=== PATIENT | male | born 1930 | race Caucasian/White ===

== ENCOUNTER 2017-12-20 19:53 | Inpatient (IN) | payer OTHER ==
--- NOTE | 2017-12-20 21:19 | PDOC ---
History of Present Illness <Srinivas Gupta - Last Filed: 12/21/17 00:19> - History of Present Illness Initial Comments: 12/20/17 22:32 "Patient is an 87 year old male with a significant past medical history of HTN, CKD, Anemia, who presents to the ED with complaints of weakness and SOB. As per patient's son, patient began to experience chest pain with associated symptoms of nausea that began x3 days that he reports has since subsided. However, pt has had persistent SOB. Patient's daughter reports patient began to experience general weakness as well as, prompting her to call EMS. As per patient's , patient began to experience symptoms of decreased appetite and decreased urinary output. Pt was recently admitted to [facility] on October 14 for similar symptoms. At that time, pt was found to be in renal failure and started on HD via trialysis catheter. However, upon discharge, pt refused HD, citing his age and desire to be comfortable and not be burdened with HD. Allergies: Social history: Former smoker. Surgical history: Gastrectomy s/p bleeding ulcer, PMD: Dr. Alexys Hay " <Geoffrey Young - Last Filed: 12/21/17 06:22> - General Chief Complaint: Lethargy Stated Complaint: Weakness Time Seen by Provider: 12/20/17 20:02 Past History <Srinivas Gupta - Last Filed: 12/21/17 00:19> - Past Medical History Anemia: Yes Cancer: Yes (h/o prostate) GI Disorders: Yes (h/o bleeding ulcers) HTN: Yes - Surgical History Abdominal Surgery: Yes (80% stomach removed) - Suicide/Smoking/Psychosocial Hx Smoking Status: Yes Smoking History: Former smoker Have you smoked in the past 12 months: No Number of Cigarettes Smoked Daily: 0 If you are a former smoker, when did you quit?: 1991 Hx Alcohol Use: No Drug/Substance Use Hx: No Substance Use Type: None <Geoffrey Young - Last Filed: 12/21/17 06:22> - Past Medical History Allergies/Adverse Reactions: Allergies Allergy/AdvReac Type Severity Reaction Status Date / Time Penicillins Allergy Mild Rash Verified 12/20/17 20:51 Home Medications: Ambulatory Orders Acetaminophen [Tylenol .Regular Strength -] 650 mg PO Q4H PRN #0 tablet Amlodipine Besylate [Norvasc -] 10 mg PO DAILY #30 tablet 03/27/16 Pantoprazole Sodium [Protonix -] 40 mg PO DAILY 12/20/17 Sevelamer HCl [Renagel] 800 mg PO TIDCM 12/20/17 Review of Systems - Review of Systems Comments:: 12/20/17 21:23 "GENERAL/CONSTITUTIONAL: +weakness, No fever or chills. HEAD, EYES, EARS, NOSE AND THROAT: No change in vision. No ear pain or discharge. No sore throat. CARDIOVASCULAR: + chest pain + shortness of breath. RESPIRATORY: No cough, wheezing, or hemoptysis. GASTROINTESTINAL: No nausea, vomiting, diarrhea or constipation. GENITOURINARY: No dysuria, frequency, or change in urination. MUSCULOSKELETAL: No joint or muscle swelling or pain. No neck or back pain. SKIN: No rash NEUROLOGIC: No headache, vertigo, loss of consciousness, or change in strength/ sensation. ENDOCRINE: No increased thirst. No abnormal weight change. HEMATOLOGIC/LYMPHATIC: No anemia, easy bleeding, or history of blood clots. ALLERGIC/IMMUNOLOGIC: No hives or skin allergy. <Geoffrey Young - Last Filed: 12/21/17 06:22> *Physical Exam - Vital Signs Last Vital Signs Temp Pulse Resp BP Pulse Ox 98.4 F 87 24 137/68 92 L 12/20/17 20:26 12/20/17 20:26 12/20/17 20:26 12/20/17 20:26 12/20/17 20:26 <Srinivas Gupta - Last Filed: 12/21/17 00:19> - Physical Exam Comments: 12/20/17 21:21 "GENERAL: Awake, alert, and fully oriented, in mild respiratory distress. HEAD: No signs of trauma EYES: PERRLA, EOMI, sclera anicteric, conjunctiva clear ENT: Auricles normal inspection, hearing grossly normal, nares patent, oropharynx clear without exudates. Moist mucosa NECK: Nontender, no stepoffs, Normal ROM, supple, no lymphadenopathy, JVD, or masses LUNGS: + Bilateral rales HEART: Regular rate and rhythm, normal S1 and S2, no murmurs, rubs or gallops ABDOMEN: Soft, nontender, normoactive bowel sounds. No guarding, no rebound. No masses EXTREMITIES: Normal range of motion, no edema. No clubbing or cyanosis. No cords, erythema, or tenderness NEUROLOGICAL: Cranial nerves II through XII intact. 5/5 strength and sensation in all extremities, Normal speech, normal gait, normal cerebellar function SKIN: Warm, Dry, normal turgor, no rashes or lesions noted. " <Ou,Geoffrey - Last Filed: 12/21/17 06:22> Heart Score/ECG Review - ECG Impressions Comment:: 12/20/17 21:20 NSR, no RENO/STDs, no TWIs, axis wnl, intervals wnl, T waves peaked <Ou,Geoffrey - Last Filed: 12/21/17 06:22> ED Treatment Course - LABORATORY CBC & Chemistry Diagram: 12/20/17 20:15 12/20/17 20:15 - ADDITIONAL ORDERS Additional order review: Laboratory Results 12/20/17 12/20/17 12/20/17 20:15 20:15 20:15 PT with INR INR PTT (Actin FS) VBG pH 6.93 L* POC VBG pCO2 16.9 L* POC VBG pO2 70.2 H Mixed VBG HCO3 3.4 L* Sodium Potassium Chloride Carbon Dioxide Anion Gap BUN Creatinine Creat Clearance w eGFR Random Glucose Lactic Acid 1.1 Calcium Phosphorus 12.6 H* D Magnesium Total Bilirubin AST ALT Alkaline Phosphatase Creatine Kinase Troponin I B-Natriuretic Peptide Total Protein Albumin 12/20/17 12/20/17 12/20/17 20:15 20:15 20:15 PT with INR 13.20 H INR 1.17 H PTT (Actin FS) 35.2 H VBG pH POC VBG pCO2 POC VBG pO2 Mixed VBG HCO3 Sodium 132 L Potassium 6.9 H* D Chloride 105 Carbon Dioxide 4 L D Anion Gap 23 H BUN 164 H* D Creatinine 16.6 H* D Creat Clearance w eGFR 2.77 Random Glucose 119 H Lactic Acid Calcium 6.9 L* Phosphorus Magnesium 2.3 D Total Bilirubin 0.4 D AST 18 ALT 21 D Alkaline Phosphatase 117 D Creatine Kinase 74 Troponin I < 0.02 B-Natriuretic Peptide 10680.14 H Total Protein 7.4 Albumin 3.4 12/20/17 20:15 RBC 2.74 L D MCV 96.7 H MCHC 30.3 L RDW 20.5 H MPV 8.3 Neutrophils % 91.4 H D Lymphocytes % 3.3 L D Monocytes % 4.9 Eosinophils % 0.1 D Basophils % 0.3 <Katelin Guptaew - Last Filed: 12/21/17 00:19> - LABORATORY CBC & Chemistry Diagram: 12/20/17 20:15 12/21/17 00:29 - RADIOLOGY Radiology Studies Ordered: Category Date Time Status CHEST PA & LAT [RAD] Stat Radiology 12/20/17 20:25 Ordered <Geoffrey Young - Last Filed: 12/21/17 06:22> Medical Decision Making - Medical Decision Making 12/20/17 22:08 Called Andrei Reilly @22:07pm. Awaiting Call back. Called Dr. Oneil @23:55pm. Awaiting call back. Called Dr. Oneil @00:21am. Awaiting call back. <Srinivas Gupta - Last Filed: 12/21/17 00:19> - Critical Care Time Total Critical Care Time (minutes): 120 Critical Care Statement: The care of this patient involved high complexity decision making to prevent further life threatening deterioration of the patient 's condition and/or to evaluate & treat vital organ system(s) failure or risk of failure. - Medical Decision Making 12/20/17 21:10 87 M with h/o HTN, CKD presenting with weakness and SOB. Vitals notable for hypoxia, with rales on lung exam. Concerning for volume overload likely 2/2 worsening renal failure. EKG obtained showing peaked T waves. - Labs - CXR, UA I spoke at length with family regarding pt's goals of care. While he is currently on home hospice, he is not DNR/DNI. Family states that pt was of sound mind when he refused HD at [facility]. They believe that it is consistent with his wishes not to have HD. Spoke with Dr. Osorio, who confirmed via [facility] records that pt had refused HD in the past. Pt's prognosis at this time very poor regardless of whether or not HD is initiated. Discussed with family their goals for the pt. They believe that maximizing his comfort at this time is paramount and would not like to start HD. 12/21/17 02:18 Pt admitted to hospitalist <Geoffrey Young - Last Filed: 12/21/17 06:22> *DC/Admit/Observation/Transfer <Srinivas Gupta - Last Filed: 12/21/17 00:19> - Discharge Dispostion Decision to Admit order: Yes - Attestations Physician Attestion: 12/21/17 02:18 I, Dr. Geoffrey Young MD, attest that this document has been prepared under my direction and personally reviewed by me in its entirety. I further attest, that it accurately reflects all work, treatment, procedures and medical decision -making performed by me. <Geoffrey Young - Last Filed: 12/21/17 06:22> Diagnosis at time of Disposition: Acute renal failure - Discharge Dispostion Condition at time of disposition: Critical
[2017-12-20 21:30] LABS: BASO % 0.3 % (0-2.0); EOS % 0.1 % (0-4.5); HEMATOCRIT 26.5 % (35.4-49); LYMPH % 3.3 % (8-40); MCH 29.3 pg (25.7-33.7); MCHC 30.3 g/dl (32.0-35.9); MEAN CELL VOLUME 96.7 fl (80-96); MEAN PLT VOLUME 8.3 fl (7.5-11.1); MONO % 4.9 % (3.8-10.2); NEUT % 91.4 % (42.8-82.8); PLATELET COUNT 193 K/MM3 (134-434); RBC 2.74 M/mm3 (4.00-5.60); RDW 20.5 % (11.9-15.9); VENOUS PC02 16.9 mmHg (38-52); VENOUS PH 6.93 (7.32-7.42); WHITE BLOOD COUNT 9.7 K/mm3 (4.0-10.0)
[2017-12-20 21:31] LABS: VENOUS PO2 70.2 mmHg (28-48)
[2017-12-20 21:43] LABS: INR 1.17 (0.82-1.09); PROTHROMBIN TIME (PATIENT) 13.2 SEC (9.7-13.0)
[2017-12-20 21:45] LABS: ACTIVATED PTT 35.2 SECONDS (26.9-34.4)
[2017-12-20 21:55] LABS: ALBUMIN 3.4 g/dl (3.4-5.0); CHLORIDE 105 mmol/L (98-107); GLUCOSE,RANDOM 119 mg/dL (74-106); MAGNESIUM 2.3 mg/dL (1.8-2.4); SGOT/AST 18 U/L (15-37); SGPT/ALT 21 U/L (12-78); SODIUM 132 mmol/L (136-145)
[2017-12-20 21:56] LABS: ALK PHOS 117 U/L (45-117); BILIRUBIN,TOTAL 0.4 mg/dL (0.2-1.0); TOT PROT 7.4 g/dl (6.4-8.2)
[2017-12-20 21:57] LABS: N-TERMINAL BNP 20558.14 pg/ml (5-450)
[2017-12-20 21:59] LABS: ANION GAP 23 (8-16); CO2 4 mmol/L (21-32)
[2017-12-20 22:00] LABS: BLOOD UREA NITROGEN 164 mg/dL (7-18); CREATININE 16.6 mg/dL (0.7-1.3)
[2017-12-20] MEDS ORDERED: SODIUM BICARBONATE 8.4% 50 MEQ/50 ML DISP.SYRIN IVPUSH ONE ×2 (22:00→22:03)
[2017-12-20 22:01] LABS: CALCIUM 6.9 mg/dL (8.5-10.1); POTASSIUM 6.9 mmol/L (3.5-5.1)
[2017-12-20] MEDS ORDERED: CALCIUM GLUCONATE 10% - 1,000 MG/10 ML VIAL IVPB ONE (22:01)
[2017-12-20] MEDS ORDERED: INSULIN REGULAR HUMAN 100 UNITS/ML *VIAL IVPUSH ONE (22:02)
[2017-12-20] MEDS ORDERED: DEXTROSE 50%-WATER - 25 GM/50 ML VIAL IVPUSH ONE ×2 (22:03)
[2017-12-20] MEDS ORDERED: SODIUM POLYSTYRENE SULFONATE 15 GM/60 ML BOTTLE PO ONE (22:04)
[2017-12-20] MEDS ORDERED: FUROSEMIDE 40 MG/4 ML INJECTABLE VIAL IVPUSH ONE (22:04)
[2017-12-20 22:09] LABS: ANISOCYTOSIS 1+; PLATELET ESTIMATE ADEQUATE
[2017-12-20] MEDS ORDERED: SODIUM BICARBONATE 8.4% - 100 ML ONE (22:17)
[2017-12-20] MEDS ORDERED: DEXTROSE 50%-WATER 25 GM/50 ML DISP.SYRIN ONE ×2 (22:17→22:27)
[2017-12-20] MEDS ORDERED: FUROSEMIDE 40 MG/4 ML INJECTABLE VIAL ONE (22:18)
[2017-12-20] MEDS ORDERED: INSULIN REGULAR HUMAN 100 UNITS/ML *VIAL ONE (22:18)
[2017-12-20] MEDS ORDERED: CALCIUM GLUCONATE IVPB ONE (22:30)
[2017-12-20] MEDS ORDERED: CALCIUM GLUCONATE 10% - 1,000 MG in SODIUM CHLORIDE 100 ML IVPB ONE (22:30)
[2017-12-20] MEDS ORDERED: SODIUM CHLORIDE IVPB ONE (22:30)
[2017-12-20] MEDS ORDERED: ACETAMINOPHEN INJECTION 100 ML IVPB ONE (22:46)
[2017-12-20] MEDS ORDERED: SODIUM POLYSTYRENE SULFONATE 15 GM/60 ML BOTTLE ONE (22:55)
[2017-12-21 00:34] LABS: VENOUS PO2 83.7 mmHg (28-48)
[2017-12-21 00:35] LABS: VENOUS PC02 16.5 mmHg (38-52); VENOUS PH 7.03 (7.32-7.42)
[2017-12-21 01:00] LABS: ALBUMIN 3.3 g/dl (3.4-5.0); ALK PHOS 116 U/L (45-117); BILIRUBIN,TOTAL 0.4 mg/dL (0.2-1.0); CALCIUM 7.3 mg/dL (8.5-10.1); CHLORIDE 106 mmol/L (98-107); GLUCOSE,RANDOM 146 mg/dL (74-106); POTASSIUM 5.3 mmol/L (3.5-5.1); SGOT/AST 27 U/L (15-37); SGPT/ALT 24 U/L (12-78); SODIUM 139 mmol/L (136-145); TOT PROT 7.1 g/dl (6.4-8.2)
[2017-12-21 01:04] LABS: ANION GAP 28 (8-16); CO2 5 mmol/L (21-32)
[2017-12-21 01:05] LABS: BLOOD UREA NITROGEN 154 mg/dL (7-18); CREATININE 16.2 mg/dL (0.7-1.3)
--- NOTE | 2017-12-21 04:51 | PN ---
Teaching Attending Note Name of Resident: Dayne Cr ATTENDING PHYSICIAN STATEMENT I saw and evaluated the patient. I reviewed the resident's note and discussed the case with the resident. I agree with the resident's findings and plan as documented. SUBJECTIVE: Patient is an 87 year old man with ESRD on Home Hospice care brought by the family for worsening shortness of breath. Has a significant past medical history of HTN, and Anemia and had requested for hemodialysis to be stopped before opting for Hospice. Got a dose of lasix (40 mg) and also treated for severe hyperkalemia in the ER. OBJECTIVE: Alert and in no acute distress on [place] oxygen. Vital Signs Period Temp Pulse Resp BP Sys/Gibson Pulse Ox Last 24 Hr 98.4 F 84-98 24-28 130-137/60-68 92-94 HEENT: No Jaundice, eye redness or discharge, PERRLA, EOMI. Normocephalic, atraumatic. External ears are normal and hearing is grossly intact. No nasal discharge. Neck: Supple, nontender. No palpable adenopathy or thyromegaly. No JVD Chest: Good effort. Clear to auscultation and percussion. Heart: Regular. No S3, possible rub and 3/6 systolic murmur Abdomen: Not distended, soft, nontender and no HSM. No rebound or guarding. Normoactive bowel sounds. Ext: Peripheral pulses intact. No leg edema. Skin: Warm and dry. No petechiae, rash or ecchymosis. Neuro: Alert. Oriented to person and place. CN 2-12 grossly intact. No asterixis. Sensation grossly intact in all four extremities and DTR are symmetric. Current Medications Generic Name Dose Route Start Last Admin Trade Name Freq PRN Reason Stop Dose Admin Chlorhexidine Gluconate 1 applic 12/21/17 22:00 Hibiclens For Decolonization - TP HS [facility] Heparin Sodium (Porcine) 5,000 unit 12/21/17 06:00 Heparin - SQ TID [facility] Mupirocin 1 applic 12/21/17 10:00 Bactroban Ointment (For Decolonization) - NS 12/26/17 09:59 BID [facility] Home Medications Medication Instructions Recorded Acetaminophen [Tylenol .Regular 650 mg PO Q4H PRN #0 tablet 03/27/16 Strength -] Amlodipine Besylate [Norvasc -] 10 mg PO DAILY #30 tablet 03/27/16 Pantoprazole Sodium [Protonix -] 40 mg PO DAILY 12/20/17 Sevelamer HCl [Renagel] 800 mg PO TIDCM 12/20/17 Abnormal Lab Results 12/20/17 12/20/17 12/20/17 20:15 20:15 20:15 RBC 2.74 L D Hgb 8.0 L D Hct 26.5 L D MCV 96.7 H MCHC 30.3 L RDW 20.5 H Neutrophils % 91.4 H D Neutrophils % (Manual) 90.0 H Lymphocytes % 3.3 L D Lymphocytes % (Manual) 4.0 L Nucleated RBC % 1 H PT with INR INR PTT (Actin FS) VBG pH POC VBG pCO2 POC VBG pO2 Mixed VBG HCO3 Sodium 132 L Potassium 6.9 H* D Carbon Dioxide 4 L D Anion Gap 23 H BUN 164 H* D Creatinine 16.6 H* D Random Glucose 119 H Calcium 6.9 L* Phosphorus B-Natriuretic Peptide 28058.14 H Albumin 12/20/17 12/20/17 12/20/17 20:15 20:15 20:15 RBC Hgb Hct MCV MCHC RDW Neutrophils % Neutrophils % (Manual) Lymphocytes % Lymphocytes % (Manual) Nucleated RBC % PT with INR 13.20 H INR 1.17 H PTT (Actin FS) 35.2 H VBG pH 6.93 L* POC VBG pCO2 16.9 L* POC VBG pO2 70.2 H Mixed VBG HCO3 3.4 L* Sodium Potassium Carbon Dioxide Anion Gap BUN Creatinine Random Glucose Calcium Phosphorus 12.6 H* D B-Natriuretic Peptide Albumin 12/21/17 12/21/17 00:29 00:29 RBC Hgb Hct MCV MCHC RDW Neutrophils % Neutrophils % (Manual) Lymphocytes % Lymphocytes % (Manual) Nucleated RBC % PT with INR INR PTT (Actin FS) VBG pH 7.03 L* POC VBG pCO2 16.5 L* POC VBG pO2 83.7 H Mixed VBG HCO3 4.1 L* Sodium Potassium 5.3 H D Carbon Dioxide 5 L D Anion Gap 28 H BUN 154 H* Creatinine 16.2 H* Random Glucose 146 H D Calcium 7.3 L Phosphorus B-Natriuretic Peptide Albumin 3.3 L ASSESSMENT AND PLAN: 1. ESRD - Patient on home hospice and not a candidate for dialysis. No florid evidence of fluid overload, thus pericardial effusion, metabolic acidosis and/ or PE are the other potential culprits. Will give 160 mg of lasix IV. Get Palliative care consult and then based on discussion with patient and family decide need for ECHO as well as any other investigations. Make patient comfortable, painfree and consider morphine therapy as generic therapy for respiratory discomfort for a Hospice patient. Decide need for any further blood tests after evaluation by palliative care. Got acute treatment for hyperkalemia. Consult nephrology. 2. DVT prophylaxis - Heparin 5000u sq tid 3. Advance directives - Unknow whether he signed DNR instructions. Will clarify with family. Full code until family brings paper work.
[2017-12-21] MEDS ORDERED: HEPARIN NA (PORCINE) 5,000 UNITS/ML 1ML VIAL ONE (05:35)
[2017-12-21] MEDS: HEPARIN NA (PORCINE) 5,000 UNITS/ML 1ML VIAL SQ SCH ×3 (05:43→23:00)
[2017-12-21] MEDS ORDERED: FUROSEMIDE 40 MG/4 ML INJECTABLE VIAL IVPUSH ONE (05:43)
--- NOTE | 2017-12-21 05:43 | HP ---
CHIEF COMPLAINT: SOB PCP: Dr. Hay HISTORY OF PRESENT ILLNESS: 87 yr old man with HTN, renal failure brought in by family for shortness of breath at home. Says he had been feeling short of breath all day and was brought into the day. Feels better now than when he first arrived. Pt only able to provide limited hx, chart reviewed for further information. Pt was on home hospice. family discussed with ED physician that pt had declined hemodialysis and currently pt is not DNR/DNI and family accepts medical management of current condition. ED course: mireles placed, 40mg IVpush of lasix, d50w+ca gluc+alb tx for hyperkalemia PAST MEDICAL HISTORY: HTN, renal failure prostate cancer, hx of bleeding gastric ulcers PAST SURGICAL HISTORY: 80% of stomach removed, Social History: Smoking: former Alcohol: none Drugs: none Family History:[place] Allergies Penicillins Allergy (Mild, Verified 12/20/17 20:51) Rash HOME MEDICATIONS: Home Medications Medication Instructions Recorded Acetaminophen [Tylenol .Regular 650 mg PO Q4H PRN #0 tablet 03/27/16 Strength -] Amlodipine Besylate [Norvasc -] 10 mg PO DAILY #30 tablet 03/27/16 Pantoprazole Sodium [Protonix -] 40 mg PO DAILY 12/20/17 Sevelamer HCl [Renagel] 800 mg PO TIDCM 12/20/17 REVIEW OF SYSTEMS RESPIRATORY: Present:shortness of breath, Absent: cough, dyspnea with exertion, orthopnea, wheezing GASTROINTESTINAL: Absent: abdominal pain, abdominal distension, PHYSICAL EXAMINATION Vital Signs - 24 hr 12/20/17 12/20/17 12/20/17 20:26 20:46 23:05 Temperature 98.4 F Pulse Rate 87 Pulse Rate [ 98 H Apical] Respiratory 24 28 H Rate Blood Pressure 137/68 Blood Pressure 130/67 [Right Arm] O2 Sat by Pulse 92 L 94 L 92 L Oximetry (%) 12/21/17 00:39 Temperature Pulse Rate Pulse Rate [ 84 Apical] Respiratory 28 H Rate Blood Pressure Blood Pressure 135/60 [Right Arm] O2 Sat by Pulse 93 L Oximetry (%) GENERAL: Awake, alert, and fully oriented, in no acute distress. cachectic HEAD: Normal with no signs of trauma. EYES: Pupils equal, round and reactive to light, extraocular movements intact, sclera anicteric, conjunctiva clear. No lid lag. EARS, NOSE, THROAT: oropharynx clear without exudates. Moist mucous membranes. NECK: Normal range of motion, supple without lymphadenopathy, JVD, or masses. LUNGS: Breath sounds equal, clear to auscultation bilaterally. No wheezes, and no crackles. No accessory muscle use. HEART: Regular rate and rhythm, normal S1 and S2 +systolic murmur radiating to left axilla, no rub or gallop. ABDOMEN: Soft, nontender, not distended, normoactive bowel sounds, no guarding, no rebound, no masses. MUSCULOSKELETAL: No bony deformities or tenderness. No CVA tenderness. UPPER EXTREMITIES: 2+ radial pulses, warm, well-perfused. No cyanosis. No clubbing. No peripheral edema. LOWER EXTREMITIES: 2+ dp pulses, warm, well-perfused. No calf tenderness. No peripheral edema. NEUROLOGICAL: Normal speech. facial symmetry SKIN: Warm, dry, normal turgor, no rashes or lesions noted, normal capillary refill. Laboratory Results - last 24 hr 12/20/17 12/20/17 12/20/17 20:15 20:15 20:15 WBC 9.7 D RBC 2.74 L D Hgb 8.0 L D Hct 26.5 L D MCV 96.7 H MCH 29.3 D MCHC 30.3 L RDW 20.5 H Plt Count 193 D MPV 8.3 Neutrophils % 91.4 H D Neutrophils % (Manual) 90.0 H Band Neutrophils % 2.0 Lymphocytes % 3.3 L D Lymphocytes % (Manual) 4.0 L Monocytes % 4.9 Monocytes % (Manual) 4 Eosinophils % 0.1 D Eosinophils % (Manual) 0.0 Basophils % 0.3 Basophils % (Manual) 0.0 Nucleated RBC % 1 H Hypochromia 1+ Platelet Estimate Adequate Anisocytosis 1+ PT with INR INR PTT (Actin FS) VBG pH POC VBG pCO2 POC VBG pO2 Mixed VBG HCO3 Sodium 132 L Potassium 6.9 H* D Chloride 105 Carbon Dioxide 4 L D Anion Gap 23 H BUN 164 H* D Creatinine 16.6 H* D Creat Clearance w eGFR 2.77 Random Glucose 119 H Lactic Acid Calcium 6.9 L* Phosphorus Magnesium 2.3 D Total Bilirubin 0.4 D AST 18 ALT 21 D Alkaline Phosphatase 117 D Creatine Kinase 74 Troponin I < 0.02 B-Natriuretic Peptide 12201.14 H Total Protein 7.4 Albumin 3.4 12/20/17 12/20/17 12/20/17 20:15 20:15 20:15 WBC RBC Hgb Hct MCV MCH MCHC RDW Plt Count MPV Neutrophils % Neutrophils % (Manual) Band Neutrophils % Lymphocytes % Lymphocytes % (Manual) Monocytes % Monocytes % (Manual) Eosinophils % Eosinophils % (Manual) Basophils % Basophils % (Manual) Nucleated RBC % Hypochromia Platelet Estimate Anisocytosis PT with INR 13.20 H INR 1.17 H PTT (Actin FS) 35.2 H VBG pH 6.93 L* POC VBG pCO2 16.9 L* POC VBG pO2 70.2 H Mixed VBG HCO3 3.4 L* Sodium Potassium Chloride Carbon Dioxide Anion Gap BUN Creatinine Creat Clearance w eGFR Random Glucose Lactic Acid Calcium Phosphorus 12.6 H* D Magnesium Total Bilirubin AST ALT Alkaline Phosphatase Creatine Kinase Troponin I B-Natriuretic Peptide Total Protein Albumin 12/20/17 12/21/17 12/21/17 20:15 00:29 00:29 WBC RBC Hgb Hct MCV MCH MCHC RDW Plt Count MPV Neutrophils % Neutrophils % (Manual) Band Neutrophils % Lymphocytes % Lymphocytes % (Manual) Monocytes % Monocytes % (Manual) Eosinophils % Eosinophils % (Manual) Basophils % Basophils % (Manual) Nucleated RBC % Hypochromia Platelet Estimate Anisocytosis PT with INR INR PTT (Actin FS) VBG pH 7.03 L* POC VBG pCO2 16.5 L* POC VBG pO2 83.7 H Mixed VBG HCO3 4.1 L* Sodium 139 Potassium 5.3 H D Chloride 106 Carbon Dioxide 5 L D Anion Gap 28 H BUN 154 H* Creatinine 16.2 H* Creat Clearance w eGFR 2.85 Random Glucose 146 H D Lactic Acid 1.1 Calcium 7.3 L Phosphorus Magnesium Total Bilirubin 0.4 AST 27 D ALT 24 Alkaline Phosphatase 116 Creatine Kinase Troponin I B-Natriuretic Peptide Total Protein 7.1 Albumin 3.3 L ASSESSMENT/PLAN: 87 yr old man with HTN, renal failure brought in by family due to shortness of breath. #SOB of unclear etiology, ddx includes PE, pericardial effusion, acidosis from renal failure. pt has declined HD, family agrees, medical manage renal failure with lasix - give lasix ivpush 160mg, pt given 40mg in the ED - I&O, daily weights, mireles in place - pt has been accepted for ICU admission - palliative consult placed to clarify GOC and further investigations and interventions with family, including further blood draws, medications, echo, CT as indicated in regards to pt's symptoms - continue kaylan morrison #DVT prophylaxis: hep TID #diet: regular, as tolerated Visit type - Emergency Visit Emergency Visit: Yes ED Registration Date: 12/21/17 Care time: The patient presented to the Emergency Department on the above date and was hospitalized for further evaluation of their emergent condition. - New Patient This patient is new to me today: Yes Date on this admission: 12/21/17 - Critical Care Critical Care patient: Yes Total Critical Care Time (in minutes): 37 Critical Care Statement: The care of this patient involved high complexity decision making to prevent further life threatening deterioration of the patient 's condition and/or to evaluate & treat vital organ system(s) failure or risk of failure. Hospitalist Screening - Colonoscopy Questionnaire Colonoscopy Questionnaire: Colonoscopy Questionnaire - Patient: 50 - 75 years old and never had a screening colonoscopy: Unknown History of colon or rectal polyps, or CA: Unknown History of IBD, Crohn's disease or UC: Unknown History of abdominal radiation therapy as a child: Unknown - Relative: 1 with colon or rectal CA, or polyps at age 60 or younger: Unknown Colon or rectal CA diagnosed at age 45 or younger: Unknown Multiple relatives with colon or rectal CA: Unknown - Outcome: Screening Result: Negative Screen
[2017-12-21 05:56] LABS: URINE APPEARANCE CLOUDY; URINE BILIRUBIN NEGATIVE (<2.0 mg/dL); URINE COLOR YELLOW; URINE GLUCOSE (UA) 1+ (NEGATIVE); URINE KETONE TRACE (NEGATIVE); URINE LEUK ESTERASE TRACE (NEGATIVE); URINE NITRITE NEGATIVE (NEGATIVE); URINE UROBILINOGEN NEGATIVE mg/dL (0.2-1.0)
[2017-12-21 06:00] LABS: URINE PROTEIN 3+ (NEGATIVE)
[2017-12-21] MEDS ORDERED: FUROSEMIDE 40 MG/4 ML INJECTABLE VIAL ONE (06:01)
[2017-12-21 06:04] LABS: EPI CELLS FEW /HPF (FEW); URINE BACTERIA MANY /hpf (NONE SEEN); URINE MUCUS RARE
[2017-12-21 06:18] LABS: BASO % 0.5 % (0-2.0); HEMATOCRIT 21.6 % (35.4-49); MCH 29.5 pg (25.7-33.7); MCHC 32.2 g/dl (32.0-35.9); MEAN CELL VOLUME 91.7 fl (80-96); MEAN PLT VOLUME 7.6 fl (7.5-11.1); MONO % 6.8 % (3.8-10.2); NEUT % 84.7 % (42.8-82.8); PLATELET COUNT 149 K/MM3 (134-434); RBC 2.36 M/mm3 (4.00-5.60); RDW 19.6 % (11.9-15.9); WHITE BLOOD COUNT 8.1 K/mm3 (4.0-10.0)
[2017-12-21 06:48] LABS: CALCIUM 7.1 mg/dL (8.5-10.1); CHLORIDE 107 mmol/L (98-107); POTASSIUM 5.3 mmol/L (3.5-5.1); SODIUM 138 mmol/L (136-145)
[2017-12-21 06:53] LABS: ALBUMIN 3.1 g/dl (3.4-5.0); ALK PHOS 105 U/L (45-117); BILIRUBIN,TOTAL 0.4 mg/dL (0.2-1.0); GLUCOSE,RANDOM 81 mg/dL (74-106); MAGNESIUM 2.1 mg/dL (1.8-2.4); SGOT/AST 25 U/L (15-37); SGPT/ALT 22 U/L (12-78); TOT PROT 6.5 g/dl (6.4-8.2)
[2017-12-21 07:02] LABS: ANION GAP 26 (8-16); CO2 5 mmol/L (21-32)
[2017-12-21 07:03] LABS: CREATININE 16.1 mg/dL (0.7-1.3)
[2017-12-21 09:14] LABS: BLOOD UREA NITROGEN 156 mg/dL (7-18); PHOSPHOROUS 12.2 mg/dL (2.5-4.9)
--- NOTE | 2017-12-21 10:12 | EKG ---
Test Reason : Blood Pressure : / mmHG Vent. Rate : 070 BPM Atrial Rate : 070 BPM P-R Int : 192 ms QRS Dur : 104 ms QT Int : 434 ms P-R-T Axes : 079 059 071 degrees QTc Int : 468 ms NORMAL SINUS RHYTHM SEPTAL INFARCT , AGE UNDETERMINED WHEN COMPARED WITH ECG OF 24-MAR-2016 14:28, PREMATURE VENTRICULAR COMPLEXES ARE NO LONGER PRESENT QRS DURATION HAS INCREASED Confirmed by AIDAN ALVAREZ, SHAHID ([id number]) on 12/21/2017 10:12:24 AM Referred By: Confirmed By:SHAHID BERMUDEZ MD
[2017-12-21] MEDS ORDERED: ACETAMINOPHEN 325 MG TABLET (FP) ONE (11:28)
[2017-12-21] MEDS: SEVELAMER CARBONATE 800 MG TAB (FP) PO SCH ×2 (11:29→12:21)
[2017-12-21] MEDS ORDERED: PANTOPRAZOLE 40 MG TABLET (FP) ONE (11:29)
[2017-12-21] MEDS: ACETAMINOPHEN 325 MG TABLET (FP) PO PRN (11:30)
[2017-12-21] MEDS: amLODIPine BESYLATE 10 MG TABLET (FP) PO SCH (11:30)
[2017-12-21] MEDS: PANTOPRAZOLE 40 MG TABLET (FP) PO SCH (11:30)
[2017-12-21] MEDS ORDERED: DEXTROSE 5%-WATER - 1,000 ML with SODIUM BICARBONATE 8.4% - 150 MEQ IV SCH ×3 (12:45→23:15)
[2017-12-21] MEDS ORDERED: SODIUM BICARBONATE 8.4% - 150 ML ONE (13:01)
--- NOTE | 2017-12-21 13:12 | CONSULT ---
Consult - text type - Consultation Consultation Note: Renal Consult for HESHAM on CKD This is a 87 year gentleman with PMhx of advanced CKD, Hypertension who presented with complaints of Nausea and weakness as per the family found to have BUN/Cr of 164/16 and K of 6.9. Pt was seen by our service last march and at that time made it clear that he did nto want to pursue dialysis. He was recently admitted to [facility] during which time he had acute dialysis for multple electrolyte abnormalities and at the end of the hospital stay he declined any further dialysis was was discharged to home hospice. He denies using any NSAIDs at home. Reports making urine, denies any dysuria or flank pain. He does reports having some Nausea at time and poor appetite. In the ED pt treated with IV Lasix, IV Calcium Gluconate, Kayexlate, Insulin/D50. PMhx: as above Allergies: PCN ROS: as per HPI Family Hx: NC Social Hx: No T/A/D Home Medications Medication Instructions Recorded Acetaminophen [Tylenol .Regular 650 mg PO Q4H PRN #0 tablet 03/27/16 Strength -] Amlodipine Besylate [Norvasc -] 10 mg PO DAILY #30 tablet 03/27/16 Pantoprazole Sodium [Protonix -] 40 mg PO DAILY 12/20/17 Sevelamer HCl [Renagel] 800 mg PO TIDCM 12/20/17 Vital Signs Temperature 98 F 12/21/17 09:14 Pulse Rate 75 12/21/17 11:00 Respiratory Rate 22 12/21/17 11:00 Blood Pressure 128/56 12/21/17 11:00 O2 Sat by Pulse Oximetry (%) 95 12/21/17 09:14 NAD, awake and alert Oriented x 3 No JVD, Neck supple RRR, No M/R CTA (anterior examination) soft NT/ND no bladder distension No LE edema, clubbing or cyanosis + Mild asteixis CBC, BMP 12/21/17 06:00 12/21/17 06:00 Current Medications Acetaminophen (Tylenol -) 650 mg PO Q4H PRN PRN Reason: FEVER Last Admin: 12/21/17 11:30 Dose: 650 mg Amlodipine Besylate (Norvasc -) 10 mg PO DAILY [facility] Last Admin: 12/21/17 11:30 Dose: 10 mg Calcium Acetate (Phoslo -) 1,334 mg PO TIDCM [facility] Chlorhexidine Gluconate (Hibiclens For Decolonization -) 1 applic TP HS [facility] Heparin Sodium (Porcine) (Heparin -) 5,000 unit SQ TID [facility] Last Admin: 12/21/17 05:43 Dose: 5,000 unit Sodium Bicarbonate 150 meq/ (Dextrose) 1,150 mls @ 100 mls/hr IV .Q10H [facility] Mupirocin (Bactroban Ointment (For Decolonization) -) 1 applic NS BID [facility] Stop: 12/26/17 09:59 Pantoprazole Sodium (Protonix -) 40 mg PO DAILY [facility] Last Admin: 12/21/17 11:30 Dose: 40 mg Sevelamer Carbonate (Renvela -) 800 mg PO TIDCM [facility] Last Admin: 12/21/17 12:21 Dose: Not Given 87 year gentleman with PMhx of advanced CKD, Hypertension who presented with complaints of Nausea and weakness as per the family found to have BUN/Cr of 164/ 16 and K of 6.9. #Acute on Chronic Renal Failure with Uremai #Anion gap metabolic acidosis #Hyperkalemia #Uremia #Acute on Chronic Anemia Discussed pts current state and dialysis as a option with the patient and family Pt says that he would not want to start dialysis, it was explained to him that he would likely get sicker and could pass away if he renal function does not improve. He expressed understanding. This was explained to the family as well. Will attempt to mange the HESHAM medically. Start pt on Bicarb gtt at 100cc per hour Low K diet Check US to r/o hydronephrosis (pt with one atrophic kidney so important to ensure no obstruction on contralateral side) Check iron profile, no acute indication for transfusion DNR/DNI to be discussed with the family prognosis is grave repeat BMP this evening Thank you Will follow Andrei Osorio DO
--- NOTE | 2017-12-21 13:20 | PN ---
Progress Note (short form) - Note Progress Note: patient seen and examined in the emergency room Coverage for Dr. Gamez Chart reviewed Patient awake/weak Nephrology consult noted and discussed Previous visit note also reviewed Patient refusing dialysis Currently on home hospice--- Vital Signs Temp 98 F 12/21/17 09:14 Pulse 75 12/21/17 11:00 Resp 22 12/21/17 11:00 BP 128/56 12/21/17 11:00 Pulse Ox 95 12/21/17 09:14 Intake & Output 12/20/17 12/21/17 12/21/17 23:59 11:59 23:59 Intake Total 1000 Output Total 10 Balance 990 Weight 110 lb 3.698 oz 120 lb Intake: IV 1000 1 Liter 1000 Output: Urine 10 Lynn 10 Other: Voiding Method Indwelling Catheter Bowel Movement Yes Height 5 ft 6 in 5 ft 7 in Body Mass Index (BMI) 17.8 18.8 Weight Measurement Method Stated by Patient CBC, BMP 12/21/17 06:00 12/21/17 06:00 Abnormal Lab Results 12/20/17 12/20/17 12/20/17 20:15 20:15 20:15 RBC 2.74 L D Hgb 8.0 L D Hct 26.5 L D MCV 96.7 H MCHC 30.3 L RDW 20.5 H Neutrophils % 91.4 H D Neutrophils % (Manual) 90.0 H Lymphocytes % 3.3 L D Lymphocytes % (Manual) 4.0 L Nucleated RBC % 1 H PT with INR INR PTT (Actin FS) VBG pH POC VBG pCO2 POC VBG pO2 Mixed VBG HCO3 Sodium 132 L Potassium 6.9 H* D Carbon Dioxide 4 L D Anion Gap 23 H BUN 164 H* D Creatinine 16.6 H* D Random Glucose 119 H Calcium 6.9 L* Phosphorus B-Natriuretic Peptide 30617.14 H Albumin Urine Protein Urine Glucose (UA) Urine Ketones Urine Blood 12/20/17 12/20/17 12/20/17 20:15 20:15 20:15 RBC Hgb Hct MCV MCHC RDW Neutrophils % Neutrophils % (Manual) Lymphocytes % Lymphocytes % (Manual) Nucleated RBC % PT with INR 13.20 H INR 1.17 H PTT (Actin FS) 35.2 H VBG pH 6.93 L* POC VBG pCO2 16.9 L* POC VBG pO2 70.2 H Mixed VBG HCO3 3.4 L* Sodium Potassium Carbon Dioxide Anion Gap BUN Creatinine Random Glucose Calcium Phosphorus 12.6 H* D B-Natriuretic Peptide Albumin Urine Protein Urine Glucose (UA) Urine Ketones Urine Blood 12/21/17 12/21/17 12/21/17 00:29 00:29 05:15 RBC Hgb Hct MCV MCHC RDW Neutrophils % Neutrophils % (Manual) Lymphocytes % Lymphocytes % (Manual) Nucleated RBC % PT with INR INR PTT (Actin FS) VBG pH 7.03 L* POC VBG pCO2 16.5 L* POC VBG pO2 83.7 H Mixed VBG HCO3 4.1 L* Sodium Potassium 5.3 H D Carbon Dioxide 5 L D Anion Gap 28 H BUN 154 H* Creatinine 16.2 H* Random Glucose 146 H D Calcium 7.3 L Phosphorus B-Natriuretic Peptide Albumin 3.3 L Urine Protein 3+ H Urine Glucose (UA) 1+ H Urine Ketones Trace H Urine Blood 2+ H 12/21/17 12/21/17 06:00 06:00 RBC 2.36 L Hgb 7.0 L D Hct 21.6 L D MCV MCHC RDW 19.6 H Neutrophils % 84.7 H Neutrophils % (Manual) Lymphocytes % Lymphocytes % (Manual) Nucleated RBC % 1 H PT with INR INR PTT (Actin FS) VBG pH POC VBG pCO2 POC VBG pO2 Mixed VBG HCO3 Sodium Potassium 5.3 H Carbon Dioxide 5 L Anion Gap 26 H BUN 156 H* Creatinine 16.1 H* Random Glucose Calcium 7.1 L Phosphorus 12.2 H* B-Natriuretic Peptide Albumin 3.1 L Urine Protein Urine Glucose (UA) Urine Ketones Urine Blood Physical exam Awake/week Lungs--diminished CVS--heart sounds regular Neck--supple abdomen-Soft Extremities--No edema Neuro--awake Assessment and plan patient with severe metabolic acidosis and acute on chronic renal failure Conservative treatment DNR/DNI to be addressed--Will discuss with family Discussed with patient's private PMD also Palliate team overall prognosis grave Will follow Problem List - Problems (1) Electrolyte imbalance Code(s): E87.8 - OTH DISORDERS OF ELECTROLYTE AND FLUID BALANCE, NEC (2) Metabolic acidosis Code(s): E87.2 - ACIDOSIS (3) Acute renal failure Code(s): N17.9 - ACUTE KIDNEY FAILURE, UNSPECIFIED (4) Anemia Code(s): D64.9 - ANEMIA, UNSPECIFIED
[2017-12-21 18:53] LABS: ANION GAP 23 (8-16); CHLORIDE 104 mmol/L (98-107); CO2 10 mmol/L (21-32); GLUCOSE,RANDOM 185 mg/dL (74-106); POTASSIUM 4.7 mmol/L (3.5-5.1); SODIUM 137 mmol/L (136-145)
[2017-12-21 18:54] LABS: BLOOD UREA NITROGEN 158 mg/dL (7-18)
[2017-12-21 18:55] LABS: CALCIUM 6.5 mg/dL (8.5-10.1); CREATININE 15.9 mg/dL (0.7-1.3)
--- NOTE | 2017-12-21 21:40 | HP ---
Admitting History and Physical - Primary Care Physician PCP: Dr Maricel Cazares - Admission Chief Complaint: AMS/ Nausea/weakness History of Present Illness: 87 year gentleman with PMhx of advanced CKD, Hypertension who presented with complaints of Nausea and weakness as per the family found to have BUN/Cr of 164/ 16 and K of 6.9. Pt was seen by our service last march and at that time made it clear that he did nto want to pursue dialysis. He was recently admitted to [facility] during which time he had acute dialysis for multple electrolyte abnormalities and at the end of the hospital stay he declined any further dialysis was was discharged to home hospice. He denies using any NSAIDs at home. Reports making urine, denies any dysuria or flank pain. He does reports having some Nausea at time and poor appetite. In the ED pt treated with IV Lasix , IV Calcium Gluconate, Kayexlate, Insulin/D50 History Source: Patient, Family Member Limitations to Obtaining History: Poor Historian - Past Medical History Cardiovascular: Yes: HTN Renal/: Yes: Renal Inusuff Heme/Onc: Yes: Anemia - Smoking History Smoking history: Former smoker Have you smoked in the past 12 months: No Aproximately how many cigarettes per day: 0 If you are a former smoker, when did you quit?: 1991 - Alcohol/Substance Use Hx Alcohol Use: No Home Medications - Allergies Allergies/Adverse Reactions: Allergies Allergy/AdvReac Type Severity Reaction Status Date / Time Penicillins Allergy Mild Rash Verified 12/20/17 20:51 - Home Medications Home Medications: Ambulatory Orders Acetaminophen [Tylenol .Regular Strength -] 650 mg PO Q4H PRN #0 tablet Amlodipine Besylate [Norvasc -] 10 mg PO DAILY #30 tablet 03/27/16 Pantoprazole Sodium [Protonix -] 40 mg PO DAILY 12/20/17 Sevelamer HCl [Renagel] 800 mg PO TIDCM 12/20/17 Physical Examination Vital Signs: Vital Signs Temperature 98 F 12/21/17 09:14 Pulse Rate 72 12/21/17 13:00 Respiratory Rate 18 12/21/17 13:00 Blood Pressure 115/57 12/21/17 13:00 O2 Sat by Pulse Oximetry (%) 95 12/21/17 09:14 Labs: CBC, BMP 12/21/17 06:00 12/21/17 17:40 Problem List - Problems (1) Metabolic acidosis Code(s): E87.2 - ACIDOSIS (2) Anemia Code(s): D64.9 - ANEMIA, UNSPECIFIED (3) Acute renal failure Code(s): N17.9 - ACUTE KIDNEY FAILURE, UNSPECIFIED (4) Afib Code(s): I48.91 - UNSPECIFIED ATRIAL FIBRILLATION (5) HTN (hypertension) Code(s): I10 - ESSENTIAL (PRIMARY) HYPERTENSION (6) CAD (coronary artery disease) Code(s): I25.10 - ATHSCL HEART DISEASE OF [place] CORONARY ARTERY W/O ANG PCTRS (7) Respiratory failure Code(s): J96.90 - RESPIRATORY FAILURE, UNSP, UNSP W HYPOXIA OR HYPERCAPNIA Assessment/Plan (1) Metabolic acidosis scondary to ARF/CRFF Code(s): E87.2 - ACIDOSIS (2) Anemia Code(s): D64.9 - ANEMIA, UNSPECIFIED Transfuse 2 units during HD (3) Acute renal failure Code(s): N17.9 - ACUTE KIDNEY FAILURE, UNSPECIFIED Pt is very noncomplaint with Fu and Reluctant to do any thing (4) Afib New onset Code(s): I48.91 - UNSPECIFIED ATRIAL FIBRILLATION Related to ARF/ Electrolyte Imbalence Metoprolol 12.5 PO BID Digoxin 0.25 In view of dialysis to maintain better BP we will use small doses of B blokers/ Digoxin (5) HTN (hypertension) Stable Code(s): I10 - ESSENTIAL (PRIMARY) HYPERTENSION (6) CAD (coronary artery disease) Code(s): I25.10 - ATHSCL HEART DISEASE OF [place] CORONARY ARTERY W/O ANG PCTRS (7) Respiratory failure H/O Intubation/Extubation at [facility] Code(s): J96.90 - RESPIRATORY FAILURE, UNSP, UNSP W HYPOXIA OR HYPERCAPNIA
[2017-12-21] MEDS ORDERED: SODIUM BICARBONATE 650 MG TABLET PO SCH (22:00)
--- NOTE | 2017-12-21 22:36 | PN ---
Progress Note, Physician History of Present Illness: Had a family meeting with Akos[place] Daughter angélica [phone] son Andrade [phone] Pt family and Pt wanted HD and Pt is not DNR we will Discuss with Dr Osorio Nephrology/ Left a message - Current Medication List Current Medications: Active Medications Acetaminophen (Tylenol -) 650 mg PO Q4H PRN PRN Reason: FEVER Last Admin: 12/21/17 11:30 Dose: 650 mg Amlodipine Besylate (Norvasc -) 10 mg PO DAILY [facility] Last Admin: 12/21/17 11:30 Dose: 10 mg Calcium Acetate (Phoslo -) 1,334 mg PO TIDCM [facility] Calcium Gluconate (Calcium Gluconate 10% -) 1,000 mg IVPB ONCE ONE Stop: 12/21/17 21:54 Chlorhexidine Gluconate (Hibiclens For Decolonization -) 1 applic TP HS [facility] Heparin Sodium (Porcine) (Heparin -) 5,000 unit SQ TID [facility] Last Admin: 12/21/17 13:56 Dose: 5,000 unit Sodium Bicarbonate 150 meq/ (Dextrose) 1,150 mls @ 75 mls/hr IV Q11H [facility] Mupirocin (Bactroban Ointment (For Decolonization) -) 1 applic NS BID [facility] Stop: 12/26/17 09:59 Pantoprazole Sodium (Protonix -) 40 mg PO DAILY [facility] Last Admin: 12/21/17 11:30 Dose: 40 mg Sevelamer Carbonate (Renvela -) 800 mg PO TIDCM [facility] Last Admin: 12/21/17 12:21 Dose: Not Given Sodium Bicarbonate (Sodium Bicarbonate -) 650 mg PO BID [facility] - Objective Vital Signs: Vital Signs Temperature 98 F 12/21/17 09:14 Pulse Rate 72 12/21/17 13:00 Respiratory Rate 18 12/21/17 13:00 Blood Pressure 115/57 12/21/17 13:00 O2 Sat by Pulse Oximetry (%) 95 12/21/17 09:14 Labs: CBC, BMP 12/21/17 06:00 12/21/17 17:40 INR, PTT INR 1.17 (0.82-1.09) H 12/20/17 20:15
[2017-12-21] MEDS ORDERED: CALCIUM GLUCONATE 10% - 1,000 MG/10 ML VIAL IVPB ONE (23:15)
[2017-12-22] MEDS ORDERED: DEXTROSE 5%-WATER - 1,000 ML with SODIUM BICARBONATE 8.4% - 150 MEQ IV SCH (04:11)
[2017-12-22] MEDS: HEPARIN NA (PORCINE) 5,000 UNITS/ML 1ML VIAL SQ SCH ×3 (06:13→21:46)
[2017-12-22 07:24] LABS: BASO % 0.2 % (0-2.0); EOS % 0.1 % (0-4.5); HEMATOCRIT 20.5 % (35.4-49); LYMPH % 7.5 % (8-40); MCH 29.7 pg (25.7-33.7); MCHC 33.3 g/dl (32.0-35.9); MEAN PLT VOLUME 8.1 fl (7.5-11.1); MONO % 7.6 % (3.8-10.2); NEUT % 84.6 % (42.8-82.8); PLATELET COUNT 148 K/MM3 (134-434); RBC 2.31 M/mm3 (4.00-5.60); WHITE BLOOD COUNT 5.2 K/mm3 (4.0-10.0)
[2017-12-22 07:44] LABS: HEMOGLOBIN 6.8 GM/dL (11.7-16.9)
[2017-12-22 07:54] LABS: CHLORIDE 104 mmol/L (98-107); POTASSIUM 4.2 mmol/L (3.5-5.1); SODIUM 139 mmol/L (136-145)
[2017-12-22 08:13] LABS: ALK PHOS 98 U/L (45-117); ANION GAP 24 (8-16); BILIRUBIN,TOTAL 0.4 mg/dL (0.2-1.0); CO2 11 mmol/L (21-32); GLUCOSE,RANDOM 97 mg/dL (74-106); SGOT/AST 20 U/L (15-37); SGPT/ALT 19 U/L (12-78); TOT PROT 6.1 g/dl (6.4-8.2)
[2017-12-22 09:01] LABS: CALCIUM 5.9 mg/dL (8.5-10.1); CREATININE 15.7 mg/dL (0.7-1.3)
[2017-12-22] MEDS ORDERED: CALCIUM GLUCONATE 10% - 1,000 MG/10 ML VIAL IVPB ONE (09:03)
[2017-12-22] MEDS: PANTOPRAZOLE 40 MG TABLET (FP) PO SCH ×2 (09:05→21:46)
[2017-12-22] MEDS: amLODIPine BESYLATE 10 MG TABLET (FP) PO SCH (09:05)
[2017-12-22] MEDS: CALCIUM ACETATE 667 MG CAPSULE (FP) PO SCH ×3 (09:05→17:31)
--- NOTE | 2017-12-22 09:33 | PN ---
Progress Note, Physician History of Present Illness: Had a family meeting with Akosua Daughter angélica [phone] son Andrade [phone] Pt family and Pt wanted HD and Pt is not DNR spoke with Dr Osorio Nephrology/ yesterday Today Hb/Hct is Below 7 we will transfuse 2 units - Current Medication List Current Medications: Active Medications Acetaminophen (Tylenol -) 650 mg PO Q4H PRN PRN Reason: FEVER Last Admin: 12/21/17 11:30 Dose: 650 mg Amlodipine Besylate (Norvasc -) 10 mg PO DAILY [facility] Last Admin: 12/22/17 09:05 Dose: 10 mg Calcium Acetate (Phoslo -) 1,334 mg PO TIDCM [facility] Last Admin: 12/22/17 09:05 Dose: 1,334 mg Calcium Gluconate (Calcium Gluconate 10% -) 2,000 mg IVPB ONCE ONE Stop: 12/22/17 09:04 Chlorhexidine Gluconate (Hibiclens For Decolonization -) 1 applic TP HS [facility] Heparin Sodium (Porcine) (Heparin -) 5,000 unit SQ TID [facility] Last Admin: 12/22/17 06:13 Dose: 5,000 unit Mupirocin (Bactroban Ointment (For Decolonization) -) 1 applic NS BID [facility] Stop: 12/26/17 09:59 Pantoprazole Sodium (Protonix -) 40 mg PO DAILY [facility] Last Admin: 12/22/17 09:05 Dose: 40 mg Sodium Bicarbonate (Sodium Bicarbonate -) 1,300 mg PO BID [facility] - Objective Vital Signs: Vital Signs Temperature 97.6 F 12/22/17 06:00 Pulse Rate 85 12/22/17 06:00 Respiratory Rate 20 12/22/17 06:00 Blood Pressure 145/68 12/22/17 06:00 O2 Sat by Pulse Oximetry (%) 100 12/21/17 21:00 Constitutional: Yes: Anxious Eyes: Yes: Conjunctiva Clear, EOM Intact HENT: Yes: Atraumatic, Normocephalic Neck: Yes: Supple, Trachea Midline Cardiovascular: Yes: Regular Rate and Rhythm, S1, S2 Respiratory: Yes: Regular, CTA Bilaterally Gastrointestinal: Yes: Normal Bowel Sounds, Soft ...Rectal Exam: Yes: Other (Pt refused) Musculoskeletal: Yes: Joint Stiffness Extremities: Yes: Pallor, Other Edema: No Neurological: Yes: Alert (but confused), Cran Nerves II-XII Intact Labs: CBC, BMP 12/22/17 06:30 12/22/17 06:30 INR, PTT INR 1.17 (0.82-1.09) H 12/20/17 20:15 Problem List - Problems (1) Acute renal failure Code(s): N17.9 - ACUTE KIDNEY FAILURE, UNSPECIFIED (2) Afib Code(s): I48.91 - UNSPECIFIED ATRIAL FIBRILLATION (3) Metabolic acidosis Code(s): E87.2 - ACIDOSIS (4) Anemia Code(s): D64.9 - ANEMIA, UNSPECIFIED (5) Electrolyte imbalance Code(s): E87.8 - OTH DISORDERS OF ELECTROLYTE AND FLUID BALANCE, NEC (6) CAD (coronary artery disease) Code(s): I25.10 - ATHSCL HEART DISEASE OF [place] CORONARY ARTERY W/O ANG PCTRS (7) HTN (hypertension) Code(s): I10 - ESSENTIAL (PRIMARY) HYPERTENSION (8) Respiratory failure Code(s): J96.90 - RESPIRATORY FAILURE, UNSP, UNSP W HYPOXIA OR HYPERCAPNIA (9) GI bleeding Code(s): K92.2 - GASTROINTESTINAL HEMORRHAGE, UNSPECIFIED (10) Cervical stenosis of spine Code(s): M48.02 - SPINAL STENOSIS, CERVICAL REGION (11) Cervical radiculopathy Code(s): M54.12 - RADICULOPATHY, CERVICAL REGION (12) HLD (hyperlipidemia) Code(s): E78.5 - HYPERLIPIDEMIA, UNSPECIFIED (13) Fall Code(s): W19.XXXA - UNSPECIFIED FALL, INITIAL ENCOUNTER Assessment/Plan (1) Acute renal failure Code(s): N17.9 - ACUTE KIDNEY FAILURE, UNSPECIFIED (2) Afib Code(s): I48.91 - UNSPECIFIED ATRIAL FIBRILLATION (3) Metabolic acidosis Code(s): E87.2 - ACIDOSIS (4) Anemia Code(s): D64.9 - ANEMIA, UNSPECIFIED (5) Electrolyte imbalance Code(s): E87.8 - OTH DISORDERS OF ELECTROLYTE AND FLUID BALANCE, NEC (6) CAD (coronary artery disease) Code(s): I25.10 - ATHSCL HEART DISEASE OF [place] CORONARY ARTERY W/O ANG PCTRS (7) HTN (hypertension) Code(s): I10 - ESSENTIAL (PRIMARY) HYPERTENSION (8) H/O Respiratory failure/ Intubation/ Extubation Code(s): J96.90 - RESPIRATORY FAILURE, UNSP, UNSP W HYPOXIA OR HYPERCAPNIA (9) H/O GI bleeding Code(s): K92.2 - GASTROINTESTINAL HEMORRHAGE, UNSPECIFIED (10) H/OCervical stenosis of spine Code(s): M48.02 - SPINAL STENOSIS, CERVICAL REGION (11) H/OCervical radiculopathy Code(s): M54.12 - RADICULOPATHY, CERVICAL REGION (12) HLD (hyperlipidemia) Code(s): E78.5 - HYPERLIPIDEMIA, UNSPECIFIED (13) H/O Fall Code(s): W19.XXXA - UNSPECIFIED FALL, INITIAL ENCOUNTER
--- NOTE | 2017-12-22 09:45 | PN ---
Progress Note (short form) - Note Progress Note: Renal Follow up for HESHAM/CKD Pt seen and examined at the bedside awake and alert reports not feeling well but could not be specific has mild SOB no chest pain feels weak discussed dialysis with the patient again. He states that he does not want to and would want to start dialysis. The risks and benifits were discussed with him as well as his family and they were agreeable. Akosua gave telephone consent for dialysis. Vital Signs Temperature 97.6 F 12/22/17 06:00 Pulse Rate 85 12/22/17 06:00 Respiratory Rate 20 12/22/17 06:00 Blood Pressure 145/68 12/22/17 06:00 O2 Sat by Pulse Oximetry (%) 100 12/21/17 21:00 Intake & Output 12/19/17 12/20/17 12/21/17 12/22/17 23:59 23:59 23:59 23:59 Intake Total 1590 900 Output Total 10 150 Balance 1580 750 Weight 50 kg 54.431 kg 50.621 kg NAD awake and alert No JVD Dec BS at lung bases soft NT/ND no LE edema CBC, BMP 12/22/17 06:30 12/22/17 06:30 Current Medications Acetaminophen (Tylenol -) 650 mg PO Q4H PRN PRN Reason: FEVER Last Admin: 12/21/17 11:30 Dose: 650 mg Amlodipine Besylate (Norvasc -) 10 mg PO DAILY [facility] Last Admin: 12/22/17 09:05 Dose: 10 mg Calcium Acetate (Phoslo -) 1,334 mg PO TIDCM [facility] Last Admin: 12/22/17 09:05 Dose: 1,334 mg Chlorhexidine Gluconate (Hibiclens For Decolonization -) 1 applic TP HS [facility] Epoetin Spencer (Epogen -) 20,000 unit IVPUSH ONCE ONE Stop: 12/22/17 09:36 Furosemide (Lasix Injection -) 120 mg IVPB ONCE ONE Stop: 12/22/17 09:36 Heparin Sodium (Porcine) (Heparin -) 5,000 unit SQ TID [facility] Last Admin: 12/22/17 06:13 Dose: 5,000 unit Calcium Gluconate 2,000 mg/ (Sodium Chloride) 120 mls @ 120 mls/hr IVPB ONCE ONE Stop: 12/22/17 10:59 Sodium Chloride (Normal Saline -) 250 mls @ 3,000 mls/hr IV PRN PRN PRN Reason: Hypotension during Dialysis Stop: 12/23/17 09:35 Mupirocin (Bactroban Ointment (For Decolonization) -) 1 applic NS BID [facility] Stop: 12/26/17 09:59 Pantoprazole Sodium (Protonix -) 40 mg PO DAILY [facility] Last Admin: 12/22/17 09:05 Dose: 40 mg Sodium Bicarbonate (Sodium Bicarbonate -) 1,300 mg PO BID [facility] 87 year gentleman with PMhx of advanced CKD, Hypertension who presented with complaints of Nausea and weakness as per the family found to have BUN/Cr of 164/ 16 and K of 6.9. #Acute on Chronic Renal Failure with Uremia #Anion gap metabolic acidosis #Hyperkalemia #Uremia #Acute on Chronic Anemia Pt and family wish to have dialysis now, pt is agreeable consent obtained from the and is in the chart will transfer to ICU for HD, 1st HD today, 2nd to be done tomorrow temporary HD catheter placement to be done in the ICU d/c bicarb gtt b/c of hypocalcemia give Calcium gluconate 2g IVPB Lasix 120mg IVPB to be given will transfuse 2 units PRBC with HD check stool occult blood will give GABY with HD DDAVP to be given before catheter placement Case discussed with Dr Gamez and pts family Andrei Osorio DO
[2017-12-22] MEDS ORDERED: DESMOPRESSIN ACETATE 4 MCG/ML AMP IVPB ONE (09:46)
[2017-12-22] MEDS ORDERED: SODIUM CHLORIDE IVPB ONE (10:00)
[2017-12-22] MEDS ORDERED: CALCIUM GLUCONATE IVPB ONE (10:00)
[2017-12-22 10:13] LABS: BLOOD UREA NITROGEN 156 mg/dL (7-18); PHOSPHOROUS 11.4 mg/dL (2.5-4.9)
[2017-12-22] MEDS: SODIUM BICARBONATE 650 MG TABLET PO SCH ×2 (10:18→21:46)
[2017-12-22] MEDS ORDERED: FUROSEMIDE 100 MG/10 ML INJECTABLE VIAL IVPB ONE (12:00)
[2017-12-22] MEDS ORDERED: SODIUM CHLORIDE 250 ML IV PRN ×2 (14:35→16:42)
--- NOTE | 2017-12-22 15:51 | PROC ---
Central Line Insertion Indication: Other (Hemodialysis) Risks and Benefits Explained: Yes Consent on Chart: Yes Central Line: Dialysis Cath, Dual Lumen Anesthesia: 1% Lidocaine Sterile Technique: Yes Ultrasound Guided Assistance: Yes Position: Right Internal Jugular Post Insertion: Yes: Chest X-Ray Ordered Sterile Dressing Applied: Yes
--- NOTE | 2017-12-22 15:56 | PN ---
Progress Note (short form) - Note Progress Note: RIJ HD Cath in good position, SVC/RA junction. no pneumothorax.
[2017-12-22] MEDS: METOPROLOL TARTRATE 25 MG TABLET (FP) PO SCH ×2 (16:18→21:47)
[2017-12-22] MEDS ORDERED: EPOETIN ALFA 20,000 UNIT/1 ML VIAL IVPUSH ONE (16:45)
[2017-12-22] MEDS ORDERED: DIGOXIN 0.5 MG/2 ML AMPUL IVPUSH ONE (17:00)
[2017-12-22] MEDS ORDERED: ZOLPIDEM TARTRATE 5 MG TABLET PO PRN (17:23)
[2017-12-22] MEDS: ALPRAZolam 0.25 MG TABLET PO PRN (17:41)
[2017-12-22] MEDS: ACETAMINOPHEN 325 MG TABLET (FP) PO PRN (17:46)
--- NOTE | 2017-12-22 19:40 | PN ---
Progress Note (short form) - Note Progress Note: Pulm/CCM Pt seen and examined in ICU CC; tx for HD cath placement, initiation of HD HPI: 87 y/o man with stage IV CKD, previously declined HD after urgent dialysis during hospitalization at [facility],discharged to hospice, now returns to [facility] with dyspnea 2/2 progressive renal disease and volume overload. Long discussions with pt and family ultimately reversed decision and pt asked to proceed with with renal replacement. Contacted by Nephrology team, asked to place HD cath. Pt arrived, hemodyamically stable, alert, without distress. Pt with progressive anemia, to get 2 PRBC with HD. 20cm HD cath placed in RIJ without difficulty, HD initiated Smoking History Smoking history Former smoker Aproximately how many 0 cigarettes per day If you are a former smoker, 1992 when did you quit? Alcohol/Substance Use Hx Alcohol Use No Past Medical History Cardio/Vascular HTN Renal/ Renal Inusuff Heme/Onc Anemia Home Medications Medication Instructions Recorded Acetaminophen [Tylenol .Regular 650 mg PO Q4H PRN #0 tablet 03/27/16 Strength -] Amlodipine Besylate [Norvasc -] 10 mg PO DAILY #30 tablet 03/27/16 Pantoprazole Sodium [Protonix -] 40 mg PO DAILY 12/20/17 Sevelamer HCl [Renagel] 800 mg PO TIDCM 12/20/17 Active Medications Acetaminophen (Tylenol -) 650 mg PO Q4H PRN PRN Reason: FEVER Last Admin: 12/22/17 17:46 Dose: 650 mg Alprazolam (Xanax -) 0.25 mg PO Q8H PRN PRN Reason: ANXIETY Last Admin: 12/22/17 17:41 Dose: 0.25 mg Amlodipine Besylate (Norvasc -) 10 mg PO DAILY [facility] Last Admin: 12/22/17 09:05 Dose: 10 mg Atorvastatin Calcium (Lipitor -) 20 mg PO HS [facility] Calcium Acetate (Phoslo -) 1,334 mg PO TIDCM [facility] Last Admin: 12/22/17 17:31 Dose: 1,334 mg Chlorhexidine Gluconate (Hibiclens For Decolonization -) 1 applic TP HS [facility] Desmopressin Acetate (Ddavp Injection -) 15 mcg IVPB ONCE ONE Stop: 12/22/17 09:47 Heparin Sodium (Porcine) (Heparin -) 5,000 unit SQ TID [facility] Last Admin: 12/22/17 16:17 Dose: 5,000 unit Sodium Chloride (Normal Saline -) 250 mls @ 3,000 mls/hr IV PRN PRN PRN Reason: Hypotension during Dialysis Stop: 12/23/17 16:41 Metoprolol Tartrate (Lopressor -) 12.5 mg PO BID [facility] Last Admin: 12/22/17 16:18 Dose: 12.5 mg Mupirocin (Bactroban Ointment (For Decolonization) -) 1 applic NS BID [facility] Stop: 12/27/17 21:59 Pantoprazole Sodium (Protonix -) 40 mg PO BID [facility] Sodium Bicarbonate (Sodium Bicarbonate -) 1,300 mg PO BID [facility] Last Admin: 12/22/17 10:18 Dose: 1,300 mg Zolpidem Tartrate (Ambien -) 5 mg PO HS PRN PRN Reason: INSOMNIA CBCD WBC 5.2 K/mm3 (4.0-10.0) D 12/22/17 06:30 RBC 2.31 M/mm3 (4.00-5.60) L 12/22/17 06:30 Hgb 6.8 GM/dL (11.7-16.9) L* 12/22/17 06:30 Hct 20.5 % (35.4-49) L 12/22/17 06:30 MCV 89.0 fl (80-96) 12/22/17 06:30 MCHC 33.3 g/dl (32.0-35.9) 12/22/17 06:30 RDW 20.0 % (11.9-15.9) H 12/22/17 06:30 Plt Count 148 K/MM3 (134-434) 12/22/17 06:30 MPV 8.1 fl (7.5-11.1) 12/22/17 06:30 CMP Sodium 139 mmol/L (136-145) 12/22/17 06:30 Potassium 4.2 mmol/L (3.5-5.1) 12/22/17 06:30 Chloride 104 mmol/L (98-107) 12/22/17 06:30 Carbon Dioxide 11 mmol/L (21-32) L 12/22/17 06:30 Anion Gap 24 (8-16) H 12/22/17 06:30 BUN 156 mg/dL (7-18) H* 12/22/17 06:30 Creatinine 15.7 mg/dL (0.7-1.3) H* 12/22/17 06:30 Creat Clearance w eGFR 2.95 (>60) 12/22/17 06:30 Random Glucose 97 mg/dL (74-106) D 12/22/17 06:30 Calcium 5.9 mg/dL (8.5-10.1) L* 12/22/17 06:30 Total Bilirubin 0.4 mg/dL (0.2-1.0) 12/22/17 06:30 AST 20 U/L (15-37) 12/22/17 06:30 ALT 19 U/L (12-78) 12/22/17 06:30 Alkaline Phosphatase 98 U/L (45-117) 12/22/17 06:30 Total Protein 6.1 g/dl (6.4-8.2) L 12/22/17 06:30 Albumin 3.0 g/dl (3.4-5.0) L 12/22/17 06:30 CARDIAC ENZYMES Creatine Kinase 74 IU/L (39-308) 12/20/17 20:15 Troponin I < 0.02 ng/ml (0.00-0.05) 12/20/17 20:15 CXR reviewed EKG reviewed, afib rate 90 no widened qrs, no dysrthymia. PE: Gen; frail thin eld man, INAD PULM: diffuse crackles, no distress CV: irreg ABD; soft, NT EXT: trace edema, warm well perfused Neuro: non focal , VILLALPANDO x 4 A/ CKD Metabolic acidosis ARF HTN P/ -place HD Cath -HD as per renal -if tolerate HD, ok for floor -two prbc with HD -replete electrolytes as needed -BID protonix, if crit drops again will investigate further -renal diet -scd, hold hep [facility] [id number]
[2017-12-22] MEDS: CHLORHEXIDINE GLUCONATE 4% CLEANSER FOR DECOLONIZATION TP SCH (21:46)
[2017-12-22] MEDS: ATORVASTATIN CA 20 MG TABLET (FP) PO SCH (21:46)
[2017-12-22] MEDS: MUPIROCIN 2% TOPICAL OINTMENT FOR DECOLONIZATION NS SCH (21:47)
[2017-12-22] MEDS ORDERED: METOPROLOL TARTRATE 25 MG TABLET (FP) PO SCH (22:00)
[2017-12-23] MEDS: HEPARIN NA (PORCINE) 5,000 UNITS/ML 1ML VIAL SQ SCH ×3 (05:19→21:53)
[2017-12-23 08:06] LABS: SERUM IRON SATURATION 88 % (15-55); TOTAL IRON BINDING CAPACITY 152 ug/dL (250-450); UIBC 19 ug/dL (111-343)
--- NOTE | 2017-12-23 08:58 | PN ---
Progress Note (short form) - Note Progress Note: Pulm/CCM Pt seen and examined in ICU CC; tx for HD cath placement, initiation of HD HPI: 87 y/o man with stage IV CKD, previously declined HD after urgent dialysis during hospitalization at [facility],discharged to hospice, now returns to [facility] with dyspnea 2/2 progressive renal disease and volume overload. Long discussions with pt and family ultimately reversed decision and pt asked to proceed with with renal replacement. Contacted by Nephrology team, asked to place HD cath. Pt arrived, hemodyamically stable, alert, without distress. Pt with progressive anemia, to get 2 PRBC with HD. 20cm HD cath placed in RIJ without difficulty, HD initiated 24HR Events; -cath placed -HD with 2.5 Off, 2 PRBC given -refusing labs this morning -plan for HD again today Home Medications Medication Instructions Recorded Acetaminophen [Tylenol .Regular 650 mg PO Q4H PRN #0 tablet 03/27/16 Strength -] Amlodipine Besylate [Norvasc -] 10 mg PO DAILY #30 tablet 03/27/16 Pantoprazole Sodium [Protonix -] 40 mg PO DAILY 12/20/17 Sevelamer HCl [Renagel] 800 mg PO TIDCM 12/20/17 Active Medications Acetaminophen (Tylenol -) 650 mg PO Q4H PRN PRN Reason: FEVER Last Admin: 12/22/17 17:46 Dose: 650 mg Alprazolam (Xanax -) 0.25 mg PO Q8H PRN PRN Reason: ANXIETY Last Admin: 12/22/17 17:41 Dose: 0.25 mg Amlodipine Besylate (Norvasc -) 10 mg PO DAILY [facility] Last Admin: 12/22/17 09:05 Dose: 10 mg Atorvastatin Calcium (Lipitor -) 20 mg PO HS [facility] Last Admin: 12/22/17 21:46 Dose: 20 mg Calcium Acetate (Phoslo -) 1,334 mg PO TIDCM [facility] Last Admin: 12/22/17 17:31 Dose: 1,334 mg Chlorhexidine Gluconate (Hibiclens For Decolonization -) 1 applic TP HS [facility] Last Admin: 12/22/17 21:46 Dose: 1 applic Desmopressin Acetate (Ddavp Injection -) 15 mcg IVPB ONCE ONE Stop: 12/22/17 09:47 Heparin Sodium (Porcine) (Heparin -) 5,000 unit SQ TID [facility] Last Admin: 12/23/17 05:19 Dose: Not Given Sodium Chloride (Normal Saline -) 250 mls @ 3,000 mls/hr IV PRN PRN PRN Reason: Hypotension during Dialysis Stop: 12/23/17 16:41 Metoprolol Tartrate (Lopressor -) 12.5 mg PO BID [facility] Last Admin: 12/22/17 21:47 Dose: 12.5 mg Mupirocin (Bactroban Ointment (For Decolonization) -) 1 applic NS BID [facility] Stop: 12/27/17 21:59 Last Admin: 12/22/17 21:47 Dose: 1 applic Pantoprazole Sodium (Protonix -) 40 mg PO BID [facility] Last Admin: 12/22/17 21:46 Dose: 40 mg Sodium Bicarbonate (Sodium Bicarbonate -) 1,300 mg PO BID [facility] Last Admin: 12/22/17 21:46 Dose: 1,300 mg Zolpidem Tartrate (Ambien -) 5 mg PO HS PRN PRN Reason: INSOMNIA CBC, BMP 12/22/17 06:30 12/22/17 06:30 CXR reviewed EKG reviewed, afib rate 90 no widened qrs, no dysrthymia. PE: Gen; frail thin eld man, INAD PULM: diffuse crackles, no distress CV: irreg ABD; soft, NT EXT: trace edema, warm well perfused Neuro: non focal , VILLALPANDO x 4 A/ CKD Metabolic acidosis ARF HTN P/ -HD as per renal - ok for floor -two prbc with HD, recheck crit -replete electrolytes as needed -BID protonix, if crit drops again will investigate further with GI -renal diet -scd, hold hep while bleeding DISPO; floor post HD, Afshin ACNP [id number]
[2017-12-23] MEDS ORDERED: CALCIUM GLUCONATE 10% - 1,000 MG/10 ML VIAL IVPUSH ONE (09:33)
--- NOTE | 2017-12-23 09:36 | PN ---
Progress Note (short form) - Note Progress Note: Renal Follow up for HESHAM/CKD Pt seen and examined in the ICU awake and alert vitals stable s/p 1st dialysis yesterday Vital Signs Temperature 97.6 F 12/23/17 06:00 Pulse Rate 78 12/23/17 06:00 Respiratory Rate 18 12/23/17 06:00 Blood Pressure 118/81 12/23/17 06:00 O2 Sat by Pulse Oximetry (%) 96 12/22/17 20:43 Intake & Output 12/20/17 12/21/17 12/22/17 12/23/17 23:59 23:59 23:59 23:59 Intake Total 1590 1020 120 Output Total 10 200 50 Balance 1580 820 70 Weight 50 kg 54.431 kg 51.483 kg 49.26 kg NAD awake and alert No JVD Dec BS at lung bases soft NT/ND no LE edema CBC, BMP 12/22/17 06:30 12/22/17 06:30 Current Medications Acetaminophen (Tylenol -) 650 mg PO Q4H PRN PRN Reason: FEVER Last Admin: 12/22/17 17:46 Dose: 650 mg Alprazolam (Xanax -) 0.25 mg PO Q8H PRN PRN Reason: ANXIETY Last Admin: 12/22/17 17:41 Dose: 0.25 mg Amlodipine Besylate (Norvasc -) 10 mg PO DAILY [facility] Last Admin: 12/22/17 09:05 Dose: 10 mg Atorvastatin Calcium (Lipitor -) 20 mg PO HS [facility] Last Admin: 12/22/17 21:46 Dose: 20 mg Calcium Acetate (Phoslo -) 1,334 mg PO TIDCM [facility] Last Admin: 12/22/17 17:31 Dose: 1,334 mg Chlorhexidine Gluconate (Hibiclens For Decolonization -) 1 applic TP HS [facility] Last Admin: 12/22/17 21:46 Dose: 1 applic Desmopressin Acetate (Ddavp Injection -) 15 mcg IVPB ONCE ONE Stop: 12/22/17 09:47 Heparin Sodium (Porcine) (Heparin -) 5,000 unit SQ TID [facility] Last Admin: 12/23/17 05:19 Dose: Not Given Sodium Chloride (Normal Saline -) 250 mls @ 3,000 mls/hr IV PRN PRN PRN Reason: Hypotension during Dialysis Stop: 12/23/17 16:41 Metoprolol Tartrate (Lopressor -) 12.5 mg PO BID [facility] Last Admin: 12/22/17 21:47 Dose: 12.5 mg Mupirocin (Bactroban Ointment (For Decolonization) -) 1 applic NS BID [facility] Stop: 12/27/17 21:59 Last Admin: 12/22/17 21:47 Dose: 1 applic Pantoprazole Sodium (Protonix -) 40 mg PO BID [facility] Last Admin: 12/22/17 21:46 Dose: 40 mg Sodium Bicarbonate (Sodium Bicarbonate -) 1,300 mg PO BID [facility] Last Admin: 12/22/17 21:46 Dose: 1,300 mg Zolpidem Tartrate (Ambien -) 5 mg PO HS PRN PRN Reason: INSOMNIA 87 year gentleman with PMhx of advanced CKD, Hypertension who presented with complaints of Nausea and weakness as per the family found to have BUN/Cr of 164/ 16 and K of 6.9. #Acute on Chronic Renal Failure with Uremia #Anion gap metabolic acidosis #Hyperkalemia #Uremia #Acute on Chronic Anemia #Hypocalcemia/Hyperphosphatemia to have 2nd HD today with UF as tolerated will need permcath placement and AVF creation todays labs pending, will need IV calcium if corrected Ca < 7.5 continue Phoslo with meals s/p PRBC transfusion, check H/H today Renal Diet Andrei Osorio DO
[2017-12-23 10:16] LABS: BASO % 0.3 % (0-2.0); EOS % 0.2 % (0-4.5); HEMATOCRIT 30.3 % (35.4-49); HEMOGLOBIN 10.5 GM/dL (11.7-16.9); LYMPH % 10.5 % (8-40); MCH 29.5 pg (25.7-33.7); MCHC 34.6 g/dl (32.0-35.9); MEAN CELL VOLUME 85.4 fl (80-96); MEAN PLT VOLUME 8.1 fl (7.5-11.1); MONO % 11.8 % (3.8-10.2); NEUT % 77.2 % (42.8-82.8); PLATELET COUNT 134 K/MM3 (134-434); RBC 3.55 M/mm3 (4.00-5.60); RDW 17.6 % (11.9-15.9); WHITE BLOOD COUNT 4.8 K/mm3 (4.0-10.0)
[2017-12-23 10:40] LABS: ANION GAP 16 (8-16); BLOOD UREA NITROGEN 84 mg/dL (7-18); CHLORIDE 100 mmol/L (98-107); CO2 22 mmol/L (21-32); GLUCOSE,RANDOM 83 mg/dL (74-106); MAGNESIUM 1.7 mg/dL (1.8-2.4); POTASSIUM 3.4 mmol/L (3.5-5.1); SGOT/AST 25 U/L (15-37); SODIUM 138 mmol/L (136-145)
[2017-12-23 10:42] LABS: ALK PHOS 117 U/L (45-117); BILIRUBIN,TOTAL 0.7 mg/dL (0.2-1.0); PHOSPHOROUS 6.9 mg/dL (2.5-4.9); SGPT/ALT 20 U/L (12-78); TOT PROT 6.5 g/dl (6.4-8.2)
[2017-12-23 10:52] LABS: CREATININE 9.6 mg/dL (0.7-1.3)
[2017-12-23 10:53] LABS: CALCIUM 6.2 mg/dL (8.5-10.1)
--- NOTE | 2017-12-23 11:02 | PN ---
Progress Note, Physician History of Present Illness: Pt had HD yesterday Pt tolerated well Pt had 2 units of PRBC Today 2nd day - Current Medication List Current Medications: Active Medications Acetaminophen (Tylenol -) 650 mg PO Q4H PRN PRN Reason: FEVER Last Admin: 12/22/17 17:46 Dose: 650 mg Alprazolam (Xanax -) 0.25 mg PO Q8H PRN PRN Reason: ANXIETY Last Admin: 12/22/17 17:41 Dose: 0.25 mg Amlodipine Besylate (Norvasc -) 10 mg PO DAILY [facility] Last Admin: 12/22/17 09:05 Dose: 10 mg Atorvastatin Calcium (Lipitor -) 20 mg PO HS [facility] Last Admin: 12/22/17 21:46 Dose: 20 mg Calcium Acetate (Phoslo -) 1,334 mg PO TIDCM [facility] Last Admin: 12/22/17 17:31 Dose: 1,334 mg Chlorhexidine Gluconate (Hibiclens For Decolonization -) 1 applic TP HS [facility] Last Admin: 12/22/17 21:46 Dose: 1 applic Desmopressin Acetate (Ddavp Injection -) 15 mcg IVPB ONCE ONE Stop: 12/22/17 09:47 Heparin Sodium (Porcine) (Heparin -) 5,000 unit SQ TID [facility] Last Admin: 12/23/17 05:19 Dose: Not Given Sodium Chloride (Normal Saline -) 250 mls @ 3,000 mls/hr IV PRN PRN PRN Reason: Hypotension during Dialysis Stop: 12/23/17 16:41 Metoprolol Tartrate (Lopressor -) 12.5 mg PO BID [facility] Last Admin: 12/22/17 21:47 Dose: 12.5 mg Mupirocin (Bactroban Ointment (For Decolonization) -) 1 applic NS BID [facility] Stop: 12/27/17 21:59 Last Admin: 12/22/17 21:47 Dose: 1 applic Pantoprazole Sodium (Protonix -) 40 mg PO BID [facility] Last Admin: 12/22/17 21:46 Dose: 40 mg Sodium Bicarbonate (Sodium Bicarbonate -) 1,300 mg PO BID [facility] Last Admin: 12/22/17 21:46 Dose: 1,300 mg Zolpidem Tartrate (Ambien -) 5 mg PO HS PRN PRN Reason: INSOMNIA - Objective Vital Signs: Vital Signs Temperature 97.4 F L 12/23/17 09:35 Pulse Rate 93 H 12/23/17 09:40 Respiratory Rate 22 12/23/17 09:40 Blood Pressure 137/85 12/23/17 09:40 O2 Sat by Pulse Oximetry (%) 96 12/22/17 20:43 Constitutional: Yes: Anxious Eyes: Yes: Conjunctiva Clear, EOM Intact HENT: Yes: Atraumatic, Normocephalic Neck: Yes: Supple, Trachea Midline Cardiovascular: Yes: Regular Rate and Rhythm, S1, S2 Respiratory: Yes: Regular, CTA Bilaterally Gastrointestinal: Yes: Normal Bowel Sounds, Soft Musculoskeletal: Yes: Joint Stiffness Edema: No Neurological: Yes: Alert, Cran Nerves II-XII Intact (dementia) Labs: CBC, BMP 12/23/17 09:40 12/23/17 09:40 INR, PTT INR 1.17 (0.82-1.09) H 12/20/17 20:15 Problem List - Problems (1) Acute renal failure Code(s): N17.9 - ACUTE KIDNEY FAILURE, UNSPECIFIED (2) Afib Code(s): I48.91 - UNSPECIFIED ATRIAL FIBRILLATION (3) Metabolic acidosis Code(s): E87.2 - ACIDOSIS (4) Anemia Code(s): D64.9 - ANEMIA, UNSPECIFIED (5) Electrolyte imbalance Code(s): E87.8 - OTH DISORDERS OF ELECTROLYTE AND FLUID BALANCE, NEC (6) CAD (coronary artery disease) Code(s): I25.10 - ATHSCL HEART DISEASE OF [place] CORONARY ARTERY W/O ANG PCTRS (7) HTN (hypertension) Code(s): I10 - ESSENTIAL (PRIMARY) HYPERTENSION (8) Respiratory failure Code(s): J96.90 - RESPIRATORY FAILURE, UNSP, UNSP W HYPOXIA OR HYPERCAPNIA (9) GI bleeding Code(s): K92.2 - GASTROINTESTINAL HEMORRHAGE, UNSPECIFIED (10) Cervical stenosis of spine Code(s): M48.02 - SPINAL STENOSIS, CERVICAL REGION (11) Cervical radiculopathy Code(s): M54.12 - RADICULOPATHY, CERVICAL REGION (12) HLD (hyperlipidemia) Code(s): E78.5 - HYPERLIPIDEMIA, UNSPECIFIED (13) Fall Code(s): W19.XXXA - UNSPECIFIED FALL, INITIAL ENCOUNTER Assessment/Plan (1) Acute renal failure Code(s): N17.9 - ACUTE KIDNEY FAILURE, UNSPECIFIED (2) Afib Code(s): I48.91 - UNSPECIFIED ATRIAL FIBRILLATION (3) Metabolic acidosis Code(s): E87.2 - ACIDOSIS (4) Anemia Code(s): D64.9 - ANEMIA, UNSPECIFIED (5) Electrolyte imbalance Code(s): E87.8 - OTH DISORDERS OF ELECTROLYTE AND FLUID BALANCE, NEC (6) CAD (coronary artery disease) Code(s): I25.10 - ATHSCL HEART DISEASE OF [place] CORONARY ARTERY W/O ANG PCTRS (7) HTN (hypertension) Code(s): I10 - ESSENTIAL (PRIMARY) HYPERTENSION (8) H/O Respiratory failure/ Intubation/ Extubation Code(s): J96.90 - RESPIRATORY FAILURE, UNSP, UNSP W HYPOXIA OR HYPERCAPNIA (9) H/O GI bleeding Code(s): K92.2 - GASTROINTESTINAL HEMORRHAGE, UNSPECIFIED (10) H/OCervical stenosis of spine Code(s): M48.02 - SPINAL STENOSIS, CERVICAL REGION (11) H/OCervical radiculopathy Code(s): M54.12 - RADICULOPATHY, CERVICAL REGION (12) HLD (hyperlipidemia) Code(s): E78.5 - HYPERLIPIDEMIA, UNSPECIFIED (13) H/O Fall Code(s): W19.XXXA - UNSPECIFIED FALL, INITIAL ENCOUNTER Pt is doing better Renal/ cardiology Reviwed A.fib Rate controlled we will add Dig
--- NOTE | 2017-12-23 11:53 | CONSULT ---
Consult Consult Specialty:: Cardiology Referred by:: Medicine Reason for Consultation:: Rapid, irregular HR - History of Present Illness Chief Complaint: Nausea and weakness History of Present Illness: 87 yo male Poor historian PMHx listed on prior notes included 80% stomach removal do to bleeding ulcers ( 20yrs ago). Known h/o advanced CKD that he has not been accepting of [employer] HTN Now presented with 2-3 days of nausea and weakness in the setting of severe azotemia (BUN/Cr 164/16) and, Hgb 6.8 and hyperkalemia 6.9 In ED given IV Lasix, Ca gluconate, Kayexalate, Insulin/D50 Inital ECG in the ED on 12/22/2017 at 13:22 showed Afib at 102/min. He has been admitted to the ICU and started on HD At this time he offers no CV complaints and is a poor historian to obtain his CV history. - History Source History Provided By: Patient Limitations to Obtaining History: Poor Historian - Past Medical History Cardio/Vascular: Yes: HTN Renal/: Yes: Renal Inusuff - Alcohol/Substance Use Hx Alcohol Use: No - Smoking History Smoking history: Former smoker Have you smoked in the past 12 months: No Aproximately how many cigarettes per day: 0 If you are a former smoker, when did you quit?: 1991 Home Medications - Allergies Allergies/Adverse Reactions: Allergies Allergy/AdvReac Type Severity Reaction Status Date / Time Penicillins Allergy Mild Rash Verified 12/20/17 20:51 - Home Medications Home Medications: Ambulatory Orders Acetaminophen [Tylenol .Regular Strength -] 650 mg PO Q4H PRN #0 tablet Amlodipine Besylate [Norvasc -] 10 mg PO DAILY #30 tablet 03/27/16 Pantoprazole Sodium [Protonix -] 40 mg PO DAILY 12/20/17 Sevelamer HCl [Renagel] 800 mg PO TIDCM 12/20/17 Review of Systems - Review of Systems Constitutional: reports: Lethargy, Weakness HENT: reports: No Symptoms Neck: reports: No Symptoms Cardiovascular: reports: No Symptoms Respiratory: reports: No Symptoms Gastrointestinal: reports: Nausea Genitourinary: reports: No Symptoms Physical Exam Vital Signs: Vital Signs Temperature 97.4 F L 12/23/17 09:35 Pulse Rate 93 H 12/23/17 09:40 Respiratory Rate 22 12/23/17 09:40 Blood Pressure 137/85 12/23/17 09:40 O2 Sat by Pulse Oximetry (%) 96 12/22/17 20:43 Constitutional: Yes: No Distress, Calm (Lethargic but arrousable) Eyes: Yes: WNL HENT: Yes: WNL Neck: Yes: WNL Cardiovascular: Yes: Pulse Irregular (Faint S1 and S2.) Respiratory: Yes: CTA Bilaterally Gastrointestinal: Yes: Normal Bowel Sounds Musculoskeletal: Yes: WNL Extremities: Yes: WNL Edema: No Labs: CBC, BMP 12/23/17 09:40 12/23/17 09:40 Imaging - Results X-ray: Image Reviewed (Pulmonary venous congestion. Normal cardiac size) Cat Scan: Report Reviewed (HCT 11/2014 no ICH.) EKG: Image Reviewed (Done on 12/22/2017 at 13:22 showed AF at 102/min with low voltage.) Assessment/Plan 87 yo male with advanced CKD and HTN now with 2-3 days of nausea and weakness in the setting of severe azotemia (BUN/Cr 164/16) and, Hgb 6.8 and hyperkalemia 6.9. Found also to be in AF at 100/min. 1) Afib -Reasonable rate control on low dose BB (Metoprolol 12.5mg BID). Etiology likely related to underlying HESHAM and pronounced anemia. -Has elevated [id number] = 3 (Age>75, Male and HTN) which would warrant anticoagulation. However, compliance here may be an issue in this patient not accepting of life saving therapies such as HD. In addition, there are prior note suggesting Hospice and has a significant bleeding ulcer history which was treated 20 years ago with surgery. -Need an echo to rule out pericardial effusion with such severe azotemia and low voltage on ECG prior to starting AC. -Would start asa 81mg daily and PPI (Protonix) 2) HTN -Controlled on Amlodipine 10mg and low dose metoprolol 12.5 BID -Will continue to improved with HD/volume removal 3) Anemia -As per primary team
[2017-12-23] MEDS: MUPIROCIN 2% TOPICAL OINTMENT FOR DECOLONIZATION NS SCH ×2 (12:07→21:55)
[2017-12-23] MEDS: PANTOPRAZOLE 40 MG TABLET (FP) PO SCH ×2 (12:08→21:53)
[2017-12-23] MEDS: METOPROLOL TARTRATE 25 MG TABLET (FP) PO SCH ×2 (12:08→21:53)
[2017-12-23] MEDS: amLODIPine BESYLATE 10 MG TABLET (FP) PO SCH (12:08)
[2017-12-23] MEDS: SODIUM BICARBONATE 650 MG TABLET PO SCH ×2 (12:08→21:52)
[2017-12-23] MEDS: CALCIUM ACETATE 667 MG CAPSULE (FP) PO SCH ×2 (12:11→17:47)
[2017-12-23] MEDS: ALPRAZolam 0.25 MG TABLET PO PRN (14:21)
[2017-12-23] MEDS ORDERED: CALCIUM GLUCONATE 10% - 1,000 MG/10 ML VIAL IVPB ONE (18:00)
[2017-12-23] MEDS ORDERED: LORazepam 1 MG TABLET PO ONE (18:45)
[2017-12-23] MEDS ORDERED: DIGOXIN 0.25 MG TABLET (FP) PO SCH (20:30)
[2017-12-23] MEDS: ATORVASTATIN CA 20 MG TABLET (FP) PO SCH (21:53)
[2017-12-23] MEDS: CHLORHEXIDINE GLUCONATE 4% CLEANSER FOR DECOLONIZATION TP SCH (21:57)
[2017-12-23] MEDS ORDERED: DIGOXIN 0.25 MG TABLET (FP) PO ONE (22:00)
--- NOTE | 2017-12-23 22:11 | EKG ---
Test Reason : Blood Pressure : / mmHG Vent. Rate : 102 BPM Atrial Rate : 076 BPM P-R Int : 000 ms QRS Dur : 098 ms QT Int : 332 ms P-R-T Axes : 000 058 056 degrees QTc Int : 432 ms POOR DATA QUALITY, INTERPRETATION MAY BE ADVERSELY AFFECTED ATRIAL FIBRILLATION WITH RAPID VENTRICULAR RESPONSE ABNORMAL ECG WHEN COMPARED WITH ECG OF 20-DEC-2017 21:08, ATRIAL FIBRILLATION HAS REPLACED SINUS RHYTHM NONSPECIFIC T WAVE ABNORMALITY NOW EVIDENT IN INFERIOR LEADS Confirmed by MACHO ANGULO MD ([id number]) on 12/23/2017 10:11:15 PM Referred By: Kimber LLOYD Confirmed By:MACHO ANGULO MD
[2017-12-24] MEDS: HEPARIN NA (PORCINE) 5,000 UNITS/ML 1ML VIAL SQ SCH ×3 (06:48→21:24)
[2017-12-24 07:01] LABS: ALBUMIN 2.9 g/dl (3.4-5.0); ALK PHOS 153 U/L (45-117); ANION GAP 13 (8-16); BILIRUBIN,TOTAL 0.5 mg/dL (0.2-1.0); BLOOD UREA NITROGEN 41 mg/dL (7-18); CHLORIDE 100 mmol/L (98-107); CO2 26 mmol/L (21-32); CREATININE 6.1 mg/dL (0.7-1.3); GLUCOSE,RANDOM 81 mg/dL (74-106); MAGNESIUM 1.8 mg/dL (1.8-2.4); PHOSPHOROUS 5.2 mg/dL (2.5-4.9); POTASSIUM 3.1 mmol/L (3.5-5.1); SGOT/AST 22 U/L (15-37); SGPT/ALT 21 U/L (12-78); SODIUM 139 mmol/L (136-145); TOT PROT 6.3 g/dl (6.4-8.2)
[2017-12-24 07:09] LABS: CALCIUM 6.7 mg/dL (8.5-10.1)
[2017-12-24 07:25] LABS: BASO % 0.3 % (0-2.0); EOS % 0.3 % (0-4.5); HEMATOCRIT 33.3 % (35.4-49); HEMOGLOBIN 11.5 GM/dL (11.7-16.9); MCH 29.5 pg (25.7-33.7); MCHC 34.7 g/dl (32.0-35.9); MEAN PLT VOLUME 8.1 fl (7.5-11.1); NEUT % 65.4 % (42.8-82.8); PLATELET COUNT 124 K/MM3 (134-434); RBC 3.92 M/mm3 (4.00-5.60); RDW 18.1 % (11.9-15.9); WHITE BLOOD COUNT 4.8 K/mm3 (4.0-10.0)
[2017-12-24] MEDS ORDERED: POTASSIUM CHLORIDE TABS 20 MEQ TABLET.ER (FP) PO ONE (10:00)
--- NOTE | 2017-12-24 10:32 | PN ---
Progress Note (short form) - Note Progress Note: Renal Follow up for HESHAM/CKD Pt seen and examined in the ICU awake and alert s/p dialysis yesterday reports some chest hevainess no cp, overt sob making a little urine Vital Signs Temperature 97.2 F L 12/24/17 02:00 Pulse Rate 72 12/24/17 06:00 Respiratory Rate 21 12/24/17 06:00 Blood Pressure 146/89 12/24/17 06:00 O2 Sat by Pulse Oximetry (%) 96 12/23/17 21:00 NAD awake and alert No JVD Dec BS at lung bases soft NT/ND no LE edema CBC, BMP 12/24/17 05:35 12/24/17 05:35 Current Medications Acetaminophen (Tylenol -) 650 mg PO Q4H PRN PRN Reason: FEVER Last Admin: 12/22/17 17:46 Dose: 650 mg Alprazolam (Xanax -) 0.25 mg PO Q8H PRN PRN Reason: ANXIETY Last Admin: 12/23/17 14:21 Dose: 0.25 mg Amlodipine Besylate (Norvasc -) 10 mg PO DAILY [facility] Last Admin: 12/23/17 12:08 Dose: Not Given Aspirin (Ecotrin -) 81 mg PO DAILY [facility] Atorvastatin Calcium (Lipitor -) 20 mg PO HS [facility] Last Admin: 12/23/17 21:53 Dose: 20 mg Calcium Acetate (Phoslo -) 1,334 mg PO TIDCM [facility] Last Admin: 12/23/17 17:47 Dose: Not Given Chlorhexidine Gluconate (Hibiclens For Decolonization -) 1 applic TP HS [facility] Last Admin: 12/23/17 21:57 Dose: 1 applic Desmopressin Acetate (Ddavp Injection -) 15 mcg IVPB ONCE ONE Stop: 12/22/17 09:47 Digoxin (Lanoxin -) 0.25 mg PO DAILY [facility] Heparin Sodium (Porcine) (Heparin -) 5,000 unit SQ TID [facility] Last Admin: 12/24/17 06:48 Dose: 5,000 unit Metoprolol Tartrate (Lopressor -) 12.5 mg PO BID [facility] Last Admin: 12/23/17 21:53 Dose: 12.5 mg Mupirocin (Bactroban Ointment (For Decolonization) -) 1 applic NS BID [facility] Stop: 12/27/17 21:59 Last Admin: 12/23/17 21:55 Dose: 1 applic Pantoprazole Sodium (Protonix -) 40 mg PO BID [facility] Last Admin: 12/23/17 21:53 Dose: 40 mg Sodium Bicarbonate (Sodium Bicarbonate -) 1,300 mg PO BID [facility] Last Admin: 12/23/17 21:52 Dose: 1,300 mg Zolpidem Tartrate (Ambien -) 5 mg PO HS PRN PRN Reason: INSOMNIA 87 year gentleman with PMhx of advanced CKD, Hypertension who presented with complaints of Nausea and weakness as per the family found to have BUN/Cr of 164/ 16 and K of 6.9. #Acute on Chronic Renal Failure with Uremia #Anion gap metabolic acidosis #Hyperkalemia #Uremia #Acute on Chronic Anemia #Hypocalcemia/Hyperphosphatemia no indication for HD today will start torsemide 80mg Daily KCL 40meq PO x 1 continue phoslo tid with meals next dialysis tomorrow will need outpatient HD placement vascular for permacath and AVF placement will continue GABY with HD Andrei Osorio DO
--- NOTE | 2017-12-24 10:48 | PN ---
Progress Note, Physician Chief Complaint: weakness History of Present Illness: denies cp, palpitations. mild heaviness in breathing no syncope ex cigs - Current Medication List Current Medications: Active Medications Acetaminophen (Tylenol -) 650 mg PO Q4H PRN PRN Reason: FEVER Last Admin: 12/22/17 17:46 Dose: 650 mg Alprazolam (Xanax -) 0.25 mg PO Q8H PRN PRN Reason: ANXIETY Last Admin: 12/23/17 14:21 Dose: 0.25 mg Amlodipine Besylate (Norvasc -) 10 mg PO DAILY [facility] Last Admin: 12/23/17 12:08 Dose: Not Given Aspirin (Ecotrin -) 81 mg PO DAILY [facility] Atorvastatin Calcium (Lipitor -) 20 mg PO HS [facility] Last Admin: 12/23/17 21:53 Dose: 20 mg Calcium Acetate (Phoslo -) 1,334 mg PO TIDCM [facility] Last Admin: 12/23/17 17:47 Dose: Not Given Chlorhexidine Gluconate (Hibiclens For Decolonization -) 1 applic TP HS [facility] Last Admin: 12/23/17 21:57 Dose: 1 applic Desmopressin Acetate (Ddavp Injection -) 15 mcg IVPB ONCE ONE Stop: 12/22/17 09:47 Digoxin (Lanoxin -) 0.25 mg PO DAILY [facility] Heparin Sodium (Porcine) (Heparin -) 5,000 unit SQ TID [facility] Last Admin: 12/24/17 06:48 Dose: 5,000 unit Metoprolol Tartrate (Lopressor -) 12.5 mg PO BID [facility] Last Admin: 12/23/17 21:53 Dose: 12.5 mg Mupirocin (Bactroban Ointment (For Decolonization) -) 1 applic NS BID [facility] Stop: 12/27/17 21:59 Last Admin: 12/23/17 21:55 Dose: 1 applic Pantoprazole Sodium (Protonix -) 40 mg PO BID [facility] Last Admin: 12/23/17 21:53 Dose: 40 mg Sodium Bicarbonate (Sodium Bicarbonate -) 1,300 mg PO BID [facility] Last Admin: 12/23/17 21:52 Dose: 1,300 mg Zolpidem Tartrate (Ambien -) 5 mg PO HS PRN PRN Reason: INSOMNIA - Objective Vital Signs: Vital Signs Temperature 97.2 F L 12/24/17 02:00 Pulse Rate 72 12/24/17 06:00 Respiratory Rate 21 12/24/17 06:00 Blood Pressure 146/89 12/24/17 06:00 O2 Sat by Pulse Oximetry (%) 96 12/23/17 21:00 Constitutional: Yes: No Distress, Calm Eyes: No: Sclera Icterus HENT: No: Nasal Congestion Cardiovascular: Yes: Pulse Irregular, S1, S2, Other (PMI non diplaced). No: JVD , Gallop, Murmur Respiratory: Yes: CTA Bilaterally (anteriorly (gris on)). No: Accessory Muscle Use, Rales, Wheezes Gastrointestinal: Yes: Normal Bowel Sounds, Soft. No: Tenderness Musculoskeletal: Yes: Other (No kyphosis) Extremities: No: Cold Edema: No Integumentary: No: Jaundice Neurological: Yes: Alert, Oriented (x3) Psychiatric: No: Agitated Labs: CBC, BMP 12/24/17 05:35 12/24/17 05:35 INR, PTT INR 1.17 (0.82-1.09) H 12/20/17 20:15 Assessment/Plan tele: afib to 130s 12/23 (no recordings since) currently bedside monitor shows AF with good HR control 87 yo male with advanced CKD and HTN now with 2-3 days of nausea and weakness in the setting of severe azotemia (BUN/Cr 164/16) and, Hgb 6.8 and hyperkalemia 6.9. Found also to be in AF at 100/min. Afib -Reasonable rate control on low dose BB (Metoprolol 12.5mg BID). Etiology likely related to underlying HESHAM and pronounced anemia. -Has elevated [id number] = 3 (Age>75, Male and HTN) which would warrant anticoagulation. However, deferring AC at present given suspected issues with compliance as well as pt's stated goals of care (declining life saving therapies such as HD). -In addition, there is a significant remote bleeding ulcer history with hgb 6.8 here s/p PRBCs. -continue asa 81mg daily and PPI as doing--stop aspirin if hgb drops again -reassess anti-thrombotic strategy if pt goals change -f/u echo HTN -Controlled on Amlodipine 10mg and low dose metoprolol 12.5 BID -Will continue to improved with HD/volume removal Anemia -As per primary team
[2017-12-24] MEDS: CALCIUM ACETATE 667 MG CAPSULE (FP) PO SCH ×3 (10:58→18:49)
[2017-12-24] MEDS: ASPIRIN COATED 81 MG TABLET.EC PO SCH (11:07)
[2017-12-24] MEDS: SODIUM BICARBONATE 650 MG TABLET PO SCH ×2 (11:07→21:24)
[2017-12-24] MEDS: PANTOPRAZOLE 40 MG TABLET (FP) PO SCH ×2 (11:08→21:24)
[2017-12-24] MEDS: amLODIPine BESYLATE 10 MG TABLET (FP) PO SCH (11:08)
[2017-12-24] MEDS ORDERED: POTASSIUM CHLORIDE TABS 10 MEQ TABLET.ER (FP) PO ONE (11:08)
[2017-12-24] MEDS: METOPROLOL TARTRATE 25 MG TABLET (FP) PO SCH ×2 (11:08→21:24)
[2017-12-24] MEDS: MUPIROCIN 2% TOPICAL OINTMENT FOR DECOLONIZATION NS SCH ×2 (11:09→21:24)
--- NOTE | 2017-12-24 11:18 | EKG ---
Test Reason : Blood Pressure : / mmHG Vent. Rate : 073 BPM Atrial Rate : 067 BPM P-R Int : 000 ms QRS Dur : 104 ms QT Int : 434 ms P-R-T Axes : 000 051 045 degrees QTc Int : 478 ms ATRIAL FIBRILLATION NONSPECIFIC T WAVE ABNORMALITY PROLONGED QT ABNORMAL ECG WHEN COMPARED WITH ECG OF 22-DEC-2017 13:22, T WAVE VARIATION Confirmed by MICHAEL SELBY MD ([id number]) on 12/24/2017 11:18:44 AM Referred By: CONNOR REYES DR Confirmed By:MICHAEL SELBY MD
--- NOTE | 2017-12-24 13:24 | PN ---
Teaching Attending Note Name of Resident: Oseas Busby ATTENDING PHYSICIAN STATEMENT I saw and evaluated the patient. I reviewed the resident's note and discussed the case with the resident. I agree with the resident's findings and plan as documented. SUBJECTIVE: Patient seen and examined in the ICU. Awake and alert, but confused. Denies CP or SOB. Intake & Output 12/21/17 12/22/17 12/23/17 12/24/17 23:59 23:59 23:59 23:59 Intake Total 1590 1020 220 Output Total 10 200 100 Balance 1580 820 120 Weight 120 lb 113 lb 8 oz 108 lb 9.6 oz 104 lb 0.931 oz Last Vital Signs Temp Pulse Resp BP Pulse Ox 97.9 F 68 14 124/83 96 12/24/17 10:00 12/24/17 12:00 12/24/17 12:00 12/24/17 12:00 12/23/17 21:00 Active Medications Acetaminophen (Tylenol -) 650 mg PO Q4H PRN PRN Reason: FEVER Last Admin: 12/22/17 17:46 Dose: 650 mg Alprazolam (Xanax -) 0.25 mg PO Q8H PRN PRN Reason: ANXIETY Last Admin: 12/23/17 14:21 Dose: 0.25 mg Amlodipine Besylate (Norvasc -) 10 mg PO DAILY [facility] Last Admin: 12/24/17 11:08 Dose: 10 mg Aspirin (Ecotrin -) 81 mg PO DAILY [facility] Last Admin: 12/24/17 11:07 Dose: 81 mg Atorvastatin Calcium (Lipitor -) 20 mg PO HS [facility] Last Admin: 12/23/17 21:53 Dose: 20 mg Calcium Acetate (Phoslo -) 1,334 mg PO TIDCM [facility] Last Admin: 12/24/17 11:08 Dose: 1,334 mg Chlorhexidine Gluconate (Hibiclens For Decolonization -) 1 applic TP HS [facility] Last Admin: 12/23/17 21:57 Dose: 1 applic Desmopressin Acetate (Ddavp Injection -) 15 mcg IVPB ONCE ONE Stop: 12/22/17 09:47 Digoxin (Lanoxin -) 0.25 mg PO DAILY [facility] Heparin Sodium (Porcine) (Heparin -) 5,000 unit SQ TID [facility] Last Admin: 06/04/18 06:48 Dose: 5,000 unit Metoprolol Tartrate (Lopressor -) 12.5 mg PO BID [facility] Last Admin: 12/24/17 11:08 Dose: 12.5 mg Mupirocin (Bactroban Ointment (For Decolonization) -) 1 applic NS BID [facility] Stop: 12/27/17 21:59 Last Admin: 12/24/17 11:09 Dose: 1 applic Pantoprazole Sodium (Protonix -) 40 mg PO BID [facility] Last Admin: 12/24/17 11:08 Dose: 40 mg Sodium Bicarbonate (Sodium Bicarbonate -) 1,300 mg PO BID [facility] Last Admin: 12/24/17 11:07 Dose: 1,300 mg Torsemide (Demadex -) 40 mg PO DAILY [facility] Zolpidem Tartrate (Ambien -) 5 mg PO HS PRN PRN Reason: INSOMNIA General: Awake and alert, NAD HEENT: (-) Icterus PULM: basilar rhonchi CV: S1S2 ABD; soft, NT, ND EXT: trace edema, warm Neuro: non focal , VILLALPANDO x 4 Laboratory Results - last 24 hr 12/24/17 12/24/17 05:35 05:35 WBC 4.8 RBC 3.92 L Hgb 11.5 L Hct 33.3 L MCV 85.0 MCH 29.5 MCHC 34.7 RDW 18.1 H Plt Count 124 L MPV 8.1 Neutrophils % 65.4 Lymphocytes % 17.0 D Monocytes % 17.0 H Eosinophils % 0.3 Basophils % 0.3 Nucleated RBC % 0 Sodium 139 Potassium 3.1 L Chloride 100 Carbon Dioxide 26 Anion Gap 13 BUN 41 H D Creatinine 6.1 H D Creat Clearance w eGFR 8.79 Random Glucose 81 Calcium 6.7 L* Phosphorus 5.2 H D Magnesium 1.8 Total Bilirubin 0.5 D AST 22 ALT 21 Alkaline Phosphatase 153 H D Total Protein 6.3 L Albumin 2.9 L IMP: Acute Renal Failure CKD Metabolic acidosis ARF HTN AFib PLAN: HD per Renal Check ECHO O2 as needed PPI VTE prophylaxis Strict I & O PO as tolerated Rate control Caution with Ambien and Xanax Dr Moyer Critical care time spent in reviewing chart, evaluating patient and formulating plan - 36 minutes.
--- NOTE | 2017-12-24 13:36 | PN ---
Physical Exam: SUBJECTIVE: Patient seen and examined. No acute events overnight. Afebrile. Offer no new complaints. Denies SOB, Chest pain. OBJECTIVE: Vital Signs Period Temp Pulse Resp BP Sys/Gibson Pulse Ox Last 24 Hr 97.2 F-97.9 F 68-102 12-24 105-151/65-91 96-100 GENERAL: A/o x 2, confused at baseline EYES: conjunctiva clear. ENT: oropharynx clear without exudates, moist mucous membranes. NECK: supple. LUNGS: basilar crackles HEART: irregular rhythm ABDOMEN: Soft, nontender, nondistended, normoactive bowel sounds EXTREMITIES: 2+ pulses, warm, trace edema Laboratory Results - last 24 hr 12/24/17 12/24/17 05:35 05:35 WBC 4.8 RBC 3.92 L Hgb 11.5 L Hct 33.3 L MCV 85.0 MCH 29.5 MCHC 34.7 RDW 18.1 H Plt Count 124 L MPV 8.1 Neutrophils % 65.4 Lymphocytes % 17.0 D Monocytes % 17.0 H Eosinophils % 0.3 Basophils % 0.3 Nucleated RBC % 0 Sodium 139 Potassium 3.1 L Chloride 100 Carbon Dioxide 26 Anion Gap 13 BUN 41 H D Creatinine 6.1 H D Creat Clearance w eGFR 8.79 Random Glucose 81 Calcium 6.7 L* Phosphorus 5.2 H D Magnesium 1.8 Total Bilirubin 0.5 D AST 22 ALT 21 Alkaline Phosphatase 153 H D Total Protein 6.3 L Albumin 2.9 L Active Medications Generic Name Dose Route Start Last Admin Trade Name Freq PRN Reason Stop Dose Admin Acetaminophen 650 mg 12/21/17 05:49 12/22/17 17:46 Tylenol - PO 650 mg Q4H PRN Administration FEVER Alprazolam 0.25 mg 12/22/17 17:22 12/23/17 14:21 Xanax - PO 0.25 mg Q8H PRN Administration ANXIETY Amlodipine Besylate 10 mg 12/21/17 10:00 12/24/17 11:08 Norvasc - PO 10 mg DAILY [facility] Administration Aspirin 81 mg 12/24/17 10:00 12/24/17 11:07 Ecotrin - PO 81 mg DAILY [facility] Administration Atorvastatin Calcium 20 mg 12/22/17 22:00 12/23/17 21:53 Lipitor - PO 20 mg HS [facility] Administration Calcium Acetate 1,334 mg 12/21/17 17:30 12/24/17 11:08 Phoslo - PO 1,334 mg TIDCM [facility] Administration Chlorhexidine Gluconate 1 applic 12/22/17 22:00 12/23/17 21:57 Hibiclens For Decolonization - TP 1 applic HS [facility] Administration Desmopressin Acetate 15 mcg 12/22/17 09:46 Ddavp Injection - IVPB 12/22/17 09:47 ONCE ONE Digoxin 0.25 mg 12/23/17 20:30 Lanoxin - PO DAILY [facility] Heparin Sodium (Porcine) 5,000 unit 12/21/17 06:00 12/24/17 06:48 Heparin - SQ 5,000 unit TID [facility] Administration Metoprolol Tartrate 12.5 mg 12/22/17 15:00 12/24/17 11:08 Lopressor - PO 12.5 mg BID [facility] Administration Mupirocin 1 applic 12/22/17 22:00 12/24/17 11:09 Bactroban Ointment (For Decolonization) - NS 12/27/17 21:59 1 applic BID [facility] Administration Pantoprazole Sodium 40 mg 12/22/17 22:00 12/24/17 11:08 Protonix - PO 40 mg BID [facility] Administration Sodium Bicarbonate 1,300 mg 12/22/17 10:00 12/24/17 11:07 Sodium Bicarbonate - PO 1,300 mg BID [facility] Administration Torsemide 40 mg 12/24/17 12:00 Demadex - PO DAILY [facility] Zolpidem Tartrate 5 mg 12/22/17 17:23 Ambien - PO HS PRN INSOMNIA ASSESSMENT/PLAN: # -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 - New Patient This patient is new to me today: Yes Date on this admission: 12/24/17 - Critical Care Critical Care patient: Yes Total Critical Care Time (in minutes): 40 Critical Care Statement: The care of this patient involved high complexity decision making to prevent further life threatening deterioration of the patient 's condition and/or to evaluate & treat vital organ system(s) failure or risk of failure.
[2017-12-24] MEDS: TORSEMIDE 20 MG TABLET (FP) PO SCH (15:51)
--- NOTE | 2017-12-24 20:15 | PN ---
Progress Note, Physician History of Present Illness: Pt had HD yesterday Pt tolerated well Pt had 2 units of PRBC Pt had 2 times HD PPt is better today - Current Medication List Current Medications: Active Medications Acetaminophen (Tylenol -) 650 mg PO Q4H PRN PRN Reason: FEVER Last Admin: 12/22/17 17:46 Dose: 650 mg Alprazolam (Xanax -) 0.25 mg PO Q8H PRN PRN Reason: ANXIETY Last Admin: 12/23/17 14:21 Dose: 0.25 mg Amlodipine Besylate (Norvasc -) 10 mg PO DAILY [facility] Last Admin: 12/24/17 11:08 Dose: 10 mg Aspirin (Ecotrin -) 81 mg PO DAILY [facility] Last Admin: 12/24/17 11:07 Dose: 81 mg Atorvastatin Calcium (Lipitor -) 20 mg PO HS [facility] Last Admin: 12/23/17 21:53 Dose: 20 mg Calcium Acetate (Phoslo -) 1,334 mg PO TIDCM [facility] Last Admin: 12/24/17 18:49 Dose: 1,334 mg Chlorhexidine Gluconate (Hibiclens For Decolonization -) 1 applic TP HS [facility] Last Admin: 12/23/17 21:57 Dose: 1 applic Desmopressin Acetate (Ddavp Injection -) 15 mcg IVPB ONCE ONE Stop: 12/22/17 09:47 Digoxin (Lanoxin -) 0.25 mg PO DAILY [facility] Heparin Sodium (Porcine) (Heparin -) 5,000 unit SQ TID [facility] Last Admin: 12/24/17 15:51 Dose: 5,000 unit Metoprolol Tartrate (Lopressor -) 12.5 mg PO BID [facility] Last Admin: 12/24/17 11:08 Dose: 12.5 mg Mupirocin (Bactroban Ointment (For Decolonization) -) 1 applic NS BID [facility] Stop: 12/27/17 21:59 Last Admin: 12/24/17 11:09 Dose: 1 applic Pantoprazole Sodium (Protonix -) 40 mg PO BID [facility] Last Admin: 12/24/17 11:08 Dose: 40 mg Sodium Bicarbonate (Sodium Bicarbonate -) 1,300 mg PO BID [facility] Last Admin: 12/24/17 11:07 Dose: 1,300 mg Torsemide (Demadex -) 40 mg PO DAILY [facility] Last Admin: 12/24/17 15:51 Dose: 40 mg Zolpidem Tartrate (Ambien -) 5 mg PO HS PRN PRN Reason: INSOMNIA - Objective Vital Signs: Vital Signs Temperature 98 F 12/24/17 18:00 Pulse Rate 90 12/24/17 18:00 Respiratory Rate 20 12/24/17 18:00 Blood Pressure 146/87 12/24/17 18:00 O2 Sat by Pulse Oximetry (%) 99 12/24/17 09:00 Constitutional: Yes: No Distress, Anxious Eyes: Yes: Conjunctiva Clear, EOM Intact HENT: Yes: Atraumatic, Normocephalic Neck: Yes: Supple, Trachea Midline Cardiovascular: Yes: Regular Rate and Rhythm, Bruit Respiratory: Yes: Regular, CTA Bilaterally Gastrointestinal: Yes: Normal Bowel Sounds, Soft Musculoskeletal: Yes: Joint Stiffness Edema: No Peripheral Pulses WNL: Yes Neurological: Yes: Alert, Cran Nerves II-XII Intact Psychiatric: Yes: Alert, Oriented (Pt is better today) Labs: CBC, BMP 12/24/17 05:35 12/24/17 05:35 INR, PTT INR 1.17 (0.82-1.09) H 12/20/17 20:15 Problem List - Problems (1) Acute renal failure Code(s): N17.9 - ACUTE KIDNEY FAILURE, UNSPECIFIED (2) Afib Code(s): I48.91 - UNSPECIFIED ATRIAL FIBRILLATION (3) Metabolic acidosis Code(s): E87.2 - ACIDOSIS (4) Anemia Code(s): D64.9 - ANEMIA, UNSPECIFIED (5) Electrolyte imbalance Code(s): E87.8 - OTH DISORDERS OF ELECTROLYTE AND FLUID BALANCE, NEC (6) CAD (coronary artery disease) Code(s): I25.10 - ATHSCL HEART DISEASE OF [place] CORONARY ARTERY W/O ANG PCTRS (7) HTN (hypertension) Code(s): I10 - ESSENTIAL (PRIMARY) HYPERTENSION (8) Respiratory failure Code(s): J96.90 - RESPIRATORY FAILURE, UNSP, UNSP W HYPOXIA OR HYPERCAPNIA (9) GI bleeding Code(s): K92.2 - GASTROINTESTINAL HEMORRHAGE, UNSPECIFIED (10) Cervical stenosis of spine Code(s): M48.02 - SPINAL STENOSIS, CERVICAL REGION (11) Cervical radiculopathy Code(s): M54.12 - RADICULOPATHY, CERVICAL REGION (12) HLD (hyperlipidemia) Code(s): E78.5 - HYPERLIPIDEMIA, UNSPECIFIED (13) Fall Code(s): W19.XXXA - UNSPECIFIED FALL, INITIAL ENCOUNTER Assessment/Plan (1) Acute renal failure Code(s): N17.9 - ACUTE KIDNEY FAILURE, UNSPECIFIED (2) Afib Code(s): I48.91 - UNSPECIFIED ATRIAL FIBRILLATION (3) Metabolic acidosis Code(s): E87.2 - ACIDOSIS (4) Anemia Code(s): D64.9 - ANEMIA, UNSPECIFIED (5) Electrolyte imbalance Code(s): E87.8 - OTH DISORDERS OF ELECTROLYTE AND FLUID BALANCE, NEC (6) CAD (coronary artery disease) Code(s): I25.10 - ATHSCL HEART DISEASE OF [place] CORONARY ARTERY W/O ANG PCTRS (7) HTN (hypertension) Code(s): I10 - ESSENTIAL (PRIMARY) HYPERTENSION (8) H/O Respiratory failure/ Intubation/ Extubation Code(s): J96.90 - RESPIRATORY FAILURE, UNSP, UNSP W HYPOXIA OR HYPERCAPNIA (9) H/O GI bleeding Code(s): K92.2 - GASTROINTESTINAL HEMORRHAGE, UNSPECIFIED (10) H/OCervical stenosis of spine Code(s): M48.02 - SPINAL STENOSIS, CERVICAL REGION (11) H/OCervical radiculopathy Code(s): M54.12 - RADICULOPATHY, CERVICAL REGION (12) HLD (hyperlipidemia) Code(s): E78.5 - HYPERLIPIDEMIA, UNSPECIFIED (13) H/O Fall Code(s): W19.XXXA - UNSPECIFIED FALL, INITIAL ENCOUNTER Pt is for HD tomorrow Pt is better Oriented today Cardiology/ Renal/ Pulmonary consult noted Not a candidate for Anticoagulation discussed with family Pt very anxious hence xanax is helping him/ No respiratory issues Afib rate controlled with Metoprolol
[2017-12-24] MEDS ORDERED: DIGOXIN 0.25 MG TABLET (FP) PO SCH (20:30)
[2017-12-24] MEDS: ALPRAZolam 0.25 MG TABLET PO PRN (21:24)
[2017-12-24] MEDS: ATORVASTATIN CA 20 MG TABLET (FP) PO SCH (21:24)
[2017-12-24] MEDS: CHLORHEXIDINE GLUCONATE 4% CLEANSER FOR DECOLONIZATION TP SCH (21:25)
[2017-12-25] MEDS ORDERED: DIGOXIN 0.25 MG TABLET (FP) PO ONE ×2 (00:30→10:30)
[2017-12-25 06:44] LABS: HEMATOCRIT 34.8 % (35.4-49); HEMOGLOBIN 11.8 GM/dL (11.7-16.9); MCH 29.4 pg (25.7-33.7); MCHC 33.9 g/dl (32.0-35.9); MEAN CELL VOLUME 86.7 fl (80-96); PLATELET COUNT 155 K/MM3 (134-434); RBC 4.02 M/mm3 (4.00-5.60); RDW 18.1 % (11.9-15.9); WHITE BLOOD COUNT 4.9 K/mm3 (4.0-10.0)
[2017-12-25] MEDS: HEPARIN NA (PORCINE) 5,000 UNITS/ML 1ML VIAL SQ SCH ×3 (06:58→21:57)
[2017-12-25 07:17] LABS: ALBUMIN 2.8 g/dl (3.4-5.0); ALK PHOS 134 U/L (45-117); BILIRUBIN,TOTAL 0.5 mg/dL (0.2-1.0); BLOOD UREA NITROGEN 53 mg/dL (7-18); CO2 23 mmol/L (21-32); GLUCOSE,RANDOM 83 mg/dL (74-106); PHOSPHOROUS 5.6 mg/dL (2.5-4.9); SGOT/AST 15 U/L (15-37); SGPT/ALT 17 U/L (12-78); TOT PROT 6.4 g/dl (6.4-8.2)
[2017-12-25 07:38] LABS: CALCIUM 6.5 mg/dL (8.5-10.1); CREATININE 7.5 mg/dL (0.7-1.3)
[2017-12-25 07:57] LABS: ANION GAP 15 (8-16); CHLORIDE 100 mmol/L (98-107); POTASSIUM 3.2 mmol/L (3.5-5.1); SODIUM 140 mmol/L (136-145)
[2017-12-25] MEDS ORDERED: SODIUM CHLORIDE 250 ML IV PRN (08:31)
[2017-12-25] MEDS ORDERED: PT OWN MED DRAWER 7, Y5N ONE (09:26)
[2017-12-25] MEDS: CALCIUM ACETATE 667 MG CAPSULE (FP) PO SCH ×3 (11:00→17:01)
--- NOTE | 2017-12-25 11:29 | PN ---
Progress Note (short form) - Note Progress Note: Patient seen and examined in the Telemetry unit. Awake and alert, but confused. Denies CP or SOB. Intake & Output 12/22/17 12/23/17 12/24/17 12/25/17 23:59 23:59 23:59 23:59 Intake Total 1020 220 100 Output Total 200 100 225 Balance 820 120 -125 Weight 113 lb 8 oz 108 lb 9.6 oz 104 lb 0.931 oz 105 lb 4.8 oz Last Vital Signs Temp Pulse Resp BP Pulse Ox 98.4 F 72 20 140/79 97 12/25/17 08:00 12/25/17 08:00 12/25/17 08:00 12/25/17 08:00 12/25/17 08:00 Active Medications Acetaminophen (Tylenol -) 650 mg PO Q4H PRN PRN Reason: FEVER Last Admin: 12/22/17 17:46 Dose: 650 mg Alprazolam (Xanax -) 0.25 mg PO Q8H PRN PRN Reason: ANXIETY Last Admin: 12/24/17 21:24 Dose: 0.25 mg Amlodipine Besylate (Norvasc -) 10 mg PO DAILY [facility] Last Admin: 12/24/17 11:08 Dose: 10 mg Aspirin (Ecotrin -) 81 mg PO DAILY [facility] Last Admin: 12/24/17 11:07 Dose: 81 mg Atorvastatin Calcium (Lipitor -) 20 mg PO HS [facility] Last Admin: 12/24/17 21:24 Dose: 20 mg Calcium Acetate (Phoslo -) 1,334 mg PO TIDCM [facility] Last Admin: 12/24/17 18:49 Dose: 1,334 mg Chlorhexidine Gluconate (Hibiclens For Decolonization -) 1 applic TP HS [facility] Last Admin: 12/24/17 21:25 Dose: 1 applic Desmopressin Acetate (Ddavp Injection -) 15 mcg IVPB ONCE ONE Stop: 12/22/17 09:47 Digoxin (Lanoxin -) 0.25 mg PO DAILY [facility] Heparin Sodium (Porcine) (Heparin -) 5,000 unit SQ TID [facility] Last Admin: 12/25/17 06:58 Dose: 5,000 unit Sodium Chloride (Normal Saline -) 250 mls @ 3,000 mls/hr IV PRN PRN PRN Reason: Hypotension during Dialysis Stop: 12/26/17 08:31 Metoprolol Tartrate (Lopressor -) 12.5 mg PO BID [facility] Last Admin: 12/24/17 21:24 Dose: 12.5 mg Mupirocin (Bactroban Ointment (For Decolonization) -) 1 applic NS BID [facility] Stop: 12/27/17 21:59 Last Admin: 12/24/17 21:24 Dose: 1 applic Pantoprazole Sodium (Protonix -) 40 mg PO BID [facility] Last Admin: 12/24/17 21:24 Dose: 40 mg Potassium Chloride (K-Dur -) 20 meq PO DAILY [facility] Sodium Bicarbonate (Sodium Bicarbonate -) 1,300 mg PO BID [facility] Last Admin: 12/24/17 21:24 Dose: 1,300 mg Torsemide (Demadex -) 40 mg PO DAILY [facility] Last Admin: 12/24/17 15:51 Dose: 40 mg General: Awake and alert, NAD HEENT: (-) Icterus PULM: basilar rhonchi CV: S1S2 ABD; soft, NT, ND EXT: trace edema, warm Neuro: non focal , VILLALPANDO x 4 Laboratory Results - last 24 hr 12/22/17 12/25/17 12/25/17 16:45 06:03 06:03 WBC 4.9 RBC 4.02 Hgb 11.8 Hct 34.8 L MCV 86.7 MCH 29.4 MCHC 33.9 RDW 18.1 H Plt Count 155 D MPV 8.0 Sodium 140 Potassium 3.2 L Chloride 100 Carbon Dioxide 23 Anion Gap 15 BUN 53 H D Creatinine 7.5 H* D Creat Clearance w eGFR 6.93 Random Glucose 83 Calcium 6.5 L* Phosphorus 5.6 H Magnesium 2.0 Total Bilirubin 0.5 AST 15 D ALT 17 Alkaline Phosphatase 134 H Total Protein 6.4 Albumin 2.8 L Hep C Ab Diagnostic 0.2 Liver Fibrosis Interp IMP: Acute Renal Failure CKD Metabolic acidosis ARF HTN AFib PLAN: HD per Renal O2 as needed PPI VTE prophylaxis Strict I & O PO as tolerated Rate control Caution Xanax D/C [place] Dr Moyer
[2017-12-25] MEDS: TORSEMIDE 20 MG TABLET (FP) PO SCH (11:43)
[2017-12-25] MEDS: PANTOPRAZOLE 40 MG TABLET (FP) PO SCH ×2 (11:43→21:57)
[2017-12-25] MEDS: ASPIRIN COATED 81 MG TABLET.EC PO SCH (11:43)
[2017-12-25] MEDS: amLODIPine BESYLATE 10 MG TABLET (FP) PO SCH (11:43)
[2017-12-25] MEDS: POTASSIUM CHLORIDE TABS 20 MEQ TABLET.ER (FP) PO SCH (11:43)
[2017-12-25] MEDS: SODIUM BICARBONATE 650 MG TABLET PO SCH ×2 (11:43→21:57)
[2017-12-25] MEDS: METOPROLOL TARTRATE 25 MG TABLET (FP) PO SCH ×2 (11:43→21:58)
[2017-12-25] MEDS: MUPIROCIN 2% TOPICAL OINTMENT FOR DECOLONIZATION NS SCH ×2 (11:43→21:58)
--- NOTE | 2017-12-25 13:24 | PN ---
Progress Note (short form) - Note Progress Note: Chief Complaint: weakness History of Present Illness: started on digoxin today. to have hd today. denies cp, palpitations. sob, dizziness. no syncope ex cigs Current Medications Acetaminophen (Tylenol -) 650 mg PO Q4H PRN PRN Reason: FEVER Last Admin: 12/22/17 17:46 Dose: 650 mg Alprazolam (Xanax -) 0.25 mg PO Q8H PRN PRN Reason: ANXIETY Last Admin: 12/24/17 21:24 Dose: 0.25 mg Amlodipine Besylate (Norvasc -) 10 mg PO DAILY [facility] Last Admin: 12/25/17 11:43 Dose: 10 mg Aspirin (Ecotrin -) 81 mg PO DAILY [facility] Last Admin: 12/25/17 11:43 Dose: 81 mg Atorvastatin Calcium (Lipitor -) 20 mg PO HS [facility] Last Admin: 12/24/17 21:24 Dose: 20 mg Calcium Acetate (Phoslo -) 1,334 mg PO TIDCM [facility] Last Admin: 12/25/17 11:00 Dose: 1,334 mg Chlorhexidine Gluconate (Hibiclens For Decolonization -) 1 applic TP HS [facility] Last Admin: 12/24/17 21:25 Dose: 1 applic Desmopressin Acetate (Ddavp Injection -) 15 mcg IVPB ONCE ONE Stop: 12/22/17 09:47 Digoxin (Lanoxin -) 0.25 mg PO DAILY [facility] Heparin Sodium (Porcine) (Heparin -) 5,000 unit SQ TID [facility] Last Admin: 12/25/17 06:58 Dose: 5,000 unit Sodium Chloride (Normal Saline -) 250 mls @ 3,000 mls/hr IV PRN PRN PRN Reason: Hypotension during Dialysis Stop: 12/26/17 08:31 Metoprolol Tartrate (Lopressor -) 12.5 mg PO BID [facility] Last Admin: 12/25/17 11:43 Dose: 12.5 mg Mupirocin (Bactroban Ointment (For Decolonization) -) 1 applic NS BID [facility] Stop: 12/27/17 21:59 Last Admin: 12/25/17 11:43 Dose: Not Given Pantoprazole Sodium (Protonix -) 40 mg PO BID [facility] Last Admin: 12/25/17 11:43 Dose: 40 mg Potassium Chloride (K-Dur -) 20 meq PO DAILY [facility] Last Admin: 12/25/17 11:43 Dose: 20 meq Sodium Bicarbonate (Sodium Bicarbonate -) 1,300 mg PO BID [facility] Last Admin: 12/25/17 11:43 Dose: 1,300 mg Torsemide (Demadex -) 40 mg PO DAILY [facility] Last Admin: 12/25/17 11:43 Dose: 40 mg - Objective Vital Signs: Vital Signs - 24 hr 12/24/17 12/24/17 12/24/17 14:00 16:00 18:00 Temperature 97.5 F L 98 F Pulse Rate 67 82 90 Respiratory 18 26 H 20 Rate Blood Pressure 107/75 144/78 146/87 O2 Sat by Pulse Oximetry (%) 12/24/17 12/24/17 12/25/17 20:55 22:00 02:00 Temperature 98.6 F Pulse Rate 75 72 Respiratory 20 20 Rate Blood Pressure 130/66 143/78 O2 Sat by Pulse 98 Oximetry (%) 12/25/17 12/25/17 12/25/17 06:00 06:57 08:00 Temperature 98.4 F Pulse Rate 81 85 72 Respiratory 20 20 Rate Blood Pressure 144/83 140/79 O2 Sat by Pulse 97 Oximetry (%) Intake & Output 12/23/17 12/24/17 12/25/17 12/26/17 07:59 07:59 07:59 07:59 Intake Total 240 100 100 Output Total 100 50 225 Balance 140 50 -225 100 Weight 108 lb 9.6 oz 104 lb 0.931 oz 105 lb 4.8 oz Constitutional: Yes: No Distress, Calm Eyes: No: Sclera Icterus HENT: No: Nasal Congestion Cardiovascular: Yes: Pulse Irregular, S1, S2, Other (PMI non diplaced). 2/6 sys murmur at sternal border. Respiratory: Yes: bibasilar rales No: Accessory Muscle Use, Rales, Wheezes Gastrointestinal: Yes: Normal Bowel Sounds, Soft. No: Tenderness Musculoskeletal: Yes: Other (No kyphosis) Extremities: No: Cold Edema: No Integumentary: No: Jaundice Neurological: Yes: Alert, Oriented (x3) Psychiatric: No: Agitated Labs: CBC, BMP 12/25/17 06:03 12/25/17 06:03 Laboratory Tests 12/22/17 12/25/17 06:30 06:03 Hgb 6.8 L* Magnesium 2.0 Total Bilirubin 0.5 AST 15 D ALT 17 Alkaline Phosphatase 134 H Albumin 2.8 L echo 12/2017: mod lvh. nl lv size/fn. rv not well seen. mild-mod mac. probable mod as. small pericardial effusion (<1 cm). large pleural effusion. repeat ekg 12/24: rate controlled afib. non-specific t wave ab. Assessment/Plan tele: rate controlled afib. 87 yo male with advanced CKD and HTN now with 2-3 days of nausea and weakness in the setting of severe azotemia (BUN/Cr 164/16) and, Hgb 6.8 and hyperkalemia 6.9. Found also to be in AF at 100/min. new onset Afib -Reasonable rate control on low dose BB (Metoprolol 12.5mg BID). Echo with normal sys function. Has elevated [id number] = 3 (Age>75, Male and HTN) which would warrant anticoagulation. However, initially deferred AC at present given suspected issues with compliance as well as pt's stated goals of care ( declining life saving therapies such as HD). Now amenable to HD. however, patient with additional hx of significant remote bleeding ulcer history with hgb 6.8 here on presentation s/p PRBCs. --> con't to hold AC. Continue asa 81mg daily and PPI as doing. Can readdress risk/benefit of AC with pmd/ outpatient cards. - patient currently rate controlled. Would d/c digoxin given risk in patient with advanced age/ESRD on HD. Will need strict monitoring of dig levels and renal guidance, if pmd wishes to continue dig. HTN -Controlled on Amlodipine 10mg and low dose metoprolol 12.5 BID -Will continue to improved with HD/volume removal Anemia -As per primary team
--- NOTE | 2017-12-25 17:03 | PN ---
Progress Note (short form) - Note Progress Note: Renal Follow up for HESHAM/CKD Pt seen and examined in the ICU during dialysis awake and alert no complaints goal UF is 3L Vital Signs Temperature 98.1 F 12/25/17 14:10 Pulse Rate 94 H 12/25/17 16:15 Respiratory Rate 21 12/25/17 16:15 Blood Pressure 116/75 12/25/17 16:15 O2 Sat by Pulse Oximetry (%) 97 12/25/17 08:00 Intake & Output 12/22/17 12/23/17 12/24/17 12/25/17 23:59 23:59 23:59 23:59 Intake Total 1020 220 100 Output Total 200 100 225 Balance 820 120 -125 Weight 51.483 kg 49.26 kg 47.2 kg 47.763 kg NAD awake and alert No JVD Dec BS at lung bases soft NT/ND no LE edema CBC, BMP 12/25/17 06:03 12/25/17 06:03 Current Medications Acetaminophen (Tylenol -) 650 mg PO Q4H PRN PRN Reason: FEVER Last Admin: 12/22/17 17:46 Dose: 650 mg Alprazolam (Xanax -) 0.25 mg PO Q8H PRN PRN Reason: ANXIETY Last Admin: 12/24/17 21:24 Dose: 0.25 mg Amlodipine Besylate (Norvasc -) 10 mg PO DAILY [facility] Last Admin: 12/25/17 11:43 Dose: 10 mg Aspirin (Ecotrin -) 81 mg PO DAILY [facility] Last Admin: 12/25/17 11:43 Dose: 81 mg Atorvastatin Calcium (Lipitor -) 20 mg PO HS [facility] Last Admin: 12/24/17 21:24 Dose: 20 mg Calcium Acetate (Phoslo -) 1,334 mg PO TIDCM [facility] Last Admin: 12/25/17 14:23 Dose: Not Given Chlorhexidine Gluconate (Hibiclens For Decolonization -) 1 applic TP [facility] Last Admin: 12/24/17 21:25 Dose: 1 applic Desmopressin Acetate (Ddavp Injection -) 15 mcg IVPB ONCE ONE Stop: 12/22/17 09:47 Digoxin (Lanoxin -) 0.25 mg PO DAILY [facility] Heparin Sodium (Porcine) (Heparin -) 5,000 unit SQ TID [facility] Last Admin: 12/25/17 16:00 Dose: 5,000 unit Sodium Chloride (Normal Saline -) 250 mls @ 3,000 mls/hr IV PRN PRN PRN Reason: Hypotension during Dialysis Stop: 12/26/17 08:31 Metoprolol Tartrate (Lopressor -) 12.5 mg PO BID [facility] Last Admin: 12/25/17 11:43 Dose: 12.5 mg Mupirocin (Bactroban Ointment (For Decolonization) -) 1 applic NS BID [facility] Stop: 12/27/17 21:59 Last Admin: 12/25/17 11:43 Dose: Not Given Pantoprazole Sodium (Protonix -) 40 mg PO BID [facility] Last Admin: 12/25/17 11:43 Dose: 40 mg Potassium Chloride (K-Dur -) 20 meq PO DAILY [facility] Last Admin: 12/25/17 11:43 Dose: 20 meq Sodium Bicarbonate (Sodium Bicarbonate -) 1,300 mg PO BID [facility] Last Admin: 12/25/17 11:43 Dose: 1,300 mg Torsemide (Demadex -) 40 mg PO DAILY [facility] Last Admin: 12/25/17 11:43 Dose: 40 mg 87 year gentleman with PMhx of advanced CKD, Hypertension who presented with complaints of Nausea and weakness as per the family found to have BUN/Cr of 164/ 16 and K of 6.9. #Chronic Renal Failure with Uremia now ESRD with dialysis dependence #Anion gap metabolic acidosis #Hyperkalemia #Uremia #Acute on Chronic Anemia #Hypocalcemia/Hyperphosphatemia tolerating dialysis well today will continue HD 3x weekly outpatient HD to be arranged continue salt and fluid restriction can start PATRICIA/ARB if indicated by cardiology continue torsemide daily vascular eval for AVF placement continue phos binders Andrei Osorio DO
--- NOTE | 2017-12-25 21:10 | PN ---
Progress Note, Physician History of Present Illness: Pt had HD today Pt tolerated well Pt had 2 units of PRBC Pt had 3 times HD Pt is better today - Current Medication List Current Medications: Active Medications Acetaminophen (Tylenol -) 650 mg PO Q4H PRN PRN Reason: FEVER Last Admin: 12/22/17 17:46 Dose: 650 mg Alprazolam (Xanax -) 0.25 mg PO Q8H PRN PRN Reason: ANXIETY Last Admin: 12/24/17 21:24 Dose: 0.25 mg Amlodipine Besylate (Norvasc -) 10 mg PO DAILY [facility] Last Admin: 12/25/17 11:43 Dose: 10 mg Aspirin (Ecotrin -) 81 mg PO DAILY [facility] Last Admin: 12/25/17 11:43 Dose: 81 mg Atorvastatin Calcium (Lipitor -) 20 mg PO HS [facility] Last Admin: 12/24/17 21:24 Dose: 20 mg Calcium Acetate (Phoslo -) 1,334 mg PO TIDCM [facility] Last Admin: 12/25/17 17:01 Dose: Not Given Chlorhexidine Gluconate (Hibiclens For Decolonization -) 1 applic TP HS [facility] Last Admin: 12/24/17 21:25 Dose: 1 applic Desmopressin Acetate (Ddavp Injection -) 15 mcg IVPB ONCE ONE Stop: 12/22/17 09:47 Digoxin (Lanoxin -) 0.25 mg PO DAILY [facility] Heparin Sodium (Porcine) (Heparin -) 5,000 unit SQ TID [facility] Last Admin: 12/25/17 16:00 Dose: 5,000 unit Sodium Chloride (Normal Saline -) 250 mls @ 3,000 mls/hr IV PRN PRN PRN Reason: Hypotension during Dialysis Stop: 12/26/17 08:31 Metoprolol Tartrate (Lopressor -) 12.5 mg PO BID [facility] Last Admin: 12/25/17 11:43 Dose: 12.5 mg Mupirocin (Bactroban Ointment (For Decolonization) -) 1 applic NS BID [facility] Stop: 12/27/17 21:59 Last Admin: 12/25/17 11:43 Dose: Not Given Pantoprazole Sodium (Protonix -) 40 mg PO BID [facility] Last Admin: 12/25/17 11:43 Dose: 40 mg Potassium Chloride (K-Dur -) 20 meq PO DAILY [facility] Last Admin: 12/25/17 11:43 Dose: 20 meq Sodium Bicarbonate (Sodium Bicarbonate -) 1,300 mg PO BID [facility] Last Admin: 12/25/17 11:43 Dose: 1,300 mg Torsemide (Demadex -) 40 mg PO DAILY [facility] Last Admin: 12/25/17 11:43 Dose: 40 mg - Objective Vital Signs: Vital Signs Temperature 98.1 F 12/25/17 14:10 Pulse Rate 82 12/25/17 18:04 Respiratory Rate 23 12/25/17 18:04 Blood Pressure 146/91 12/25/17 18:04 O2 Sat by Pulse Oximetry (%) 97 12/25/17 08:00 Constitutional: Yes: Anxious Eyes: Yes: Conjunctiva Clear, EOM Intact HENT: Yes: Atraumatic, Normocephalic Neck: Yes: Supple, Trachea Midline Cardiovascular: Yes: Pulse Irregular, S1, S2 Respiratory: Yes: Regular, CTA Bilaterally Gastrointestinal: Yes: Normal Bowel Sounds, Soft Musculoskeletal: Yes: Joint Stiffness Edema: No Peripheral Pulses WNL: Yes Labs: CBC, BMP 12/25/17 06:03 12/25/17 06:03 INR, PTT INR 1.17 (0.82-1.09) H 12/20/17 20:15 Problem List - Problems (1) Acute renal failure Code(s): N17.9 - ACUTE KIDNEY FAILURE, UNSPECIFIED (2) Afib Code(s): I48.91 - UNSPECIFIED ATRIAL FIBRILLATION (3) Metabolic acidosis Code(s): E87.2 - ACIDOSIS (4) Anemia Code(s): D64.9 - ANEMIA, UNSPECIFIED (5) Electrolyte imbalance Code(s): E87.8 - OTH DISORDERS OF ELECTROLYTE AND FLUID BALANCE, NEC (6) CAD (coronary artery disease) Code(s): I25.10 - ATHSCL HEART DISEASE OF [place] CORONARY ARTERY W/O ANG PCTRS (7) HTN (hypertension) Code(s): I10 - ESSENTIAL (PRIMARY) HYPERTENSION (8) Respiratory failure Code(s): J96.90 - RESPIRATORY FAILURE, UNSP, UNSP W HYPOXIA OR HYPERCAPNIA (9) GI bleeding Code(s): K92.2 - GASTROINTESTINAL HEMORRHAGE, UNSPECIFIED (10) Cervical stenosis of spine Code(s): M48.02 - SPINAL STENOSIS, CERVICAL REGION (11) Cervical radiculopathy Code(s): M54.12 - RADICULOPATHY, CERVICAL REGION (12) HLD (hyperlipidemia) Code(s): E78.5 - HYPERLIPIDEMIA, UNSPECIFIED (13) Fall Code(s): W19.XXXA - UNSPECIFIED FALL, INITIAL ENCOUNTER Assessment/Plan (1) Acute renal failure Code(s): N17.9 - ACUTE KIDNEY FAILURE, UNSPECIFIED (2) Afib Code(s): I48.91 - UNSPECIFIED ATRIAL FIBRILLATION (3) Metabolic acidosis Code(s): E87.2 - ACIDOSIS (4) Anemia Code(s): D64.9 - ANEMIA, UNSPECIFIED (5) Electrolyte imbalance Code(s): E87.8 - OTH DISORDERS OF ELECTROLYTE AND FLUID BALANCE, NEC (6) CAD (coronary artery disease) Code(s): I25.10 - ATHSCL HEART DISEASE OF [place] CORONARY ARTERY W/O ANG PCTRS (7) HTN (hypertension) Code(s): I10 - ESSENTIAL (PRIMARY) HYPERTENSION (8) H/O Respiratory failure/ Intubation/ Extubation Code(s): J96.90 - RESPIRATORY FAILURE, UNSP, UNSP W HYPOXIA OR HYPERCAPNIA (9) H/O GI bleeding Code(s): K92.2 - GASTROINTESTINAL HEMORRHAGE, UNSPECIFIED (10) H/OCervical stenosis of spine Code(s): M48.02 - SPINAL STENOSIS, CERVICAL REGION (11) H/OCervical radiculopathy Code(s): M54.12 - RADICULOPATHY, CERVICAL REGION (12) HLD (hyperlipidemia) Code(s): E78.5 - HYPERLIPIDEMIA, UNSPECIFIED (13) H/O Fall Code(s): W19.XXXA - UNSPECIFIED FALL, INITIAL ENCOUNTER Pt had HD today Pt is better Oriented today Cardiology/ Renal/ Pulmonary consult noted Not a candidate for Anticoagulation discussed with family Pt very anxious hence xanax is helping him/ No respiratory issues Afib rate controlled with Metoprolol Digoxin added for rate control
[2017-12-25] MEDS: CHLORHEXIDINE GLUCONATE 4% CLEANSER FOR DECOLONIZATION TP SCH (21:58)
[2017-12-25] MEDS: ATORVASTATIN CA 20 MG TABLET (FP) PO SCH (21:58)
[2017-12-26 00:06] LABS: HBSAG SCREEN Negative (Negative); HEP A AB, IGM Negative (Negative); HEP B CORE AB, TOT Negative (Negative)
[2017-12-26] MEDS: HEPARIN NA (PORCINE) 5,000 UNITS/ML 1ML VIAL SQ SCH ×3 (06:42→21:09)
[2017-12-26 06:49] LABS: ANION GAP 11 (8-16); CALCIUM 7.2 mg/dL (8.5-10.1); CHLORIDE 99 mmol/L (98-107); CO2 28 mmol/L (21-32); POTASSIUM 3.3 mmol/L (3.5-5.1); SODIUM 138 mmol/L (136-145)
[2017-12-26 07:07] LABS: BLOOD UREA NITROGEN 25 mg/dL (7-18); CREATININE 4.4 mg/dL (0.7-1.3); GLUCOSE,RANDOM 119 mg/dL (74-106); MAGNESIUM 1.7 mg/dL (1.8-2.4)
[2017-12-26] MEDS: PANTOPRAZOLE 40 MG TABLET (FP) PO SCH ×2 (09:21→21:08)
[2017-12-26] MEDS: METOPROLOL TARTRATE 25 MG TABLET (FP) PO SCH ×2 (09:21→21:08)
[2017-12-26] MEDS: ASPIRIN COATED 81 MG TABLET.EC PO SCH (09:22)
[2017-12-26] MEDS: TORSEMIDE 20 MG TABLET (FP) PO SCH (09:22)
[2017-12-26] MEDS: CALCIUM ACETATE 667 MG CAPSULE (FP) PO SCH ×3 (09:23→19:10)
[2017-12-26] MEDS: amLODIPine BESYLATE 10 MG TABLET (FP) PO SCH (09:24)
[2017-12-26] MEDS: SODIUM BICARBONATE 650 MG TABLET PO SCH (09:24)
[2017-12-26] MEDS: POTASSIUM CHLORIDE TABS 20 MEQ TABLET.ER (FP) PO SCH (09:24)
[2017-12-26] MEDS: MUPIROCIN 2% TOPICAL OINTMENT FOR DECOLONIZATION NS SCH ×2 (09:25→21:09)
[2017-12-26] MEDS ORDERED: DIGOXIN 0.25 MG TABLET (FP) PO SCH (10:00)
--- NOTE | 2017-12-26 10:12 | PN ---
Progress Note (short form) - Note Progress Note: Chief Complaint: weakness History of Present Illness: denies cp, palpitations. sob, dizziness. no syncope ex cigs Current Medications Generic Name Dose Route Start Last Admin Trade Name Daria PRN Reason Stop Dose Admin Acetaminophen 650 mg 12/21/17 05:49 12/22/17 17:46 Tylenol - PO 650 mg Q4H PRN Administration FEVER Alprazolam 0.25 mg 12/22/17 17:22 12/24/17 21:24 Xanax - PO 0.25 mg Q8H PRN Administration ANXIETY Amlodipine Besylate 10 mg 12/21/17 10:00 12/26/17 09:24 Norvasc - PO 10 mg DAILY [facility] Administration Aspirin 81 mg 12/24/17 10:00 12/26/17 09:22 Ecotrin - PO 81 mg DAILY [facility] Administration Atorvastatin Calcium 20 mg 12/22/17 22:00 12/25/17 21:58 Lipitor - PO 20 mg HS [facility] Administration Calcium Acetate 1,334 mg 12/21/17 17:30 12/26/17 09:23 Phoslo - PO 1,334 mg TIDCM [facility] Administration Chlorhexidine Gluconate 1 applic 12/22/17 22:00 12/25/17 21:58 Hibiclens For Decolonization - TP 1 applic HS [facility] Administration Desmopressin Acetate 15 mcg 12/22/17 09:46 Ddavp Injection - IVPB 12/22/17 09:47 ONCE ONE Heparin Sodium (Porcine) 5,000 unit 12/21/17 06:00 12/26/17 06:42 Heparin - SQ 5,000 unit TID [facility] Administration Metoprolol Tartrate 12.5 mg 12/22/17 15:00 12/26/17 09:21 Lopressor - PO 12.5 mg BID [facility] Administration Mupirocin 1 applic 12/22/17 22:00 12/26/17 09:25 Bactroban Ointment (For Decolonization) - NS 12/27/17 21:59 Not Given BID [facility] Pantoprazole Sodium 40 mg 12/22/17 22:00 12/26/17 09:21 Protonix - PO 40 mg BID [facility] Administration Potassium Chloride 20 meq 12/25/17 10:15 12/26/17 09:24 K-Dur - PO 20 meq DAILY [facility] Administration Sodium Bicarbonate 1,300 mg 12/22/17 10:00 12/26/17 09:24 Sodium Bicarbonate - PO 1,300 mg BID [facility] Administration Torsemide 40 mg 12/24/17 12:00 12/26/17 09:22 Demadex - PO 40 mg DAILY [facility] Administration - Objective Vital Signs: Vital Signs Period Temp Pulse Resp BP Sys/Gibson Pulse Ox Last 24 Hr 98.1 F-98.4 F 71-94 13-23 116-146/66-98 96 Constitutional: Yes: No Distress, Calm Eyes: No: Sclera Icterus HENT: No: Nasal Congestion Cardiovascular: Yes: Pulse Irregular, S1, S2, Other (PMI non diplaced). 2/6 sys murmur at sternal border. Respiratory: Yes: bibasilar rales No: Accessory Muscle Use, Rales, Wheezes Gastrointestinal: Yes: Normal Bowel Sounds, Soft. No: Tenderness Musculoskeletal: Yes: Other (No kyphosis) Extremities: No: Cold Edema: No Integumentary: No: Jaundice Neurological: Yes: Alert, Oriented (x3) Psychiatric: No: Agitated Labs: CBC, BMP 12/25/17 06:03 12/26/17 05:30 echo 12/2017: mod lvh. nl lv size/fn. rv not well seen. mild-mod mac. probable mod as. small pericardial effusion (<1 cm). large pleural effusion. repeat ekg 12/24: rate controlled afib. non-specific t wave ab. tele: sr Assessment/Plan 87 yo male with advanced CKD and HTN now with 2-3 days of nausea and weakness in the setting of severe azotemia (BUN/Cr 164/16) and, Hgb 6.8 and hyperkalemia 6.9. Found also to be in AF at 100/min. new onset Afib -Reasonable rate control on low dose BB (Metoprolol 12.5mg BID). Echo with normal sys function. Has elevated [id number] = 3 (Age>75, Male and HTN) which would warrant anticoagulation. However has hx of significant remote bleeding ulcer history with hgb 6.8 here on presentation s/p PRBCs. --> con't to hold AC. Continue asa 81mg daily and PPI as doing. Can readdress risk/ benefit of AC with pmd/outpatient cards. HTN -Controlled on Amlodipine 10mg and low dose metoprolol 12.5 BID -Will continue to improved with HD/volume removal Anemia -As per primary team
--- NOTE | 2017-12-26 12:16 | PN ---
Progress Note (short form) - Note Progress Note: Renal Follow up for HESHAM/CKD Pt seen and examined in the ICU awake and alert feels tired no sob, chest pain, abd pain, N/V/D mireles in place s/p dialysis yesterday Vital Signs Temperature 98.2 F 12/26/17 10:00 Pulse Rate 70 12/26/17 10:00 Respiratory Rate 18 12/26/17 10:00 Blood Pressure 106/59 12/26/17 10:00 O2 Sat by Pulse Oximetry (%) 96 12/26/17 10:00 Intake & Output 12/23/17 12/24/17 12/25/17 12/26/17 23:59 23:59 23:59 23:59 Intake Total 220 200 300 Output Total 100 225 150 Balance 120 -25 150 Weight 49.26 kg 47.2 kg 47.763 kg 49.442 kg NAD No JVD Dec BS at lung bases soft NT/ND no LE edema CBC, BMP 12/25/17 06:03 12/26/17 05:30 Current Medications Acetaminophen (Tylenol -) 650 mg PO Q4H PRN PRN Reason: FEVER Last Admin: 12/22/17 17:46 Dose: 650 mg Alprazolam (Xanax -) 0.25 mg PO Q8H PRN PRN Reason: ANXIETY Last Admin: 12/24/17 21:24 Dose: 0.25 mg Aspirin (Ecotrin -) 81 mg PO DAILY [facility] Last Admin: 12/26/17 09:22 Dose: 81 mg Atorvastatin Calcium (Lipitor -) 20 mg PO HS [facility] Last Admin: 12/25/17 21:58 Dose: 20 mg Calcium Acetate (Phoslo -) 1,334 mg PO TIDCM [facility] Last Admin: 12/26/17 09:23 Dose: 1,334 mg Chlorhexidine Gluconate (Hibiclens For Decolonization -) 1 applic TP HS [facility] Last Admin: 12/25/17 21:58 Dose: 1 applic Desmopressin Acetate (Ddavp Injection -) 15 mcg IVPB ONCE ONE Stop: 12/22/17 09:47 Heparin Sodium (Porcine) (Heparin -) 5,000 unit SQ TID [facility] Last Admin: 12/26/17 06:42 Dose: 5,000 unit Losartan Potassium (Cozaar -) 25 mg PO DAILY [facility] Metoprolol Tartrate (Lopressor -) 12.5 mg PO BID [facility] Last Admin: 12/26/17 09:21 Dose: 12.5 mg Mupirocin (Bactroban Ointment (For Decolonization) -) 1 applic NS BID [facility] Stop: 12/27/17 21:59 Last Admin: 12/26/17 09:25 Dose: Not Given Pantoprazole Sodium (Protonix -) 40 mg PO BID [facility] Last Admin: 12/26/17 09:21 Dose: 40 mg Potassium Chloride (K-Dur -) 20 meq PO DAILY [facility] Last Admin: 12/26/17 09:24 Dose: 20 meq Sodium Bicarbonate (Sodium Bicarbonate -) 1,300 mg PO BID [facility] Last Admin: 12/26/17 09:24 Dose: 1,300 mg Torsemide (Demadex -) 40 mg PO DAILY [facility] Last Admin: 12/26/17 09:22 Dose: 40 mg 87 year gentleman with PMhx of advanced CKD, Hypertension who presented with complaints of Nausea and weakness as per the family found to have BUN/Cr of 164/ 16 and K of 6.9. #Chronic Renal Failure with Uremia now ESRD with dialysis dependence #Uremia #Acute on Chronic Anemia #Hypocalcemia/Hyperphosphatemia no acute indication for dialysis today, next treatment tomorrow outpatient dialysis placement start losartan 25mg Daily d/c sodium bicarb continue KCL continue GABY with HD as needed d/c planning as per primary Andrei Osorio DO
[2017-12-26 12:52] LABS: PHOSPHOROUS 3.2 mg/dL (2.5-4.9)
--- NOTE | 2017-12-26 19:39 | PN ---
Progress Note, Physician History of Present Illness: Pt had HD yesterday Pt tolerated well Pt had 2 units of PRBC Pt had 3 times HD Pt is better today Next HD in AM - Current Medication List Current Medications: Active Medications Acetaminophen (Tylenol -) 650 mg PO Q4H PRN PRN Reason: FEVER Last Admin: 12/22/17 17:46 Dose: 650 mg Alprazolam (Xanax -) 0.25 mg PO Q8H PRN PRN Reason: ANXIETY Last Admin: 12/24/17 21:24 Dose: 0.25 mg Aspirin (Ecotrin -) 81 mg PO DAILY [facility] Last Admin: 12/26/17 09:22 Dose: 81 mg Atorvastatin Calcium (Lipitor -) 20 mg PO HS [facility] Last Admin: 12/25/17 21:58 Dose: 20 mg Calcium Acetate (Phoslo -) 1,334 mg PO TIDCM [facility] Last Admin: 12/26/17 19:10 Dose: Not Given Chlorhexidine Gluconate (Hibiclens For Decolonization -) 1 applic TP HS [facility] Last Admin: 12/25/17 21:58 Dose: 1 applic Desmopressin Acetate (Ddavp Injection -) 15 mcg IVPB ONCE ONE Stop: 12/22/17 09:47 Heparin Sodium (Porcine) (Heparin -) 5,000 unit SQ TID [facility] Last Admin: 12/26/17 13:23 Dose: 5,000 unit Losartan Potassium (Cozaar -) 25 mg PO DAILY [facility] Metoprolol Tartrate (Lopressor -) 12.5 mg PO BID [facility] Last Admin: 12/26/17 09:21 Dose: 12.5 mg Mupirocin (Bactroban Ointment (For Decolonization) -) 1 applic NS BID [facility] Stop: 12/27/17 21:59 Last Admin: 12/26/17 09:25 Dose: Not Given Pantoprazole Sodium (Protonix -) 40 mg PO BID [facility] Last Admin: 12/26/17 09:21 Dose: 40 mg Potassium Chloride (K-Dur -) 20 meq PO DAILY [facility] Last Admin: 12/26/17 09:24 Dose: 20 meq Torsemide (Demadex -) 40 mg PO DAILY [facility] Last Admin: 12/26/17 09:22 Dose: 40 mg - Objective Vital Signs: Vital Signs Temperature 98.5 F 06/06/18 19:31 Pulse Rate 61 12/26/17 19:31 Respiratory Rate 20 12/26/17 19:32 Blood Pressure 121/69 12/26/17 19:31 O2 Sat by Pulse Oximetry (%) 96 12/26/17 19:32 Constitutional: Yes: No Distress Eyes: Yes: Conjunctiva Clear, EOM Intact HENT: Yes: Atraumatic, Normocephalic Neck: Yes: Supple, Trachea Midline Cardiovascular: Yes: Regular Rate and Rhythm, S1, S2 Respiratory: Yes: Regular, CTA Bilaterally Gastrointestinal: Yes: Normal Bowel Sounds, Soft Musculoskeletal: Yes: Joint Stiffness Edema: No Peripheral Pulses WNL: No Neurological: Yes: Alert, Oriented, Cran Nerves II-XII Intact Labs: CBC, BMP 12/25/17 06:03 12/26/17 05:30 INR, PTT INR 1.17 (0.82-1.09) H 12/20/17 20:15 Problem List - Problems (1) Acute renal failure Code(s): N17.9 - ACUTE KIDNEY FAILURE, UNSPECIFIED (2) Afib Code(s): I48.91 - UNSPECIFIED ATRIAL FIBRILLATION (3) Metabolic acidosis Code(s): E87.2 - ACIDOSIS (4) Anemia Code(s): D64.9 - ANEMIA, UNSPECIFIED (5) Electrolyte imbalance Code(s): E87.8 - OTH DISORDERS OF ELECTROLYTE AND FLUID BALANCE, NEC (6) CAD (coronary artery disease) Code(s): I25.10 - ATHSCL HEART DISEASE OF [place] CORONARY ARTERY W/O ANG PCTRS (7) HTN (hypertension) Code(s): I10 - ESSENTIAL (PRIMARY) HYPERTENSION (8) Respiratory failure Code(s): J96.90 - RESPIRATORY FAILURE, UNSP, UNSP W HYPOXIA OR HYPERCAPNIA (9) GI bleeding Code(s): K92.2 - GASTROINTESTINAL HEMORRHAGE, UNSPECIFIED (10) Cervical stenosis of spine Code(s): M48.02 - SPINAL STENOSIS, CERVICAL REGION (11) Cervical radiculopathy Code(s): M54.12 - RADICULOPATHY, CERVICAL REGION (12) HLD (hyperlipidemia) Code(s): E78.5 - HYPERLIPIDEMIA, UNSPECIFIED (13) Fall Code(s): W19.XXXA - UNSPECIFIED FALL, INITIAL ENCOUNTER Assessment/Plan (1) Acute renal failure Code(s): N17.9 - ACUTE KIDNEY FAILURE, UNSPECIFIED (2) Afib Code(s): I48.91 - UNSPECIFIED ATRIAL FIBRILLATION (3) Metabolic acidosis Code(s): E87.2 - ACIDOSIS (4) Anemia Code(s): D64.9 - ANEMIA, UNSPECIFIED (5) Electrolyte imbalance Code(s): E87.8 - OTH DISORDERS OF ELECTROLYTE AND FLUID BALANCE, NEC (6) CAD (coronary artery disease) Code(s): I25.10 - ATHSCL HEART DISEASE OF [place] CORONARY ARTERY W/O ANG PCTRS (7) HTN (hypertension) Code(s): I10 - ESSENTIAL (PRIMARY) HYPERTENSION (8) H/O Respiratory failure/ Intubation/ Extubation Code(s): J96.90 - RESPIRATORY FAILURE, UNSP, UNSP W HYPOXIA OR HYPERCAPNIA (9) H/O GI bleeding Code(s): K92.2 - GASTROINTESTINAL HEMORRHAGE, UNSPECIFIED (10) H/OCervical stenosis of spine Code(s): M48.02 - SPINAL STENOSIS, CERVICAL REGION (11) H/OCervical radiculopathy Code(s): M54.12 - RADICULOPATHY, CERVICAL REGION (12) HLD (hyperlipidemia) Code(s): E78.5 - HYPERLIPIDEMIA, UNSPECIFIED (13) H/O Fall Code(s): W19.XXXA - UNSPECIFIED FALL, INITIAL ENCOUNTER Pt is better Oriented today Cardiology/ Renal/ Pulmonary consult noted Not a candidate for Anticoagulation discussed with family Pt very anxious hence xanax is helping him/ No respiratory issues Afib rate controlled with Metoprolol Digoxin added for rate control HD tomorrow PT for ambulation
[2017-12-26] MEDS: ATORVASTATIN CA 20 MG TABLET (FP) PO SCH (21:08)
[2017-12-26] MEDS: DIGOXIN 0.25 MG TABLET (FP) PO SCH (21:09)
[2017-12-26] MEDS: CHLORHEXIDINE GLUCONATE 4% CLEANSER FOR DECOLONIZATION TP SCH (21:10)
[2017-12-27] MEDS: HEPARIN NA (PORCINE) 5,000 UNITS/ML 1ML VIAL SQ SCH ×3 (05:10→21:09)
[2017-12-27] MEDS ORDERED: ALPRAZolam 0.25 MG TABLET PO PRN (06:04)
[2017-12-27 06:21] LABS: BASO % 0.3 % (0-2.0); EOS % 0.9 % (0-4.5); HEMATOCRIT 34.5 % (35.4-49); HEMOGLOBIN 11.6 GM/dL (11.7-16.9); LYMPH % 17.8 % (8-40); MCH 29.3 pg (25.7-33.7); MCHC 33.7 g/dl (32.0-35.9); MEAN CELL VOLUME 87.1 fl (80-96); MEAN PLT VOLUME 8.2 fl (7.5-11.1); MONO % 11.4 % (3.8-10.2); NEUT % 69.6 % (42.8-82.8); PLATELET COUNT 125 K/MM3 (134-434); RBC 3.96 M/mm3 (4.00-5.60); RDW 17.9 % (11.9-15.9); WHITE BLOOD COUNT 6.1 K/mm3 (4.0-10.0)
[2017-12-27 06:53] LABS: CHLORIDE 98 mmol/L (98-107); POTASSIUM 4.5 mmol/L (3.5-5.1); SODIUM 137 mmol/L (136-145)
[2017-12-27 07:06] LABS: ANION GAP 11 (8-16); BLOOD UREA NITROGEN 40 mg/dL (7-18); CALCIUM 7.6 mg/dL (8.5-10.1); CO2 28 mmol/L (21-32); CREATININE 5.8 mg/dL (0.7-1.3); GLUCOSE,RANDOM 85 mg/dL (74-106)
[2017-12-27] MEDS: CALCIUM ACETATE 667 MG CAPSULE (FP) PO SCH ×3 (08:34→18:07)
[2017-12-27] MEDS: POTASSIUM CHLORIDE TABS 20 MEQ TABLET.ER (FP) PO SCH (09:52)
[2017-12-27] MEDS: DIGOXIN 0.25 MG TABLET (FP) PO SCH (09:52)
[2017-12-27] MEDS: METOPROLOL TARTRATE 25 MG TABLET (FP) PO SCH ×2 (09:53→21:09)
[2017-12-27] MEDS: LOSARTAN POTASSIUM 25 MG TABLET PO SCH (09:53)
[2017-12-27] MEDS: TORSEMIDE 20 MG TABLET (FP) PO SCH (09:53)
[2017-12-27] MEDS: MUPIROCIN 2% TOPICAL OINTMENT FOR DECOLONIZATION NS SCH (09:53)
[2017-12-27] MEDS: PANTOPRAZOLE 40 MG TABLET (FP) PO SCH ×2 (09:54→21:09)
[2017-12-27] MEDS: ASPIRIN COATED 81 MG TABLET.EC PO SCH (09:54)
--- NOTE | 2017-12-27 10:47 | PN ---
Progress Note (short form) - Note Progress Note: Chief Complaint: weakness History of Present Illness: denies cp, palpitations. sob, dizziness. no syncope ex cigs Current Medications Generic Name Dose Route Start Last Admin Trade Name Daria PRN Reason Stop Dose Admin Acetaminophen 650 mg 12/21/17 05:49 12/22/17 17:46 Tylenol - PO 650 mg Q4H PRN Administration FEVER Alprazolam 0.25 mg 12/27/17 06:04 Xanax - PO Q8H PRN ANXIETY Aspirin 81 mg 12/24/17 10:00 12/27/17 09:54 Ecotrin - PO 81 mg DAILY [facility] Administration Atorvastatin Calcium 20 mg 12/22/17 22:00 12/26/17 21:08 Lipitor - PO 20 mg HS [facility] Administration Calcium Acetate 1,334 mg 12/21/17 17:30 12/27/17 08:34 Phoslo - PO 1,334 mg TIDCM [facility] Administration Chlorhexidine Gluconate 1 applic 12/22/17 22:00 12/26/17 21:10 Hibiclens For Decolonization - TP 1 applic HS [facility] Administration Desmopressin Acetate 15 mcg 12/22/17 09:46 Ddavp Injection - IVPB 12/22/17 09:47 ONCE ONE Digoxin 0.25 mg 12/26/17 19:45 12/27/17 09:52 Lanoxin - PO 0.25 mg DAILY [facility] Administration Heparin Sodium (Porcine) 5,000 unit 12/21/17 06:00 12/27/17 05:10 Heparin - SQ 5,000 unit TID [facility] Administration Losartan Potassium 25 mg 12/27/17 10:00 12/27/17 09:53 Cozaar - PO 25 mg DAILY [facility] Administration Metoprolol Tartrate 12.5 mg 12/22/17 15:00 12/27/17 09:53 Lopressor - PO 12.5 mg BID [facility] Administration Mupirocin 1 applic 12/22/17 22:00 12/27/17 09:53 Bactroban Ointment (For Decolonization) - NS 12/27/17 21:59 1 applic BID [facility] Administration Pantoprazole Sodium 40 mg 12/22/17 22:00 12/27/17 09:54 Protonix - PO 40 mg BID [facility] Administration Potassium Chloride 20 meq 12/25/17 10:15 12/27/17 09:52 K-Dur - PO 20 meq DAILY [facility] Administration Torsemide 40 mg 12/24/17 12:00 12/27/17 09:53 Demadex - PO 40 mg DAILY [facility] Administration - Objective Vital Signs: Vital Signs Period Temp Pulse Resp BP Sys/Gibson Pulse Ox Last 24 Hr 98.1 F-98.5 F 60-68 20-22 120-151/64-84 96-96 Constitutional: Yes: No Distress, Calm Eyes: No: Sclera Icterus HENT: No: Nasal Congestion Cardiovascular: Yes: Pulse Irregular, S1, S2, Other (PMI non diplaced). 2/6 sys murmur at sternal border. Respiratory: Yes: bibasilar rales No: Accessory Muscle Use, Rales, Wheezes Gastrointestinal: Yes: Normal Bowel Sounds, Soft. No: Tenderness Extremities: No: Cold Edema: No Integumentary: No: Jaundice Neurological: Yes: Alert, Oriented (x3) Psychiatric: No: Agitated Labs: CBC, BMP 12/27/17 05:30 12/27/17 05:30 echo 12/2017: mod lvh. nl lv size/fn. rv not well seen. mild-mod mac. probable mod as. small pericardial effusion (<1 cm). large pleural effusion. repeat ekg 12/24: rate controlled afib. non-specific t wave ab. tele: sr Assessment/Plan 87 yo male with advanced CKD and HTN now with 2-3 days of nausea and weakness in the setting of severe azotemia (BUN/Cr 164/16) and, Hgb 6.8 and hyperkalemia 6.9. Found also to be in AF at 100/min. new onset Afib -Reasonable rate control on low dose BB (Metoprolol 12.5mg BID). Echo with normal sys function. Has elevated [id number] = 3 (Age>75, Male and HTN) which would warrant anticoagulation. However has hx of significant remote bleeding ulcer history with hgb 6.8 here on presentation s/p PRBCs. --> con't to hold AC. Continue asa 81mg daily and PPI as doing. Can readdress risk/ benefit of AC with pmd/outpatient cards. HTN -cont current meds Anemia -As per primary team esrd: -hd per renal
--- NOTE | 2017-12-27 12:46 | PN ---
Progress Note (short form) - Note Progress Note: Patient seen and examined in the Telemetry unit. Awake and alert. Denies CP or SOB. Intake & Output 12/24/17 12/25/17 12/26/17 12/27/17 23:59 23:59 23:59 23:59 Intake Total 200 560 Output Total 225 200 Balance -25 360 Weight 104 lb 0.931 oz 105 lb 4.8 oz 109 lb Last Vital Signs Temp Pulse Resp BP Pulse Ox 98.3 F 68 20 129/84 96 12/27/17 06:25 12/27/17 09:52 12/27/17 06:25 12/27/17 06:25 12/26/17 19:32 Active Medications Acetaminophen (Tylenol -) 650 mg PO Q4H PRN PRN Reason: FEVER Last Admin: 12/22/17 17:46 Dose: 650 mg Alprazolam (Xanax -) 0.25 mg PO Q8H PRN PRN Reason: ANXIETY Aspirin (Ecotrin -) 81 mg PO DAILY [facility] Last Admin: 12/27/17 09:54 Dose: 81 mg Atorvastatin Calcium (Lipitor -) 20 mg PO HS [facility] Last Admin: 12/26/17 21:08 Dose: 20 mg Calcium Acetate (Phoslo -) 1,334 mg PO TIDCM [facility] Last Admin: 12/27/17 11:55 Dose: 1,334 mg Chlorhexidine Gluconate (Hibiclens For Decolonization -) 1 applic TP HS [facility] Last Admin: 12/26/17 21:10 Dose: 1 applic Desmopressin Acetate (Ddavp Injection -) 15 mcg IVPB ONCE ONE Stop: 12/22/17 09:47 Heparin Sodium (Porcine) (Heparin -) 5,000 unit SQ TID [facility] Last Admin: 12/27/17 05:10 Dose: 5,000 unit Losartan Potassium (Cozaar -) 25 mg PO DAILY [facility] Last Admin: 12/27/17 09:53 Dose: 25 mg Metoprolol Tartrate (Lopressor -) 12.5 mg PO BID [facility] Last Admin: 12/27/17 09:53 Dose: 12.5 mg Mupirocin (Bactroban Ointment (For Decolonization) -) 1 applic NS BID [facility] Stop: 12/27/17 21:59 Last Admin: 12/27/17 09:53 Dose: 1 applic Pantoprazole Sodium (Protonix -) 40 mg PO BID [facility] Last Admin: 12/27/17 09:54 Dose: 40 mg Potassium Chloride (K-Dur -) 20 meq PO DAILY [facility] Last Admin: 12/27/17 09:52 Dose: 20 meq Torsemide (Demadex -) 40 mg PO DAILY [facility] Last Admin: 12/27/17 09:53 Dose: 40 mg General: Awake and alert, NAD HEENT: (-) Icterus PULM: basilar rhonchi CV: S1S2 ABD; soft, NT, ND EXT: trace edema, warm Neuro: non focal , VILLALPANDO x 4 Laboratory Results - last 24 hr 12/26/17 12/27/17 12/27/17 05:30 05:30 05:30 WBC 6.1 RBC 3.96 L Hgb 11.6 L Hct 34.5 L MCV 87.1 MCH 29.3 MCHC 33.7 RDW 17.9 H Plt Count 125 L MPV 8.2 Absolute Neuts (auto) 4.2 Neutrophils % 69.6 Lymphocytes % 17.8 Monocytes % 11.4 H Eosinophils % 0.9 D Basophils % 0.3 Nucleated RBC % 0 Sodium 137 Potassium 4.5 D Chloride 98 Carbon Dioxide 28 Anion Gap 11 BUN 40 H D Creatinine 5.8 H D Random Glucose 85 D Calcium 7.6 L Phosphorus 3.2 D Digoxin 12/27/17 05:30 WBC RBC Hgb Hct MCV MCH MCHC RDW Plt Count MPV Absolute Neuts (auto) Neutrophils % Lymphocytes % Monocytes % Eosinophils % Basophils % Nucleated RBC % Sodium Potassium Chloride Carbon Dioxide Anion Gap BUN Creatinine Random Glucose Calcium Phosphorus Digoxin 2.22 H IMP: Acute Renal Failure CKD Metabolic acidosis ARF HTN AFib PLAN: HD per Renal O2 as needed PPI VTE prophylaxis Strict I & O PO as tolerated Rate control Caution Xanax Monitor Keiry Moyer
--- NOTE | 2017-12-27 15:38 | CONS ---
PHYSICAL MEDICINE REHABILITATION CONSULTATION DATE OF CONSULTATION: 12/27/2017 HISTORY OF PRESENT ILLNESS: Patient is an 87-year-old man with past medical history of hypertension and renal failure, also a history of prostate cancer with a history of multiple gastric bleeding ulcers status post partial gastrectomy, reportedly with up to 80% of his stomach removed, who was admitted with shortness of breath on December 21, 2017. Patient currently is in the ICU with diagnosis of acute renal failure on chronic kidney disease, metabolic acidosis, and atrial fibrillation. Patient is on hemodialysis. His most recent blood work on December 27 shows hemoglobin 11.6, hematocrit 34.5, platelet count 125, and WBC of 6.1. When he was admitted, he had a severe anemia of 7.0, underwent blood transfusions. Most recent chemistry showed a BUN 40, with a creatinine of 5.8, down from admission when his BUN was 154 and creatinine 16.2. His chemistry is otherwise unremarkable except for a low calcium of 7.6 which corrects for low albumin of 2.8. He had a normal B12 level of 511. He underwent chest x-rays including a chest x-ray on December 22, which demonstrated right Shiley catheter with tip in the upper right atrium, new bibasilar pulmonary and pleural changes. Echocardiogram on December 24 demonstrated left ventricular size and function normal with an ejection fraction estimated at 65% to 70%. The patient himself feels fairly well, though he states that he has difficulty swallowing a certain medication, and when he takes Nepro, it passes right through him. He was seen by Physical Therapy and able to ambulate 65 feet with a rolling walker contact guard with some decreased endurance, generalized weakness and recommended home physical therapy. Patient is on subcutaneous heparin for DVT prophylaxis. PAST MEDICAL AND SURGICAL HISTORY: As above, hypertension, chronic kidney disease, as well as gastric ulceration status post partial gastrectomy with up to 80% removed. SOCIAL HISTORY: Per the patient, lives with his and son in a private house. He does have some stairs to enter and states he stays on the first level. Premorbidly, he states he was independent, ambulatory without assistive device. Current function as above. REVIEW OF SYSTEMS: No dizziness or lightheadedness currently, but when he gets up suddenly, he can. No blurry vision, double vision that is new. No headache. He does have some difficulty swallowing at times. No difficulty chewing, diarrhea, loose stool. He has chronic back discomfort but no other complaints of joint arthralgias. No neck pain. No numbness, tingling in the upper or lower extremities. He has lost significant weight. No skin rash or breakdown. No fever or chills. PHYSICAL EXAMINATION: General: A thin, cachectic man, seen lying in bed. He is awake, alert, and cooperative, in no acute distress. HEENT: Normocephalic and atraumatic. Extraocular muscles appear intact. Neck: Supple. Extremities: Without any pitting edema or calf tenderness. Neuromuscular: He is awake, alert, oriented x3. Cranial nerves 2-12 grossly intact. He has fairly good motor power in the upper extremities with some mild hip girdle weakness but fairly good knee flexion and extension. Good dorsiflexion and plantar flexion. Normal sensation to light touch, pinprick. Did not stand or ambulate him at this time. No assistive device available, but he did ambulate earlier with Physical Therapy as noted above and noted fatigue. OVERALL IMPRESSION: 1. Deficits in mobility and activities of daily living. 2. Deconditioning. 3. [id number] kidney disease with acute renal failure on hemodialysis. 4. Anemia status post blood transfusion. 5. Atrial fibrillation, rate controlled. 6. Hypertension. 7. Multiple gastric ulcers in the past status post 80% gastric resection. 8. Elevated risk for deep venous thrombosis due to immobility. 9. History of prostate cancer. 10. Elevated risk for skin breakdown due to low albumin and immobility. PLAN/SUGGESTION: 1. Physical therapy to continue while patient is an inpatient. 2. Out of bed to chair with assistance. 3. Subcutaneous heparin for DVT prophylaxis. 4. Skin precautions, monitor heel and sacrum. 5. Consider dietary consultation for weight loss. He is having difficulty drinking the Nepro due to diarrhea. 6. Agree with disposition home with physical therapy via home care when medically stable. Thank you for this referral. ABHIJIT DORSEY M.D. LUAN/[id number] MTDD
[2017-12-27] MEDS ORDERED: SODIUM CHLORIDE 250 ML IV PRN (16:03)
--- NOTE | 2017-12-27 16:03 | PN ---
Progress Note (short form) - Note Progress Note: Renal Follow up for HESHAM/CKD Pt seen and examined in the ICU awake and alert no acute complaints no overnight events denies any sob, chest pain, abd pain, N/V/D Vital Signs Temperature 98.2 F 12/27/17 10:00 Pulse Rate 84 12/27/17 10:00 Respiratory Rate 18 12/27/17 10:00 Blood Pressure 152/68 12/27/17 10:00 O2 Sat by Pulse Oximetry (%) 96 12/27/17 09:00 Intake & Output 12/24/17 12/25/17 12/26/17 12/27/17 23:59 23:59 23:59 23:59 Intake Total 200 560 Output Total 225 200 Balance -25 360 Weight 47.2 kg 47.763 kg 49.442 kg NAD No JVD Dec BS at lung bases soft NT/ND no LE edema CBC, BMP 12/27/17 05:30 12/27/17 05:30 Current Medications Acetaminophen (Tylenol -) 650 mg PO Q4H PRN PRN Reason: FEVER Last Admin: 12/22/17 17:46 Dose: 650 mg Alprazolam (Xanax -) 0.25 mg PO Q8H PRN PRN Reason: ANXIETY Aspirin (Ecotrin -) 81 mg PO DAILY [facility] Last Admin: 12/27/17 09:54 Dose: 81 mg Atorvastatin Calcium (Lipitor -) 20 mg PO HS [facility] Last Admin: 12/26/17 21:08 Dose: 20 mg Calcium Acetate (Phoslo -) 1,334 mg PO TIDCM [facility] Last Admin: 12/27/17 11:55 Dose: 1,334 mg Chlorhexidine Gluconate (Hibiclens For Decolonization -) 1 applic TP HS [facility] Last Admin: 12/26/17 21:10 Dose: 1 applic Desmopressin Acetate (Ddavp Injection -) 15 mcg IVPB ONCE ONE Stop: 12/22/17 09:47 Heparin Sodium (Porcine) (Heparin -) 5,000 unit SQ TID [facility] Last Admin: 12/27/17 14:06 Dose: 5,000 unit Losartan Potassium (Cozaar -) 25 mg PO DAILY [facility] Last Admin: 12/27/17 09:53 Dose: 25 mg Metoprolol Tartrate (Lopressor -) 12.5 mg PO BID [facility] Last Admin: 12/27/17 09:53 Dose: 12.5 mg Mupirocin (Bactroban Ointment (For Decolonization) -) 1 applic NS BID [facility] Stop: 12/27/17 21:59 Last Admin: 12/27/17 09:53 Dose: 1 applic Pantoprazole Sodium (Protonix -) 40 mg PO BID [facility] Last Admin: 12/27/17 09:54 Dose: 40 mg Potassium Chloride (K-Dur -) 20 meq PO DAILY [facility] Last Admin: 12/27/17 09:52 Dose: 20 meq Torsemide (Demadex -) 40 mg PO DAILY [facility] Last Admin: 12/27/17 09:53 Dose: 40 mg 87 year gentleman with PMhx of advanced CKD, Hypertension who presented with complaints of Nausea and weakness as per the family found to have BUN/Cr of 164/ 16 and K of 6.9. #Chronic Renal Failure with Uremia now ESRD with dialysis dependence #Uremia #Acute on Chronic Anemia #Hypocalcemia/Hyperphosphatemia no acute indication for [employer] today next treatment deferred to tomorrow continue renal diet, 1.2L fluid restriction Continue Losartan d/c KCL Continue PHos binder with meals Trend K, Phos, Ca Andrei Osorio DO
--- NOTE | 2017-12-27 21:06 | PN ---
Progress Note, Physician History of Present Illness: Pt is doing well no HD today Pt is hemodynamically stable - Current Medication List Current Medications: Active Medications Acetaminophen (Tylenol -) 650 mg PO Q4H PRN PRN Reason: FEVER Last Admin: 12/22/17 17:46 Dose: 650 mg Alprazolam (Xanax -) 0.25 mg PO Q8H PRN PRN Reason: ANXIETY Aspirin (Ecotrin -) 81 mg PO DAILY [facility] Last Admin: 12/27/17 09:54 Dose: 81 mg Atorvastatin Calcium (Lipitor -) 20 mg PO HS [facility] Last Admin: 12/26/17 21:08 Dose: 20 mg Calcium Acetate (Phoslo -) 1,334 mg PO TIDCM [facility] Last Admin: 12/27/17 18:07 Dose: 1,334 mg Chlorhexidine Gluconate (Hibiclens For Decolonization -) 1 applic TP HS [facility] Last Admin: 12/26/17 21:10 Dose: 1 applic Desmopressin Acetate (Ddavp Injection -) 15 mcg IVPB ONCE ONE Stop: 12/22/17 09:47 Heparin Sodium (Porcine) (Heparin -) 5,000 unit SQ TID [facility] Last Admin: 12/27/17 14:06 Dose: 5,000 unit Sodium Chloride (Normal Saline -) 250 mls @ 3,000 mls/hr IV PRN PRN PRN Reason: Hypotension during Dialysis Stop: 12/28/17 16:03 Losartan Potassium (Cozaar -) 25 mg PO DAILY [facility] Last Admin: 12/27/17 09:53 Dose: 25 mg Metoprolol Tartrate (Lopressor -) 12.5 mg PO BID [facility] Last Admin: 12/27/17 09:53 Dose: 12.5 mg Mupirocin (Bactroban Ointment (For Decolonization) -) 1 applic NS BID [facility] Stop: 12/27/17 21:59 Last Admin: 12/27/17 09:53 Dose: 1 applic Pantoprazole Sodium (Protonix -) 40 mg PO BID [facility] Last Admin: 12/27/17 09:54 Dose: 40 mg Potassium Chloride (K-Dur -) 20 meq PO DAILY [facility] Last Admin: 12/27/17 09:52 Dose: 20 meq Torsemide (Demadex -) 40 mg PO DAILY [facility] Last Admin: 12/27/17 09:53 Dose: 40 mg - Objective Vital Signs: Vital Signs Temperature 97.4 F L 12/27/17 20:00 Pulse Rate 59 L 12/27/17 20:00 Respiratory Rate 18 12/27/17 20:00 Blood Pressure 143/70 12/27/17 20:00 O2 Sat by Pulse Oximetry (%) 96 12/27/17 09:00 Constitutional: Yes: Anxious Eyes: Yes: Conjunctiva Clear, EOM Intact HENT: Yes: Atraumatic, Normocephalic Neck: Yes: Supple, Trachea Midline Cardiovascular: Yes: Pulse Irregular Respiratory: Yes: Regular, CTA Bilaterally Gastrointestinal: Yes: Normal Bowel Sounds, Soft Musculoskeletal: Yes: Joint Stiffness Extremities: Yes: WNL Edema: No Labs: CBC, BMP 12/27/17 05:30 12/27/17 05:30 INR, PTT INR 1.17 (0.82-1.09) H 12/20/17 20:15 Problem List - Problems (1) Acute renal failure Code(s): N17.9 - ACUTE KIDNEY FAILURE, UNSPECIFIED (2) Afib Code(s): I48.91 - UNSPECIFIED ATRIAL FIBRILLATION (3) Metabolic acidosis Code(s): E87.2 - ACIDOSIS (4) Anemia Code(s): D64.9 - ANEMIA, UNSPECIFIED (5) Electrolyte imbalance Code(s): E87.8 - OTH DISORDERS OF ELECTROLYTE AND FLUID BALANCE, NEC (6) CAD (coronary artery disease) Code(s): I25.10 - ATHSCL HEART DISEASE OF [place] CORONARY ARTERY W/O ANG PCTRS (7) HTN (hypertension) Code(s): I10 - ESSENTIAL (PRIMARY) HYPERTENSION (8) Respiratory failure Code(s): J96.90 - RESPIRATORY FAILURE, UNSP, UNSP W HYPOXIA OR HYPERCAPNIA (9) GI bleeding Code(s): K92.2 - GASTROINTESTINAL HEMORRHAGE, UNSPECIFIED (10) Cervical stenosis of spine Code(s): M48.02 - SPINAL STENOSIS, CERVICAL REGION (11) Cervical radiculopathy Code(s): M54.12 - RADICULOPATHY, CERVICAL REGION (12) HLD (hyperlipidemia) Code(s): E78.5 - HYPERLIPIDEMIA, UNSPECIFIED (13) Fall Code(s): W19.XXXA - UNSPECIFIED FALL, INITIAL ENCOUNTER Assessment/Plan (1) Acute renal failure Code(s): N17.9 - ACUTE KIDNEY FAILURE, UNSPECIFIED (2) Afib Code(s): I48.91 - UNSPECIFIED ATRIAL FIBRILLATION (3) Metabolic acidosis Code(s): E87.2 - ACIDOSIS (4) Anemia Code(s): D64.9 - ANEMIA, UNSPECIFIED (5) Electrolyte imbalance Code(s): E87.8 - OTH DISORDERS OF ELECTROLYTE AND FLUID BALANCE, NEC (6) CAD (coronary artery disease) Code(s): I25.10 - ATHSCL HEART DISEASE OF [place] CORONARY ARTERY W/O ANG PCTRS (7) HTN (hypertension) Code(s): I10 - ESSENTIAL (PRIMARY) HYPERTENSION (8) H/O Respiratory failure/ Intubation/ Extubation Code(s): J96.90 - RESPIRATORY FAILURE, UNSP, UNSP W HYPOXIA OR HYPERCAPNIA (9) H/O GI bleeding Code(s): K92.2 - GASTROINTESTINAL HEMORRHAGE, UNSPECIFIED (10) H/OCervical stenosis of spine Code(s): M48.02 - SPINAL STENOSIS, CERVICAL REGION (11) H/OCervical radiculopathy Code(s): M54.12 - RADICULOPATHY, CERVICAL REGION (12) HLD (hyperlipidemia) Code(s): E78.5 - HYPERLIPIDEMIA, UNSPECIFIED (13) H/O Fall Code(s): W19.XXXA - UNSPECIFIED FALL, INITIAL ENCOUNTER Cardiology/ Renal/ Pulmonary consult noted Not a candidate for Anticoagulation discussed with family Pt very anxious hence xanax is helping him/ No respiratory issues Afib rate controlled with Metoprolol Digoxin added for rate control Digoxin level slighty high we will hold today dose and decrease later 0.125Mcg daily Pt is stable HD tomorrow PT for ambulation
[2017-12-27] MEDS: ATORVASTATIN CA 20 MG TABLET (FP) PO SCH (21:09)
[2017-12-27] MEDS: CHLORHEXIDINE GLUCONATE 4% CLEANSER FOR DECOLONIZATION TP SCH (21:09)
[2017-12-28 00:59] VITALS: BMI 17.0
[2017-12-28] MEDS ORDERED: ACETAMINOPHEN 325 MG TABLET (FP) PO PRN (02:36)
[2017-12-28] MEDS ORDERED: DESMOPRESSIN ACETATE 4 MCG/ML AMP IVPB ONE (02:36)
[2017-12-28] MEDS: HEPARIN NA (PORCINE) 5,000 UNITS/ML 1ML VIAL SQ SCH ×3 (05:56→22:39)
[2017-12-28] MEDS: CALCIUM ACETATE 667 MG CAPSULE (FP) PO SCH ×3 (08:39→17:22)
[2017-12-28] MEDS: METOPROLOL TARTRATE 25 MG TABLET (FP) PO SCH ×2 (09:57→22:38)
[2017-12-28] MEDS: LOSARTAN POTASSIUM 25 MG TABLET PO SCH (09:57)
[2017-12-28] MEDS: ASPIRIN COATED 81 MG TABLET.EC PO SCH (09:57)
[2017-12-28] MEDS: PANTOPRAZOLE 40 MG TABLET (FP) PO SCH ×2 (09:58→22:38)
[2017-12-28] MEDS: POTASSIUM CHLORIDE TABS 20 MEQ TABLET.ER (FP) PO SCH (09:58)
[2017-12-28] MEDS: TORSEMIDE 20 MG TABLET (FP) PO SCH (09:58)
--- NOTE | 2017-12-28 10:57 | PN ---
Progress Note (short form) - Note Progress Note: Chief Complaint: weakness History of Present Illness: denies cp, palpitations. sob, dizziness. no syncope ex cigs Current Medications Generic Name Dose Route Start Last Admin Trade Name Freq PRN Reason Stop Dose Admin Acetaminophen 650 mg 12/28/17 02:36 Tylenol - PO Q4H PRN FEVER Alprazolam 0.25 mg 12/27/17 06:04 Xanax - PO Q8H PRN ANXIETY Aspirin 81 mg 12/28/17 10:00 12/28/17 09:57 Ecotrin - PO 81 mg DAILY [facility] Administration Atorvastatin Calcium 20 mg 12/28/17 22:00 Lipitor - PO HS [facility] Calcium Acetate 1,334 mg 12/28/17 08:00 12/28/17 08:39 Phoslo - PO 1,334 mg TIDCM [facility] Administration Desmopressin Acetate 15 mcg 12/28/17 02:36 Ddavp Injection - IVPB 12/28/17 02:37 ONCE ONE Heparin Sodium (Porcine) 5,000 unit 12/28/17 06:00 12/28/17 05:56 Heparin - SQ 5,000 unit TID [facility] Administration Sodium Chloride 250 mls @ 3,000 mls/hr 12/27/17 16:03 Normal Saline - IV 12/28/17 16:03 PRN PRN Hypotension during Dialysis Losartan Potassium 25 mg 12/27/17 10:00 12/28/17 09:57 Cozaar - PO 25 mg DAILY [facility] Administration Metoprolol Tartrate 12.5 mg 12/28/17 10:00 12/28/17 09:57 Lopressor - PO 12.5 mg BID [facility] Administration Pantoprazole Sodium 40 mg 12/28/17 10:00 12/28/17 09:58 Protonix - PO 40 mg BID [facility] Administration Potassium Chloride 20 meq 12/25/17 10:15 12/28/17 09:58 K-Dur - PO 20 meq DAILY [facility] Administration Torsemide 40 mg 12/28/17 10:00 12/28/17 09:58 Demadex - PO 40 mg DAILY [facility] Administration - Objective Vital Signs: Vital Signs Period Temp Pulse Resp BP Sys/Gibson Pulse Ox Last 24 Hr 97.4 F-97.6 F 53-77 13-18 127-150/66-75 93-98 Constitutional: Yes: No Distress, Calm Eyes: No: Sclera Icterus HENT: No: Nasal Congestion Cardiovascular: Yes: Pulse Irregular, S1, S2, Other (PMI non diplaced). 2/6 sys murmur at sternal border. Respiratory: Yes: bibasilar rales No: Accessory Muscle Use, Rales, Wheezes Gastrointestinal: Yes: Normal Bowel Sounds, Soft. No: Tenderness Extremities: No: Cold Edema: No Integumentary: No: Jaundice Neurological: Yes: Alert, Oriented (x3) Psychiatric: No: Agitated Labs: CBC, BMP 12/27/17 05:30 12/27/17 05:30 echo 12/2017: mod lvh. nl lv size/fn. rv not well seen. mild-mod mac. probable mod as. small pericardial effusion (<1 cm). large pleural effusion. repeat ekg 12/24: rate controlled afib. non-specific t wave ab. tele: sr Assessment/Plan 87 yo male with advanced CKD and HTN now with 2-3 days of nausea and weakness in the setting of severe azotemia (BUN/Cr 164/16) and, Hgb 6.8 and hyperkalemia 6.9. Found also to be in AF at 100/min. new onset Afib -Reasonable rate control on low dose BB (Metoprolol 12.5mg BID). Echo with normal sys function. Has elevated [id number] = 3 (Age>75, Male and HTN) which would warrant anticoagulation. However has hx of significant remote bleeding ulcer history with hgb 6.8 here on presentation s/p PRBCs. --> con't to hold AC. Continue asa 81mg daily and PPI as doing. Can readdress risk/ benefit of AC with pmd/outpatient cards. -dc digoxin given high level and pt ESRD HTN -cont current meds Anemia -As per primary team esrd: -hd per renal
--- NOTE | 2017-12-28 12:29 | PN ---
Progress Note (short form) - Note Progress Note: Resting in NAD. Denies CP or SOB. Intake & Output 12/25/17 12/26/17 12/27/17 12/28/17 23:59 23:59 23:59 23:59 Intake Total 200 560 160 180 Output Total 225 200 100 Balance -25 360 160 80 Weight 105 lb 4.8 oz 109 lb Last Vital Signs Temp Pulse Resp BP Pulse Ox 97.5 F L 59 L 14 114/70 93 L 12/28/17 08:18 12/28/17 12:24 12/28/17 12:24 12/28/17 12:24 12/28/17 10:53 Active Medications Acetaminophen (Tylenol -) 650 mg PO Q4H PRN PRN Reason: FEVER Alprazolam (Xanax -) 0.25 mg PO Q8H PRN PRN Reason: ANXIETY Aspirin (Ecotrin -) 81 mg PO DAILY [facility] Last Admin: 12/28/17 09:57 Dose: 81 mg Atorvastatin Calcium (Lipitor -) 20 mg PO HS [facility] Calcium Acetate (Phoslo -) 1,334 mg PO TIDCM [facility] Last Admin: 12/28/17 12:25 Dose: 1,334 mg Desmopressin Acetate (Ddavp Injection -) 15 mcg IVPB ONCE ONE Stop: 12/28/17 02:37 Heparin Sodium (Porcine) (Heparin -) 5,000 unit SQ TID [facility] Last Admin: 12/28/17 05:56 Dose: 5,000 unit Sodium Chloride (Normal Saline -) 250 mls @ 3,000 mls/hr IV PRN PRN PRN Reason: Hypotension during Dialysis Stop: 12/28/17 16:03 Losartan Potassium (Cozaar -) 25 mg PO DAILY [facility] Last Admin: 12/28/17 09:57 Dose: 25 mg Metoprolol Tartrate (Lopressor -) 12.5 mg PO BID [facility] Last Admin: 12/28/17 09:57 Dose: 12.5 mg Pantoprazole Sodium (Protonix -) 40 mg PO BID [facility] Last Admin: 12/28/17 09:58 Dose: 40 mg Potassium Chloride (K-Dur -) 20 meq PO DAILY [facility] Last Admin: 12/28/17 09:58 Dose: 20 meq Torsemide (Demadex -) 40 mg PO DAILY [facility] Last Admin: 12/28/17 09:58 Dose: 40 mg General: Awake and alert, NAD HEENT: (-) Icterus PULM: basilar rhonchi CV: S1S2 ABD; soft, NT, ND EXT: trace edema, warm Neuro: non focal , VILLALPANDO x 4 Laboratory Results - last 24 hr 12/28/17 06:00 Digoxin 3.27 H* IMP: Acute Renal Failure CKD Metabolic acidosis ARF HTN AFib PLAN: HD per Renal O2 as needed PPI VTE prophylaxis Strict I & O PO as tolerated Rate control Caution Xanax Monitor off Ambien Caution with Digoxin in this ESRD patient Dr Moyer
[2017-12-28] MEDS ORDERED: PT OWN MED DRAWER 7, Y5N ONE (12:47)
--- NOTE | 2017-12-28 14:26 | PN ---
Progress Note (short form) - Note Progress Note: Renal Follow up for HESHAM/CKD Pt seen and examined in the ICU awake and alert no acute complaints denies sob, chest pain, abd pain able to ambulate to bathroom Vital Signs Temperature 97.5 F L 12/28/17 08:18 Pulse Rate 59 L 12/28/17 12:24 Respiratory Rate 14 12/28/17 12:24 Blood Pressure 114/70 12/28/17 12:24 O2 Sat by Pulse Oximetry (%) 93 L 12/28/17 10:53 Intake & Output 12/25/17 12/26/17 12/27/17 12/28/17 23:59 23:59 23:59 23:59 Intake Total 200 560 160 180 Output Total 225 200 100 Balance -25 360 160 80 Weight 47.763 kg 49.442 kg NAD No JVD Dec BS at lung bases soft NT/ND no LE edema CBC, BMP 12/27/17 05:30 12/27/17 05:30 Current Medications Acetaminophen (Tylenol -) 650 mg PO Q4H PRN PRN Reason: FEVER Alprazolam (Xanax -) 0.25 mg PO Q8H PRN PRN Reason: ANXIETY Aspirin (Ecotrin -) 81 mg PO DAILY [facility] Last Admin: 12/28/17 09:57 Dose: 81 mg Atorvastatin Calcium (Lipitor -) 20 mg PO HS [facility] Calcium Acetate (Phoslo -) 1,334 mg PO TIDCM [facility] Last Admin: 12/28/17 12:25 Dose: 1,334 mg Desmopressin Acetate (Ddavp Injection -) 15 mcg IVPB ONCE ONE Stop: 12/28/17 02:37 Heparin Sodium (Porcine) (Heparin -) 5,000 unit SQ TID [facility] Last Admin: 12/28/17 14:07 Dose: 5,000 unit Sodium Chloride (Normal Saline -) 250 mls @ 3,000 mls/hr IV PRN PRN PRN Reason: Hypotension during Dialysis Stop: 12/28/17 16:03 Losartan Potassium (Cozaar -) 25 mg PO DAILY [facility] Last Admin: 12/28/17 09:57 Dose: 25 mg Metoprolol Tartrate (Lopressor -) 12.5 mg PO BID [facility] Last Admin: 12/28/17 09:57 Dose: 12.5 mg Pantoprazole Sodium (Protonix -) 40 mg PO BID [facility] Last Admin: 12/28/17 09:58 Dose: 40 mg Potassium Chloride (K-Dur -) 20 meq PO DAILY [facility] Last Admin: 12/28/17 09:58 Dose: 20 meq Torsemide (Demadex -) 40 mg PO DAILY [facility] Last Admin: 12/28/17 09:58 Dose: 40 mg 87 year gentleman with PMhx of advanced CKD, Hypertension who presented with complaints of Nausea and weakness as per the family found to have BUN/Cr of 164/ 16 and K of 6.9. #Chronic Renal Failure with Uremia now ESRD with dialysis dependence #Uremia #Acute on Chronic Anemia #Hypocalcemia/Hyperphosphatemia for dialysis today for permcath placement on Sunday by Dr. Licona outpatient HD placement continue renal diet and fluid restriction continue ARB and diuretics Andrei Osorio DO
--- NOTE | 2017-12-28 16:25 | SPA.PREOP ---
- PRE-OP NOTE Dx: ESRD Planned Procedure: permacath placement for HD Surgeon: Livan Consent: to be obtained after surgeon explaines all risks, benefits and alternatives with Opportunity for questions. Last Vital Signs Temp Pulse Resp BP Pulse Ox 97.5 F L 59 L 14 114/70 93 L 12/28/17 08:18 12/28/17 12:24 12/28/17 12:24 12/28/17 12:24 12/28/17 10:53 Lab Results WBC 6.1 K/mm3 (4.0-10.0) 12/27/17 05:30 RBC 3.96 M/mm3 (4.00-5.60) L 12/27/17 05:30 Hgb 11.6 GM/dL (11.7-16.9) L 12/27/17 05:30 Hct 34.5 % (35.4-49) L 12/27/17 05:30 MCV 87.1 fl (80-96) 12/27/17 05:30 MCHC 33.7 g/dl (32.0-35.9) 12/27/17 05:30 RDW 17.9 % (11.9-15.9) H 12/27/17 05:30 Plt Count 125 K/MM3 (134-434) L 12/27/17 05:30 Sodium 137 mmol/L (136-145) 12/27/17 05:30 Potassium 4.5 mmol/L (3.5-5.1) D 12/27/17 05:30 Chloride 98 mmol/L (98-107) 12/27/17 05:30 Carbon Dioxide 28 mmol/L (21-32) 12/27/17 05:30 Anion Gap 11 (8-16) 12/27/17 05:30 BUN 40 mg/dL (7-18) H D 12/27/17 05:30 Creatinine 5.8 mg/dL (0.7-1.3) H D 12/27/17 05:30 Random Glucose 85 mg/dL (74-106) D 12/27/17 05:30 Calcium 7.6 mg/dL (8.5-10.1) L 12/27/17 05:30 Blood Type O POSITIVE 12/21/17 06:31 Antibody Screen Negative 12/21/17 06:31 INR 1.17 (0.82-1.09) H 12/20/17 20:15 Problem List - Problems (1) Acute renal failure Assessment/Plan: 1. Make NPO after midnight Sunday for OR Sunday12/31/17 except po meds 2. GI/DVT PPX 3. Medical optimization / clearance Code(s): N17.9 - ACUTE KIDNEY FAILURE, UNSPECIFIED
[2017-12-28 16:32] LABS: PROTHROMBIN TIME (PATIENT) 12.9 SEC (9.7-13.0)
[2017-12-28 16:33] LABS: INR 1.14 (0.82-1.09)
[2017-12-28 19:12] LABS: HEMATOCRIT 32.3 % (35.4-49); HEMOGLOBIN 10.6 GM/dL (11.7-16.9); MCH 28.9 pg (25.7-33.7); MCHC 32.7 g/dl (32.0-35.9); MEAN CELL VOLUME 88.4 fl (80-96); MEAN PLT VOLUME 8.8 fl (7.5-11.1); PLATELET COUNT 178 K/MM3 (134-434); RBC 3.65 M/mm3 (4.00-5.60); RDW 17.7 % (11.9-15.9); WHITE BLOOD COUNT 7.4 K/mm3 (4.0-10.0)
[2017-12-28 20:04] LABS: ANION GAP 12 (8-16); BLOOD UREA NITROGEN 60 mg/dL (7-18); CALCIUM 7.2 mg/dL (8.5-10.1); CHLORIDE 100 mmol/L (98-107); CO2 26 mmol/L (21-32); GLUCOSE,RANDOM 114 mg/dL (74-106); PHOSPHOROUS 4.3 mg/dL (2.5-4.9); POTASSIUM 4.2 mmol/L (3.5-5.1); SODIUM 138 mmol/L (136-145)
[2017-12-28 20:07] LABS: CREATININE 7.7 mg/dL (0.7-1.3)
--- NOTE | 2017-12-28 20:23 | PN ---
Progress Note, Physician History of Present Illness: Pt is doing well Having HD now holding well Pt is hemodynamically stable - Current Medication List Current Medications: Active Medications Acetaminophen (Tylenol -) 650 mg PO Q4H PRN PRN Reason: FEVER Alprazolam (Xanax -) 0.25 mg PO Q8H PRN PRN Reason: ANXIETY Aspirin (Ecotrin -) 81 mg PO DAILY [facility] Last Admin: 12/28/17 09:57 Dose: 81 mg Atorvastatin Calcium (Lipitor -) 20 mg PO HS [facility] Calcium Acetate (Phoslo -) 1,334 mg PO TIDCM [facility] Last Admin: 12/28/17 17:22 Dose: 1,334 mg Desmopressin Acetate (Ddavp Injection -) 15 mcg IVPB ONCE ONE Stop: 12/28/17 02:37 Heparin Sodium (Porcine) (Heparin -) 5,000 unit SQ TID [facility] Last Admin: 12/28/17 14:07 Dose: 5,000 unit Sodium Chloride (Normal Saline -) 250 mls @ 3,000 mls/hr IV PRN PRN PRN Reason: Hypotension during Dialysis Stop: 12/28/17 16:03 Losartan Potassium (Cozaar -) 25 mg PO DAILY [facility] Last Admin: 12/28/17 09:57 Dose: 25 mg Metoprolol Tartrate (Lopressor -) 12.5 mg PO BID [facility] Last Admin: 12/28/17 09:57 Dose: 12.5 mg Pantoprazole Sodium (Protonix -) 40 mg PO BID [facility] Last Admin: 12/28/17 09:58 Dose: 40 mg Potassium Chloride (K-Dur -) 20 meq PO DAILY [facility] Last Admin: 12/28/17 09:58 Dose: 20 meq Torsemide (Demadex -) 40 mg PO DAILY [facility] Last Admin: 12/28/17 09:58 Dose: 40 mg - Objective Vital Signs: Vital Signs Temperature 97.5 F L 12/28/17 08:18 Pulse Rate 66 12/28/17 16:51 Respiratory Rate 18 12/28/17 16:51 Blood Pressure 126/59 12/28/17 18:40 O2 Sat by Pulse Oximetry (%) 93 L 12/28/17 10:53 Constitutional: Yes: No Distress Eyes: Yes: Conjunctiva Clear, EOM Intact HENT: Yes: Atraumatic, Normocephalic Neck: Yes: Supple, Trachea Midline Respiratory: Yes: Regular, CTA Bilaterally Gastrointestinal: Yes: Normal Bowel Sounds, Soft Musculoskeletal: Yes: Joint Stiffness Edema: No Peripheral Pulses WNL: Yes Neurological: Yes: Alert Psychiatric: Yes: Alert Labs: CBC, BMP 12/28/17 18:35 12/28/17 18:35 INR, PTT INR 1.14 (0.82-1.09) 12/28/17 13:30 Problem List - Problems (1) Acute renal failure Code(s): N17.9 - ACUTE KIDNEY FAILURE, UNSPECIFIED (2) Afib Code(s): I48.91 - UNSPECIFIED ATRIAL FIBRILLATION (3) Metabolic acidosis Code(s): E87.2 - ACIDOSIS (4) Anemia Code(s): D64.9 - ANEMIA, UNSPECIFIED (5) Electrolyte imbalance Code(s): E87.8 - OTH DISORDERS OF ELECTROLYTE AND FLUID BALANCE, NEC (6) CAD (coronary artery disease) Code(s): I25.10 - ATHSCL HEART DISEASE OF [place] CORONARY ARTERY W/O ANG PCTRS (7) HTN (hypertension) Code(s): I10 - ESSENTIAL (PRIMARY) HYPERTENSION (8) Respiratory failure Code(s): J96.90 - RESPIRATORY FAILURE, UNSP, UNSP W HYPOXIA OR HYPERCAPNIA (9) GI bleeding Code(s): K92.2 - GASTROINTESTINAL HEMORRHAGE, UNSPECIFIED (10) Cervical stenosis of spine Code(s): M48.02 - SPINAL STENOSIS, CERVICAL REGION (11) Cervical radiculopathy Code(s): M54.12 - RADICULOPATHY, CERVICAL REGION (12) HLD (hyperlipidemia) Code(s): E78.5 - HYPERLIPIDEMIA, UNSPECIFIED (13) Fall Code(s): W19.XXXA - UNSPECIFIED FALL, INITIAL ENCOUNTER Assessment/Plan (1) Acute renal failure Code(s): N17.9 - ACUTE KIDNEY FAILURE, UNSPECIFIED (2) Afib Code(s): I48.91 - UNSPECIFIED ATRIAL FIBRILLATION (3) Metabolic acidosis Code(s): E87.2 - ACIDOSIS (4) Anemia Code(s): D64.9 - ANEMIA, UNSPECIFIED (5) Electrolyte imbalance Code(s): E87.8 - OTH DISORDERS OF ELECTROLYTE AND FLUID BALANCE, NEC (6) CAD (coronary artery disease) Code(s): I25.10 - ATHSCL HEART DISEASE OF [place] CORONARY ARTERY W/O ANG PCTRS (7) HTN (hypertension) Code(s): I10 - ESSENTIAL (PRIMARY) HYPERTENSION (8) H/O Respiratory failure/ Intubation/ Extubation Code(s): J96.90 - RESPIRATORY FAILURE, UNSP, UNSP W HYPOXIA OR HYPERCAPNIA (9) H/O GI bleeding Code(s): K92.2 - GASTROINTESTINAL HEMORRHAGE, UNSPECIFIED (10) H/OCervical stenosis of spine Code(s): M48.02 - SPINAL STENOSIS, CERVICAL REGION (11) H/OCervical radiculopathy Code(s): M54.12 - RADICULOPATHY, CERVICAL REGION (12) HLD (hyperlipidemia) Code(s): E78.5 - HYPERLIPIDEMIA, UNSPECIFIED (13) H/O Fall Code(s): W19.XXXA - UNSPECIFIED FALL, INITIAL ENCOUNTER Cardiology/ Renal/ Pulmonary consult noted Not a candidate for Anticoagulation discussed with family Pt very anxious hence xanax is helping him/ No respiratory issues Afib rate controlled with Metoprolol Digoxin added for rate control Digoxin level high Hold Metoprolol if Pt has bradycardia we will FU closely Pt is stable HD tomorrow PT for ambulation
[2017-12-28] MEDS: ATORVASTATIN CA 20 MG TABLET (FP) PO SCH (22:38)
[2017-12-29] MEDS: HEPARIN NA (PORCINE) 5,000 UNITS/ML 1ML VIAL SQ SCH ×3 (06:08→21:43)
[2017-12-29 06:37] LABS: MAGNESIUM 1.6 mg/dL (1.8-2.4)
[2017-12-29] MEDS: CALCIUM ACETATE 667 MG CAPSULE (FP) PO SCH ×3 (08:40→17:17)
[2017-12-29] MEDS ORDERED: MAGNESIUM SULF 50% (8.12 MEQ/2 ML-1 GM VIAL) IVPB ONE (09:51)
--- NOTE | 2017-12-29 09:52 | PN ---
Progress Note (short form) - Note Progress Note: Eating breakfast. Feels overall better. Denies CP or SOB. Intake & Output 12/26/17 12/27/17 12/28/17 12/29/17 23:59 23:59 23:59 23:59 Intake Total 560 160 500 Output Total 200 100 Balance 360 160 400 Weight 109 lb Last Vital Signs Temp Pulse Resp BP Pulse Ox 97.6 F 66 17 121/63 96 12/29/17 06:00 12/29/17 06:00 12/29/17 06:00 12/29/17 06:00 12/28/17 22:00 Active Medications Acetaminophen (Tylenol -) 650 mg PO Q4H PRN PRN Reason: FEVER Alprazolam (Xanax -) 0.25 mg PO Q8H PRN PRN Reason: ANXIETY Aspirin (Ecotrin -) 81 mg PO DAILY [facility] Last Admin: 12/28/17 09:57 Dose: 81 mg Atorvastatin Calcium (Lipitor -) 20 mg PO HS [facility] Last Admin: 12/28/17 22:38 Dose: 20 mg Calcium Acetate (Phoslo -) 1,334 mg PO TIDCM [facility] Last Admin: 12/28/17 17:22 Dose: 1,334 mg Desmopressin Acetate (Ddavp Injection -) 15 mcg IVPB ONCE ONE Stop: 12/28/17 02:37 Heparin Sodium (Porcine) (Heparin -) 5,000 unit SQ TID [facility] Last Admin: 12/29/17 06:08 Dose: 5,000 unit Sodium Chloride (Normal Saline -) 250 mls @ 3,000 mls/hr IV PRN PRN PRN Reason: Hypotension during Dialysis Stop: 12/28/17 16:03 Losartan Potassium (Cozaar -) 25 mg PO DAILY [facility] Last Admin: 12/28/17 09:57 Dose: 25 mg Magnesium Sulfate (Magnesium Sulfate) 2 gm IVPB ONCE ONE Stop: 12/29/17 09:52 Metoprolol Tartrate (Lopressor -) 12.5 mg PO BID [facility] Last Admin: 12/28/17 22:38 Dose: 12.5 mg Pantoprazole Sodium (Protonix -) 40 mg PO BID [facility] Last Admin: 12/28/17 22:38 Dose: 40 mg Potassium Chloride (K-Dur -) 20 meq PO DAILY [facility] Last Admin: 12/28/17 09:58 Dose: 20 meq Torsemide (Demadex -) 40 mg PO DAILY [facility] Last Admin: 12/28/17 09:58 Dose: 40 mg General: Awake and alert, NAD HEENT: (-) Icterus PULM: basilar rhonchi CV: S1S2 ABD; soft, NT, ND EXT: trace edema, warm Neuro: non focal , VILLALPANDO x 4 Laboratory Results - last 24 hr 12/28/17 12/28/17 12/28/17 13:30 18:35 18:35 WBC 7.4 RBC 3.65 L Hgb 10.6 L Hct 32.3 L MCV 88.4 MCH 28.9 MCHC 32.7 RDW 17.7 H Plt Count 178 D MPV 8.8 PT with INR 12.90 INR 1.14 Sodium 138 Potassium 4.2 Chloride 100 Carbon Dioxide 26 Anion Gap 12 BUN 60 H D Creatinine 7.7 H* D Random Glucose 114 H D Calcium 7.2 L Phosphorus 4.3 D Magnesium Digoxin 12/29/17 05:30 WBC RBC Hgb Hct MCV MCH MCHC RDW Plt Count MPV PT with INR INR Sodium Potassium Chloride Carbon Dioxide Anion Gap BUN Creatinine Random Glucose Calcium Phosphorus Magnesium 1.6 L Digoxin 2.396 H IMP: Acute Renal Failure CKD Metabolic acidosis ARF HTN AFib PLAN: Replace Magnesium HD per Renal O2 as needed PPI VTE prophylaxis PO as tolerated Rate control Monitor off Keiry Moyer
[2017-12-29] MEDS ORDERED: MAGNESIUM SULFATE IN WATER 2 GM/50 ML IVPB IVPB ONE (11:00)
[2017-12-29] MEDS ORDERED: PT OWN MED DRAWER 7, Y5N ONE (11:01)
[2017-12-29] MEDS: TORSEMIDE 20 MG TABLET (FP) PO SCH (11:03)
[2017-12-29] MEDS: METOPROLOL TARTRATE 25 MG TABLET (FP) PO SCH ×2 (11:03→21:46)
[2017-12-29] MEDS: LOSARTAN POTASSIUM 25 MG TABLET PO SCH (11:03)
[2017-12-29] MEDS: PANTOPRAZOLE 40 MG TABLET (FP) PO SCH ×2 (11:04→21:45)
[2017-12-29] MEDS: POTASSIUM CHLORIDE TABS 20 MEQ TABLET.ER (FP) PO SCH (11:06)
[2017-12-29] MEDS: ASPIRIN COATED 81 MG TABLET.EC PO SCH (11:06)
--- NOTE | 2017-12-29 13:12 | PN ---
Progress Note, Physician Chief Complaint: The patient seen in ICU. Comfortable. Had uneventful HD yesterday. No chest pain, no shortness of breath. - Current Medication List Current Medications: Active Medications Acetaminophen (Tylenol -) 650 mg PO Q4H PRN PRN Reason: FEVER Alprazolam (Xanax -) 0.25 mg PO Q8H PRN PRN Reason: ANXIETY Aspirin (Ecotrin -) 81 mg PO DAILY [facility] Last Admin: 12/29/17 11:06 Dose: 81 mg Atorvastatin Calcium (Lipitor -) 20 mg PO HS [facility] Last Admin: 12/28/17 22:38 Dose: 20 mg Calcium Acetate (Phoslo -) 1,334 mg PO TIDCM [facility] Last Admin: 12/29/17 11:02 Dose: 1,334 mg Desmopressin Acetate (Ddavp Injection -) 15 mcg IVPB ONCE ONE Stop: 12/28/17 02:37 Heparin Sodium (Porcine) (Heparin -) 5,000 unit SQ TID [facility] Last Admin: 12/29/17 06:08 Dose: 5,000 unit Sodium Chloride (Normal Saline -) 250 mls @ 3,000 mls/hr IV PRN PRN PRN Reason: Hypotension during Dialysis Stop: 12/28/17 16:03 Losartan Potassium (Cozaar -) 25 mg PO DAILY [facility] Last Admin: 12/29/17 11:03 Dose: 25 mg Metoprolol Tartrate (Lopressor -) 12.5 mg PO BID [facility] Last Admin: 12/29/17 11:03 Dose: 12.5 mg Pantoprazole Sodium (Protonix -) 40 mg PO BID [facility] Last Admin: 12/29/17 11:04 Dose: 40 mg Potassium Chloride (K-Dur -) 20 meq PO DAILY [facility] Last Admin: 12/29/17 11:06 Dose: 20 meq Torsemide (Demadex -) 40 mg PO DAILY [facility] Last Admin: 12/29/17 11:03 Dose: 40 mg - Objective Vital Signs: Vital Signs Temperature 97.6 F 12/29/17 06:00 Pulse Rate 62 12/29/17 10:00 Respiratory Rate 14 12/29/17 10:00 Blood Pressure 150/70 12/29/17 10:00 O2 Sat by Pulse Oximetry (%) 98 12/29/17 10:52 Constitutional: Yes: No Distress Eyes: Yes: Conjunctiva Clear HENT: Yes: Normocephalic Neck: Yes: Trachea Midline Cardiovascular: Yes: S1, S2 Respiratory: Yes: CTA Bilaterally, Diminished Gastrointestinal: Yes: Normal Bowel Sounds, Soft Genitourinary: No: CVA Tenderness - Left, CVA Tenderness - Right Musculoskeletal: Yes: Joint Stiffness Edema: No Labs: CBC, BMP 12/28/17 18:35 12/28/17 18:35 INR, PTT INR 1.14 (0.82-1.09) 12/28/17 13:30 Problem List - Problems (1) End stage chronic kidney disease Code(s): N18.6 - END STAGE RENAL DISEASE (2) CAD (coronary artery disease) Code(s): I25.10 - ATHSCL HEART DISEASE OF [place] CORONARY ARTERY W/O ANG PCTRS (3) Electrolyte imbalance Code(s): E87.8 - OTH DISORDERS OF ELECTROLYTE AND FLUID BALANCE, NEC (4) HLD (hyperlipidemia) Code(s): E78.5 - HYPERLIPIDEMIA, UNSPECIFIED (5) HTN (hypertension) Code(s): I10 - ESSENTIAL (PRIMARY) HYPERTENSION Assessment/Plan 87 year gentleman with PMhx of advanced CKD, Hypertension who presented with complaints of Nausea and weakness as per the family found to have BUN/Cr of 164/ 16 and K of 6.9. The aptient has ESRD, and is dialysis dependent now. For permacath placemnent on Sunday. Will dialysie after the catheter placement. Outpatient HD placement at [facility] Dialysis unit. Thank you. Belén Mujica MD
[2017-12-29] MEDS ORDERED: MAGNESIUM OXIDE 400 MG TABLET (FP) PO ONE (14:12)
--- NOTE | 2017-12-29 14:28 | PN ---
Progress Note (short form) - Note Progress Note: Chief Complaint: weakness/new afib S: denies cp, palpitations. sob, dizziness. no syncope ex cigs Current Medications Acetaminophen (Tylenol -) 650 mg PO Q4H PRN PRN Reason: FEVER Alprazolam (Xanax -) 0.25 mg PO Q8H PRN PRN Reason: ANXIETY Aspirin (Ecotrin -) 81 mg PO DAILY [facility] Last Admin: 12/29/17 11:06 Dose: 81 mg Atorvastatin Calcium (Lipitor -) 20 mg PO HS [facility] Last Admin: 12/28/17 22:38 Dose: 20 mg Calcium Acetate (Phoslo -) 1,334 mg PO TIDCM [facility] Last Admin: 12/29/17 11:02 Dose: 1,334 mg Desmopressin Acetate (Ddavp Injection -) 15 mcg IVPB ONCE ONE Stop: 12/28/17 02:37 Heparin Sodium (Porcine) (Heparin -) 5,000 unit SQ TID [facility] Last Admin: 12/29/17 06:08 Dose: 5,000 unit Sodium Chloride (Normal Saline -) 250 mls @ 3,000 mls/hr IV PRN PRN PRN Reason: Hypotension during Dialysis Stop: 12/28/17 16:03 Losartan Potassium (Cozaar -) 25 mg PO DAILY [facility] Last Admin: 12/29/17 11:03 Dose: 25 mg Metoprolol Tartrate (Lopressor -) 12.5 mg PO BID [facility] Last Admin: 12/29/17 11:03 Dose: 12.5 mg Pantoprazole Sodium (Protonix -) 40 mg PO BID [facility] Last Admin: 12/29/17 11:04 Dose: 40 mg Potassium Chloride (K-Dur -) 20 meq PO DAILY [facility] Last Admin: 12/29/17 11:06 Dose: 20 meq Torsemide (Demadex -) 40 mg PO DAILY [facility] Last Admin: 12/29/17 11:03 Dose: 40 mg - Objective Vital Signs - 24 hr 12/28/17 12/28/17 12/28/17 16:51 18:20 18:40 Temperature Pulse Rate 66 61 63 Respiratory 18 18 18 Rate Blood Pressure 124/62 142/67 126/59 O2 Sat by Pulse Oximetry (%) 12/28/17 12/28/17 12/28/17 19:10 19:40 20:00 Temperature 97.8 F Pulse Rate 59 L 65 60 Respiratory 18 18 16 Rate Blood Pressure 139/69 130/70 120/75 O2 Sat by Pulse Oximetry (%) 12/28/17 12/28/17 12/28/17 20:20 20:50 21:00 Temperature Pulse Rate 69 77 Respiratory 18 18 Rate Blood Pressure 125/76 118/74 O2 Sat by Pulse 97 Oximetry (%) 12/28/17 12/28/17 12/28/17 21:20 21:30 22:00 Temperature Pulse Rate 75 65 Respiratory 18 18 Rate Blood Pressure 90/57 120/75 O2 Sat by Pulse 96 Oximetry (%) 12/29/17 12/29/17 12/29/17 02:00 06:00 10:00 Temperature 97.2 F L 97.6 F Pulse Rate 62 66 62 Respiratory 13 17 14 Rate Blood Pressure 121/82 121/63 150/70 O2 Sat by Pulse 99 Oximetry (%) 12/29/17 10:52 Temperature Pulse Rate Respiratory Rate Blood Pressure O2 Sat by Pulse 98 Oximetry (%) Intake & Output 12/27/17 12/28/17 12/29/17 12/30/17 07:59 07:59 07:59 07:59 Intake Total 260 340 320 Output Total 50 100 Balance 210 240 320 Weight 102 lb 11.2 oz Constitutional: Yes: No Distress, Calm Eyes: No: Sclera Icterus HENT: No: Nasal Congestion Cardiovascular: Yes: rrr S1, S2, Other (PMI non diplaced). 2/6 sys murmur at sternal border. Respiratory: Yes: ctab, nl effort No: Accessory Muscle Use, Rales, Wheezes Gastrointestinal: Yes: Normal Bowel Sounds, Soft. No: Tenderness Extremities: No: Cold Edema: No Integumentary: No: Jaundice Neurological: Yes: Alert, Oriented (x3) Psychiatric: No: Agitated Labs: no CBC, BMP Laboratory Tests 12/29/17 05:30 Magnesium 1.6 L Digoxin 2.396 H echo 12/2017: mod lvh. nl lv size/fn. rv not well seen. mild-mod mac. probable mod as. small pericardial effusion (<1 cm). large pleural effusion. repeat ekg 12/24: rate controlled afib. non-specific t wave ab. tele: sr Assessment/Plan 87 yo male with advanced CKD and HTN now with 2-3 days of nausea and weakness in the setting of severe azotemia (BUN/Cr 164/16) and, Hgb 6.8 and hyperkalemia 6.9. Found also to be in AF at 100/min. new onset Afib, now in SR -Reasonable rate control on low dose BB (Metoprolol 12.5mg BID). Echo with normal sys function. Has elevated [id number] = 3 (Age>75, Male and HTN) which would warrant anticoagulation. However has hx of significant remote bleeding ulcer history with hgb 6.8 here on presentation s/p PRBCs. --> con't to hold AC. Continue asa 81mg daily and PPI as doing. Per PMD, not a candidate for AC. -dc digoxin given high level and pt ESRD. Patient now in SR HTN -cont current meds Anemia -As per primary team, hgb stable esrd: -hd per renal - plan for HD access surgery on sunday. Based on RCRI, age and functional status. Patient has low-intermediate estimated risk of meseret-operative CV complications. Stable from CV perspective, no further testing needed prior to intervention.
--- NOTE | 2017-12-29 21:05 | PN ---
Progress Note, Physician History of Present Illness: Pt is doing well Had HD yesterday Premacath placement Sunday Pt is hemodynamically stable - Current Medication List Current Medications: Active Medications Acetaminophen (Tylenol -) 650 mg PO Q4H PRN PRN Reason: FEVER Alprazolam (Xanax -) 0.25 mg PO Q8H PRN PRN Reason: ANXIETY Aspirin (Ecotrin -) 81 mg PO DAILY [facility] Last Admin: 12/29/17 11:06 Dose: 81 mg Atorvastatin Calcium (Lipitor -) 20 mg PO HS [facility] Last Admin: 12/28/17 22:38 Dose: 20 mg Calcium Acetate (Phoslo -) 1,334 mg PO TIDCM [facility]S [facility] Last Admin: 12/29/17 17:17 Dose: 1,334 mg Desmopressin Acetate (Ddavp Injection -) 15 mcg IVPB ONCE ONE Stop: 12/28/17 02:37 Heparin Sodium (Porcine) (Heparin -) 5,000 unit SQ TID [facility]S [facility] Last Admin: 12/29/17 15:27 Dose: 5,000 unit Sodium Chloride (Normal Saline -) 250 mls @ 3,000 mls/hr IV PRN PRN PRN Reason: Hypotension during Dialysis Stop: 12/28/17 16:03 Losartan Potassium (Cozaar -) 25 mg PO DAILY [facility]S [facility] Last Admin: 12/29/17 11:03 Dose: 25 mg Metoprolol Tartrate (Lopressor -) 12.5 mg PO BID [facility] Last Admin: 12/29/17 11:03 Dose: 12.5 mg Pantoprazole Sodium (Protonix -) 40 mg PO BID [facility] Last Admin: 12/29/17 11:04 Dose: 40 mg Torsemide (Demadex -) 40 mg PO DAILY [facility] Last Admin: 12/29/17 11:03 Dose: 40 mg - Objective Vital Signs: Vital Signs Temperature 98.0 F 12/29/17 14:00 Pulse Rate 72 12/29/17 17:20 Respiratory Rate 17 12/29/17 17:20 Blood Pressure 142/64 12/29/17 17:20 O2 Sat by Pulse Oximetry (%) 98 12/29/17 17:20 Constitutional: Yes: No Distress Eyes: Yes: Conjunctiva Clear, EOM Intact HENT: Yes: Atraumatic, Normocephalic Neck: Yes: Supple, Trachea Midline Cardiovascular: Yes: Regular Rate and Rhythm, Pulse Irregular, S1, S2 Respiratory: Yes: Regular, CTA Bilaterally Gastrointestinal: Yes: Normal Bowel Sounds, Soft Musculoskeletal: Yes: Joint Stiffness Edema: No Peripheral Pulses WNL: Yes Labs: CBC, BMP 12/28/17 18:35 12/28/17 18:35 INR, PTT INR 1.14 (0.82-1.09) 12/28/17 13:30 Problem List - Problems (1) Acute renal failure Code(s): N17.9 - ACUTE KIDNEY FAILURE, UNSPECIFIED (2) Afib Code(s): I48.91 - UNSPECIFIED ATRIAL FIBRILLATION (3) Metabolic acidosis Code(s): E87.2 - ACIDOSIS (4) Anemia Code(s): D64.9 - ANEMIA, UNSPECIFIED (5) Electrolyte imbalance Code(s): E87.8 - OTH DISORDERS OF ELECTROLYTE AND FLUID BALANCE, NEC (6) CAD (coronary artery disease) Code(s): I25.10 - ATHSCL HEART DISEASE OF [place] CORONARY ARTERY W/O ANG PCTRS (7) HTN (hypertension) Code(s): I10 - ESSENTIAL (PRIMARY) HYPERTENSION (8) Respiratory failure Code(s): J96.90 - RESPIRATORY FAILURE, UNSP, UNSP W HYPOXIA OR HYPERCAPNIA (9) GI bleeding Code(s): K92.2 - GASTROINTESTINAL HEMORRHAGE, UNSPECIFIED (10) Cervical stenosis of spine Code(s): M48.02 - SPINAL STENOSIS, CERVICAL REGION (11) Cervical radiculopathy Code(s): M54.12 - RADICULOPATHY, CERVICAL REGION (12) HLD (hyperlipidemia) Code(s): E78.5 - HYPERLIPIDEMIA, UNSPECIFIED (13) Fall Code(s): W19.XXXA - UNSPECIFIED FALL, INITIAL ENCOUNTER Assessment/Plan (1) Acute renal failure Code(s): N17.9 - ACUTE KIDNEY FAILURE, UNSPECIFIED (2) Afib Code(s): I48.91 - UNSPECIFIED ATRIAL FIBRILLATION (3) Metabolic acidosis Code(s): E87.2 - ACIDOSIS (4) Anemia Code(s): D64.9 - ANEMIA, UNSPECIFIED (5) Electrolyte imbalance Code(s): E87.8 - OTH DISORDERS OF ELECTROLYTE AND FLUID BALANCE, NEC (6) CAD (coronary artery disease) Code(s): I25.10 - ATHSCL HEART DISEASE OF [place] CORONARY ARTERY W/O ANG PCTRS (7) HTN (hypertension) Code(s): I10 - ESSENTIAL (PRIMARY) HYPERTENSION (8) H/O Respiratory failure/ Intubation/ Extubation Code(s): J96.90 - RESPIRATORY FAILURE, UNSP, UNSP W HYPOXIA OR HYPERCAPNIA (9) H/O GI bleeding Code(s): K92.2 - GASTROINTESTINAL HEMORRHAGE, UNSPECIFIED (10) H/OCervical stenosis of spine Code(s): M48.02 - SPINAL STENOSIS, CERVICAL REGION (11) H/OCervical radiculopathy Code(s): M54.12 - RADICULOPATHY, CERVICAL REGION (12) HLD (hyperlipidemia) Code(s): E78.5 - HYPERLIPIDEMIA, UNSPECIFIED (13) H/O Fall Code(s): W19.XXXA - UNSPECIFIED FALL, INITIAL ENCOUNTER Cardiology/ Renal/ Pulmonary consult noted Not a candidate for Anticoagulation discussed with family Pt very anxious hence xanax is helping him/ No respiratory issues Afib rate controlled with Metoprolol Digoxin added for rate control Digoxin level high/On Hold Hold Metoprolol if Pt has bradycardia Pt for Permacath on Sunday
[2017-12-29] MEDS: ATORVASTATIN CA 20 MG TABLET (FP) PO SCH (21:43)
[2017-12-30] MEDS: HEPARIN NA (PORCINE) 5,000 UNITS/ML 1ML VIAL SQ SCH ×3 (05:42→22:35)
[2017-12-30 07:24] LABS: CHLORIDE 100 mmol/L (98-107); POTASSIUM 4.5 mmol/L (3.5-5.1); SODIUM 134 mmol/L (136-145)
[2017-12-30 07:44] LABS: ALK PHOS 99 U/L (45-117); ANION GAP 8 (8-16); BILIRUBIN,TOTAL 0.4 mg/dL (0.2-1.0); BLOOD UREA NITROGEN 46 mg/dL (7-18); CALCIUM 7.5 mg/dL (8.5-10.1); CO2 26 mmol/L (21-32); CREATININE 6.3 mg/dL (0.7-1.3); GLUCOSE,RANDOM 76 mg/dL (74-106); MAGNESIUM 2.3 mg/dL (1.8-2.4); SGOT/AST 13 U/L (15-37); SGPT/ALT 13 U/L (12-78); TOT PROT 6.4 g/dl (6.4-8.2)
[2017-12-30] MEDS: CALCIUM ACETATE 667 MG CAPSULE (FP) PO SCH ×3 (08:26→17:25)
[2017-12-30] MEDS: METOPROLOL TARTRATE 25 MG TABLET (FP) PO SCH ×2 (09:36→22:35)
[2017-12-30] MEDS: ASPIRIN COATED 81 MG TABLET.EC PO SCH (09:36)
[2017-12-30] MEDS: TORSEMIDE 20 MG TABLET (FP) PO SCH (09:37)
[2017-12-30] MEDS: LOSARTAN POTASSIUM 25 MG TABLET PO SCH (09:37)
[2017-12-30] MEDS: PANTOPRAZOLE 40 MG TABLET (FP) PO SCH ×2 (09:37→22:35)
--- NOTE | 2017-12-30 10:04 | PN ---
Progress Note, Physician Chief Complaint: The patient seen in ICU. Comfortable. Awake, alert. No chest pain, no shortness of breath. Minimal urine output noted. History of Present Illness: 87 year gentleman with PMhx of advanced CKD, Hypertension who presented with complaints of Nausea and weakness as per the family found to have BUN/Cr of 164/ 16 and K of 6.9. The patient has ESRD, and is dialysis-dependent now. - Current Medication List Current Medications: Active Medications Acetaminophen (Tylenol -) 650 mg PO Q4H PRN PRN Reason: FEVER Aspirin (Ecotrin -) 81 mg PO DAILY [facility] Last Admin: 12/30/17 09:36 Dose: 81 mg Atorvastatin Calcium (Lipitor -) 20 mg PO HS [facility] Last Admin: 12/29/17 21:43 Dose: 20 mg Calcium Acetate (Phoslo -) 1,334 mg PO TIDCM [facility] Last Admin: 12/30/17 08:26 Dose: 1,334 mg Desmopressin Acetate (Ddavp Injection -) 15 mcg IVPB ONCE ONE Stop: 12/28/17 02:37 Heparin Sodium (Porcine) (Heparin -) 5,000 unit SQ TID [facility] Last Admin: 12/30/17 05:42 Dose: 5,000 unit Sodium Chloride (Normal Saline -) 250 mls @ 3,000 mls/hr IV PRN PRN PRN Reason: Hypotension during Dialysis Stop: 12/28/17 16:03 Losartan Potassium (Cozaar -) 25 mg PO DAILY [facility] Last Admin: 12/30/17 09:37 Dose: 25 mg Metoprolol Tartrate (Lopressor -) 12.5 mg PO BID [facility] Last Admin: 12/30/17 09:36 Dose: 12.5 mg Pantoprazole Sodium (Protonix -) 40 mg PO BID [facility] Last Admin: 12/30/17 09:37 Dose: 40 mg Torsemide (Demadex -) 40 mg PO DAILY [facility] Last Admin: 12/30/17 09:37 Dose: 40 mg - Objective Vital Signs: Vital Signs Temperature 98 F 12/30/17 08:00 Pulse Rate 60 12/30/17 08:00 Respiratory Rate 18 12/30/17 08:00 Blood Pressure 140/58 12/30/17 08:00 O2 Sat by Pulse Oximetry (%) 98 12/30/17 09:00 Constitutional: Yes: No Distress, Anxious HENT: Yes: Normocephalic Neck: Yes: Trachea Midline Cardiovascular: Yes: S1, S2 Respiratory: Yes: CTA Bilaterally, Diminished Gastrointestinal: Yes: Normal Bowel Sounds, Soft Genitourinary: No: Bladder Distention, CVA Tenderness - Left, CVA Tenderness - Right Edema: No Neurological: Yes: Alert, Oriented Labs: CBC, BMP 12/28/17 18:35 12/30/17 05:30 INR, PTT INR 1.14 (0.82-1.09) 12/28/17 13:30 Problem List - Problems (1) End stage chronic kidney disease Code(s): N18.6 - END STAGE RENAL DISEASE (2) CAD (coronary artery disease) Code(s): I25.10 - ATHSCL HEART DISEASE OF [place] CORONARY ARTERY W/O ANG PCTRS (3) Electrolyte imbalance Code(s): E87.8 - OTH DISORDERS OF ELECTROLYTE AND FLUID BALANCE, NEC (4) HLD (hyperlipidemia) Code(s): E78.5 - HYPERLIPIDEMIA, UNSPECIFIED (5) HTN (hypertension) Code(s): I10 - ESSENTIAL (PRIMARY) HYPERTENSION Assessment/Plan 87 year gentleman with PMhx of advanced CKD, Hypertension who presented with complaints of Nausea and weakness and found to have BUN/Cr of 164/16 and K of 6.9. The aptient has ESRD, and is dialysis dependent now. For permacath placemnent tomorrow. Will dialyse after the catheter placement. Outpatient HD placement at [facility] Dialysis unit to be done. Thank you. Belén Mujica MD
--- NOTE | 2017-12-30 13:15 | PN ---
Progress Note, Physician - Current Medication List Current Medications: Active Medications Acetaminophen (Tylenol -) 650 mg PO Q4H PRN PRN Reason: FEVER Aspirin (Ecotrin -) 81 mg PO DAILY [facility] Last Admin: 12/30/17 09:36 Dose: 81 mg Atorvastatin Calcium (Lipitor -) 20 mg PO HS [facility] Last Admin: 12/29/17 21:43 Dose: 20 mg Calcium Acetate (Phoslo -) 1,334 mg PO TIDCM [facility] Last Admin: 12/30/17 12:16 Dose: 1,334 mg Desmopressin Acetate (Ddavp Injection -) 15 mcg IVPB ONCE ONE Stop: 12/28/17 02:37 Epoetin [place] (Procrit -) 10,000 unit SQ ONCE ONE Stop: 12/31/17 10:10 Heparin Sodium (Porcine) (Heparin -) 5,000 unit SQ TID [facility] Last Admin: 12/30/17 05:42 Dose: 5,000 unit Sodium Chloride (Normal Saline -) 250 mls @ 3,000 mls/hr IV PRN PRN PRN Reason: Hypotension during Dialysis Stop: 12/28/17 16:03 Losartan Potassium (Cozaar -) 25 mg PO DAILY [facility] Last Admin: 12/30/17 09:37 Dose: 25 mg Metoprolol Tartrate (Lopressor -) 12.5 mg PO BID [facility] Last Admin: 12/30/17 09:36 Dose: 12.5 mg Pantoprazole Sodium (Protonix -) 40 mg PO BID [facility] Last Admin: 12/30/17 09:37 Dose: 40 mg Torsemide (Demadex -) 40 mg PO DAILY [facility] Last Admin: 12/30/17 09:37 Dose: 40 mg - Objective Vital Signs: Vital Signs Temperature 98 F 12/30/17 08:00 Pulse Rate 70 12/30/17 12:00 Respiratory Rate 18 12/30/17 12:00 Blood Pressure 144/70 12/30/17 12:00 O2 Sat by Pulse Oximetry (%) 98 12/30/17 10:00 Constitutional: Yes: No Distress, Calm Eyes: Yes: Conjunctiva Clear, EOM Intact HENT: Yes: Atraumatic, Normocephalic Neck: Yes: Supple, Trachea Midline Cardiovascular: Yes: Pulse Irregular Respiratory: Yes: Regular, CTA Bilaterally Gastrointestinal: Yes: Normal Bowel Sounds, Soft Musculoskeletal: Yes: Joint Stiffness Edema: No Peripheral Pulses WNL: Yes Labs: CBC, BMP 12/28/17 18:35 12/30/17 05:30 INR, PTT INR 1.14 (0.82-1.09) 12/28/17 13:30 Problem List - Problems (1) Acute renal failure Code(s): N17.9 - ACUTE KIDNEY FAILURE, UNSPECIFIED (2) Afib Code(s): I48.91 - UNSPECIFIED ATRIAL FIBRILLATION (3) Metabolic acidosis Code(s): E87.2 - ACIDOSIS (4) Anemia Code(s): D64.9 - ANEMIA, UNSPECIFIED (5) Electrolyte imbalance Code(s): E87.8 - OTH DISORDERS OF ELECTROLYTE AND FLUID BALANCE, NEC (6) CAD (coronary artery disease) Code(s): I25.10 - ATHSCL HEART DISEASE OF [place] CORONARY ARTERY W/O ANG PCTRS (7) HTN (hypertension) Code(s): I10 - ESSENTIAL (PRIMARY) HYPERTENSION (8) Respiratory failure Code(s): J96.90 - RESPIRATORY FAILURE, UNSP, UNSP W HYPOXIA OR HYPERCAPNIA (9) GI bleeding Code(s): K92.2 - GASTROINTESTINAL HEMORRHAGE, UNSPECIFIED (10) Cervical stenosis of spine Code(s): M48.02 - SPINAL STENOSIS, CERVICAL REGION (11) Cervical radiculopathy Code(s): M54.12 - RADICULOPATHY, CERVICAL REGION (12) HLD (hyperlipidemia) Code(s): E78.5 - HYPERLIPIDEMIA, UNSPECIFIED (13) Fall Code(s): W19.XXXA - UNSPECIFIED FALL, INITIAL ENCOUNTER Assessment/Plan (1) Acute renal failure Code(s): N17.9 - ACUTE KIDNEY FAILURE, UNSPECIFIED (2) Afib Code(s): I48.91 - UNSPECIFIED ATRIAL FIBRILLATION (3) Metabolic acidosis Code(s): E87.2 - ACIDOSIS (4) Anemia Code(s): D64.9 - ANEMIA, UNSPECIFIED (5) Electrolyte imbalance Code(s): E87.8 - OTH DISORDERS OF ELECTROLYTE AND FLUID BALANCE, NEC (6) CAD (coronary artery disease) Code(s): I25.10 - ATHSCL HEART DISEASE OF [place] CORONARY ARTERY W/O ANG PCTRS (7) HTN (hypertension) Code(s): I10 - ESSENTIAL (PRIMARY) HYPERTENSION (8) H/O Respiratory failure/ Intubation/ Extubation Code(s): J96.90 - RESPIRATORY FAILURE, UNSP, UNSP W HYPOXIA OR HYPERCAPNIA (9) H/O GI bleeding Code(s): K92.2 - GASTROINTESTINAL HEMORRHAGE, UNSPECIFIED (10) H/OCervical stenosis of spine Code(s): M48.02 - SPINAL STENOSIS, CERVICAL REGION (11) H/OCervical radiculopathy Code(s): M54.12 - RADICULOPATHY, CERVICAL REGION (12) HLD (hyperlipidemia) Code(s): E78.5 - HYPERLIPIDEMIA, UNSPECIFIED (13) H/O Fall Code(s): W19.XXXA - UNSPECIFIED FALL, INITIAL ENCOUNTER Not a candidate for Anticoagulation discussed with family Pt very anxious hence xanax is helping him/ No respiratory issues Afib rate controlled with Metoprolol Digoxin added for rate control Digoxin level high/On Hold Hold Metoprolol if Pt has bradycardia Pt for Permacath on Sunday
[2017-12-30 13:45] LABS: BASO % 0.6 % (0-2.0); EOS % 0.8 % (0-4.5); HEMATOCRIT 31.7 % (35.4-49); HEMOGLOBIN 10.4 GM/dL (11.7-16.9); LYMPH % 11.1 % (8-40); MCH 29.2 pg (25.7-33.7); MCHC 32.8 g/dl (32.0-35.9); MEAN CELL VOLUME 89.2 fl (80-96); MONO % 7.3 % (3.8-10.2); NEUT % 80.2 % (42.8-82.8); PLATELET COUNT 140 K/MM3 (134-434); RBC 3.55 M/mm3 (4.00-5.60); RDW 18.1 % (11.9-15.9); WHITE BLOOD COUNT 8.9 K/mm3 (4.0-10.0)
--- NOTE | 2017-12-30 16:32 | PN ---
Progress Note (short form) - Note Progress Note: Chief Complaint: weakness/new afib S: denies cp, palpitations. sob, dizziness. standing kcl d/c yesterday. digoxin level remains high. no syncope ex cigs Current Medications Acetaminophen (Tylenol -) 650 mg PO Q4H PRN PRN Reason: FEVER Aspirin (Ecotrin -) 81 mg PO DAILY [facility] Last Admin: 12/30/17 09:36 Dose: 81 mg Atorvastatin Calcium (Lipitor -) 20 mg PO HS [facility] Last Admin: 12/29/17 21:43 Dose: 20 mg Calcium Acetate (Phoslo -) 1,334 mg PO TIDCM [facility] Last Admin: 12/30/17 12:16 Dose: 1,334 mg Desmopressin Acetate (Ddavp Injection -) 15 mcg IVPB ONCE ONE Stop: 12/28/17 02:37 Epoetin Spencer (Procrit -) 10,000 unit SQ ONCE ONE Stop: 12/31/17 10:10 Heparin Sodium (Porcine) (Heparin -) 5,000 unit SQ TID [facility] Last Admin: 12/30/17 13:31 Dose: 5,000 unit Sodium Chloride (Normal Saline -) 250 mls @ 3,000 mls/hr IV PRN PRN PRN Reason: Hypotension during Dialysis Stop: 12/28/17 16:03 Losartan Potassium (Cozaar -) 25 mg PO DAILY [facility] Last Admin: 12/30/17 09:37 Dose: 25 mg Metoprolol Tartrate (Lopressor -) 12.5 mg PO BID [facility] Last Admin: 12/30/17 09:36 Dose: 12.5 mg Pantoprazole Sodium (Protonix -) 40 mg PO BID [facility] Last Admin: 12/30/17 09:37 Dose: 40 mg Torsemide (Demadex -) 40 mg PO DAILY [facility] Last Admin: 12/30/17 09:37 Dose: 40 mg Vital Signs - 24 hr 12/29/17 12/29/17 12/29/17 17:20 20:58 22:00 Temperature 97.6 F Pulse Rate 72 55 L Respiratory 17 20 20 Rate Blood Pressure 142/64 146/55 O2 Sat by Pulse 98 97 97 Oximetry (%) 12/30/17 12/30/17 12/30/17 00:00 06:00 08:00 Temperature 97.7 F 97.6 F 98 F Pulse Rate 56 L 57 L 60 Respiratory 18 19 18 Rate Blood Pressure 125/61 153/64 140/58 O2 Sat by Pulse Oximetry (%) 12/30/17 12/30/17 12/30/17 09:00 10:00 12:00 Temperature Pulse Rate 70 Respiratory 18 Rate Blood Pressure 144/70 O2 Sat by Pulse 98 98 Oximetry (%) Intake & Output 12/28/17 12/29/17 12/30/17 12/31/17 07:59 07:59 07:59 07:59 Intake Total 340 320 440 Output Total 100 100 Balance 240 320 340 Weight 100 lb 15.547 oz Constitutional: Yes: No Distress, Calm Eyes: No: Sclera Icterus HENT: No: Nasal Congestion Cardiovascular: Yes: rrr S1, S2, Other (PMI non diplaced). 2/ sys murmur at sternal border. Respiratory: Yes: ctab, nl effort No: Accessory Muscle Use, Rales, Wheezes Gastrointestinal: Yes: Normal Bowel Sounds, Soft. No: Tenderness Extremities: No: Cold Edema: No Integumentary: No: Jaundice Neurological: Yes: Alert, Oriented (x3) Psychiatric: No: Agitated Labs: CBC, BMP 12/30/17 13:30 12/30/17 05:30 Laboratory Tests 12/30/17 05:30 Magnesium 2.3 D Digoxin 2.49 H echo 12/2017: mod lvh. nl lv size/fn. rv not well seen. mild-mod mac. probable mod as. small pericardial effusion (<1 cm). large pleural effusion. repeat ekg 12/24: rate controlled afib. non-specific t wave ab. tele: sr Assessment/Plan 87 yo male with advanced CKD and HTN now with 2-3 days of nausea and weakness in the setting of severe azotemia (BUN/Cr 164/16) and, Hgb 6.8 and hyperkalemia 6.9. Found also to be in AF at 100/min. new onset Afib, now in SR -Reasonable rate control on low dose BB (Metoprolol 12.5mg BID). Echo with normal sys function. Has elevated [id number] = 3 (Age>75, Male and HTN) which would warrant anticoagulation. However has hx of significant remote bleeding ulcer history with hgb 6.8 here on presentation s/p PRBCs. --> con't to hold AC. Continue asa 81mg daily and PPI as doing. Per PMD, not a candidate for AC. -dc digoxin/standing kcl given high digoxin level and pt ESRD. Patient now in SR HTN -cont current meds Anemia -As per primary team, hgb stable esrd new HD requirement: -hd per renal - plan for HD access surgery on sunday. Based on RCRI, age and functional status. Patient has low-intermediate estimated risk of meseret-operative CV complications. Stable from CV perspective, no further testing needed prior to intervention. Monitor for conduction abnormalities meseret-operatively while digoxin level still high.
[2017-12-30] MEDS: HYDROCORTISONE 2.5% TOPICAL CREAM 30 GM TUBE TP SCH ×2 (18:28→22:39)
[2017-12-30] MEDS ORDERED: ALPRAZolam 0.25 MG TABLET PO ONE (21:41)
[2017-12-30] MEDS: ATORVASTATIN CA 20 MG TABLET (FP) PO SCH (22:35)
[2017-12-31] MEDS: HEPARIN NA (PORCINE) 5,000 UNITS/ML 1ML VIAL SQ SCH ×3 (07:15→21:29)
[2017-12-31] MEDS: CALCIUM ACETATE 667 MG CAPSULE (FP) PO SCH ×2 (08:08→17:05)
[2017-12-31] MEDS ORDERED: LIDOCAINE HCL 1%, 10 MG/ML (20ML VIAL) ONE (09:41)
[2017-12-31] MEDS ORDERED: HEPARIN NA (PORCINE) 5,000 UNITS/ML 1ML VIAL ONE ×2 (09:41→09:59)
[2017-12-31] MEDS ORDERED: EPOETIN ALFA 10,000 UNIT/1 ML VIAL SQ ONE (10:09)
[2017-12-31] MEDS ORDERED: MIDAZOLAM HCL 2 MG/2 ML SINGLE DOSE VIAL ONE (10:52)
[2017-12-31] MEDS ORDERED: ceFAZolin SODIUM 1 GM VIAL IVPB ONE (11:02)
[2017-12-31] MEDS ORDERED: ceFAZolin SODIUM 1 GM VIAL ONE (11:03)
[2017-12-31] MEDS: TORSEMIDE 20 MG TABLET (FP) PO SCH (11:04)
[2017-12-31] MEDS: HYDROCORTISONE 2.5% TOPICAL CREAM 30 GM TUBE TP SCH ×2 (11:04→22:00)
[2017-12-31] MEDS: ASPIRIN COATED 81 MG TABLET.EC PO SCH (11:04)
[2017-12-31] MEDS: LOSARTAN POTASSIUM 25 MG TABLET PO SCH (11:04)
[2017-12-31] MEDS: PANTOPRAZOLE 40 MG TABLET (FP) PO SCH ×2 (11:04→21:30)
[2017-12-31] MEDS: METOPROLOL TARTRATE 25 MG TABLET (FP) PO SCH ×2 (11:04→21:30)
--- NOTE | 2017-12-31 11:24 | OP ---
Operative Note - Note: Operative Date: 12/31/17 Pre-Operative Diagnosis: ESRD Operation: Insertion of permacath Post-Operative Diagnosis: Same as Pre-op Surgeon: Terry Licona Anesthesia: Fractional Estimated Blood Loss (mls): 20 Operative Report Dictated: Yes
[2017-12-31] MEDS ORDERED: ONDANSETRON 4 MG/2 ML VIAL IVPUSH PRN (11:29)
[2017-12-31] MEDS ORDERED: ACETAMINOPHEN 325 MG TABLET (FP) PO PRN (11:45)
[2017-12-31] MEDS ORDERED: DESMOPRESSIN ACETATE 4 MCG/ML AMP IVPB ONE (11:45)
--- NOTE | 2017-12-31 12:19 | PN ---
Progress Note, Physician Chief Complaint: The patient seen in ICU. Comfortable. Awake, alert. No chest pain, no shortness of breath. Patient for placement of Permacath today. History of Present Illness: 87 year gentleman with PMhx of advanced CKD, Hypertension who presented with complaints of Nausea and weakness as per the family found to have BUN/Cr of 164/ 16 and K of 6.9. The patient has ESRD, and is dialysis-dependent now. - Current Medication List Current Medications: Active Medications Acetaminophen (Tylenol -) 650 mg PO Q4H PRN PRN Reason: FEVER Aspirin (Ecotrin -) 81 mg PO DAILY [facility] Atorvastatin Calcium (Lipitor -) 20 mg PO HS [facility] Calcium Acetate (Phoslo -) 1,334 mg PO TIDCM [facility] Desmopressin Acetate (Ddavp Injection -) 15 mcg IVPB ONCE ONE Stop: 12/31/17 11:46 Epoetin Spencer (Procrit -) 10,000 unit SQ ONCE ONE Stop: 12/31/17 10:10 Last Admin: 12/31/17 11:04 Dose: Not Given Fentanyl (Sublimaze Injection -) 25 mcg IVPUSH [id number] PRN PRN Reason: PAIN-PACU ORDER X 4 DOSES ONLY Heparin Sodium (Porcine) (Heparin -) 5,000 unit SQ TID [facility] Hydrocortisone (Anusol 2.5% Hc Cream -) 1 applic TP BID [facility] Sodium Chloride (Normal Saline -) 1,000 mls @ 42 mls/hr IV ASDIR [facility] Sodium Chloride (Normal Saline -) 250 mls @ 3,000 mls/hr IV PRN PRN PRN Reason: Hypotension during Dialysis Losartan Potassium (Cozaar -) 25 mg PO DAILY [facility] Metoprolol Tartrate (Lopressor -) 12.5 mg PO BID [facility] Ondansetron HCl (Zofran Injection) 4 mg IVPUSH Q6H PRN PRN Reason: NAUSEA AND/OR VOMITING Pantoprazole Sodium (Protonix -) 40 mg PO BID [facility] Torsemide (Demadex -) 40 mg PO DAILY [facility] - Objective Vital Signs: Vital Signs Temperature 97.7 F 12/31/17 11:25 Pulse Rate 55 L 12/31/17 12:00 Respiratory Rate 16 12/31/17 12:00 Blood Pressure 150/60 12/31/17 12:00 O2 Sat by Pulse Oximetry (%) 96 12/31/17 12:00 Constitutional: Yes: Well Nourished, Anxious Eyes: Yes: EOM Intact HENT: Yes: Normocephalic Cardiovascular: Yes: Regular Rate and Rhythm, S1, S2 Respiratory: Yes: CTA Bilaterally, Diminished Gastrointestinal: Yes: Normal Bowel Sounds, Soft Genitourinary: No: CVA Tenderness - Left, CVA Tenderness - Right Neurological: Yes: Alert, Oriented Labs: CBC, BMP 12/30/17 13:30 12/30/17 05:30 INR, PTT INR 1.14 (0.82-1.09) 12/28/17 13:30 Problem List - Problems (1) End stage chronic kidney disease Code(s): N18.6 - END STAGE RENAL DISEASE (2) CAD (coronary artery disease) Code(s): I25.10 - ATHSCL HEART DISEASE OF [place] CORONARY ARTERY W/O ANG PCTRS (3) Electrolyte imbalance Code(s): E87.8 - OTH DISORDERS OF ELECTROLYTE AND FLUID BALANCE, NEC (4) HLD (hyperlipidemia) Code(s): E78.5 - HYPERLIPIDEMIA, UNSPECIFIED (5) HTN (hypertension) Code(s): I10 - ESSENTIAL (PRIMARY) HYPERTENSION Assessment/Plan 87 year gentleman with PMhx of advanced CKD, Hypertension who presented with complaints of Nausea and weakness and found to have BUN/Cr of 164/16 and Hyperkalemia. The aptient has ESRD, and is dialysis dependent now. For permacath placemnent today. Initially the plan was to dialyse him after the catheter placement today. But I was informed that there is no available HD nurse to dialyze him. therefore will schedule Hd for tomorrow. Outpatient HD placement at [facility] Dialysis unit to be done. Thank you. Belén Mujica MD
--- NOTE | 2017-12-31 12:51 | OP ---
DATE OF OPERATION: 12/31/2017 PREOPERATIVE DIAGNOSIS: End-stage renal disease. POSTOPERATIVE DIAGNOSIS: End-stage renal disease. PROCEDURE: Insertion of Perma-Cath. SURGEON: Terry Neves DO ANESTHESIA: Fractional. ESTIMATED BLOOD LOSS: 20 mL. INDICATIONS: The patient is an 87-year-old male who needs a new dialysis catheter. The patient has a catheter in his neck that was removed today and now needs a dialysis catheter so that he can go home. The patient was consented for the procedure understanding all risks, benefits, and alternatives and then taken to the operating room. DESCRIPTION OF PROCEDURE: Once in the operating room, he was laid on the operating room table in supine manner. The area of the right neck and chest were prepped and draped in a sterile surgical manner. We then went ahead and under ultrasound guidance visualized the right internal jugular vein, and 10 mL of lidocaine 1% was injected there. We then took our micropuncture needle and punctured the right internal jugular vein. Micropuncture wire was inserted. Micropuncture sheath was inserted, and a 0.035 floppy guidewire was inserted under fluoroscopy. Then 10 mL of lidocaine 1% was injected above and below the clavicle. We then took an 11 blade and made a 1-cm incision in the puncture site. We took a 15 blade and made a 1-cm incision below the clavicle. We then tunneled the Perma-Cath up to the puncture site. We then used our breakaway sheath and placed it over the guidewire into the vein under fluoroscopy. Inner cannula and guidewire were removed. The catheter was placed inside the sheath. The sheath was broken away. The catheter was placed inside the vein. The neck at the catheter was nice and smooth. The catheter was located outside the right atrium. We then rolly back on each port of the catheter, and there was good flow. Heparinized saline was injected. Then 2000 units of IV heparin was injected. We then took 4-0 Biosyn and 2 simple sutures were placed at the puncture site and 3-0 nylon was used, and the catheter was attached to the skin. Biopatch, Steri-Strips, 4 x 4's, and Tegaderms were placed. The patient tolerated the procedure well with no complication. The patient was transferred to the PACU in stable condition where a chest x-ray will be obtained. TERRY NEVES DO NUMERICAL CONTROL MACHINE MACHINIST/[id number]
--- NOTE | 2017-12-31 17:25 | PN ---
Progress Note (short form) - Note Progress Note: Chief Complaint: weakness/new afib S: s/p permacath placement. slightly sleepy. denies cp, palps, dizziness, sob. anti-htn held this am for procedure. ex cigs Current Medications Acetaminophen (Tylenol -) 650 mg PO Q4H PRN PRN Reason: FEVER Aspirin (Ecotrin -) 81 mg PO DAILY [facility] Atorvastatin Calcium (Lipitor -) 20 mg PO HS [facility] Calcium Acetate (Phoslo -) 1,334 mg PO TIDCM [facility] Last Admin: 12/31/17 17:05 Dose: 1,334 mg Desmopressin Acetate (Ddavp Injection -) 15 mcg IVPB ONCE ONE Stop: 12/31/17 11:46 Epoetin Spencer (Procrit -) 10,000 unit SQ ONCE ONE Stop: 01/01/18 10:10 Heparin Sodium (Porcine) (Heparin -) 5,000 unit SQ TID [facility] Last Admin: 12/31/17 14:00 Dose: 5,000 unit Hydrocortisone (Anusol 2.5% Hc Cream -) 1 applic TP BID [facility] Sodium Chloride (Normal Saline -) 1,000 mls @ 42 mls/hr IV ASDIR [facility] Sodium Chloride (Normal Saline -) 250 mls @ 3,000 mls/hr IV PRN PRN PRN Reason: Hypotension during Dialysis Losartan Potassium (Cozaar -) 25 mg PO DAILY [facility] Metoprolol Tartrate (Lopressor -) 12.5 mg PO BID [facility] Pantoprazole Sodium (Protonix -) 40 mg PO BID [facility] Torsemide (Demadex -) 40 mg PO DAILY [facility] Vital Signs - 24 hr 12/30/17 12/30/17 12/31/17 20:00 22:00 00:00 Temperature 98.2 F Pulse Rate 73 72 73 Respiratory 19 18 19 Rate Blood Pressure 161/79 160/68 147/66 O2 Sat by Pulse 96 Oximetry (%) 12/31/17 12/31/17 12/31/17 04:00 06:00 11:25 Temperature 98 F 98 F 97.7 F Pulse Rate 51 L 57 L 59 L Respiratory 18 18 12 Rate Blood Pressure 138/68 135/80 179/71 O2 Sat by Pulse 97 Oximetry (%) 12/31/17 12/31/17 12/31/17 11:30 11:45 12:00 Temperature Pulse Rate 54 L 52 L 55 L Respiratory 12 13 16 Rate Blood Pressure 153/64 156/62 150/60 O2 Sat by Pulse 96 96 96 Oximetry (%) 12/31/17 12/31/17 12:15 12:30 Temperature 97.7 F Pulse Rate 56 L 56 L Respiratory 16 16 Rate Blood Pressure 160/72 156/68 O2 Sat by Pulse 96 Oximetry (%) Intake & Output 12/29/17 12/30/17 12/31/17 01/01/18 07:59 07:59 07:59 07:59 Intake Total 320 440 100 400 Output Total 100 150 300 Balance 320 340 -50 100 Weight 100 lb 15.547 oz 101 lb 9 oz Constitutional: Yes: No Distress, Calm Eyes: No: Sclera Icterus HENT: No: Nasal Congestion Cardiovascular: Yes: rrr S1, S2, Other (PMI non diplaced). 2/6 sys murmur at sternal border. Respiratory: Yes: ctab, nl effort No: Accessory Muscle Use, Rales, Wheezes Gastrointestinal: Yes: Normal Bowel Sounds, Soft. No: Tenderness Extremities: No: Cold Edema: No Integumentary: No: Jaundice Neurological: Yes: Alert, Oriented (x3) Psychiatric: No: Agitated Labs: no CBC, BMP today 12/30/17 13:30 12/30/17 05:30 echo 12/2017: mod lvh. nl lv size/fn. rv not well seen. mild-mod mac. probable mod as. small pericardial effusion (<1 cm). large pleural effusion. repeat ekg 12/24: rate controlled afib. non-specific t wave ab. tele: sr/sb Assessment/Plan 87 yo male with advanced CKD and HTN now with 2-3 days of nausea and weakness in the setting of severe azotemia (BUN/Cr 164/16) and, Hgb 6.8 and hyperkalemia 6.9. Found also to be in AF at 100/min. new onset Afib, now in SR -Reasonable rate control on low dose BB (Metoprolol 12.5mg BID). Echo with normal sys function. Has elevated [id number] = 3 (Age>75, Male and HTN) which would warrant anticoagulation. However has hx of significant remote bleeding ulcer history with hgb 6.8 here on presentation s/p PRBCs. --> con't to hold AC. Continue asa 81mg daily and PPI as doing. Per PMD, not a candidate for AC. -stopped digoxin/standing kcl given high digoxin level and pt ESRD. Patient now in SR. dig level remains high. HTN -cont current meds Anemia -As per primary team, hgb stable esrd new HD requirement: -hd per renal - s/p permacath placement for HD access today 12/31. Based on RCRI, age and functional status. Patient estimated to have low-intermediate estimated risk of meseret-operative CV complications. Stable from CV perspective, no further testing was recommended prior to intervention. Monitor for conduction abnormalities meseret-operatively while digoxin level still high.
--- NOTE | 2017-12-31 18:16 | PN ---
Progress Note, Physician History of Present Illness: Pt had Permacth Placement Pt had some oozing from cath site Pressure dressing applied - Current Medication List Current Medications: Active Medications Acetaminophen (Tylenol -) 650 mg PO Q4H PRN PRN Reason: FEVER Aspirin (Ecotrin -) 81 mg PO DAILY [facility] Atorvastatin Calcium (Lipitor -) 20 mg PO HS [facility] Calcium Acetate (Phoslo -) 1,334 mg PO TIDCM [facility] Last Admin: 12/31/17 17:05 Dose: 1,334 mg Desmopressin Acetate (Ddavp Injection -) 15 mcg IVPB ONCE ONE Stop: 12/31/17 11:46 Epoetin Spencer (Procrit -) 10,000 unit SQ ONCE ONE Stop: 01/01/18 10:10 Heparin Sodium (Porcine) (Heparin -) 5,000 unit SQ TID [facility] Last Admin: 12/31/17 14:00 Dose: 5,000 unit Hydrocortisone (Anusol 2.5% Hc Cream -) 1 applic TP BID [facility] Sodium Chloride (Normal Saline -) 1,000 mls @ 42 mls/hr IV ASDIR [facility] Sodium Chloride (Normal Saline -) 250 mls @ 3,000 mls/hr IV PRN PRN PRN Reason: Hypotension during Dialysis Losartan Potassium (Cozaar -) 25 mg PO DAILY [facility] Metoprolol Tartrate (Lopressor -) 12.5 mg PO BID [facility] Pantoprazole Sodium (Protonix -) 40 mg PO BID [facility] Torsemide (Demadex -) 40 mg PO DAILY [facility] - Objective Vital Signs: Vital Signs Temperature 97.7 F 12/31/17 12:30 Pulse Rate 56 L 12/31/17 12:30 Respiratory Rate 16 12/31/17 12:30 Blood Pressure 156/68 12/31/17 12:30 O2 Sat by Pulse Oximetry (%) 96 12/31/17 12:15 Constitutional: Yes: Anxious Eyes: Yes: Conjunctiva Clear, EOM Intact HENT: Yes: Atraumatic, Normocephalic Neck: Yes: Supple, Trachea Midline Cardiovascular: Yes: Pulse Irregular Respiratory: Yes: Regular, CTA Bilaterally Gastrointestinal: Yes: Normal Bowel Sounds, Soft Musculoskeletal: Yes: Joint Stiffness Edema: No Peripheral Pulses WNL: Yes Neurological: Yes: Alert, Oriented, Cran Nerves II-XII Intact Labs: CBC, BMP 12/30/17 13:30 12/30/17 05:30 INR, PTT INR 1.14 (0.82-1.09) 12/28/17 13:30 Problem List - Problems (1) Acute renal failure Code(s): N17.9 - ACUTE KIDNEY FAILURE, UNSPECIFIED (2) Afib Code(s): I48.91 - UNSPECIFIED ATRIAL FIBRILLATION (3) Metabolic acidosis Code(s): E87.2 - ACIDOSIS (4) Anemia Code(s): D64.9 - ANEMIA, UNSPECIFIED (5) Electrolyte imbalance Code(s): E87.8 - OTH DISORDERS OF ELECTROLYTE AND FLUID BALANCE, NEC (6) CAD (coronary artery disease) Code(s): I25.10 - ATHSCL HEART DISEASE OF [place] CORONARY ARTERY W/O ANG PCTRS (7) HTN (hypertension) Code(s): I10 - ESSENTIAL (PRIMARY) HYPERTENSION (8) Respiratory failure Code(s): J96.90 - RESPIRATORY FAILURE, UNSP, UNSP W HYPOXIA OR HYPERCAPNIA (9) GI bleeding Code(s): K92.2 - GASTROINTESTINAL HEMORRHAGE, UNSPECIFIED (10) Cervical stenosis of spine Code(s): M48.02 - SPINAL STENOSIS, CERVICAL REGION (11) Cervical radiculopathy Code(s): M54.12 - RADICULOPATHY, CERVICAL REGION (12) HLD (hyperlipidemia) Code(s): E78.5 - HYPERLIPIDEMIA, UNSPECIFIED (13) Fall Code(s): W19.XXXA - UNSPECIFIED FALL, INITIAL ENCOUNTER Assessment/Plan (1) Acute renal failure Code(s): N17.9 - ACUTE KIDNEY FAILURE, UNSPECIFIED (2) Afib Code(s): I48.91 - UNSPECIFIED ATRIAL FIBRILLATION (3) Metabolic acidosis Code(s): E87.2 - ACIDOSIS (4) Anemia Code(s): D64.9 - ANEMIA, UNSPECIFIED (5) Electrolyte imbalance Code(s): E87.8 - OTH DISORDERS OF ELECTROLYTE AND FLUID BALANCE, NEC (6) CAD (coronary artery disease) Code(s): I25.10 - ATHSCL HEART DISEASE OF [place] CORONARY ARTERY W/O ANG PCTRS (7) HTN (hypertension) Code(s): I10 - ESSENTIAL (PRIMARY) HYPERTENSION (8) H/O Respiratory failure/ Intubation/ Extubation Code(s): J96.90 - RESPIRATORY FAILURE, UNSP, UNSP W HYPOXIA OR HYPERCAPNIA (9) H/O GI bleeding Code(s): K92.2 - GASTROINTESTINAL HEMORRHAGE, UNSPECIFIED (10) H/OCervical stenosis of spine Code(s): M48.02 - SPINAL STENOSIS, CERVICAL REGION (11) H/OCervical radiculopathy Code(s): M54.12 - RADICULOPATHY, CERVICAL REGION (12) HLD (hyperlipidemia) Code(s): E78.5 - HYPERLIPIDEMIA, UNSPECIFIED (13) H/O Fall Code(s): W19.XXXA - UNSPECIFIED FALL, INITIAL ENCOUNTER Pt had Permacth Placemet done Pt tolerated procedure well
[2017-12-31] MEDS: ATORVASTATIN CA 20 MG TABLET (FP) PO SCH (21:29)
[2018-01-01] MEDS: HEPARIN NA (PORCINE) 5,000 UNITS/ML 1ML VIAL SQ SCH ×3 (06:06→22:09)
[2018-01-01] MEDS: PANTOPRAZOLE 40 MG TABLET (FP) PO SCH ×2 (09:26→22:08)
[2018-01-01] MEDS: ASPIRIN COATED 81 MG TABLET.EC PO SCH (09:26)
[2018-01-01] MEDS: CALCIUM ACETATE 667 MG CAPSULE (FP) PO SCH ×3 (09:26→17:13)
[2018-01-01] MEDS: HYDROCORTISONE 2.5% TOPICAL CREAM 30 GM TUBE TP SCH ×3 (12:00→22:09)
[2018-01-01] MEDS ORDERED: SODIUM CHLORIDE 250 ML IV PRN (12:00)
--- NOTE | 2018-01-01 13:12 | PN ---
Progress Note (short form) - Note Progress Note: Chief Complaint: weakness/new afib S: s/p permacath placement yesterday. denies cp, palps, dizziness, sob. ex cigs Current Medications Acetaminophen (Tylenol -) 650 mg PO Q4H PRN PRN Reason: FEVER Last Admin: 01/01/18 04:28 Dose: 650 mg Aspirin (Ecotrin -) 81 mg PO DAILY [facility] Last Admin: 01/01/18 09:26 Dose: 81 mg Atorvastatin Calcium (Lipitor -) 20 mg PO HS [facility] Last Admin: 12/31/17 21:29 Dose: 20 mg Calcium Acetate (Phoslo -) 1,334 mg PO TIDCM [facility] Last Admin: 01/01/18 09:26 Dose: 1,334 mg Desmopressin Acetate (Ddavp Injection -) 15 mcg IVPB ONCE ONE Stop: 12/31/17 11:46 Epoetin Spencer (Procrit -) 10,000 unit SQ ONCE ONE Stop: 01/01/18 10:10 Heparin Sodium (Porcine) (Heparin -) 5,000 unit SQ TID [facility] Last Admin: 01/01/18 06:06 Dose: 5,000 unit Hydrocortisone (Anusol 2.5% Hc Cream -) 1 applic TP BID [facility] Last Admin: 12/31/17 22:00 Dose: 1 applic Sodium Chloride (Normal Saline -) 1,000 mls @ 42 mls/hr IV [facility]IR [facility] Sodium Chloride (Normal Saline -) 250 mls @ 3,000 mls/hr IV PRN PRN PRN Reason: Hypotension during Dialysis Losartan Potassium (Cozaar -) 25 mg PO DAILY [facility] Metoprolol Tartrate (Lopressor -) 12.5 mg PO BID [facility] Last Admin: 12/31/17 21:30 Dose: 12.5 mg Pantoprazole Sodium (Protonix -) 40 mg PO BID [facility] Last Admin: 01/01/18 09:26 Dose: 40 mg Torsemide (Demadex -) 40 mg PO DAILY [facility] Vital Signs - 24 hr 12/31/17 12/31/17 12/31/17 14:00 18:00 21:00 Temperature 98.6 F 98.3 F Pulse Rate 64 64 Respiratory 18 18 Rate Blood Pressure 150/69 154/78 O2 Sat by Pulse 96 Oximetry (%) 12/31/17 01/01/18 01/01/18 22:00 02:00 04:00 Temperature 98.3 F 98.2 F 98.0 F Pulse Rate 60 47 L 91 H Respiratory 18 18 18 Rate Blood Pressure 132/58 118/63 168/61 O2 Sat by Pulse 97 Oximetry (%) 01/01/18 01/01/18 01/01/18 05:58 08:29 08:40 Temperature 98.4 F 98 F Pulse Rate 58 L 73 Respiratory 18 23 Rate Blood Pressure 168/61 146/51 O2 Sat by Pulse 97 Oximetry (%) 01/01/18 01/01/18 12:40 12:45 Temperature 98.3 F Pulse Rate 65 64 Respiratory 16 12 Rate Blood Pressure 159/78 167/75 O2 Sat by Pulse Oximetry (%) Intake & Output 12/30/17 12/31/17 01/01/18 01/02/18 07:59 07:59 07:59 07:59 Intake Total 440 100 640 250 Output Total 100 150 300 Balance 340 -50 340 250 Weight 100 lb 15.547 oz 101 lb 9 oz 109 lb Constitutional: Yes: No Distress, Calm Eyes: No: Sclera Icterus HENT: No: Nasal Congestion Cardiovascular: Yes: rrr S1, S2, Other (PMI non diplaced). 2/6 sys murmur at sternal border. Respiratory: Yes: ctab, nl effort No: Accessory Muscle Use, Rales, Wheezes Gastrointestinal: Yes: Normal Bowel Sounds, Soft. No: Tenderness Extremities: No: Cold Edema: No Integumentary: No: Jaundice Neurological: Yes: Alert, Oriented (x3) Psychiatric: No: Agitated Labs: no CBC, BMP today 12/30/17 13:30 12/30/17 05:30 echo 12/2017: mod lvh. nl lv size/fn. rv not well seen. mild-mod mac. probable mod as. small pericardial effusion (<1 cm). large pleural effusion. repeat ekg 12/24: rate controlled afib. non-specific t wave ab. tele: sr/sb Assessment/Plan 87 yo male with advanced CKD and HTN now with 2-3 days of nausea and weakness in the setting of severe azotemia (BUN/Cr 164/16) and, Hgb 6.8 and hyperkalemia 6.9. Found also to be in AF at 100/min. new onset Afib, now in SR -Reasonable rate control on low dose BB (Metoprolol 12.5mg BID). Echo with normal sys function. Has elevated [id number] = 3 (Age>75, Male and HTN) which would warrant anticoagulation. However has hx of significant remote bleeding ulcer history with hgb 6.8 here on presentation s/p PRBCs. --> con't to hold AC. Continue asa 81mg daily and PPI as doing. Per PMD, not a candidate for AC. -stopped digoxin/standing kcl given high digoxin level and pt ESRD. Patient now in SR. dig level remains high. HTN -cont current meds Anemia -As per primary team, hgb stable esrd new HD requirement: -hd per renal - s/p permacath placement for HD access today 12/31. Based on RCRI, age and functional status. Patient estimated to have low-intermediate estimated risk of meseret-operative CV complications. Stable from CV perspective, no further testing was recommended prior to intervention. Monitor for conduction abnormalities meseret-operatively while digoxin level still high. Ok to d/c telemetry once digoxin level normalizes.
--- NOTE | 2018-01-01 14:34 | PN ---
Progress Note, Physician Chief Complaint: Patient sitting in bed comfortably, pain controlled, no anesthesia complaints. - Current Medication List Current Medications: Active Medications Acetaminophen (Tylenol -) 650 mg PO Q4H PRN PRN Reason: FEVER Last Admin: 01/01/18 04:28 Dose: 650 mg Aspirin (Ecotrin -) 81 mg PO DAILY [facility] Last Admin: 01/01/18 09:26 Dose: 81 mg Atorvastatin Calcium (Lipitor -) 20 mg PO HS [facility] Last Admin: 12/31/17 21:29 Dose: 20 mg Calcium Acetate (Phoslo -) 1,334 mg PO TIDCM [facility] Last Admin: 01/01/18 09:26 Dose: 1,334 mg Desmopressin Acetate (Ddavp Injection -) 15 mcg IVPB ONCE ONE Stop: 12/31/17 11:46 Epoetin Spencer (Procrit -) 10,000 unit SQ ONCE ONE Stop: 01/01/18 10:10 Heparin Sodium (Porcine) (Heparin -) 5,000 unit SQ TID [facility] Last Admin: 01/01/18 06:06 Dose: 5,000 unit Hydrocortisone (Anusol 2.5% Hc Cream -) 1 applic TP BID [facility] Last Admin: 12/31/17 22:00 Dose: 1 applic Sodium Chloride (Normal Saline -) 1,000 mls @ 42 mls/hr IV ASDIR KELSIE Sodium Chloride (Normal Saline -) 250 mls @ 3,000 mls/hr IV PRN PRN PRN Reason: Hypotension during Dialysis Losartan Potassium (Cozaar -) 25 mg PO DAILY [facility] Metoprolol Tartrate (Lopressor -) 12.5 mg PO BID [facility] Last Admin: 12/31/17 21:30 Dose: 12.5 mg Pantoprazole Sodium (Protonix -) 40 mg PO BID [facility] Last Admin: 01/01/18 09:26 Dose: 40 mg Torsemide (Demadex -) 40 mg PO DAILY [facility] - Objective Vital Signs: Vital Signs Temperature 98.3 F 01/01/18 12:40 Pulse Rate 64 01/01/18 12:45 Respiratory Rate 12 01/01/18 12:45 Blood Pressure 167/75 01/01/18 12:45 O2 Sat by Pulse Oximetry (%) 97 01/01/18 08:40 Constitutional: Yes: Well Nourished, No Distress, Calm Neurological: Yes: WNL, Alert, Oriented Labs: CBC, BMP 12/30/17 13:30 12/30/17 05:30 INR, PTT INR 1.14 (0.82-1.09) 12/28/17 13:30 Assessment/Plan POD#1 s/p permacath placement under MAC. Doing well. D/C from anesthesia care.
--- NOTE | 2018-01-01 14:46 | PN ---
Progress Note, Physician Chief Complaint: The patient seen in ICU. HD in progress. Comfortable. Awake, alert. No chest pain, no shortness of breath. The Permacath was placed yesterday, and being used now for HD History of Present Illness: 87 year gentleman with PMhx of advanced CKD, Hypertension who presented with complaints of Nausea and weakness as per the family found to have BUN/Cr of 164/ 16 and Hyperkalemia. The patient has ESRD, and is dialysis-dependent now. - Current Medication List Current Medications: Active Medications Acetaminophen (Tylenol -) 650 mg PO Q4H PRN PRN Reason: FEVER Last Admin: 01/01/18 04:28 Dose: 650 mg Aspirin (Ecotrin -) 81 mg PO DAILY [facility] Last Admin: 01/01/18 09:26 Dose: 81 mg Atorvastatin Calcium (Lipitor -) 20 mg PO HS [facility] Last Admin: 12/31/17 21:29 Dose: 20 mg Calcium Acetate (Phoslo -) 1,334 mg PO TIDCM [facility] Last Admin: 01/01/18 09:26 Dose: 1,334 mg Desmopressin Acetate (Ddavp Injection -) 15 mcg IVPB ONCE ONE Stop: 12/31/17 11:46 Epoetin Spencer (Procrit -) 10,000 unit SQ ONCE ONE Stop: 01/01/18 10:10 Heparin Sodium (Porcine) (Heparin -) 5,000 unit SQ TID [facility] Last Admin: 01/01/18 06:06 Dose: 5,000 unit Hydrocortisone (Anusol 2.5% Hc Cream -) 1 applic TP BID [facility] Last Admin: 12/31/17 22:00 Dose: 1 applic Sodium Chloride (Normal Saline -) 1,000 mls @ 42 mls/hr IV ASDIR KELSIE Sodium Chloride (Normal Saline -) 250 mls @ 3,000 mls/hr IV PRN PRN PRN Reason: Hypotension during Dialysis Losartan Potassium (Cozaar -) 25 mg PO DAILY [facility] Metoprolol Tartrate (Lopressor -) 12.5 mg PO BID [facility] Last Admin: 12/31/17 21:30 Dose: 12.5 mg Pantoprazole Sodium (Protonix -) 40 mg PO BID [facility] Last Admin: 01/01/18 09:26 Dose: 40 mg Torsemide (Demadex -) 40 mg PO DAILY [facility] - Objective Vital Signs: Vital Signs Temperature 98.3 F 01/01/18 12:40 Pulse Rate 64 01/01/18 12:45 Respiratory Rate 12 01/01/18 12:45 Blood Pressure 167/75 01/01/18 12:45 O2 Sat by Pulse Oximetry (%) 97 01/01/18 08:40 Constitutional: Yes: No Distress, Calm Eyes: Yes: Conjunctiva Clear HENT: Yes: Normocephalic Neck: Yes: Trachea Midline Cardiovascular: Yes: S1, S2 Respiratory: Yes: CTA Bilaterally, Poor Air Entry Gastrointestinal: Yes: Normal Bowel Sounds, Soft Genitourinary: No: Bladder Distention, CVA Tenderness - Left, CVA Tenderness - Right Musculoskeletal: Yes: Joint Stiffness Edema: No Labs: CBC, BMP 12/30/17 13:30 12/30/17 05:30 INR, PTT INR 1.14 (0.82-1.09) 12/28/17 13:30 Problem List - Problems (1) End stage chronic kidney disease Code(s): N18.6 - END STAGE RENAL DISEASE (2) CAD (coronary artery disease) Code(s): I25.10 - ATHSCL HEART DISEASE OF [place] CORONARY ARTERY W/O ANG PCTRS (3) Electrolyte imbalance Code(s): E87.8 - OTH DISORDERS OF ELECTROLYTE AND FLUID BALANCE, NEC (4) HLD (hyperlipidemia) Code(s): E78.5 - HYPERLIPIDEMIA, UNSPECIFIED (5) HTN (hypertension) Code(s): I10 - ESSENTIAL (PRIMARY) HYPERTENSION Assessment/Plan 87 year gentleman with PMhx of advanced CKD, Hypertension who presented with complaints of Nausea and weakness and found to have BUN/Cr of 164/16 and Hyperkalemia. The patient has ESRD, and is dialysis dependent now. A Permacath was placed yesterday for dialysis. The catheter is working well. Outpatient HD placement at [facility] Dialysis unit arranged for [facility] at 2 PM. Thank you. Will follow with you. Belén Mujica MD
[2018-01-01] MEDS ORDERED: EPOETIN ALFA 10,000 UNIT/1 ML VIAL SQ ONE (15:15)
[2018-01-01] MEDS: TORSEMIDE 20 MG TABLET (FP) PO SCH (17:13)
[2018-01-01] MEDS: METOPROLOL TARTRATE 25 MG TABLET (FP) PO SCH ×2 (17:13→22:10)
--- NOTE | 2018-01-01 17:13 | PN ---
Progress Note, Physician History of Present Illness: Pt had Permacth Placement Pt is doing well today - Current Medication List Current Medications: Active Medications Acetaminophen (Tylenol -) 650 mg PO Q4H PRN PRN Reason: FEVER Last Admin: 01/01/18 04:28 Dose: 650 mg Aspirin (Ecotrin -) 81 mg PO DAILY [facility] Last Admin: 01/01/18 09:26 Dose: 81 mg Atorvastatin Calcium (Lipitor -) 20 mg PO HS [facility] Last Admin: 12/31/17 21:29 Dose: 20 mg Calcium Acetate (Phoslo -) 1,334 mg PO TIDCM [facility] Last Admin: 01/01/18 13:00 Dose: Not Given Desmopressin Acetate (Ddavp Injection -) 15 mcg IVPB ONCE ONE Stop: 12/31/17 11:46 Heparin Sodium (Porcine) (Heparin -) 5,000 unit SQ TID [facility] Last Admin: 01/01/18 15:00 Dose: Not Given Hydrocortisone (Anusol 2.5% Hc Cream -) 1 applic TP BID [facility] Last Admin: 12/31/17 22:00 Dose: 1 applic Sodium Chloride (Normal Saline -) 1,000 mls @ 42 mls/hr IV ASDIR KELSIE Sodium Chloride (Normal Saline -) 250 mls @ 3,000 mls/hr IV PRN PRN PRN Reason: Hypotension during Dialysis Losartan Potassium (Cozaar -) 25 mg PO DAILY [facility] Metoprolol Tartrate (Lopressor -) 12.5 mg PO BID [facility] Last Admin: 12/31/17 21:30 Dose: 12.5 mg Pantoprazole Sodium (Protonix -) 40 mg PO BID [facility] Last Admin: 01/01/18 09:26 Dose: 40 mg Torsemide (Demadex -) 40 mg PO DAILY [facility] - Objective Vital Signs: Vital Signs Temperature 98.3 F 01/01/18 12:40 Pulse Rate 83 01/01/18 16:15 Respiratory Rate 18 01/01/18 16:15 Blood Pressure 122/85 01/01/18 16:15 O2 Sat by Pulse Oximetry (%) 97 01/01/18 08:40 Constitutional: Yes: Anxious Eyes: Yes: Conjunctiva Clear, EOM Intact HENT: Yes: Atraumatic, Normocephalic Neck: Yes: Supple, Trachea Midline Cardiovascular: Yes: Pulse Irregular Respiratory: Yes: Regular, CTA Bilaterally Gastrointestinal: Yes: Normal Bowel Sounds, Soft Musculoskeletal: Yes: Joint Stiffness Edema: No Peripheral Pulses WNL: Yes Labs: CBC, BMP 12/30/17 13:30 12/30/17 05:30 INR, PTT INR 1.14 (0.82-1.09) 12/28/17 13:30 Problem List - Problems (1) Acute renal failure Code(s): N17.9 - ACUTE KIDNEY FAILURE, UNSPECIFIED (2) Afib Code(s): I48.91 - UNSPECIFIED ATRIAL FIBRILLATION (3) Metabolic acidosis Code(s): E87.2 - ACIDOSIS (4) Anemia Code(s): D64.9 - ANEMIA, UNSPECIFIED (5) Electrolyte imbalance Code(s): E87.8 - OTH DISORDERS OF ELECTROLYTE AND FLUID BALANCE, NEC (6) CAD (coronary artery disease) Code(s): I25.10 - ATHSCL HEART DISEASE OF [place] CORONARY ARTERY W/O ANG PCTRS (7) HTN (hypertension) Code(s): I10 - ESSENTIAL (PRIMARY) HYPERTENSION (8) Respiratory failure Code(s): J96.90 - RESPIRATORY FAILURE, UNSP, UNSP W HYPOXIA OR HYPERCAPNIA (9) GI bleeding Code(s): K92.2 - GASTROINTESTINAL HEMORRHAGE, UNSPECIFIED (10) Cervical stenosis of spine Code(s): M48.02 - SPINAL STENOSIS, CERVICAL REGION (11) Cervical radiculopathy Code(s): M54.12 - RADICULOPATHY, CERVICAL REGION (12) HLD (hyperlipidemia) Code(s): E78.5 - HYPERLIPIDEMIA, UNSPECIFIED (13) Fall Code(s): W19.XXXA - UNSPECIFIED FALL, INITIAL ENCOUNTER Assessment/Plan (1) Acute renal failure Code(s): N17.9 - ACUTE KIDNEY FAILURE, UNSPECIFIED (2) Afib Code(s): I48.91 - UNSPECIFIED ATRIAL FIBRILLATION (3) Metabolic acidosis Code(s): E87.2 - ACIDOSIS (4) Anemia Code(s): D64.9 - ANEMIA, UNSPECIFIED (5) Electrolyte imbalance Code(s): E87.8 - OTH DISORDERS OF ELECTROLYTE AND FLUID BALANCE, NEC (6) CAD (coronary artery disease) Code(s): I25.10 - ATHSCL HEART DISEASE OF [place] CORONARY ARTERY W/O ANG PCTRS (7) HTN (hypertension) Code(s): I10 - ESSENTIAL (PRIMARY) HYPERTENSION (8) H/O Respiratory failure/ Intubation/ Extubation Code(s): J96.90 - RESPIRATORY FAILURE, UNSP, UNSP W HYPOXIA OR HYPERCAPNIA (9) H/O GI bleeding Code(s): K92.2 - GASTROINTESTINAL HEMORRHAGE, UNSPECIFIED (10) H/OCervical stenosis of spine Code(s): M48.02 - SPINAL STENOSIS, CERVICAL REGION (11) H/OCervical radiculopathy Code(s): M54.12 - RADICULOPATHY, CERVICAL REGION (12) HLD (hyperlipidemia) Code(s): E78.5 - HYPERLIPIDEMIA, UNSPECIFIED (13) H/O Fall Code(s): W19.XXXA - UNSPECIFIED FALL, INITIAL ENCOUNTER Pt had Permacth Placemet done Pt tolerated procedure well Pt will be on OP HD
[2018-01-01] MEDS: LOSARTAN POTASSIUM 25 MG TABLET PO SCH (17:14)
[2018-01-01] MEDS: ATORVASTATIN CA 20 MG TABLET (FP) PO SCH (22:08)
[2018-01-02] MEDS: HEPARIN NA (PORCINE) 5,000 UNITS/ML 1ML VIAL SQ SCH ×3 (06:19→22:01)
[2018-01-02] MEDS ORDERED: PT OWN MED DRAWER 7, Y5N ONE ×2 (09:56→18:00)
[2018-01-02] MEDS: LOSARTAN POTASSIUM 25 MG TABLET PO SCH (10:00)
[2018-01-02] MEDS: CALCIUM ACETATE 667 MG CAPSULE (FP) PO SCH ×3 (10:00→21:12)
[2018-01-02] MEDS: TORSEMIDE 20 MG TABLET (FP) PO SCH (10:00)
[2018-01-02] MEDS: ASPIRIN COATED 81 MG TABLET.EC PO SCH (10:00)
[2018-01-02] MEDS: METOPROLOL TARTRATE 25 MG TABLET (FP) PO SCH ×2 (10:00→22:01)
[2018-01-02] MEDS: PANTOPRAZOLE 40 MG TABLET (FP) PO SCH ×2 (10:00→22:02)
[2018-01-02] MEDS: HYDROCORTISONE 2.5% TOPICAL CREAM 30 GM TUBE TP SCH ×2 (10:07→22:00)
--- NOTE | 2018-01-02 11:12 | PN ---
Progress Note (short form) - Note Progress Note: Chief Complaint: weakness History of Present Illness: denies cp, palpitations. sob, dizziness. no syncope ex cigs Current Medications Generic Name Dose Route Start Last Admin Trade Name Frekeeley PRN Reason Stop Dose Admin Acetaminophen 650 mg 12/31/17 11:45 01/01/18 04:28 Tylenol - PO 650 mg Q4H PRN Administration FEVER Aspirin 81 mg 01/01/18 10:00 01/02/18 10:00 Ecotrin - PO 81 mg DAILY KELSIE Administration Atorvastatin Calcium 20 mg 12/31/17 22:00 01/01/18 22:08 Lipitor - PO 20 mg HS KELSIE Administration Calcium Acetate 1,334 mg 12/31/17 17:30 01/02/18 10:00 Phoslo - PO 1,334 mg TIDCM KELSIE Administration Desmopressin Acetate 15 mcg 12/31/17 11:45 Ddavp Injection - IVPB 12/31/17 11:46 ONCE ONE Heparin Sodium (Porcine) 5,000 unit 12/31/17 14:00 01/02/18 06:19 Heparin - SQ 5,000 unit TID KELSIE Administration Hydrocortisone 1 applic 12/31/17 22:00 01/02/18 10:07 Anusol 2.5% Hc Cream - TP 1 applic BID KELSIE Administration Sodium Chloride 1,000 mls @ 42 mls/hr 12/31/17 11:30 Normal Saline - IV ASDIR KELSIE Sodium Chloride 250 mls @ 3,000 mls/hr 01/01/18 12:00 Normal Saline - IV PRN PRN Hypotension during Dialysis Losartan Potassium 25 mg 01/01/18 10:00 01/02/18 10:00 Cozaar - PO 25 mg DAILY KELSIE Administration Metoprolol Tartrate 12.5 mg 12/31/17 22:00 01/02/18 10:00 Lopressor - PO 12.5 mg BID KELSIE Administration Pantoprazole Sodium 40 mg 12/31/17 22:00 01/02/18 10:00 Protonix - PO 40 mg BID KELSIE Administration Torsemide 40 mg 01/01/18 10:00 01/02/18 10:00 Demadex - PO 40 mg DAILY KELSIE Administration - Objective Vital Signs: Vital Signs Period Temp Pulse Resp BP Sys/Gibson Pulse Ox Last 24 Hr 98.0 F-98.7 F 60-85 12-23 104-167/52-85 97-98 Constitutional: Yes: No Distress, Calm Eyes: No: Sclera Icterus HENT: No: Nasal Congestion Cardiovascular: Yes: Pulse Irregular, S1, S2, Other (PMI non diplaced). 2/6 sys murmur at sternal border. Respiratory: Yes: bibasilar rales No: Accessory Muscle Use, Rales, Wheezes Gastrointestinal: Yes: Normal Bowel Sounds, Soft. No: Tenderness Extremities: No: Cold Edema: No Integumentary: No: Jaundice Neurological: Yes: Alert, Oriented (x3) Psychiatric: No: Agitated Labs: CBC, BMP 12/30/17 13:30 12/30/17 05:30 echo 12/2017: mod lvh. nl lv size/fn. rv not well seen. mild-mod mac. probable mod as. small pericardial effusion (<1 cm). large pleural effusion. repeat ekg 12/24: rate controlled afib. non-specific t wave ab. tele: sr Assessment/Plan 87 yo male with advanced CKD and HTN now with 2-3 days of nausea and weakness in the setting of severe azotemia (BUN/Cr 164/16) and, Hgb 6.8 and hyperkalemia 6.9. Found also to be in AF at 100/min. new onset Afib, now in SR -Reasonable rate control on low dose BB (Metoprolol 12.5mg BID). Echo with normal sys function. Has elevated [id number] = 3 (Age>75, Male and HTN) which would warrant anticoagulation. However has hx of significant remote bleeding ulcer history with hgb 6.8 here on presentation s/p PRBCs. --> con't to hold AC. Continue asa 81mg daily and PPI as doing. Per PMD, not a candidate for AC. -stopped digoxin/standing kcl given high digoxin level and pt ESRD. Patient now in SR. HTN -cont current meds Anemia -As per primary team, hgb stable esrd new HD requirement: -hd per renal - s/p permacath placement Ok to d/c telemetry
[2018-01-02] MEDS: SODIUM CHLORIDE 1,000 ML IV SCH ×2 (11:52→21:12)
--- NOTE | 2018-01-02 12:28 | PN ---
Progress Note, Physician Chief Complaint: The patient seen in ICU. HD in progress. No new complaints. Comfortable. Awake, alert. No chest pain, no shortness of breath. Roel uneventful HD yesterday. History of Present Illness: 87 year gentleman with PMhx of advanced CKD, Hypertension who presented with complaints of Nausea and weakness as per the family found to have BUN/Cr of 164/ 16 and Hyperkalemia. The patient has ESRD, and is dialysis-dependent now - Current Medication List Current Medications: Active Medications Acetaminophen (Tylenol -) 650 mg PO Q4H PRN PRN Reason: FEVER Last Admin: 01/01/18 04:28 Dose: 650 mg Aspirin (Ecotrin -) 81 mg PO DAILY [facility] Last Admin: 01/02/18 10:00 Dose: 81 mg Atorvastatin Calcium (Lipitor -) 20 mg PO HS [facility] Last Admin: 01/01/18 22:08 Dose: 20 mg Calcium Acetate (Phoslo -) 1,334 mg PO TIDCM [facility] Last Admin: 01/02/18 10:00 Dose: 1,334 mg Desmopressin Acetate (Ddavp Injection -) 15 mcg IVPB ONCE ONE Stop: 12/31/17 11:46 Heparin Sodium (Porcine) (Heparin -) 5,000 unit SQ TID [facility] Last Admin: 01/02/18 06:19 Dose: 5,000 unit Hydrocortisone (Anusol 2.5% Hc Cream -) 1 applic TP BID [facility] Last Admin: 01/02/18 10:07 Dose: 1 applic Sodium Chloride (Normal Saline -) 1,000 mls @ 42 mls/hr IV ASDIR [facility] Last Admin: 01/02/18 11:52 Dose: Not Given Sodium Chloride (Normal Saline -) 250 mls @ 3,000 mls/hr IV PRN PRN PRN Reason: Hypotension during Dialysis Losartan Potassium (Cozaar -) 25 mg PO DAILY [facility] Last Admin: 01/02/18 10:00 Dose: 25 mg Metoprolol Tartrate (Lopressor -) 12.5 mg PO BID [facility] Last Admin: 01/02/18 10:00 Dose: 12.5 mg Pantoprazole Sodium (Protonix -) 40 mg PO BID [facility] Last Admin: 01/02/18 10:00 Dose: 40 mg Torsemide (Demadex -) 40 mg PO DAILY [facility] Last Admin: 01/02/18 10:00 Dose: 40 mg - Objective Vital Signs: Vital Signs Temperature 98.7 F 01/02/18 06:00 Pulse Rate 76 01/02/18 10:00 Respiratory Rate 17 01/02/18 10:00 Blood Pressure 147/79 01/02/18 10:00 O2 Sat by Pulse Oximetry (%) 97 01/02/18 10:00 Constitutional: Yes: No Distress, Calm Eyes: Yes: Conjunctiva Clear HENT: Yes: Normocephalic Neck: Yes: Decreased ROM Cardiovascular: Yes: Regular Rate and Rhythm, S1, S2 Respiratory: Yes: CTA Bilaterally, Diminished Gastrointestinal: Yes: Normal Bowel Sounds, Soft Genitourinary: No: Bladder Distention, CVA Tenderness - Left, CVA Tenderness - Right Musculoskeletal: No: Back Pain Extremities: No: Calf Tenderness Edema: No Neurological: Yes: Alert, Oriented Labs: CBC, BMP 12/30/17 13:30 12/30/17 05:30 INR, PTT INR 1.14 (0.82-1.09) 12/28/17 13:30 Problem List - Problems (1) End stage chronic kidney disease Code(s): N18.6 - END STAGE RENAL DISEASE (2) CAD (coronary artery disease) Code(s): I25.10 - ATHSCL HEART DISEASE OF [place] CORONARY ARTERY W/O ANG PCTRS (3) Electrolyte imbalance Code(s): E87.8 - OTH DISORDERS OF ELECTROLYTE AND FLUID BALANCE, NEC (4) HLD (hyperlipidemia) Code(s): E78.5 - HYPERLIPIDEMIA, UNSPECIFIED (5) HTN (hypertension) Code(s): I10 - ESSENTIAL (PRIMARY) HYPERTENSION Assessment/Plan 87 year gentleman with PMhx of advanced CKD, Hypertension who presented with complaints of Nausea and weakness and found to have BUN/Cr of 164/16 and Hyperkalemia. The patient has ESRD, and is dialysis dependent now. The patient getting dialysis through a Permacath. Outpatient HD placement at [facility] Dialysis unit arranged for [facility] at 2 PM. will arrange fro [facility] when clinically stable. Next HD tomorrow. Thank you. Will follow with you. Belén Mujica MD
--- NOTE | 2018-01-02 18:05 | DS ---
Physical Examination Vital Signs: Vital Signs Temperature 98.3 F 01/02/18 17:00 Pulse Rate 61 01/02/18 17:00 Respiratory Rate 17 01/02/18 17:00 Blood Pressure 132/65 01/02/18 17:00 O2 Sat by Pulse Oximetry (%) 97 01/02/18 10:00 Constitutional: Yes: Anxious Eyes: Yes: Conjunctiva Clear, EOM Intact HENT: Yes: Atraumatic, Normocephalic Neck: Yes: Supple, Trachea Midline Cardiovascular: Yes: Pulse Irregular Respiratory: Yes: Regular, CTA Bilaterally Gastrointestinal: Yes: Normal Bowel Sounds, Soft Musculoskeletal: Yes: Joint Stiffness Edema: No Peripheral Pulses WNL: Yes Neurological: Yes: Alert, Oriented, Cran Nerves II-XII Intact Labs: CBC, BMP 12/30/17 13:30 12/30/17 05:30 Discharge Summary Reason For Visit: ACUTE RENAL FAILURE Current Active Problems Acute renal failure (Acute) Afib (Acute) CAD (coronary artery disease) (Acute) Cervical radiculopathy (Acute) Cervical stenosis of spine (Acute) Electrolyte imbalance (Acute) End stage chronic kidney disease (Acute) Fall (Acute) GI bleeding (Acute) HLD (hyperlipidemia) (Acute) Metabolic acidosis (Acute) Respiratory failure (Acute) Procedures: Principal: Pt with ARF/CRF, Uremia, Had Shiley and now permacth for dialysis. Pt in the past did not want HD but now wants to live and do it Hospital Course: Pt was in ICU HD done Pt had Afib rate controlled was on Metoprolol/Digoxin Digoxin on hold Pt will see me in office of Dr Maricel Cazares([facility]) in one week Condition: Guarded - Instructions Diet, Activity, Other Instructions: Renal Diet Walker to use to prevent falls Referrals: Jenae Cazares MD [Staff Physician] - Alexys Hay MD [Primary Care Provider] - 1 Week (maricel cazares) Disposition: HOME - Home Medications Comprehensive Discharge Medication List: Ambulatory Orders Acetaminophen [Tylenol .Regular Strength -] 650 mg PO Q4H PRN #0 tablet Amlodipine Besylate [Norvasc -] 10 mg PO DAILY #30 tablet 03/27/16 Pantoprazole Sodium [Protonix -] 40 mg PO DAILY 12/20/17 Sevelamer HCl [Renagel] 800 mg PO TIDCM 12/20/17
--- NOTE | 2018-01-02 18:14 | PN ---
Progress Note, Physician History of Present Illness: Pt is doing better Pt will be DCed home with OP dialysis Spoke with social work case manager / disaster recovery manager - Current Medication List Current Medications: Active Medications Acetaminophen (Tylenol -) 650 mg PO Q4H PRN PRN Reason: FEVER Last Admin: 01/01/18 04:28 Dose: 650 mg Aspirin (Ecotrin -) 81 mg PO DAILY [facility] Last Admin: 01/02/18 10:00 Dose: 81 mg Atorvastatin Calcium (Lipitor -) 20 mg PO HS [facility] Last Admin: 01/01/18 22:08 Dose: 20 mg Calcium Acetate (Phoslo -) 1,334 mg PO TIDCM [facility] Last Admin: 01/02/18 12:34 Dose: 1,334 mg Desmopressin Acetate (Ddavp Injection -) 15 mcg IVPB ONCE ONE Stop: 12/31/17 11:46 Epoetin Spencer (Procrit -) 10,000 unit SQ ONCE ONE Stop: 01/03/18 12:31 Heparin Sodium (Porcine) (Heparin -) 5,000 unit SQ TID [facility] Last Admin: 01/02/18 14:24 Dose: 5,000 unit Hydrocortisone (Anusol 2.5% Hc Cream -) 1 applic TP BID [facility] Last Admin: 01/02/18 10:07 Dose: 1 applic Sodium Chloride (Normal Saline -) 1,000 mls @ 42 mls/hr IV ASDIR [facility] Last Admin: 01/02/18 11:52 Dose: Not Given Sodium Chloride (Normal Saline -) 250 mls @ 3,000 mls/hr IV PRN PRN PRN Reason: Hypotension during Dialysis Losartan Potassium (Cozaar -) 25 mg PO DAILY [facility] Last Admin: 01/02/18 10:00 Dose: 25 mg Metoprolol Tartrate (Lopressor -) 12.5 mg PO BID [facility] Last Admin: 01/02/18 10:00 Dose: 12.5 mg Pantoprazole Sodium (Protonix -) 40 mg PO BID [facility] Last Admin: 01/02/18 10:00 Dose: 40 mg Torsemide (Demadex -) 40 mg PO DAILY [facility] Last Admin: 01/02/18 10:00 Dose: 40 mg - Objective Vital Signs: Vital Signs Temperature 98.3 F 01/02/18 17:00 Pulse Rate 61 01/02/18 17:00 Respiratory Rate 17 01/02/18 17:00 Blood Pressure 132/65 01/02/18 17:00 O2 Sat by Pulse Oximetry (%) 97 01/02/18 10:00 Constitutional: Yes: Anxious Eyes: Yes: Conjunctiva Clear, EOM Intact HENT: Yes: Atraumatic, Normocephalic Neck: Yes: Supple, Trachea Midline Cardiovascular: Yes: Pulse Irregular Respiratory: Yes: Regular, CTA Bilaterally Gastrointestinal: Yes: Normal Bowel Sounds, Soft Musculoskeletal: Yes: Joint Stiffness Edema: No Peripheral Pulses WNL: Yes Labs: CBC, BMP 12/30/17 13:30 12/30/17 05:30 INR, PTT INR 1.14 (0.82-1.09) 12/28/17 13:30 Problem List - Problems (1) Acute renal failure Code(s): N17.9 - ACUTE KIDNEY FAILURE, UNSPECIFIED (2) Afib Code(s): I48.91 - UNSPECIFIED ATRIAL FIBRILLATION (3) Metabolic acidosis Code(s): E87.2 - ACIDOSIS (4) Anemia Code(s): D64.9 - ANEMIA, UNSPECIFIED (5) Electrolyte imbalance Code(s): E87.8 - OTH DISORDERS OF ELECTROLYTE AND FLUID BALANCE, NEC (6) CAD (coronary artery disease) Code(s): I25.10 - ATHSCL HEART DISEASE OF [place] CORONARY ARTERY W/O ANG PCTRS (7) HTN (hypertension) Code(s): I10 - ESSENTIAL (PRIMARY) HYPERTENSION (8) Respiratory failure Code(s): J96.90 - RESPIRATORY FAILURE, UNSP, UNSP W HYPOXIA OR HYPERCAPNIA (9) GI bleeding Code(s): K92.2 - GASTROINTESTINAL HEMORRHAGE, UNSPECIFIED (10) Cervical stenosis of spine Code(s): M48.02 - SPINAL STENOSIS, CERVICAL REGION (11) Cervical radiculopathy Code(s): M54.12 - RADICULOPATHY, CERVICAL REGION (12) HLD (hyperlipidemia) Code(s): E78.5 - HYPERLIPIDEMIA, UNSPECIFIED (13) Fall Code(s): W19.XXXA - UNSPECIFIED FALL, INITIAL ENCOUNTER Assessment/Plan (1) Acute renal failure Code(s): N17.9 - ACUTE KIDNEY FAILURE, UNSPECIFIED (2) Afib Code(s): I48.91 - UNSPECIFIED ATRIAL FIBRILLATION (3) Metabolic acidosis Code(s): E87.2 - ACIDOSIS (4) Anemia Code(s): D64.9 - ANEMIA, UNSPECIFIED (5) Electrolyte imbalance Code(s): E87.8 - OTH DISORDERS OF ELECTROLYTE AND FLUID BALANCE, NEC (6) CAD (coronary artery disease) Code(s): I25.10 - ATHSCL HEART DISEASE OF [place] CORONARY ARTERY W/O ANG PCTRS (7) HTN (hypertension) Code(s): I10 - ESSENTIAL (PRIMARY) HYPERTENSION (8) H/O Respiratory failure/ Intubation/ Extubation Code(s): J96.90 - RESPIRATORY FAILURE, UNSP, UNSP W HYPOXIA OR HYPERCAPNIA (9) H/O GI bleeding Code(s): K92.2 - GASTROINTESTINAL HEMORRHAGE, UNSPECIFIED (10) H/OCervical stenosis of spine Code(s): M48.02 - SPINAL STENOSIS, CERVICAL REGION (11) H/OCervical radiculopathy Code(s): M54.12 - RADICULOPATHY, CERVICAL REGION (12) HLD (hyperlipidemia) Code(s): E78.5 - HYPERLIPIDEMIA, UNSPECIFIED (13) H/O Fall Code(s): W19.XXXA - UNSPECIFIED FALL, INITIAL ENCOUNTER Pt will have HD in AM Pt will be Dced home if stable in AM Pt will have OP dialysis Pt will FU in my office in one week
[2018-01-02] MEDS ORDERED: ALPRAZolam 0.25 MG TABLET PO PRN (19:36)
[2018-01-02] MEDS: ATORVASTATIN CA 20 MG TABLET (FP) PO SCH (22:01)
[2018-01-03] MEDS: CALCIUM ACETATE 667 MG CAPSULE (FP) PO SCH ×3 (09:02→16:53)
[2018-01-03] MEDS: METOPROLOL TARTRATE 25 MG TABLET (FP) PO SCH (09:04)
[2018-01-03] MEDS: TORSEMIDE 20 MG TABLET (FP) PO SCH (09:04)
[2018-01-03] MEDS: LOSARTAN POTASSIUM 25 MG TABLET PO SCH (09:05)
[2018-01-03] MEDS: PANTOPRAZOLE 40 MG TABLET (FP) PO SCH (09:05)
[2018-01-03] MEDS: ASPIRIN COATED 81 MG TABLET.EC PO SCH (09:05)
[2018-01-03] MEDS: HYDROCORTISONE 2.5% TOPICAL CREAM 30 GM TUBE TP SCH (09:08)
--- NOTE | 2018-01-03 10:32 | PN ---
Progress Note (short form) - Note Progress Note: Chief Complaint: weakness History of Present Illness: denies cp, palpitations. sob, dizziness. no syncope ex cigs Current Medications Generic Name Dose Route Start Last Admin Trade Name Daria PRN Reason Stop Dose Admin Acetaminophen 650 mg 12/31/17 11:45 01/01/18 04:28 Tylenol - PO 650 mg Q4H PRN Administration FEVER Alprazolam 0.25 mg 01/02/18 19:36 Xanax - PO Q8H PRN ANXIETY Aspirin 81 mg 01/01/18 10:00 01/03/18 09:05 Ecotrin - PO 81 mg DAILY KELSIE Administration Atorvastatin Calcium 20 mg 12/31/17 22:00 01/02/18 22:01 Lipitor - PO 20 mg HS KELSIE Administration Calcium Acetate 1,334 mg 12/31/17 17:30 01/03/18 09:02 Phoslo - PO 1,334 mg TIDCM [facility] Administration Desmopressin Acetate 15 mcg 12/31/17 11:45 Ddavp Injection - IVPB 12/31/17 11:46 ONCE ONE Epoetin Spencer 10,000 unit 01/03/18 11:00 Procrit - SQ 01/03/18 11:01 ONCE ONE Heparin Sodium (Porcine) 5,000 unit 12/31/17 14:00 01/02/18 22:01 Heparin - SQ 5,000 unit TID [facility] Administration Hydrocortisone 1 applic 12/31/17 22:00 01/03/18 09:08 Anusol 2.5% Hc Cream - TP Not Given BID KELSIE Sodium Chloride 1,000 mls @ 42 mls/hr 12/31/17 11:30 01/02/18 21:12 Normal Saline - IV Not Given ASDIR KELSIE Sodium Chloride 250 mls @ 3,000 mls/hr 01/01/18 12:00 Normal Saline - IV PRN PRN Hypotension during Dialysis Losartan Potassium 25 mg 01/01/18 10:00 01/03/18 09:05 Cozaar - PO 25 mg DAILY [facility]E Administration Metoprolol Tartrate 12.5 mg 12/31/17 22:00 01/03/18 09:04 Lopressor - PO 12.5 mg BID K[facility]E Administration Pantoprazole Sodium 40 mg 12/31/17 22:00 01/03/18 09:05 Protonix - PO 40 mg BID [facility] Administration Torsemide 40 mg 01/01/18 10:00 01/03/18 09:04 Demadex - PO 40 mg DAILY K[facility]E Administration - Objective Vital Signs: Vital Signs Period Temp Pulse Resp BP Sys/Gibson Pulse Ox Last 24 Hr 98.0 F-98.4 F 56-74 14-18 114-169/59-76 97-97 Constitutional: Yes: No Distress, Calm Eyes: No: Sclera Icterus HENT: No: Nasal Congestion Cardiovascular: Yes: Pulse Irregular, S1, S2, Other (PMI non diplaced). 2/6 sys murmur at sternal border. Respiratory: Yes: bibasilar rales No: Accessory Muscle Use, Rales, Wheezes Gastrointestinal: Yes: Normal Bowel Sounds, Soft. No: Tenderness Extremities: No: Cold Edema: No Integumentary: No: Jaundice Neurological: Yes: Alert, Oriented (x3) Psychiatric: No: Agitated Labs: CBC, BMP 12/30/17 13:30 12/30/17 05:30 echo 12/2017: mod lvh. nl lv size/fn. rv not well seen. mild-mod mac. probable mod as. small pericardial effusion (<1 cm). large pleural effusion. repeat ekg 12/24: rate controlled afib. non-specific t wave ab. tele: sr Assessment/Plan 87 yo male with advanced CKD and HTN now with 2-3 days of nausea and weakness in the setting of severe azotemia (BUN/Cr 164/16) and, Hgb 6.8 and hyperkalemia 6.9. Found also to be in AF at 100/min. new onset Afib, now in SR -Reasonable rate control on low dose BB (Metoprolol 12.5mg BID). Echo with normal sys function. Has elevated [id number] = 3 (Age>75, Male and HTN) which would warrant anticoagulation. However has hx of significant remote bleeding ulcer history with hgb 6.8 here on presentation s/p PRBCs. --> con't to hold AC. Continue asa 81mg daily and PPI as doing. Per PMD, not a candidate for AC. -stopped digoxin/standing kcl given high digoxin level and pt ESRD. Patient now in SR. HTN -cont current meds Anemia -As per primary team, hgb stable esrd new HD requirement: -hd per renal - s/p permacath placement Ok to d/c telemetry
--- NOTE | 2018-01-03 10:46 | PN ---
Progress Note, Physician Chief Complaint: The patient seen in ICU. HD in progress. No new complaints. Comfortable. Awake, alert. No chest pain, no shortness of breath. Permacath working well. History of Present Illness: 87 year gentleman with PMhx of advanced CKD, Hypertension who presented with complaints of Nausea and weakness as per the family found to have BUN/Cr of 164/ 16 and Hyperkalemia. The patient has ESRD, and is dialysis-dependent now - Current Medication List Current Medications: Active Medications Acetaminophen (Tylenol -) 650 mg PO Q4H PRN PRN Reason: FEVER Last Admin: 01/01/18 04:28 Dose: 650 mg Alprazolam (Xanax -) 0.25 mg PO Q8H PRN PRN Reason: ANXIETY Aspirin (Ecotrin -) 81 mg PO DAILY [facility] Last Admin: 01/03/18 09:05 Dose: 81 mg Atorvastatin Calcium (Lipitor -) 20 mg PO HS [facility] Last Admin: 01/02/18 22:01 Dose: 20 mg Calcium Acetate (Phoslo -) 1,334 mg PO TIDCM [facility] Last Admin: 01/03/18 09:02 Dose: 1,334 mg Desmopressin Acetate (Ddavp Injection -) 15 mcg IVPB ONCE ONE Stop: 12/31/17 11:46 Epoetin Spencer (Procrit -) 10,000 unit SQ ONCE ONE Stop: 01/03/18 11:01 Heparin Sodium (Porcine) (Heparin -) 5,000 unit SQ TID [facility] Last Admin: 01/02/18 22:01 Dose: 5,000 unit Hydrocortisone (Anusol 2.5% Hc Cream -) 1 applic TP BID [facility] Last Admin: 01/03/18 09:08 Dose: Not Given Sodium Chloride (Normal Saline -) 1,000 mls @ 42 mls/hr IV ASDIR [facility] Last Admin: 01/02/18 21:12 Dose: Not Given Sodium Chloride (Normal Saline -) 250 mls @ 3,000 mls/hr IV PRN PRN PRN Reason: Hypotension during Dialysis Losartan Potassium (Cozaar -) 25 mg PO DAILY [facility] Last Admin: 01/03/18 09:05 Dose: 25 mg Metoprolol Tartrate (Lopressor -) 12.5 mg PO BID [facility] Last Admin: 01/03/18 09:04 Dose: 12.5 mg Pantoprazole Sodium (Protonix -) 40 mg PO BID [facility] Last Admin: 01/03/18 09:05 Dose: 40 mg Torsemide (Demadex -) 40 mg PO DAILY [facility] Last Admin: 01/03/18 09:04 Dose: 40 mg - Objective Vital Signs: Vital Signs Temperature 98.0 F 01/03/18 09:55 Pulse Rate 61 01/03/18 10:00 Respiratory Rate 17 01/03/18 10:00 Blood Pressure 153/76 01/03/18 10:00 O2 Sat by Pulse Oximetry (%) 97 01/03/18 10:00 Constitutional: Yes: Well Nourished, Calm Eyes: Yes: Conjunctiva Clear, EOM Intact HENT: Yes: Normocephalic Cardiovascular: Yes: Regular Rate and Rhythm, S1, S2 Respiratory: Yes: CTA Bilaterally, Diminished Gastrointestinal: Yes: Normal Bowel Sounds, Soft Genitourinary: Yes: CVA Tenderness - Left, CVA Tenderness - Right Edema: No Neurological: Yes: Alert, Oriented Labs: CBC, BMP 12/30/17 13:30 12/30/17 05:30 INR, PTT INR 1.14 (0.82-1.09) 12/28/17 13:30 Problem List - Problems (1) End stage chronic kidney disease Code(s): N18.6 - END STAGE RENAL DISEASE (2) CAD (coronary artery disease) Code(s): I25.10 - ATHSCL HEART DISEASE OF [place] CORONARY ARTERY W/O ANG PCTRS (3) Electrolyte imbalance Code(s): E87.8 - OTH DISORDERS OF ELECTROLYTE AND FLUID BALANCE, NEC (4) HLD (hyperlipidemia) Code(s): E78.5 - HYPERLIPIDEMIA, UNSPECIFIED (5) HTN (hypertension) Code(s): I10 - ESSENTIAL (PRIMARY) HYPERTENSION Assessment/Plan 87 year gentleman with PMhx of advanced CKD, Hypertension who presented with complaints of Nausea and weakness and found to have BUN/Cr of 164/16 and Hyperkalemia. The patient has ESRD, and is dialysis dependent now. Getting dialysis through a Permacath. The patient is cleared from Renal perspective for D/c . He will come to [facility] HD unit tomorrow to start outpatient Hd treatment. will arrange fro AVF when clinically stable. Thank you. Will follow with you. Belén Mujica MD
[2018-01-03] MEDS ORDERED: EPOETIN ALFA 10,000 UNIT/1 ML VIAL SQ ONE (11:00)
[2018-01-03] MEDS ORDERED: PT OWN MED DRAWER 7, Y5N ONE (12:34)
[2018-01-03] MEDS: HEPARIN NA (PORCINE) 5,000 UNITS/ML 1ML VIAL SQ SCH (14:00)
--- NOTE | 2018-01-03 16:06 | PN ---
Progress Note, Physician - Current Medication List Current Medications: Active Medications Acetaminophen (Tylenol -) 650 mg PO Q4H PRN PRN Reason: FEVER Last Admin: 01/01/18 04:28 Dose: 650 mg Alprazolam (Xanax -) 0.25 mg PO Q8H PRN PRN Reason: ANXIETY Aspirin (Ecotrin -) 81 mg PO DAILY [facility] Last Admin: 01/03/18 09:05 Dose: 81 mg Atorvastatin Calcium (Lipitor -) 20 mg PO HS [facility] Last Admin: 01/02/18 22:01 Dose: 20 mg Calcium Acetate (Phoslo -) 1,334 mg PO TIDCM [facility] Last Admin: 01/03/18 11:59 Dose: 1,334 mg Desmopressin Acetate (Ddavp Injection -) 15 mcg IVPB ONCE ONE Stop: 12/31/17 11:46 Heparin Sodium (Porcine) (Heparin -) 5,000 unit SQ TID [facility] Last Admin: 01/02/18 22:01 Dose: 5,000 unit Hydrocortisone (Anusol 2.5% Hc Cream -) 1 applic TP BID [facility] Last Admin: 01/03/18 09:08 Dose: Not Given Sodium Chloride (Normal Saline -) 1,000 mls @ 42 mls/hr IV ASDIR [facility] Last Admin: 01/02/18 21:12 Dose: Not Given Sodium Chloride (Normal Saline -) 250 mls @ 3,000 mls/hr IV PRN PRN PRN Reason: Hypotension during Dialysis Losartan Potassium (Cozaar -) 25 mg PO DAILY [facility] Last Admin: 01/03/18 09:05 Dose: 25 mg Metoprolol Tartrate (Lopressor -) 12.5 mg PO BID [facility] Last Admin: 01/03/18 09:04 Dose: 12.5 mg Pantoprazole Sodium (Protonix -) 40 mg PO BID [facility] Last Admin: 01/03/18 09:05 Dose: 40 mg Torsemide (Demadex -) 40 mg PO DAILY [facility] Last Admin: 01/03/18 09:04 Dose: 40 mg - Objective Vital Signs: Vital Signs Temperature 98.2 F 01/03/18 12:00 Pulse Rate 74 01/03/18 13:43 Respiratory Rate 16 01/03/18 13:43 Blood Pressure 130/68 01/03/18 13:43 O2 Sat by Pulse Oximetry (%) 97 01/03/18 10:00 Labs: CBC, BMP 12/30/17 13:30 12/30/17 05:30 INR, PTT INR 1.14 (0.82-1.09) 12/28/17 13:30 Problem List - Problems (1) Acute renal failure Code(s): N17.9 - ACUTE KIDNEY FAILURE, UNSPECIFIED (2) Afib Code(s): I48.91 - UNSPECIFIED ATRIAL FIBRILLATION (3) Metabolic acidosis Code(s): E87.2 - ACIDOSIS (4) Anemia Code(s): D64.9 - ANEMIA, UNSPECIFIED (5) Electrolyte imbalance Code(s): E87.8 - OTH DISORDERS OF ELECTROLYTE AND FLUID BALANCE, NEC (6) CAD (coronary artery disease) Code(s): I25.10 - ATHSCL HEART DISEASE OF [place] CORONARY ARTERY W/O ANG PCTRS (7) HTN (hypertension) Code(s): I10 - ESSENTIAL (PRIMARY) HYPERTENSION (8) Respiratory failure Code(s): J96.90 - RESPIRATORY FAILURE, UNSP, UNSP W HYPOXIA OR HYPERCAPNIA (9) GI bleeding Code(s): K92.2 - GASTROINTESTINAL HEMORRHAGE, UNSPECIFIED (10) Cervical stenosis of spine Code(s): M48.02 - SPINAL STENOSIS, CERVICAL REGION (11) Cervical radiculopathy Code(s): M54.12 - RADICULOPATHY, CERVICAL REGION (12) HLD (hyperlipidemia) Code(s): E78.5 - HYPERLIPIDEMIA, UNSPECIFIED (13) Fall Code(s): W19.XXXA - UNSPECIFIED FALL, INITIAL ENCOUNTER
[2018-01-03 17:33] VITALS: BP 111/55; PULSE 71; TEMP 98.4
== END 2018-01-03 20:45 | disposition home or self-care (01) | DRG 683 ==
LOC: JER 19:53 → JERBED 12-21 02:18 → UNDOADMIN 12-21 02:31 → JERBED 12-21 02:31 → J4W 12-21 19:00 → JICU 12-22 12:20 → J2W 12-24 18:47
PROVIDERS: ADMIT Internal Medicine; ATTEND Internal Medicine
PROC: 05HM33Z Insertion of Infusion Device into Right Internal Jugular Vein, Percutaneous Approach (ICD-10-PCS; 2017-12-22)
PROC: 30233N1 Transfusion of Nonautologous Red Blood Cells into Peripheral Vein, Percutaneous Approach (ICD-10-PCS; 2017-12-22)
PROC: B513ZZA Fluoroscopy of Right Jugular Veins, Guidance (ICD-10-PCS; 2017-12-31)
PROC: 05HM33Z Insertion of Infusion Device into Right Internal Jugular Vein, Percutaneous Approach (ICD-10-PCS; principal; 2017-12-31 10:00)
PROC: 5A1D90Z Performance of Urinary Filtration, Continuous, Greater than 18 hours Per Day (ICD-10-PCS; 2018-01-03)
DX: N17.9 Acute kidney failure, unspecified (principal); I12.0 Hypertensive chronic kidney disease with stage 5 chronic kidney disease or end stage renal disease; E87.2 Acidosis; E87.1 Hypo-osmolality and hyponatremia; N18.6 End stage renal disease; Z99.2 Dependence on renal dialysis; I25.10 Atherosclerotic heart disease of native coronary artery without angina pectoris; E78.5 Hyperlipidemia, unspecified; I48.91 Unspecified atrial fibrillation; E87.5 Hyperkalemia; E83.51 Hypocalcemia; E83.39 Other disorders of phosphorus metabolism; D63.1 Anemia in chronic kidney disease
CPT/HCPCS: 36415; 36430; 71045-TC-FY; 76000-TC-FY; 76775-TC; 80048; 80053; 80162; 81003; 81015; 82550; 82607; 82728; 82746; 82803; 82962; 83540; 83550; 83605; 83735; 83880; 84100; 84484; 85025; 85027; 85610; 85730; 86704; 86706; 86708; 86850; 86900; 86901; 86922; 87086; 87340; 93005; 93010; 93306-TC; 94760; 97116-GP; 97161-GP; 99285-25; J0885; J1644; P9038; P9058

== ENCOUNTER 2018-03-21 07:17 | Day surgery (SDC) | payer OTHER ==
[2018-03-20 13:32] VITALS: BMI 18.0
[2018-03-21] MEDS ORDERED: HEPARIN NA (PORCINE) 5,000 UNITS/ML 1ML VIAL ONE ×3 (08:21→09:36)
[2018-03-21] MEDS ORDERED: LIDOCAINE HCL 2% (20ML MULTI-DOSE VIAL) NR ONE (08:22)
[2018-03-21] MEDS ORDERED: KETOROLAC TROMETHAMINE 30 MG/1 ML VIAL ONE (08:43)
[2018-03-21] MEDS ORDERED: LIDOCAINE HCL/PF 2% SDV 5ML VIAL ONE (08:43)
[2018-03-21] MEDS ORDERED: PROPOFOL 20 ML ONE ×2 (08:43)
[2018-03-21] MEDS ORDERED: MIDAZOLAM HCL 2 MG/2 ML SINGLE DOSE VIAL ONE ×2 (08:44)
[2018-03-21] MEDS ORDERED: ceFAZolin SODIUM 1 GM VIAL IVPB ONE (08:50)
[2018-03-21] MEDS ORDERED: LIDOCAINE HCL 1%, 10 MG/ML (50 mL VIAL) IJ ONE ×2 (09:04)
[2018-03-21] MEDS ORDERED: POVIDONE-IODINE OINTMENT 10% - 28.4 GM TUBE TP ONE (11:01)
--- NOTE | 2018-03-21 11:14 | HP ---
Admitting History and Physical - Admission Chief Complaint: Pt here for left avg insertion Limitations to Obtaining History: No Limitations - Past Medical History Cardiovascular: Yes: HTN Renal/: Yes: Renal Inusuff Heme/Onc: Yes: Anemia - Smoking History Smoking history: Former smoker Have you smoked in the past 12 months: No Aproximately how many cigarettes per day: 0 If you are a former smoker, when did you quit?: 1991 - Alcohol/Substance Use Hx Alcohol Use: Yes (occas) Home Medications - Allergies Allergies/Adverse Reactions: Allergies Allergy/AdvReac Type Severity Reaction Status Date / Time Penicillins Allergy Mild Rash Verified 03/11/18 11:25 - Home Medications Home Medications: Ambulatory Orders Acetaminophen [Tylenol .Regular Strength -] 650 mg PO Q4H PRN #0 tablet Amlodipine Besylate [Norvasc -] 10 mg PO DAILY #30 tablet 03/27/16 Pantoprazole Sodium [Protonix -] 40 mg PO DAILY 12/20/17 Aspirin 81 mg PO DAILY 03/20/18 Atorvastatin Ca [Lipitor] 20 mg PO HS 03/20/18 Calcium Acetate 667 mg PO DAILY 03/20/18 Losartan Potassium 25 mg PO DAILY 03/20/18 Metoprolol Colon/Hydrochlorothiaz [Metoprolol ER-Hctz 100-12.5 mg] 100 each PO BID 03/20/18 Sodium Bicarbonate 650 mg PO BID 03/20/18 Review of Systems - Review of Systems Constitutional: reports: No Symptoms Eyes: reports: No Symptoms HENT: reports: No Symptoms Neck: reports: No Symptoms Cardiovascular: reports: No Symptoms Respiratory: reports: No Symptoms Gastrointestinal: reports: No Symptoms Genitourinary: reports: No Symptoms Musculoskeletal: reports: No Symptoms Integumentary: reports: No Symptoms Neurological: reports: No Symptoms Endocrine: reports: No Symptoms Hematology/Lymphatic: reports: No Symptoms Psychiatric: reports: No Symptoms Physical Examination Vital Signs: Vital Signs Temperature 97.7 F 03/21/18 07:45 Pulse Rate 72 03/21/18 07:45 Respiratory Rate 20 03/21/18 07:45 Blood Pressure 121/61 03/21/18 07:45 O2 Sat by Pulse Oximetry (%) 97 03/21/18 07:46 Constitutional: Yes: Well Nourished, No Distress, Calm Eyes: Yes: WNL, Conjunctiva Clear, EOM Intact HENT: Yes: WNL, Atraumatic, Normocephalic Neck: Yes: WNL, Supple, Trachea Midline Cardiovascular: Yes: WNL, Regular Rate and Rhythm Respiratory: Yes: WNL, Regular, CTA Bilaterally Gastrointestinal: Yes: WNL, Normal Bowel Sounds Musculoskeletal: Yes: WNL Extremities: Yes: WNL Edema: No Integumentary: Yes: WNL Neurological: Yes: WNL, Alert, Oriented ...Motor Strength: WNL Psychiatric: Yes: WNL Labs: CBC, BMP 03/21/18 07:25 Problem List - Problems (1) End-stage renal disease Code(s): N18.6 - END STAGE RENAL DISEASE Assessment/Plan A/P ESRD 1. for avg insertion today
--- NOTE | 2018-03-21 11:16 | OP ---
Operative Note - Note: Operative Date: 03/21/18 Pre-Operative Diagnosis: ESRD Operation: Insertion of left avg Post-Operative Diagnosis: Same as Pre-op Surgeon: Terry Licona Epic Kaleidoscope Analyst: Neftali Kuhn Anesthesia: Fractional Estimated Blood Loss (mls): 50 Operative Report Dictated: Yes
[2018-03-21] MEDS ORDERED: ceFAZolin SODIUM 1 GM VIAL ONE (11:28)
[2018-03-21] MEDS ORDERED: PROMETHAZINE HCL 25 MG/1 ML VIAL IVPUSH PRN (11:46)
[2018-03-21] MEDS ORDERED: oxyCODONE HCL 5 MG TABLET PO PRN (11:46)
[2018-03-21] MEDS ORDERED: ONDANSETRON 4 MG/2 ML VIAL IVPUSH PRN (11:46)
--- NOTE | 2018-03-21 11:46 | SURG ---
Surgery Piece Dye Worker Note Piece Dye Worker: Neftali Kuhn PA-C Date of Service: 03/21/18 Diagnosis: end stage renal failure Procedure: Left arm AV graft placement I was present for the entirety of the operative procedure. For further detail, please refer to operative report.
--- NOTE | 2018-03-21 12:12 | OP ---
DATE OF OPERATION: 03/21/2018 PREOPERATIVE DIAGNOSIS: End-stage renal disease. POSTOPERATIVE DIAGNOSIS: End-stage renal disease. PROCEDURE: Insertion of left arteriovenous graft. SURGEON: Terry Neves DO LAMP SHADE ASSEMBLER: MICHELLE Perez BLOOD LOSS: 50 mL The patient is an 87-year-old male who needs permanent dialysis access. Preoperative vein mapping showed that he does not have adequate veins for fistula placement. It was decided he would need a graft. Patient came in through ambulatory surgery. Patient was consented for the procedure, understanding all risks, benefits, and alternatives, was then taken to the operating room. Once in the operating room, he was laid on the operating table in supine manner, and the area of the left arm was prepped and draped in a sterile surgical manner. Under ultrasound guidance, we were able to map out our brachial artery above the elbow, above the antecubital space, and that was marked with a skin marker. In the upper arm, we were able to map out the basilic vein, and that was marked off with a skin marker. We then prepped and draped the left arm in a sterile surgical manner. We then injected 10 mL of lidocaine 1% over the basilic vein. We then went ahead and took a number-15 blade and made a 6-cm incision. Bovie electrocautery was used to control hemostasis, and we got down through all the subcutaneous tissue and dissected out our basilic vein. Basilic vein was dissected anterior and posteriorly, and vessel loops were placed around it. We then went above the antecubital fossa. Next, 10 mL of lidocaine 1% were injected there. We went ahead and made a 4-cm incision using a 15 blade. Bovie electrocautery used to control hemostasis and we were able to dissect out our brachial artery. Brachial artery was dissected anterior and posteriorly, and vessel loops were placed proximally and distally. We first went ahead and placed our tunneler, and thereafter, gave 5000 units of IV heparin. Our AV graft was tunneled from the distal to the proximal portion. We used a 4.7 Propaten graft. The arterial anastomosis part of the graft was beveled. After 3 minutes of being on IV heparin, we got distal and proximal control on our brachial artery. Using a 15 blade, we made an arteriotomy, extending it to 7 mm using Robles scissors; 6-0 Prolene stay sutures were placed on the artery. We then used 6-0 Prolene double-arm and went outside in on the graft and inside out on the artery and ran the suture around, forming an anastomosis between the artery and the graft. Once completed, we opened the distal and proximal artery and there was good flow in our graft and the graft was clamped. We then went ahead and irrigated the graft copiously using heparinized saline and sucked out all the saline. We then went ahead and cut the graft to size and beveled it to about 1 cm. We then went ahead and got distal and proximal control on our vein. We then went ahead, and using a 15 blade, we made our venotomy and extended it to 1 cm using Robles scissors; 6-0 Prolene double-arm was used for stay sutures. We then went ahead and went outside in on the graft and inside out on the vein and ran the stitch around, forming an anastomosis between the vein and the graft. Once completed, we opened distal vein first, then the proximal vein, and then, we opened the graft, unclamped the vascular clamp on the graft. There was a good thrill in our AV graft. Both wounds were well irrigated. Surgicel was placed for any oozing. After there was no more bleeding, we went ahead and used 3-0 Vicryl, and using 3-0 Vicryl, the subcutaneous tissue was approximated in an interrupted manner for both incisions. The skin was closed with skin dolores for both incisions. Next, 4 x 4 and Tegaderms were placed. The patient tolerated the procedure with no complication. Patient transferred to the PACU in stable condition. TERRY NEVES DO NP/[id number]
[2018-03-21 14:02] VITALS: TEMP 97.8
[2018-03-21 16:40] VITALS: BP 90/60; PULSE 72
== END 2018-03-21 15:00 | disposition home or self-care (01) ==
LOC: JASU-SURG 07:17
PROVIDERS: ATTEND Surgery Vascular Surgery
PROC: 03180KD Bypass Left Brachial Artery to Upper Arm Vein with Nonautologous Tissue Substitute, Open Approach (ICD-10-PCS; principal; 2018-03-21 08:30)
DX: I12.0 Hypertensive chronic kidney disease with stage 5 chronic kidney disease or end stage renal disease (principal); D64.9 Anemia, unspecified; Z87.891 Personal history of nicotine dependence; Z88.0 Allergy status to penicillin
CPT/HCPCS: 36415; 84132; 94760; J1644

== ENCOUNTER 2018-03-27 15:07 | Emergency (ER) | payer OTHER ==
--- NOTE | 2018-03-27 15:30 | PDOC ---
History of Present Illness - General Stated Complaint: Dialysis Shunt Problem Time Seen by Provider: 03/27/18 15:30 - History of Present Illness Initial Comments: 03/27/18 15:33 Mr. Quevedo is an 87 yo male w/ pmh of HTN, CKD (M/W/F dialysis through R chest permacath), Anemia who presents for evaluation of blood seeping through left forearm on dorsal surface since today. Patient had AV graft placed 03/21/[address] Licona. Patient reports forearm has also been dark red and swollen since his procedure. Has no other complaints at this time. The patient denies chest pain, shortness of breath, headache and dizziness. Denies fever, chills, nausea, vomit, diarrhea and constipation. Denies dysuria, frequency, urgency and hematuria. Allergies: Penicillins Past History - Past Medical History Allergies/Adverse Reactions: Allergies Allergy/AdvReac Type Severity Reaction Status Date / Time Penicillins Allergy Mild Rash Verified 03/11/18 11:25 Home Medications: Ambulatory Orders Acetaminophen [Tylenol .Regular Strength -] 650 mg PO Q4H PRN #0 tablet Amlodipine Besylate [Norvasc -] 10 mg PO DAILY #30 tablet 03/27/16 Pantoprazole Sodium [Protonix -] 40 mg PO DAILY 12/20/17 Aspirin 81 mg PO DAILY 03/20/18 Atorvastatin Ca [Lipitor] 20 mg PO HS 03/20/18 Calcium Acetate 667 mg PO DAILY 03/20/18 Losartan Potassium 25 mg PO DAILY 03/20/18 Metoprolol Colno/Hydrochlorothiaz [Metoprolol ER-Hctz 100-12.5 mg] 100 each PO BID 03/20/18 Anemia: No Asthma: No Cancer: No Cardiac Disorders: No CVA: No COPD: No CHF: No Dementia: No Diabetes: No GI Disorders: No Disorders: No HTN: Yes Hypercholesterolemia: Yes Liver Disease: No Seizures: No Thyroid Disease: No - Surgical History Abdominal Surgery: Yes (80% stomach removed) - Suicide/Smoking/Psychosocial Hx Smoking Status: Yes Smoking History: Former smoker Have you smoked in the past 12 months: No Number of Cigarettes Smoked Daily: 0 If you are a former smoker, when did you quit?: 1991 Hx Alcohol Use: Yes (occas) Drug/Substance Use Hx: No Substance Use Type: None Hx Substance Use Treatment: No Review of Systems - Review of Systems Comments:: 03/27/18 15:34 GENERAL/CONSTITUTIONAL: No fever or chills. No weakness. HEAD, EYES, EARS, NOSE AND THROAT: No change in vision. No ear pain or discharge. No sore throat. CARDIOVASCULAR: No chest pain or shortness of breath RESPIRATORY: No cough, wheezing, or hemoptysis. GASTROINTESTINAL: No nausea, vomiting, diarrhea or constipation. GENITOURINARY: No dysuria, frequency, or change in urination. MUSCULOSKELETAL: +Left forearm/hand swollen, red since AV graft placement. + Blood seeping through skin on dorsal surface of mid left forearm for 2-3 days. SKIN: No rash NEUROLOGIC: No headache, vertigo, loss of consciousness, or change in strength/ sensation. ENDOCRINE: No increased thirst. No abnormal weight change HEMATOLOGIC/LYMPHATIC: No anemia, easy bleeding, or history of blood clots. ALLERGIC/IMMUNOLOGIC: No hives or skin allergy. *Physical Exam - Physical Exam Comments: 03/27/18 15:34 GENERAL: Awake, alert, and fully oriented, in no acute distress HEAD: No signs of trauma, normocephalic, atraumatic EYES: PERRLA, EOMI, sclera anicteric, conjunctiva clear ENT: Auricles normal inspection, hearing grossly normal, nares patent, oropharynx clear without exudates. Moist mucosa NECK: Normal ROM, supple, no lymphadenopathy, JVD, or masses LUNGS: No distress, speaks full sentences, clear to auscultation bilaterally HEART: Regular rate and rhythm, normal S1 and S2, no murmurs, rubs or gallops, peripheral pulses normal and equal bilaterally. ABDOMEN: Soft, nontender, normoactive bowel sounds. No guarding, no rebound. No masses EXTREMITIES: +Good bruit / thrill noted on L AV graft. Left forearm red, swollen , cold appearing down to hand. Left radial and ulnar pulses appreciable however faint. NEUROLOGICAL: Cranial nerves II through XII grossly intact. Normal speech, normal gait, no focal sensorimotor deficits SKIN: Warm, Dry, normal turgor, no rashes or lesions noted. ED Treatment Course - LABORATORY CBC & Chemistry Diagram: 03/27/18 17:00 03/27/18 17:00 Medical Decision Making - Medical Decision Making 03/27/18 17:24 Mr. Quevedo is an 87 yo male w/ pmh as described who presents for evaluation of bleeding. Patient discussed with Vascular Surgeon (Dr. Licona) who evaluated at bedside. Per Dr. Licona patient is stable for further follow-up at previously scheduled appointment in 2 days. No concern for acute process at this time. Patient agrees with plan and will follow-up accordingly. Discharging to home. *DC/Admit/Observation/Transfer Diagnosis at time of Disposition: Left arm swelling - Discharge Dispostion Disposition: HOME - Referrals Referrals: Alexys Hay MD [Staff Physician] - - Patient Instructions Printed Discharge Instructions: DI for Arteriovenous Graft Additional Instructions: You were evaluated today in the ER for your arm swelling. No emergent process was identified at this time. Please follow-up at previously scheduled appointment with Dr. Licona on Sunday. Return to ER if any increase in pain, fever, chills, or other concerning symptoms. - Post Discharge Activity
[2018-03-27 15:41] VITALS: BMI 17.4
--- NOTE | 2018-03-27 15:46 | PDOC ---
Attending Attestation - Resident Resident Name: Chris Jeronimo - ED Attending Attestation I have performed the following: I have examined & evaluated the patient, The case was reviewed & discussed with the resident, I agree w/resident's findings & plan, Exceptions are as noted - HPI HPI: 03/27/18 17:14 Mr Quevdeo is an 87-year-old male, with a past medical history of HTN, CKD ( Dialysis MWF via right subclavian permacath, now 3 weeks s/p Left permacath placement). Pt presents to the ER with a complaint of left arm swelling and pain No fevers or chills He has had an area distal to the fistula which is oozing - Physicial Exam PE: 03/27/18 17:22 On examination: Pt is awake and alert Answers all questions appropriately RRR CTA LUE - edematous, erythematoun Distal LUE is bruised Entire arm is swollen - Medical Decision Making 03/27/18 17:23 LUE swelling and pain Hematoma, Cellulitis, Vein stenosis Will contact Livan Pt seen in the ER by Dr Mendez Pt to be discharged to home Can follow up with Livan in the office Clinical impression: Left Upper Extremity Edema, initial presentation <Debbie Stringer - Last Filed: 03/27/18 17:18> - HPI HPI: 03/27/18 17:49 The patient is a 87 year old male with a past medical history of HTN, CKD ( Dialysis MWF, R. chest permacath), Anemia presents to the emergency department from dialysis with arm swelling. The patient reports having an AV graft placed on 03/21/[address] Mendez since the procedure the patients been having redness and swelling in the arm. The patient doesnt have any other concern. Denies numbness, tingling or loss of sensation. Allergies: Penicillins Social history: Former smoker. No alcohol or recreational drug use reported. Surgical history: Insertion of left avg on 03/21/[address] Vania mendez, Insertion of permacath 12/31/[address] Vania mendez and 80% of stomach removed do to bleeding ulcers (20 yrs ago) PCP: Dr. Hay - Medical Decision Making 03/27/18 17:49 Documentation prepared by Marlyn Castillo, acting as medical physics professor for Debbie Stringer MD. <Marlyn Castillo - Last Filed: 03/27/18 17:50>
[2018-03-27 17:09] LABS: BASO % 1.5 % (0-2.0); EOS % 2.3 % (0-4.5); HEMATOCRIT 29.6 % (35.4-49); HEMOGLOBIN 9.3 GM/dL (11.7-16.9); MCH 28.7 pg (25.7-33.7); MCHC 31.4 g/dl (32.0-35.9); MEAN CELL VOLUME 91.6 fl (80-96); MEAN PLT VOLUME 7.6 fl (7.5-11.1); MONO % 15.2 % (3.8-10.2); PLATELET COUNT 205 K/MM3 (134-434); RBC 3.23 M/mm3 (4.00-5.60); RDW 18.2 % (11.9-15.9); WHITE BLOOD COUNT 5.3 K/mm3 (4.0-10.0)
[2018-03-27 17:20] LABS: INR 1.06 (0.83-1.09)
[2018-03-27 17:23] LABS: ACTIVATED PTT 30.3 SECONDS (25.2-36.5)
[2018-03-27 17:34] LABS: ALBUMIN 2.8 g/dl (3.4-5.0); ALK PHOS 99 U/L (45-117); ANION GAP 10 MMOL/L (8-16); BILIRUBIN,TOTAL 0.3 mg/dL (0.2-1.0); BLOOD UREA NITROGEN 14 mg/dL (7-18); CALCIUM 8.5 mg/dL (8.5-10.1); CHLORIDE 106 mmol/L (98-107); CO2 27 mmol/L (21-32); CREATININE 1.9 mg/dL (0.7-1.3); GLUCOSE,RANDOM 92 mg/dL (74-106); POTASSIUM 3.8 mmol/L (3.5-5.1); SGOT/AST 22 U/L (15-37); SGPT/ALT 8 U/L (12-78); SODIUM 143 mmol/L (136-145); TOT PROT 6.3 g/dl (6.4-8.2)
[2018-03-27 17:54] VITALS: BP 106/68; PULSE 72; TEMP 97.8
== END 2018-03-27 17:55 | disposition home or self-care (01) ==
LOC: JER 15:07
DX: T82.838A Hemorrhage due to vascular prosthetic devices, implants and grafts, initial encounter (principal); Y83.2 Surgical operation with anastomosis, bypass or graft as the cause of abnormal reaction of the patient, or of later complication, without mention of misadventure at the time of the procedure; Y82.8 Other medical devices associated with adverse incidents; I12.0 Hypertensive chronic kidney disease with stage 5 chronic kidney disease or end stage renal disease; N18.6 End stage renal disease; N17.9 Acute kidney failure, unspecified; Z99.2 Dependence on renal dialysis; Z87.891 Personal history of nicotine dependence; E78.00 Pure hypercholesterolemia, unspecified; Z90.3 Acquired absence of stomach [part of]
CPT/HCPCS: 36415; 80053; 85025; 85610; 85730; 86850; 86900; 86901; 99283-25

== ENCOUNTER 2018-06-10 08:41 | Day surgery (SDC) | payer OTHER ==
[2018-06-10 09:21] VITALS: BMI 17.7
--- NOTE | 2018-06-10 09:38 | PDOC ---
History of Present Illness - General History Source: Patient Exam Limitations: No Limitations - History of Present Illness Initial Comments: 06/10/18 09:37 <Jaxon Silva - Last Filed: 06/10/18 12:13> - General History Source: Patient Exam Limitations: No Limitations - History of Present Illness Initial Comments: The patient is an 88 year old male with a history of HTN, HLD, CAD, and CKD (MWF , last dialysis was Sa) who presents to the ER today for suspected clot in left AV fistula that was placed in 05/09. Unable to have his graft accessed at dialysis. Pt has no other complaints including fever, chills. Denies chest pain , shortness of breath, palpitations, lightheadedness. Denies lower extremity swelling. Denies any other pain. <Monse Pennington - Last Filed: 06/10/18 13:44> - General Chief Complaint: Dialysis Shunt Problem Stated Complaint: DIALYSIS SHUNT PROBLEM Time Seen by Provider: 06/10/18 09:16 Past History - Past Medical History Anemia: No Asthma: No Cancer: No Cardiac Disorders: No CVA: No COPD: No CHF: No Dementia: No Diabetes: No Dialysis: Yes (sat, mon,mari) GI Disorders: No Disorders: Yes (dyalisis) HTN: Yes Hypercholesterolemia: Yes Liver Disease: No Seizures: No Thyroid Disease: No - Surgical History Abdominal Surgery: Yes (80% stomach removed) Cholecystectomy: No GI Surgery: No Neurologic Surgery: No - Immunization History Immunization Up to Date: No - Suicide/Smoking/Psychosocial Hx Smoking Status: Yes Smoking History: Never smoked Have you smoked in the past 12 months: No Number of Cigarettes Smoked Daily: 0 If you are a former smoker, when did you quit?: 1991 Information on smoking cessation initiated: No Hx Alcohol Use: No Drug/Substance Use Hx: No Substance Use Type: None Hx Substance Use Treatment: No <Jaxon Silva - Last Filed: 06/10/18 12:13> <Monse Pennington - Last Filed: 06/10/18 13:44> - Past Medical History Allergies/Adverse Reactions: Allergies Allergy/AdvReac Type Severity Reaction Status Date / Time Penicillins Allergy Mild Rash Verified 06/10/18 09:16 Home Medications: Ambulatory Orders Amlodipine Besylate [Norvasc -] 10 mg PO DAILY #30 tablet 03/27/16 Pantoprazole Sodium [Protonix -] 40 mg PO DAILY 12/20/17 Aspirin 81 mg PO DAILY 03/20/18 Atorvastatin Ca [Lipitor] 20 mg PO HS 03/20/18 Calcium Acetate 667 mg PO DAILY 03/20/18 Losartan Potassium 25 mg PO DAILY 03/20/18 Metoprolol Colon/Hydrochlorothiaz [Metoprolol ER-Hctz 100-12.5 mg] 100 each PO BID 03/20/18 Review of Systems - Review of Systems Able to Perform ROS?: Yes Comments:: CONSTITUTIONAL: No reported: Fever, Chills, Diaphoresis, Generalized Weakness, Malaise, Loss of Appetite HEENT: No reported: Rhinorrhea, Nasal Congestion, Throat Pain, Throat Swelling, Difficulty Swallowing, Mouth Swelling, Ear Pain, Eye Pain, Visual Changes CARDIOVASCULAR: No reported: Chest Pain, Syncope, Palpitations, Irregular Heart Rate, Lightheadedness, Peripheral Edema RESPIRATORY: No reported: Cough, Shortness of Breath, SOB with Exertion, Orthopnea, Wheezing , Stridor, Hemoptysis GASTROINTESTINAL: No reported: Abdominal pain, Abdominal Distension, Nausea, Vomiting, Diarrhea, Constipation, Melena, Hematochezia GENITOURINARY: No reported: Dysuria, Frequency, Urgency, Hesitancy, Flank Pain, Genital Pain MUSCULOSKELETAL: No reported: Myalgia, Arthralgia, Joint Swelling, Back pain, Neck Pain SKIN: No reported: Rash, Itching, Pallor HEMEATOLOGIC/IMMUNOLOGIC: No reported: Easy Bleeding, Easy Bruising, Lymphadenopathy, Frequent infections ENDOCRINE: No reported: Unexplained Weight Gain, Unexplained Weight Loss, Heat Intolerance , Cold Intolerance NEUROLOGIC: No reported: Headache, Focal Weakness, Paresthesias, Vertigo, Lightheadedness, Unsteady Gait, Seizure, Mental Status Changes, Incontinence PSYCHIATRIC: No reported: Anxiety, Depression Screen reader support enabled.To enable screen reader support, press Ctrl+Alt+Z To learn about keyboard shortcuts, press Ctrl+slash <Monse Pennington - Last Filed: 06/10/18 13:44> *Physical Exam - Vital Signs Last Vital Signs Temp Pulse Resp BP Pulse Ox 97.3 F L 67 16 136/67 100 06/10/18 08:50 06/10/18 08:50 06/10/18 08:50 06/10/18 08:50 06/10/18 08:50 - Physical Exam Comments: 06/10/18 10:35 GENERAL: The patient is awake, alert, and fully oriented, Nontoxic - in no acute distress. HEAD: Normocephalic, atraumatic. EYES: extraocular movements intact, sclera anicteric, conjunctiva clear. ENT: Normal voice, Moist mucous membranes. NECK: Normal range of motion, supple LUNGS: Breath sounds equal, clear to auscultation bilaterally. No wheezes, no rhonchi, no rales. HEART: Regular rate and rhythm, + systolic murmer ABDOMEN: Soft, nontender, normoactive bowel sounds. No guarding, no rebound. . No CVA tenderness EXTREMITIES: Normal range of motion, no edema. LUE fistula w/o thrill NEUROLOGICAL: No facial assymetry, Normal speech, PSYCH: Normal mood, normal affect. SKIN: Warm, Dry, normal turgor, <ShiraJaxon - Last Filed: 06/10/18 12:13> - Vital Signs Last Vital Signs Temp Pulse Resp BP Pulse Ox 97.3 F L 67 16 136/67 100 06/10/18 08:50 06/10/18 08:50 06/10/18 08:50 06/10/18 08:50 06/10/18 08:50 <Monse Pennington - Last Filed: 06/10/18 13:44> Heart Score/ECG Review - ECG Impressions Comment:: 06/10/18 09:50 Twelve-lead EKG was performed and reviewed by me. There is normal sinus rhythm with a normal rate. Rate of [address] wave abnormality <ShiraJaxon - Last Filed: 06/10/18 12:13> ED Treatment Course - LABORATORY CBC & Chemistry Diagram: 06/10/18 10:06 06/10/18 10:06 <ShiraJaxon - Last Filed: 06/10/18 12:13> - LABORATORY CBC & Chemistry Diagram: 06/10/18 10:06 06/10/18 10:06 <Monse Pennington - Last Filed: 06/10/18 13:44> Medical Decision Making - Medical Decision Making 06/10/18 09:49 88y F hx of CKD(,,Sa, last dialysis Sa), htn, hl, CAD presents for suspected clotted fistula at dialysis today patient has no other symptoms including chest pain, shortness of breath leg swelling, palpitations, lightheadedness, fever/chills, abd pain. The patient in no distress, his fistula has no thrill. We'll obtain blood work to screen for metabolic derangements will notify Dr. Mendez, preop labs are obtained. EKG to screen for hyperkalemia Vascular: Livan PMD: Franco Renal: Jose Francisco 06/10/18 12:13 K slightly elevated bicarb low - will treat with kayexalate and sodium bicarb dw dr. kristine mendez - pt NPO since 4am - will schedule for OR for declotting of graft <Jaxon Silva - Last Filed: 06/10/18 12:13> - Medical Decision Making 06/10/18 10:[address] Mendez, awaiting call back. 06/10/18 10:[address] Mendez, awaiting call back. 06/10/18 12:[address] Mendez, case discussed. 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
[2018-06-10 10:27] LABS: BASO % 1.3 % (0-2.0); HEMATOCRIT 42.2 % (35.4-49); HEMOGLOBIN 12.6 GM/dL (11.7-16.9); LYMPH % 16.3 % (8-40); MCH 28.2 pg (25.7-33.7); MCHC 29.9 g/dl (32.0-35.9); MEAN CELL VOLUME 94.3 fl (80-96); MONO % 11.2 % (3.8-10.2); NEUT % 70.2 % (42.8-82.8); PLATELET COUNT 190 K/MM3 (134-434); RBC 4.47 M/mm3 (4.00-5.60); RDW 18.1 % (11.9-15.9); WHITE BLOOD COUNT 5.6 K/mm3 (4.0-10.0)
[2018-06-10 10:29] LABS: INR 0.94 (0.83-1.09); PROTHROMBIN TIME (PATIENT) 11.1 SEC (9.7-13.0)
[2018-06-10 11:38] LABS: ALBUMIN 3.4 g/dl (3.4-5.0); ALK PHOS 100 U/L (45-117); ANION GAP 17 MMOL/L (8-16); BILIRUBIN,TOTAL 0.4 mg/dL (0.2-1); BLOOD UREA NITROGEN 69 mg/dL (7-18); CALCIUM 7.8 mg/dL (8.5-10.1); CHLORIDE 103 mmol/L (98-107); CO2 17 mmol/L (21-32); CREATININE 5.9 mg/dL (0.55-1.3); GLUCOSE,RANDOM 68 mg/dL (74-106); POTASSIUM 5.4 mmol/L (3.5-5.1); SGOT/AST 37 U/L (15-37); SGPT/ALT 20 U/L (13-61); SODIUM 137 mmol/L (136-145); TOT PROT 7.2 g/dl (6.4-8.2)
[2018-06-10] MEDS ORDERED: SODIUM BICARBONATE 650 MG TABLET PO ONE (11:59)
[2018-06-10] MEDS ORDERED: SODIUM POLYSTYRENE SULFONATE 15 GM/60 ML BOTTLE PO ONE (12:17)
--- NOTE | 2018-06-10 12:21 | CONSULT ---
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 Last dialysis was Sunday w/o complication. Pt denies any sob, cp, abd pain, N/V/D. No pain or swelling in access arm. Still makes urine. PMhx: as above Allergies: PCN Social Hx: No t/a/d ROS: as per HPI Home Medications Medication Instructions Recorded Amlodipine Besylate [Norvasc -] 10 mg PO DAILY #30 tablet 03/27/16 Pantoprazole Sodium [Protonix -] 40 mg PO DAILY 12/20/17 Aspirin 81 mg PO DAILY 03/20/18 Atorvastatin Ca [Lipitor] 20 mg PO HS 03/20/18 Calcium Acetate 667 mg PO DAILY 03/20/18 Losartan Potassium 25 mg PO DAILY 03/20/18 Metoprolol Colon/Hydrochlorothiaz 100 each PO BID 03/20/18 [Metoprolol ER-Hctz 100-12.5 mg] Intake & Output 06/07/18 06/08/18 06/09/18 06/10/18 23:59 23:59 23:59 23:59 Weight 49.895 kg Vital Signs Temperature 97.3 F L 06/10/18 08:50 Pulse Rate 67 06/10/18 08:50 Respiratory Rate 16 06/10/18 08:50 Blood Pressure 136/67 06/10/18 08:50 O2 Sat by Pulse Oximetry (%) 100 06/10/18 08:50 NAD neck supple, no JVD RRR, NO M/R CTA, no rales or wheeze soft NT/ND no LE edmea left arm AVG w/o thrill or bruit CBC, BMP 06/10/18 10:06 06/10/18 10:06 88 year old year old gentleman with 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 #Clotted AVG #ESRD on HD #Hyperkalemia #Metabolic acidosis Will have graft thrombecotmy by Dr. Licona today pt wishes not to stay for dialysis in [facility] today so will have outpatient HD tomrrow at 3pm at [facility] dialysis To be given Kayexalate 15g and Sodium bicarb 1300mg x 1 today for mangement of mild hyperkalemia and metabolic acidosis This was discussed with the ED Staff and outpatient dialysis staff. Andrei Osorio DO
[2018-06-10] MEDS ORDERED: SODIUM POLYSTYRENE SULFONATE 15 GM/60 ML BOTTLE ONE (12:50)
[2018-06-10] MEDS ORDERED: HEPARIN NA (PORCINE) 5,000 UNITS/ML 1ML VIAL ONE ×3 (13:05→14:37)
[2018-06-10] MEDS ORDERED: ONDANSETRON 4 MG/2 ML VIAL IVPUSH PRN (13:19)
[2018-06-10] MEDS ORDERED: PROMETHAZINE HCL 25 MG/1 ML VIAL IVPUSH PRN (13:19)
[2018-06-10] MEDS ORDERED: MIDAZOLAM HCL 2 MG/2 ML SINGLE DOSE VIAL ONE ×2 (13:28→14:01)
[2018-06-10] MEDS ORDERED: PROPOFOL 20 ML ONE (13:28)
[2018-06-10] MEDS ORDERED: SODIUM CHLORIDE 1,000 ML IV SCH (13:30)
--- NOTE | 2018-06-10 13:43 | HP ---
Admitting History and Physical - Admission Chief Complaint: Pt here with clotted left avg Limitations to Obtaining History: No Limitations - Past Medical History Cardiovascular: Yes: HTN Renal/: Yes: Renal Inusuff Heme/Onc: Yes: Anemia - Smoking History Smoking history: Never smoked Have you smoked in the past 12 months: No Aproximately how many cigarettes per day: 0 If you are a former smoker, when did you quit?: 1991 - Alcohol/Substance Use Hx Alcohol Use: No Home Medications - Allergies Allergies/Adverse Reactions: Allergies Allergy/AdvReac Type Severity Reaction Status Date / Time Penicillins Allergy Mild Rash Verified 06/10/18 09:16 - Home Medications Home Medications: Ambulatory Orders Amlodipine Besylate [Norvasc -] 10 mg PO DAILY #30 tablet 03/27/16 Pantoprazole Sodium [Protonix -] 40 mg PO DAILY 12/20/17 Aspirin 81 mg PO DAILY 03/20/18 Atorvastatin Ca [Lipitor] 20 mg PO HS 03/20/18 Calcium Acetate 667 mg PO DAILY 03/20/18 Losartan Potassium 25 mg PO DAILY 03/20/18 Metoprolol Colon/Hydrochlorothiaz [Metoprolol ER-Hctz 100-12.5 mg] 100 each PO BID 03/20/18 Review of Systems - Review of Systems Constitutional: reports: No Symptoms Eyes: reports: No Symptoms HENT: reports: No Symptoms Neck: reports: No Symptoms Cardiovascular: reports: No Symptoms Respiratory: reports: No Symptoms Gastrointestinal: reports: No Symptoms Genitourinary: reports: No Symptoms Breasts: reports: No Symptoms Reported Musculoskeletal: reports: No Symptoms Integumentary: reports: No Symptoms Neurological: reports: No Symptoms Endocrine: reports: No Symptoms Hematology/Lymphatic: reports: No Symptoms Psychiatric: reports: No Symptoms Physical Examination Vital Signs: Vital Signs Temperature 97.3 F L 06/10/18 08:50 Pulse Rate 67 06/10/18 08:50 Respiratory Rate 16 06/10/18 08:50 Blood Pressure 136/67 06/10/18 08:50 O2 Sat by Pulse Oximetry (%) 98 06/10/18 13:02 Constitutional: Yes: Well Nourished, No Distress, Calm Eyes: Yes: WNL, Conjunctiva Clear, EOM Intact HENT: Yes: WNL, Atraumatic, Normocephalic Neck: Yes: WNL, Supple, Trachea Midline Cardiovascular: Yes: WNL, Regular Rate and Rhythm Respiratory: Yes: WNL, Regular, CTA Bilaterally Gastrointestinal: Yes: WNL, Normal Bowel Sounds Musculoskeletal: Yes: WNL Extremities: Yes: WNL Edema: No Peripheral Pulses WNL: Yes Integumentary: Yes: WNL Neurological: Yes: WNL, Alert, Oriented ...Motor Strength: WNL Psychiatric: Yes: WNL Labs: CBC, BMP 06/10/18 10:06 06/10/18 10:06 Problem List - Problems (1) 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 For suction thrombectomy today Code(s): T85.868A - THROMBOSIS DUE TO OTHER INTERNAL PROSTH DEV/GRFT, INIT Qualifiers: Encounter type: initial encounter Qualified Code(s): T85.868A - Thrombosis due to other internal prosthetic devices, implants and grafts, initial encounter
[2018-06-10] MEDS ORDERED: ceFAZolin SODIUM 1 GM VIAL ONE (13:58)
[2018-06-10] MEDS ORDERED: SODIUM CHLORIDE 0.9% P/F 10 ML VIAL IJ ONE (13:58)
[2018-06-10] MEDS ORDERED: ceFAZolin SODIUM 1 GM VIAL IVPB ONE (14:00)
[2018-06-10] MEDS ORDERED: fentaNYL CITRATE 250 MCG/5 ML VIAL ONE (14:01)
[2018-06-10] MEDS ORDERED: LIDOCAINE HCL 1%, 10 MG/ML (20ML VIAL) INF ONE ×2 (14:17)
--- NOTE | 2018-06-10 14:51 | OP ---
Operative Note - Note: Operative Date: 06/10/18 Pre-Operative Diagnosis: Clotted left avg Operation: venogram, suction thrombectomy, venoplasty left avg Post-Operative Diagnosis: Same as Pre-op Surgeon: Terry Licona Anesthesia: Fractional Estimated Blood Loss (mls): 20 Operative Report Dictated: Yes
--- NOTE | 2018-06-10 16:24 | PN ---
Progress Note (short form) - Note Progress Note: VAscular Surgery Pt s/p venoplasty , suction thrombectomy. Pt had MAC. Pt is doing well. Alert and oriented Pt can drive home. 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
[2018-06-10 18:24] VITALS: TEMP 97.8
--- NOTE | 2018-06-10 18:26 | EKG ---
Test Reason : Blood Pressure : / mmHG Vent. Rate : 065 BPM Atrial Rate : 065 BPM P-R Int : 190 ms QRS Dur : 076 ms QT Int : 420 ms P-R-T Axes : 075 028 072 degrees QTc Int : 436 ms NORMAL SINUS RHYTHM POSSIBLE LEFT ATRIAL ENLARGEMENT NONSPECIFIC ST AND T WAVE ABNORMALITY ABNORMAL ECG WHEN COMPARED WITH ECG OF 24-DEC-2017 08:59, SINUS RHYTHM HAS REPLACED ATRIAL FIBRILLATION NONSPECIFIC T WAVE ABNORMALITY NO LONGER EVIDENT IN INFERIOR LEADS T WAVE AMPLITUDE HAS INCREASED IN ANTERIOR LEADS Confirmed by MICHAEL SELBY MD ([id number]) on 06/10/2018 6:26:07 PM Referred By: Confirmed By:MICHAEL SELBY MD
[2018-06-10 18:28] VITALS: BP 120/78; PULSE 70
--- NOTE | 2018-06-18 22:57 | OP ---
DATE OF OPERATION: 06/10/2018 PREOPERATIVE DIAGNOSIS: Clotted left arteriovenous graft. POSTOPERATIVE DIAGNOSIS: Clotted left arteriovenous graft. PROCEDURE: Venogram, suction thrombectomy, venoplasty left arteriovenous graft. SURGEON: Terry Neves DO ANESTHESIA: Fractional. BLOOD LOSS: 20 mL. INDICATIONS: The patient is an 88-year-old male who comes in with a clotted left AV graft. He went to dialysis the morning of and he was sent to the ER. The patient then came into OR holding. Patient was consented for the procedure, understanding all risks, benefits, alternatives, and was then taken to the operating room. DESCRIPTION OF PROCEDURE: Once in the operating room, he was placed on the operating table in the supine manner. The left arm was prepped and draped in the sterile surgical manner. We then went ahead and injected 10 mL of lidocaine 1% to the proximal AV graft. We then went ahead and used our micropuncture needle to puncture the proximal AV graft. Micropuncture wire was inserted. A micropuncture sheath was inserted and a short 6-Khmer sheath was inserted. We then went ahead and shot a venogram of the left AV graft and it showed that the graft was clotted. We then placed a 0.035 floppy guidewire up into the central veins. We then used an AV suction thrombectomy catheter and performed suction thrombectomy of the proximal AV graft and the entire graft and the outflow veins, all of the way into the central veins. We were now did a completion venogram showing that the graft was patent, but there was severe stenosis in the outflow vein and the venous anastomosis. At this point we used an 8 x 8 [place] balloon and went ahead and administered 3000 units of IV heparin into the patient. Using an 8 x 8 balloon, we performed venoplasty of the outflow vein and the entire AV graft. Once we did that, there was a good thrill in our AV graft. We shot a venogram and compressed the distal AV graft. The proximal portion of the AV graft was patent and the brachial artery was patent. At this point, we went ahead and used a 4-0 Biosyn stitch in a [id number] stitch placed around the sheath and the sheath was pulled. The area was then cleaned and dried. Dermabond was placed. Patient tolerated the procedure with no complications. Patient was transferred to the PACU in stable condition. The patient will then be discharged and the patient will go to dialysis tomorrow. TERRY NEVES DO NP/[id number]
== END 2018-06-10 17:30 | disposition home or self-care (01) ==
LOC: JER 08:41 → JASUSAT 12:12
PROVIDERS: ATTEND Surgery Vascular Surgery
PROC: 05CY3ZZ Extirpation of Matter from Upper Vein, Percutaneous Approach (ICD-10-PCS; 2018-06-10)
PROC: 05773ZZ Dilation of Right Axillary Vein, Percutaneous Approach (ICD-10-PCS; principal; 2018-06-10 12:30)
DX: T82.898A Other specified complication of vascular prosthetic devices, implants and grafts, initial encounter (principal); I12.0 Hypertensive chronic kidney disease with stage 5 chronic kidney disease or end stage renal disease; N18.6 End stage renal disease; Z99.2 Dependence on renal dialysis
CPT/HCPCS: 36415; 71045-TC-FY; 76000-TC-FY; 80053; 85025; 85610; 86850; 86900; 86901; 93005; 93010; 94760; 99283-25; J1644

== ENCOUNTER 2018-06-21 10:24 | Day surgery (SDC) | payer OTHER ==
[2018-06-21 10:33] VITALS: BMI 17.8
--- NOTE | 2018-06-21 10:44 | PDOC ---
History of Present Illness - History of Present Illness Initial Comments: 88 year old male with a history of HTN, HLD, CAD, and CKD (MWF, last dialysis was Sa) who presents to the ER today for suspected clot in left AV fistula that was placed in 05/09 and recently revised on 06/09/18. Patient was unable to complete dialysis today because of a clot in the fistula. Patient Feels well otherwise and denies chest pain, fevers, chills, nausea, vomiting, or other symptoms. Of note, he has a sick son (brain cancer) and he is the only family member able to visit him because of disability issues with his and distance of other family members. 06/21/18 10:53 <Bridget Cotton - Last Filed: 06/21/18 13:12> <Mima Monahan - Last Filed: 06/21/18 13:22> - General Chief Complaint: Dialysis Shunt Problem Stated Complaint: PCP SENT Time Seen by Provider: 06/21/18 10:44 Past History - Past Medical History Anemia: No Asthma: No Cancer: No Cardiac Disorders: No CVA: No COPD: No CHF: No Dementia: No Diabetes: No Dialysis: Yes (m, w, f) GI Disorders: No Disorders: No HTN: Yes Hypercholesterolemia: Yes Liver Disease: No Seizures: No Thyroid Disease: No - Surgical History Abdominal Surgery: Yes (80% stomach removed) Cholecystectomy: No GI Surgery: No Neurologic Surgery: No - Immunization History Immunization Up to Date: No - Suicide/Smoking/Psychosocial Hx Smoking Status: Yes Smoking History: Smoker current status UNK Have you smoked in the past 12 months: No Number of Cigarettes Smoked Daily: 0 If you are a former smoker, when did you quit?: 1991 Information on smoking cessation initiated: No Hx Alcohol Use: Yes (occas) Drug/Substance Use Hx: No Substance Use Type: None Hx Substance Use Treatment: No <Bridget Cotton - Last Filed: 06/21/18 13:12> <Mima Monahan - Last Filed: 06/21/18 13:22> - Past Medical History Allergies/Adverse Reactions: Allergies Allergy/AdvReac Type Severity Reaction Status Date / Time Penicillins Allergy Mild Rash Verified 06/10/18 09:16 Home Medications: Ambulatory Orders Amlodipine Besylate [Norvasc -] 10 mg PO DAILY #30 tablet 03/27/16 Pantoprazole Sodium [Protonix -] 40 mg PO DAILY 12/20/17 Aspirin 81 mg PO DAILY 03/20/18 Atorvastatin Ca [Lipitor] 20 mg PO HS 03/20/18 Calcium Acetate 667 mg PO AC 03/20/18 Losartan Potassium 25 mg PO DAILY 03/20/18 Metoprolol Colon/Hydrochlorothiaz [Metoprolol ER-Hctz 100-12.5 mg] 100 each PO BID 03/20/18 Review of Systems - Review of Systems Constitutional: No: See HPI, Chills, Diaphoresis, Fever HEENTM: No: Eye Pain, Blurred Vision, Tearing Respiratory: No: Cough, Shortness of Breath, Wheezing Cardiac (ROS): No: Chest Pain, Edema, Lightheadedness ABD/GI: No: Diarrhea, Nausea, Vomiting : No: Burning, Dysuria, Discharge Musculoskeletal: Yes: Joint Pain, Other (arthritis). No: Back Pain, Gout Neurological: No: Headache, Numbness, Paresthesia, Tingling Psychiatric: No: Anxiety, Depression Hematologic/Lymphatic: No: Anemia, Blood Clots, Easy Bleeding <Bridget Cotton - Last Filed: 06/21/18 13:12> *Physical Exam - Vital Signs Last Vital Signs Temp Pulse Resp BP Pulse Ox 97.9 F 68 18 109/48 L 97 06/21/18 10:31 06/21/18 10:31 06/21/18 10:31 06/21/18 10:31 06/21/18 10:31 - Physical Exam General Appearance: Yes: Nourished, Appropriately Dressed. No: Apparent Distress HEENT: positive: EOMI, CLINT, Normal ENT Inspection, Normal Voice Neck: positive: Trachea midline, Normal Thyroid, Supple. negative: Tender, Rigid Respiratory/Chest: positive: Lungs Clear, Normal Breath Sounds. negative: Chest Tender, Respiratory Distress Cardiovascular: positive: Regular Rhythm, Regular Rate Gastrointestinal/Abdominal: positive: Normal Bowel Sounds, Flat, Soft. negative : Tender Lymphatic: negative: Adenopathy, Tenderness Musculoskeletal: negative: Normal Inspection (Per extremity section), Decreased Range of Motion Extremity: positive: Normal Capillary Refill, Normal Range of Motion. negative : Normal Inspection (lack of papable or audible thrill in left avf. But has arterial pulse), Tender Integumentary: positive: Normal Color, Dry, Warm Neurologic: positive: Fully Oriented, Alert, Normal Mood/Affect, Normal Response , Motor Strength 5/5 <Bridget Cotton - Last Filed: 06/21/18 13:12> - Vital Signs Last Vital Signs Temp Pulse Resp BP Pulse Ox 97.9 F 68 18 109/48 L 97 06/21/18 10:31 06/21/18 10:31 06/21/18 10:31 06/21/18 10:31 06/21/18 10:31 <Mima Monahan - Last Filed: 06/21/18 13:22> Moderate Sedation - Procedure Monitoring Vital Signs: Procedure Monitoring Vital Signs Temperature 97.9 F 06/21/18 10:31 Pulse Rate 68 06/21/18 10:31 Respiratory Rate 18 06/21/18 10:31 Blood Pressure 109/48 L 06/21/18 10:31 O2 Sat by Pulse Oximetry (%) 97 06/21/18 10:31 <Bridget Cotton - Last Filed: 06/21/18 13:12> - Procedure Monitoring Vital Signs: Procedure Monitoring Vital Signs Temperature 97.9 F 06/21/18 10:31 Pulse Rate 68 06/21/18 10:31 Respiratory Rate 18 06/21/18 10:31 Blood Pressure 109/48 L 06/21/18 10:31 O2 Sat by Pulse Oximetry (%) 97 06/21/18 10:31 <Mima Monahan - Last Filed: 06/21/18 13:22> ED Treatment Course - LABORATORY CBC & Chemistry Diagram: 06/21/18 11:45 06/21/18 11:45 <Bridget Cotton - Last Filed: 06/21/18 13:12> - LABORATORY CBC & Chemistry Diagram: 06/21/18 11:45 06/21/18 11:45 - ADDITIONAL ORDERS Additional order review: Laboratory Results 06/21/18 06/21/18 11:45 11:45 PT with INR 11.70 INR 0.99 Sodium 134 L Potassium 3.9 Chloride 98 Carbon Dioxide 25 Anion Gap 11 BUN 36 H Creatinine 4.0 H Creat Clearance w eGFR 14.27 Random Glucose 98 Calcium 8.4 L Total Bilirubin 0.4 AST 24 ALT 9 L Alkaline Phosphatase 95 Total Protein 7.3 Albumin 3.3 L 06/21/18 11:45 RBC 4.04 MCV 91.4 MCHC 32.8 RDW 18.1 H MPV 7.6 Neutrophils % 65.6 Lymphocytes % 15.2 Monocytes % 16.9 H Eosinophils % 1.6 Basophils % 0.7 <Mima Monahan - Last Filed: 06/21/18 13:22> Medical Decision Making - Medical Decision Making 88 year old with lack of palpable avf thrill or audible avf thrill, without distal deficits. He was able to complete 3.5 hours of dialysis. We obtained basic preop labs and admission workup then placed a call to Dr. Licona. 06/21/18 11:13 Labs WNL but exhibiting recently dialyzed ESRD creatinine level and WNL potassium. AVF showing clot so Dr. Licona already scheduled the patient for 17: 00. Preop labs resulted and patient has been NPO since 5:30 AM. Patient admitted to Dr. Licona under satellite admission. 06/21/18 13:12 <Bridget Cotton - Last Filed: 06/21/18 13:12> *DC/Admit/Observation/Transfer - Discharge Dispostion Decision to Admit order: Yes <Bridget Cotton - Last Filed: 06/21/18 13:12> - Discharge Dispostion Decision to Admit order: Yes Decision to Admit order Date/Time: 06/21/18 13:22 <Mima Monahan - Last Filed: 06/21/18 13:22> Diagnosis at time of Disposition: Arteriovenous fistula occlusion Qualifiers: Encounter type: initial encounter Qualified Code(s): T82.898A - Other specified complication of vascular prosthetic devices, implants and grafts, initial encounter - Discharge Dispostion Condition at time of disposition: Stable - Referrals Referrals: Jenae Cazares MD [Primary Care Provider] -
--- NOTE | 2018-06-21 10:46 | PDOC ---
Attending Attestation - Resident Resident Name: LulaCarrieynonydre - ED Attending Attestation I have performed the following: I have examined & evaluated the patient, The case was reviewed & discussed with the resident, I agree w/resident's findings & plan - [facility] HPI: 06/21/18 11:10 Mr. Alan Caldwell is a 88 year old male with a history of HTN, HLD, CAD, and CKD (MWF, last dialysis was [facility]) who presents to the ER today for suspected clot in left AV fistula that was initially placed in 05/09/18, c/b AVG thrombosis s/p thrombectomy and venoplasty with Dr Licona 06/11/18. The patient presents from dialysis, secondary to AV fistula malfunction, completed 3 hours of his dialysis prior to presentation. bleeding from site controlled. ROS otherwise negative, no complaints. PCP: Dr. Gamez End Frazer Dr. Belén Mujica. Vascular surgeon: Dr. Licona - Physicial Exam PE: 06/21/18 11:11 NAD, well appearing, PERRL, EOMI, ; neck supple. lungs clear, RRR, abdomen soft nontender. VILLALPANDO x4, no focal neuro deficits. No peripheral edema. normal color for ethnicity, WWP. 2+ radialis pulses. +LUE AV graft site with distal pulsations, but no palp thrill or audible bruit. - Medical Decision Making 06/21/18 11:12 See HPI for details Vital signs reviewed, wnl. Prior notes reviewed, including admissions, discharges and consultations. laboratory results and imaging reviewed, basic preop labs and txs. EKG normal sinus rhythm, no interval abnormalities, narrow QRS, ST and T wave segments and morphology normal. Nonspecific T wave abnormalities ED course: clinically suspecting occluded AVG, s/p complication of similar presentation 06/11/18, repaired by Dr. Licona. vascular cs with Dr Licona, Duplex for AVG failure confirmed suspicion, occluded graft. booked to Dr Licona. Dispo: Admit to OR for AVG repair, graft occlusion/thrombosis. Discussed results and management plan with pt at bedside, agree with impression and plan 06/21/18 13:10
[2018-06-21 12:08] LABS: BASO % 0.7 % (0-2.0); EOS % 1.6 % (0-4.5); HEMATOCRIT 36.9 % (35.4-49); HEMOGLOBIN 12.1 GM/dL (11.7-16.9); LYMPH % 15.2 % (8-40); MCHC 32.8 g/dl (32.0-35.9); MEAN CELL VOLUME 91.4 fl (80-96); MEAN PLT VOLUME 7.6 fl (7.5-11.1); MONO % 16.9 % (3.8-10.2); NEUT % 65.6 % (42.8-82.8); PLATELET COUNT 172 K/MM3 (134-434); RBC 4.04 M/mm3 (4.00-5.60); RDW 18.1 % (11.9-15.9); WHITE BLOOD COUNT 5.7 K/mm3 (4.0-10.0)
[2018-06-21 12:26] LABS: INR 0.99 (0.83-1.09); PROTHROMBIN TIME (PATIENT) 11.7 SEC (9.7-13.0)
[2018-06-21 12:41] LABS: ALBUMIN 3.3 g/dl (3.4-5.0); ALK PHOS 95 U/L (45-117); ANION GAP 11 MMOL/L (8-16); BILIRUBIN,TOTAL 0.4 mg/dL (0.2-1); BLOOD UREA NITROGEN 36 mg/dL (7-18); CALCIUM 8.4 mg/dL (8.5-10.1); CHLORIDE 98 mmol/L (98-107); CO2 25 mmol/L (21-32); GLUCOSE,RANDOM 98 mg/dL (74-106); POTASSIUM 3.9 mmol/L (3.5-5.1); SGOT/AST 24 U/L (15-37); SGPT/ALT 9 U/L (13-61); SODIUM 134 mmol/L (136-145); TOT PROT 7.3 g/dl (6.4-8.2)
[2018-06-21] MEDS ORDERED: ONDANSETRON 4 MG/2 ML VIAL IVPUSH PRN ×2 (19:15→20:37)
[2018-06-21] MEDS ORDERED: HEPARIN NA (PORCINE) 5,000 UNITS/ML 1ML VIAL ONE ×2 (19:18→19:49)
[2018-06-21] MEDS ORDERED: LIDOCAINE HCL 1%, 10 MG/ML (20ML VIAL) ONE (19:18)
[2018-06-21] MEDS ORDERED: MIDAZOLAM HCL 2 MG/2 ML SINGLE DOSE VIAL ONE ×2 (19:35→19:55)
[2018-06-21] MEDS ORDERED: LIDOCAINE HCL 1%, 10 MG/ML (50 mL VIAL) IJ ONE ×2 (20:00)
--- NOTE | 2018-06-21 20:29 | OP ---
Operative Note - Note: Operative Date: 06/21/18 Pre-Operative Diagnosis: clotted left avg Operation: venogram, Suction thrombectomy, venoplasty, left avg Post-Operative Diagnosis: Same as Pre-op Surgeon: Terry Licona Anesthesia: Fractional Estimated Blood Loss (mls): 20 Operative Report Dictated: Yes
[2018-06-22 06:32] VITALS: PULSE 72; TEMP 98.2
[2018-06-22 08:22] VITALS: BP 104/50
[2018-06-22] MEDS ORDERED: amLODIPine BESYLATE 10 MG TABLET (FP) PO SCH ×2 (10:00)
--- NOTE | 2018-06-22 17:22 | EKG ---
Test Reason : Blood Pressure : / mmHG Vent. Rate : 057 BPM Atrial Rate : 057 BPM P-R Int : 188 ms QRS Dur : 088 ms QT Int : 452 ms P-R-T Axes : 078 034 072 degrees QTc Int : 439 ms SINUS BRADYCARDIA WITH PREMATURE ATRIAL COMPLEXES MODERATE VOLTAGE CRITERIA FOR LVH, MAY BE NORMAL VARIANT NONSPECIFIC T WAVE ABNORMALITY ABNORMAL ECG WHEN COMPARED WITH ECG OF 10-JUN-2018 09:18, PREMATURE ATRIAL COMPLEXES ARE NOW PRESENT Confirmed by MD VELASQUEZ, GRAHAM ([id number]) on 06/22/2018 5:22:03 PM Referred By: Confirmed By:GRAHAM ENG MD
--- NOTE | 2018-07-22 22:05 | OP ---
DATE OF OPERATION: 06/21/2018 PREOPERATIVE DIAGNOSIS: Clotted left arteriovenous graft. POSTOPERATIVE DIAGNOSIS: Clotted left arteriovenous graft. PROCEDURE: Venogram, suction thrombectomy, venoplasty of left arteriovenous graft. SURGEON: Terry Neves DO ANESTHESIA: Fractional. BLOOD LOSS: 50 mL The patient is an 88-year-old male who comes in with a clotted left AV graft into the ER. It was decided that he would need a suction thrombectomy. Patient was consented for the procedure, understanding all risks, benefits, and alternatives and then taken to the operating room. Once in the operating room, he was laid on the operating table in supine manner. The area of the left arm was prepped and draped in sterile surgical manner. We then injected 10 mL of lidocaine 1% over the proximal AV graft above the anastomosis. We took our micropuncture needle. We punctured the graft. Micropuncture wire was inserted, and a short 6-Serbian sheath was inserted. We then shot our venogram, showing that the graft was clotted. We then placed a 0.035 floppy guidewire up into the graft and into the central veins. We then used an AVX suction thrombectomy catheter and performed suction thrombectomy of the entire graft and the outflow veins and going into the central veins. Completion venogram now showed that the graft was patent, but there was a severe stenosis of 80% at the venous anastomosis. At this point, we went ahead and used an 8 x 8 [place] balloon, and prior to performing venoplasty, we gave the patient 3000 units of IV heparin. Using an 8 x 8 [place] balloon, we performed venoplasty of the outflow veins and the venous anastomosis and the graft. Completion venogram now showed that the graft was patent and the outflow veins were patent. We then went to the distal graft and injected 10 mL of lidocaine 1% there. We then took our micropuncture needle, punctured the graft, micropuncture wire was inserted. Micropuncture sheath was inserted, and a short 6-Serbian sheath was inserted. We then placed a 0.035 floppy guidewire across the arterial anastomosis into the brachial artery. We then went ahead and used an AVX suction thrombectomy catheter, and we performed suction thrombectomy of the proximal AV graft all the way down to the anastomosis. There was now a good thrill in our AV graft, and there was good flow. We shot a venogram across the arterial anastomosis, showing that the arterial anastomosis was patent and there was good flow going up into the central veins. At this point, we used a 4-0 Biosyn stitch and a [id number] stitch was placed around each sheath and the sheaths were pulled. Area was wet and dried, and Dermabond was placed. Patient tolerated the procedure with no complications. Patient transferred to PACU in stable condition. TERRY NEVES DO [id number]
== END 2018-06-22 09:50 | disposition home or self-care (01) ==
LOC: JER 10:24 → JASUSAT 13:16 → J6S 21:29 → JASUSAT 06-22 09:50
PROVIDERS: ATTEND Surgery Vascular Surgery
PROC: 05CY3ZZ Extirpation of Matter from Upper Vein, Percutaneous Approach (ICD-10-PCS; 2018-06-21)
PROC: 05773ZZ Dilation of Right Axillary Vein, Percutaneous Approach (ICD-10-PCS; principal; 2018-06-21 18:00)
DX: T82.898A Other specified complication of vascular prosthetic devices, implants and grafts, initial encounter (principal); I12.0 Hypertensive chronic kidney disease with stage 5 chronic kidney disease or end stage renal disease; N18.6 End stage renal disease; Z99.2 Dependence on renal dialysis; E78.5 Hyperlipidemia, unspecified; Z88.0 Allergy status to penicillin
CPT/HCPCS: 36415; 71045-TC-FY; 76000-TC-FY; 80053; 85025; 85610; 86850; 86900; 86901; 93005; 93010; 93971; 94760; 99285-25; J1644

== ENCOUNTER 2018-10-02 14:01 | Emergency (ER) | payer OTHER ==
--- NOTE | 2018-10-02 14:10 | PDOC ---
Rapid Medical Evaluation Time Seen by Provider: 10/02/18 14:07 Medical Evaluation: Allergies Allergy/AdvReac Type Severity Reaction Status Date / Time Penicillins Allergy Mild Rash Verified 06/10/18 09:16 10/02/18 14:07 I have performed a brief in-person evaluation of this patient. The patient presents with a chief complaint of: sent for ?clotted AV fistula Pertinent physical exam findings: +palpable pulse over AV Fistula. -Thrill, weak bruit I have ordered the following: labs, sono The patient will proceed to the ED for further evaluation. Discharge Disposition - Diagnosis Arteriovenous fistula occlusion - Referrals - Patient Instructions - Post Discharge Activity
[2018-10-02 14:13] VITALS: BMI 17.7
[2018-10-02 14:32] LABS: BASO % 0.8 % (0-2.0); EOS % 0.9 % (0-4.5); HEMATOCRIT 35.1 % (35.4-49); HEMOGLOBIN 11.6 GM/dL (11.7-16.9); LYMPH % 13.7 % (8-40); MCH 32.9 pg (25.7-33.7); MCHC 33.2 g/dl (32.0-35.9); MONO % 12.2 % (3.8-10.2); NEUT % 72.4 % (42.8-82.8); PLATELET COUNT 287 K/MM3 (134-434); RBC 3.54 M/mm3 (4.00-5.60); RDW 16.4 % (11.9-15.9); WHITE BLOOD COUNT 6.4 K/mm3 (4.0-10.0)
[2018-10-02 15:01] LABS: INR 1.04 (0.83-1.09); PROTHROMBIN TIME (PATIENT) 12.3 SEC (9.7-13.0)
[2018-10-02 15:03] LABS: ALBUMIN 3.5 g/dl (3.4-5.0); ALK PHOS 95 U/L (45-117); ANION GAP 18 MMOL/L (8-16); BILIRUBIN,TOTAL 0.5 mg/dL (0.2-1); BLOOD UREA NITROGEN 78 mg/dL (7-18); CALCIUM 7.6 mg/dL (8.5-10.1); CHLORIDE 103 mmol/L (98-107); CO2 14 mmol/L (21-32); CREATININE 7.2 mg/dL (0.55-1.3); GLUCOSE,RANDOM 74 mg/dL (74-106); SGOT/AST 35 U/L (15-37); SGPT/ALT 14 U/L (13-61); SODIUM 134 mmol/L (136-145); TOT PROT 7.9 g/dl (6.4-8.2)
--- NOTE | 2018-10-02 15:35 | PDOC ---
History of Present Illness - General Stated Complaint: RULE OUT BLOODCLOT IN THE PORT Time Seen by Provider: 10/02/18 14:07 - History of Present Illness Initial Comments: 10/02/18 15:42 88 yo M with a hx of HTN, HLD, CAD, ESRD (MWF dialysis; last dialysis Sunday; hx of clogged left AV fistula repaired thrombectomy 05/2018 first placed in 2017) presents to the emergency department with clogged left AV fistula. Per the patient, they tried to use it this AM for dialysis and were unable to do so. They placed a port on his right arm. Currently, he has no symptomatic complaints. Denies the following: fever, chills, nausea, vomiting, headaches, lightheadedness, SOB, chest pain, diarrhea, abdominal pain, dysuria, hematuria, hematochezia, and leg pain/swelling. He endorses making small amounts of urine. Allergies: PCN Social: Denies tobacco, alcohol, and drug abuse. Past History - Past Medical History Allergies/Adverse Reactions: Allergies Allergy/AdvReac Type Severity Reaction Status Date / Time Penicillins Allergy Mild Rash Verified 10/03/18 09:31 Home Medications: Ambulatory Orders Amlodipine Besylate [Norvasc -] 10 mg PO DAILY #30 tablet 03/27/16 Pantoprazole Sodium [Protonix -] 40 mg PO DAILY 12/20/17 Aspirin 81 mg PO DAILY 03/20/18 Atorvastatin Ca [Lipitor] 20 mg PO HS 03/20/18 Calcium Acetate 667 mg PO AC 03/20/18 Losartan Potassium 25 mg PO DAILY 03/20/18 Metoprolol Colon/Hydrochlorothiaz [Metoprolol ER-Hctz 100-12.5 mg] 100 each PO BID 03/20/18 Sodium Bicarbonate - 650 mg PO BID #60 tablet 10/02/18 Anemia: No Asthma: No Cancer: No Cardiac Disorders: No CVA: No COPD: No CHF: No Dementia: No Diabetes: No Dialysis: Yes (m, w, f) GI Disorders: No Disorders: No HTN: Yes Hypercholesterolemia: Yes Liver Disease: No Seizures: No Thyroid Disease: No - Surgical History Abdominal Surgery: Yes (80% stomach removed) Cholecystectomy: No GI Surgery: No Neurologic Surgery: No - Immunization History Immunization Up to Date: No - Suicide/Smoking/Psychosocial Hx Smoking Status: Yes Smoking History: Never smoked Have you smoked in the past 12 months: No Number of Cigarettes Smoked Daily: 0 If you are a former smoker, when did you quit?: 1991 Information on smoking cessation initiated: No Hx Alcohol Use: No Drug/Substance Use Hx: No Substance Use Type: None Hx Substance Use Treatment: No Review of Systems - Review of Systems Able to Perform ROS?: Yes Is the patient limited Lao proficient: No Constitutional: No: Chills, Diaphoresis, Fever, Weakness HEENTM: No: Eye Pain, Cataracts, Nose Pain, Throat Pain, Mouth Pain Respiratory: No: Cough, Shortness of Breath Cardiac (ROS): No: Chest Pain, Lightheadedness, Palpitations, Syncope, Chest Tightness ABD/GI: No: Constipated, Diarrhea, Nausea, Rectal Bleeding, Vomiting, Tarry Stools : No: Burning, Dysuria, Hematuria, Incontinence Musculoskeletal: No: Back Pain, Joint Pain, Neck Pain Integumentary: No: Bruising, Erythema, Rash Neurological: No: Headache, Numbness, Tingling, Tremors Psychiatric: No: Change in Appetite Endocrine: No: Unexplained Weight Gain Hematologic/Lymphatic: No: Anemia *Physical Exam - Vital Signs Last Vital Signs Temp Pulse Resp BP Pulse Ox 98.4 F 82 20 172/77 H 98 10/02/18 14:08 10/02/18 14:08 10/02/18 14:08 10/02/18 14:08 10/02/18 14:08 - Physical Exam General Appearance: Yes: Nourished, Appropriately Dressed. No: Apparent Distress, Intoxicated, Cachetic, Obese HEENT: positive: EOMI, CLINT, Normal Voice, Symmetrical, Pharynx Normal, Hearing Grossly Normal. negative: Pale Conjunctivae, Scleral Icterus (R), Scleral Icterus (L), Muffled/Hoarse voice, Pharyngeal Erythema, Tonsillar Exudate, Tonsillar Erythema, Excessive drooling Neck: positive: Trachea midline, Supple. negative: Tender, Lymphadenopathy (R) , Lymphadenopathy (L), Tender lateral, Tender midline Respiratory/Chest: positive: Lungs Clear, Normal Breath Sounds. negative: Chest Tender, Respiratory Distress, Accessory Muscle Use, Crackles, Rales, Rhonchi, Stridor, Wheezing Cardiovascular: positive: Regular Rhythm, Regular Rate, S1, S2. negative: Systolic Murmur Gastrointestinal/Abdominal: positive: Normal Bowel Sounds, Flat, Soft. negative : Tender, Guarding, Rebound Lymphatic: negative: Adenopathy Musculoskeletal: positive: Normal Inspection. negative: CVA Tenderness, Vertebral Tenderness Extremity: positive: Other (left AV fistula without thrill on palpation. no obvious swelling in the left UE. intact sensation and strength of the UE bilaterally. ) Integumentary: positive: Normal Color, Dry, Warm. negative: Swelling, Ecchymosis Neurologic: positive: personnel director II-XII NML intact, Fully Oriented, Alert, Normal Mood/ Affect, Normal Response, Motor Strength 5/5. negative: EOM Palsy, Facial Droop , Sensory Deficit Moderate Sedation - Procedure Monitoring Vital Signs: Procedure Monitoring Vital Signs Temperature 98.4 F 10/02/18 14:08 Pulse Rate 82 10/02/18 14:08 Respiratory Rate 20 10/02/18 14:08 Blood Pressure 172/77 H 10/02/18 14:08 O2 Sat by Pulse Oximetry (%) 98 10/02/18 14:08 Heart Score/ECG Review - ECG Intrepretation Comment:: ventricular rate is 77 bpm, NSR. No ST elevations or depressions noted. q wave in the anterior/septal leads. unchanged EKG from previous. ED Treatment Course - LABORATORY CBC & Chemistry Diagram: 10/02/18 14:20 10/02/18 14:20 - ADDITIONAL ORDERS Additional order review: Laboratory Results 10/02/18 10/02/18 14:20 14:20 PT with INR 12.30 INR 1.04 Sodium 134 L Potassium 5.0 Chloride 103 Carbon Dioxide 14 L Anion Gap 18 H BUN 78 H Creatinine 7.2 H Creat Clearance w eGFR 7.24 Random Glucose 74 Calcium 7.6 L Total Bilirubin 0.5 AST 35 ALT 14 Alkaline Phosphatase 95 Total Protein 7.9 Albumin 3.5 10/02/18 14:20 RBC 3.54 L MCV 99.0 H MCHC 33.2 RDW 16.4 H MPV 7.0 L Neutrophils % 72.4 Lymphocytes % 13.7 Monocytes % 12.2 H Eosinophils % 0.9 Basophils % 0.8 - RADIOLOGY Radiology Studies Ordered: Category Date Time Status DUPLEX VASCUL US-1 ARM [US] Stat Ultrasound 10/02/18 15:30 Ordered Medical Decision Making - Medical Decision Making 88 yo M with a hx of HTN, HLD, CAD, ESRD (MWF dialysis; last dialysis Sunday; hx of clogged left AV fistula repaired thrombectomy 05/2018 first placed in 2017) presents to the emergency department with clogged left AV fistula. Initial vitals: Initial Vital Signs Temp Pulse Resp BP Pulse Ox 98.4 F 82 20 172/77 H 98 10/02/18 14:08 10/02/18 14:08 10/02/18 14:08 10/02/18 14:08 10/02/18 14:08 Work up: ddx: clotted AV fistula left arm. patient has a previous hx of a occluded AV fistula last year. Laboratory Tests 10/02/18 10/02/18 10/02/18 14:20 14:20 14:20 WBC 6.4 RBC 3.54 L Hgb 11.6 L Hct 35.1 L MCV 99.0 H MCH 32.9 MCHC 33.2 RDW 16.4 H Plt Count 287 D MPV 7.0 L Absolute Neuts (auto) 4.7 Neutrophils % 72.4 Lymphocytes % 13.7 Monocytes % 12.2 H Eosinophils % 0.9 Basophils % 0.8 Nucleated RBC % 0 PT with INR 12.30 INR 1.04 VBG pH POC VBG pCO2 POC VBG pO2 VBG HCO3 VBG O2 Sat (Daphne) VBG Base Excess Sodium 134 L Potassium 5.0 Chloride 103 Carbon Dioxide 14 L Anion Gap 18 H BUN 78 H Creatinine 7.2 H Creat Clearance w eGFR 7.24 Random Glucose 74 Calcium 7.6 L Total Bilirubin 0.5 AST 35 ALT 14 Alkaline Phosphatase 95 Total Protein 7.9 Albumin 3.5 10/02/18 16:39 WBC RBC Hgb Hct MCV MCH MCHC RDW Plt Count MPV Absolute Neuts (auto) Neutrophils % Lymphocytes % Monocytes % Eosinophils % Basophils % Nucleated RBC % PT with INR INR VBG pH 7.18 L* POC VBG pCO2 34.1 L POC VBG pO2 62.0 H VBG HCO3 12.3 L VBG O2 Sat (Daphne) 80.3 H VBG Base Excess -14.8 L Sodium Potassium Chloride Carbon Dioxide Anion Gap BUN Creatinine Creat Clearance w eGFR Random Glucose Calcium Total Bilirubin AST ALT Alkaline Phosphatase Total Protein Albumin Duplex shows clogged AV fistula. VBG shows 7.18 with AG of 18 and bicarb of 14, likely metabolic acidosis. per the patient, he takes sodium bicarbonate, however has not taken it over the past few weeks given his social situation ( terminally ill son; unable to fill prescription for himself due to time constraints). Nephrology was consulted; spoke to Dr. Forbes. Per Dr. Forbes, he scheduled for his dialysis to be at 2:30 pm the next day. in addition, he advised 1300 mg of sodium bicarbonate now and to give him a home prescription of [address] Licona was called and he stated he would take him to the OR tomorrow. I advised the patient to be admitted for pending surgery and metabolic acidosis , but the patient declined to stay despite the risks and benefits explained ( signed AMA form in physical chart). Patient understands the return precautions and understands the need to return tomorrow at 8am through the ED to have surgery. the patient understood the plan and agreed to it. he was alert and oriented x3 and produced logical statements. Patient was discharged to home and was able to ambulate on his own volition. Dispo: AMA *DC/Admit/Observation/Transfer Diagnosis at time of Disposition: Arteriovenous fistula occlusion Qualifiers: Encounter type: initial encounter Qualified Code(s): T82.898A - Other specified complication of vascular prosthetic devices, implants and grafts, initial encounter - Discharge Dispostion Disposition: AGAINST MEDICAL ADVICE Decision to Admit order: No - Prescriptions Prescriptions: Sodium Bicarbonate - 650 mg PO BID #60 tablet - Referrals Referrals: Jenae Cazares MD [Primary Care Provider] - - Patient Instructions Additional Instructions: you were seen in the emergency department for the evaluation of your AV fistula occlusion on your left arm. ultrasound confirmed this. We spoke to nephrology and they scheduled you for 2:30 pm for dialysis at your facility. We spoke to Dr. Licona and he states to present to the emergency department at 8:00 am to be scheduled for repair of your fistula. Dr. Licona is aware of your dialysis appointment and will have the procedure done in time. Please take the bicarb tonight before midnight. please do not eat or drink after 12:00 am TONIGHT. please return to the emergency department sooner if you develop confusion, rapid respiratory effort, shortness of breath, chest pain, cold arm, and discoloration in the arm. thank you. - Post Discharge Activity
--- NOTE | 2018-10-02 16:08 | PDOC ---
Attending Attestation - Resident Resident Name: Noé Cano - ED Attending Attestation I have performed the following: I have examined & evaluated the patient, The case was reviewed & discussed with the resident, I agree w/resident's findings & plan, Exceptions are as noted - Medical Decision Making 10/02/18 16:08 I, Dr. Reva Sampson, DO, attest that this document has been prepared under my direction and personally reviewed by me in its entirety. I further attest, that it accurately reflects all work, treatment, procedures and medical decision -making performed by me. 10/02/18 17:05 a/p: 88yo male with ESRD on HD M/W/F with clotted av fistula to [facility] [place] -Nephro Dr. Baltazar -vascular- dr. mendez -attempted to do HD today, but no flow -ultrasound sent from [facility] shows clotted av fistula -will send labs -vbg -ekg -will monitor and discuss with Nephro and vascular 10/02/18 17:07 renal failure, acidosis resident discussed the case with Dr. Andrei Osorio- oral bicarb -HD tomorrow at 2p -call back to Dr. Mendez -pt states he cannot stay, has a son currently very ill at [facility] -states he cannot stay in the hospital at this time -states he is out of his meds at home, out of his bicarb -will re rx 10/02/18 17:[address] Mendez - recommends returning to the ED at 8am tomorrow and he will go to the OR for av fistula repair. npo after midnight. discussed risks of signing out AMA. pt states given family conditions and a sick son he cannot stay. will return tomorrow for care 10/02/18 17:16 Note: The patient insists on leaving the emergency dept and is signing out against medical advice. The patient understands the risks and complications that may result from the refusal of medical care and admission which includes and permanent disability. The patient has the mental capacity of understanding the risks of refusing care and is capable of making an informed decision. The patient was instructed to return to the emergency department should he change his mind regarding medical care or should his condition worsen. The patient signed the Against Medical Advice form. <Reva Sampson - Last Filed: 10/02/18 17:15> - HPI HPI: 10/02/18 17:45 The patient is a 88 year old male, with a significant past medical history of HTN, HLD, CAD, ESRD (MWF dialysis; last dialysis Sunday), and clogged left AV fistula (repaired thrombectomy 05/2018 first placed in 04/2018) who presents to the emergency department with clogged left AV fistula since this morning. The patient reports they tried to use the AV fistula this morning for dialysis and were unable to do so, however, they placed a port on his right arm. The patient notes he experiences producing small amounts of urine. The patient denies chest pain, shortness of breath, headache or dizziness. The patient denies fever, chills, nausea, vomit, diarrhea or constipation. Allergies: Penicillins Past surgical history: None reported Social history: None reported PCP: Dr. Cazares [facility] - Physicial Exam PE: 10/02/18 17:45 GENERAL: Awake, alert, and fully oriented, in no acute distress HEAD: No signs of trauma EYES: PERRLA, EOMI, sclera anicteric, conjunctiva clear ENT: Auricles normal inspection, hearing grossly normal, nares patent, oropharynx clear without exudates. Moist mucosa NECK: Normal ROM, supple, no lymphadenopathy, JVD, or masses ARM: (+)Left upper extremity fistula clotted, nothing on right. LUNGS: Breath sounds equal, clear to auscultation bilaterally. No wheezes, and no crackles HEART: Regular rate and rhythm, normal S1 and S2, no murmurs, rubs or gallops ABDOMEN: Soft, nontender, normoactive bowel sounds. No guarding, no rebound. No masses EXTREMITIES: Normal range of motion, no edema. No clubbing or cyanosis. No cords, erythema, or tenderness NEUROLOGICAL: Cranial nerves II through XII grossly intact. Normal speech, normal gait SKIN: Warm, Dry, normal turgor, no rashes or lesions noted. <Van Strauss - Last Filed: 10/02/18 17:46> Heart Score/ECG Review - ECG Intrepretation Comment:: 10/02/18 16:29 sinus at 77, nl axis, nl interval, q waves anteriorly/septally that is age indeterminate, no acute st/t wave findings, unchanged from prior <Reva Sampson - Last Filed: 10/02/18 17:15> Attestations - Attestations 10/02/18 17:46 Documentation prepared by Van Strauss, acting as medical customer service representative for Reva Sampson DO, MD <Van Strauss - Last Filed: 10/02/18 17:46>
[2018-10-02 16:51] LABS: VENOUS PC02 34.1 mmHg (41-51)
[2018-10-02 16:58] LABS: VENOUS PH 7.18 (7.31-7.41)
[2018-10-02] MEDS ORDERED: SODIUM BICARBONATE 650 MG TABLET PO ONE (17:00)
[2018-10-02 17:29] VITALS: BP 168/75; PULSE 76; TEMP 98.1
--- NOTE | 2018-10-03 15:36 | EKG ---
Test Reason : Blood Pressure : / mmHG Vent. Rate : 077 BPM Atrial Rate : 077 BPM P-R Int : 178 ms QRS Dur : 082 ms QT Int : 422 ms P-R-T Axes : 073 039 073 degrees QTc Int : 477 ms NORMAL SINUS RHYTHM POSSIBLE LEFT ATRIAL ENLARGEMENT ANTEROSEPTAL INFARCT , AGE UNDETERMINED ABNORMAL ECG WHEN COMPARED WITH ECG OF 21-JUN-2018 11:41, PREMATURE ATRIAL COMPLEXES ARE NO LONGER PRESENT ANTEROSEPTAL INFARCT IS NOW PRESENT Confirmed by PATY MONTANA MD ([id number]) on 10/03/2018 3:35:34 PM Referred By: Confirmed By:PATY MONTANA MD
== END 2018-10-02 17:36 | disposition left against medical advice (07) ==
LOC: SUPCPDRO 14:01 → JER 14:01
DX: T82.898A Other specified complication of vascular prosthetic devices, implants and grafts, initial encounter (principal); I13.11 Hypertensive heart and chronic kidney disease without heart failure, with stage 5 chronic kidney disease, or end stage renal disease; N18.6 End stage renal disease; N17.8 Other acute kidney failure; Z99.2 Dependence on renal dialysis; E78.5 Hyperlipidemia, unspecified; Z79.82 Long term (current) use of aspirin
CPT/HCPCS: 36415; 80053; 82803; 85025; 85610; 93005; 93010; 93971; 99283-25

== ENCOUNTER 2018-10-03 08:48 | Day surgery (SDC) | payer OTHER ==
[~2018-10-03 08:48] MED LIST: LIDOCAINE HCL 1%, 10 MG/ML (20ML VIAL) ID ONE
[2018-10-03 09:40] LABS: ALBUMIN 3.3 g/dl (3.4-5.0); ALK PHOS 89 U/L (45-117); ANION GAP 19 MMOL/L (8-16); BILIRUBIN,TOTAL 0.4 mg/dL (0.2-1); BLOOD UREA NITROGEN 94 mg/dL (7-18); CHLORIDE 105 mmol/L (98-107); CO2 14 mmol/L (21-32); GLUCOSE,RANDOM 79 mg/dL (74-106); SGOT/AST 15 U/L (15-37); SGPT/ALT 10 U/L (13-61); SODIUM 138 mmol/L (136-145); TOT PROT 7.2 g/dl (6.4-8.2)
[2018-10-03 09:52] VITALS: BMI 17.7
[2018-10-03 09:59] LABS: CREATININE 8.3 mg/dL (0.55-1.3)
[2018-10-03] MEDS ORDERED: HEPARIN NA (PORCINE) 5,000 UNITS/ML 1ML VIAL ONE ×2 (12:26→12:40)
[2018-10-03] MEDS ORDERED: LIDOCAINE HCL 1%, 10 MG/ML (20ML VIAL) ONE (12:26)
[2018-10-03] MEDS ORDERED: MIDAZOLAM HCL 2 MG/2 ML SINGLE DOSE VIAL ONE (12:41)
[2018-10-03] MEDS ORDERED: PROPOFOL 20 ML ONE (12:41)
[2018-10-03] MEDS ORDERED: CLINDAMYCIN 600 MG PREMIX BAG IVPB ONE (13:09)
[2018-10-03] MEDS ORDERED: CLINDAMYCIN PHOSPHATE 600 MG/4 ML VIAL ONE (13:09)
[2018-10-03] MEDS ORDERED: LIDOCAINE HCL 1%, 10 MG/ML (20ML VIAL) ID ONE ×2 (13:23)
[2018-10-03] MEDS ORDERED: oxyCODONE HCL 5 MG TABLET PO PRN (14:05)
[2018-10-03] MEDS ORDERED: ONDANSETRON 4 MG/2 ML VIAL IVPUSH PRN (14:05)
[2018-10-03] MEDS ORDERED: SODIUM CHLORIDE 1,000 ML IV SCH (14:15)
--- NOTE | 2018-10-03 14:23 | HP ---
Admitting History and Physical - Admission Chief Complaint: Pt here with clotted left avg. Here for declotting of access. Limitations to Obtaining History: No Limitations - Past Medical History Cardiovascular: Yes: HTN Renal/: Yes: Renal Inusuff Heme/Onc: Yes: Anemia - Smoking History Smoking history: Former smoker Have you smoked in the past 12 months: No Aproximately how many cigarettes per day: 0 If you are a former smoker, when did you quit?: 1991 - Alcohol/Substance Use Hx Alcohol Use: No Home Medications - Allergies Allergies/Adverse Reactions: Allergies Allergy/AdvReac Type Severity Reaction Status Date / Time Penicillins Allergy Mild Rash Verified 10/03/18 09:31 - Home Medications Home Medications: Ambulatory Orders Amlodipine Besylate [Norvasc -] 10 mg PO DAILY #30 tablet 03/27/16 Pantoprazole Sodium [Protonix -] 40 mg PO DAILY 12/20/17 Aspirin 81 mg PO DAILY 03/20/18 Atorvastatin Ca [Lipitor] 20 mg PO HS 03/20/18 Calcium Acetate 667 mg PO AC 03/20/18 Losartan Potassium 25 mg PO DAILY 03/20/18 Metoprolol Colon/Hydrochlorothiaz [Metoprolol ER-Hctz 100-12.5 mg] 100 each PO BID 03/20/18 Sodium Bicarbonate - 650 mg PO BID #60 tablet 10/02/18 Review of Systems - Review of Systems Constitutional: reports: No Symptoms Eyes: reports: No Symptoms HENT: reports: No Symptoms Neck: reports: No Symptoms Cardiovascular: reports: No Symptoms Respiratory: reports: No Symptoms Gastrointestinal: reports: No Symptoms Genitourinary: reports: No Symptoms Breasts: reports: No Symptoms Reported Musculoskeletal: reports: No Symptoms Integumentary: reports: No Symptoms Neurological: reports: No Symptoms Endocrine: reports: No Symptoms Hematology/Lymphatic: reports: No Symptoms Psychiatric: reports: No Symptoms Physical Examination Constitutional: Yes: Well Nourished, No Distress, Calm Eyes: Yes: WNL, Conjunctiva Clear, EOM Intact HENT: Yes: WNL, Atraumatic, Normocephalic Neck: Yes: WNL, Supple, Trachea Midline Cardiovascular: Yes: WNL, Regular Rate and Rhythm Respiratory: Yes: WNL, Regular, CTA Bilaterally Gastrointestinal: Yes: WNL, Normal Bowel Sounds Musculoskeletal: Yes: WNL Extremities: Yes: WNL Edema: No Peripheral Pulses WNL: Yes Integumentary: Yes: WNL Neurological: Yes: WNL, Alert, Oriented ...Motor Strength: WNL Psychiatric: Yes: WNL Labs: CBC, BMP 10/03/18 08:55 Problem List - Problems (1) AV graft thrombosis Assessment/Plan: For declot today Code(s): T82.868A - THROMBOSIS DUE TO VASCULAR PROSTH DEV/GRFT, INIT
--- NOTE | 2018-10-03 14:24 | OP ---
Operative Note - Note: Operative Date: 10/03/18 Pre-Operative Diagnosis: Avg thrombosis Operation: venogram, suction thrombectomy, venoplasty left avg Post-Operative Diagnosis: Same as Pre-op Surgeon: Terry Licona Anesthesia: Fractional Estimated Blood Loss (mls): 20 Operative Report Dictated: Yes
--- NOTE | 2018-10-03 15:01 | OP ---
DATE OF OPERATION: 10/03/2018 PREOPERATIVE DIAGNOSIS: Clotted left arteriovenous graft. POSTOPERATIVE DIAGNOSIS: Clotted left arteriovenous graft. PROCEDURE: Venogram, suction thrombectomy, venoplasty of left arteriovenous graft. SURGEON: Terry Neves DO ANESTHESIA: Fractional. BLOOD LOSS: 30 mL. He is an 88-year-old male who comes in from the dialysis unit because his left AV access is clotted. Patient came into Ambulatory Surgery. Patient was consented for the procedure, understanding all risks, benefits, and alternatives, then taken to the operating room. Once in the operating room, he was laid on the operating table in supine manner, and the area of the left arm was prepped and draped in a sterile surgical manner. We then went ahead and injected 10 mL of lidocaine 1% over the proximal AV graft. We then took our micropuncture needle and punctured the AV graft. Micropuncture wire was inserted. Micropuncture sheath was inserted, and a traditional short 6-Korean sheath was inserted. We shot our venogram by hand injection showing that the graft was clotted. We then placed a 0.035 floppy guidewire through the graft and across the venous anastomosis. We then used an AVX suction thrombectomy catheter and performed suction thrombectomy of the body of the AV graft and any outflow veins all the way into the central veins. Two passes were done in this manner. We then went ahead and shot our venogram showing that there was a severe stenosis across the venous anastomosis, probably 98%. At this point, we used a 9 x 8 [place] balloon and performed venoplasty of the outflow vein and the entire AV graft and the venous anastomosis. Patient had been administered 3000 units of IV heparin during this time. Our completion venogram now showed that the graft was patent. There was a good thrill in the graft. There was good outflow going all the way into the central veins. We shot a picture of the proximal AV graft across the anastomosis, and there was no stenosis and the graft looked patent. At this point, there was no more intervention needed. We went ahead and used a 4-0 Biosyn stitch and a [id number] stitch was placed around the sheath and the sheath was pulled. Area was wet and dried, and Dermabond was placed. Patient tolerated the procedure with no complications. Patient transferred to PACU in stable condition. TERRY NEVES DO BILLING SUPERVISOR/[id number]
[2018-10-03 15:06] VITALS: TEMP 98
[2018-10-03 16:56] VITALS: BP 176/90; PULSE 90
== END 2018-10-03 16:00 | disposition home or self-care (01) ==
LOC: JASU-SURG 08:48
PROVIDERS: ATTEND Surgery Vascular Surgery
PROC: 057Y3ZZ Dilation of Upper Vein, Percutaneous Approach (ICD-10-PCS; principal; 2018-10-03 16:00)
DX: T82.898A Other specified complication of vascular prosthetic devices, implants and grafts, initial encounter (principal); I12.0 Hypertensive chronic kidney disease with stage 5 chronic kidney disease or end stage renal disease; N18.6 End stage renal disease; Z99.2 Dependence on renal dialysis
CPT/HCPCS: 36415; 76000-TC-FY; 80053; 94760; J1644

== ENCOUNTER 2018-12-23 11:36 | Emergency (ER) | payer OTHER | END 2018-12-23 16:46 | disposition left against medical advice (07) | LOC: JER 11:36 ==

== ENCOUNTER 2018-12-24 14:36 | Inpatient (IN) | payer OTHER ==
--- NOTE | 2018-12-24 14:52 | PDOC ---
Rapid Medical Evaluation Medical Evaluation: Allergies Allergy/AdvReac Type Severity Reaction Status Date / Time Penicillins Allergy Mild Rash Verified 12/24/18 14:48 12/24/18 14:49 The patient c/o: here to fix occluded av fistula, was told to return today, pt believed last HD was Sunday, otherwise has no complaints Patient on brief exam: vss, lcta Patient ordered for: labs, Patient to proceed to the ED Discharge Disposition - Diagnosis AV graft thrombosis - Referrals - Patient Instructions - Post Discharge Activity
[2018-12-24 14:53] VITALS: BMI 17.7
--- NOTE | 2018-12-24 15:43 | PDOC ---
History of Present Illness - General History Source: Patient Exam Limitations: No Limitations - History of Present Illness Initial Comments: 88 yo M with a hx of HTN, HLD, prostate ca, CAD, ESRD (MWF dialysis; pt believed last HD was Sunday; hx of clogged left AV fistula repaired thrombectomy 05/2018 and 09/2018 and first placed in 04/2018) presents to the emergency department with clogged left AV fistula after he AMA'ed yesterday. He presents today to be admitted to the hospital because he was told Dr. Licona can operate on him tonight at 6 pm. He denies any complaints. He denies having chest pain, SOB, difficulty breathing, headache, nausea, vomiting, muscle pain, weakness, lightheadedness, or syncope. Renal: Dr. Osorio Vascular: Dr. Licona Allergies: Penicillins Past surgical history: Stomach removal, Left AV fistula, Prostate surgery. Social history: Denies smoking, drinking, or other substance usage. PCP: Maricel Porter <Neftali Padilla - Last Filed: 12/24/18 21:17> <Mima Monahan - Last Filed: 12/26/18 17:14> - General Chief Complaint: Dialysis Shunt Problem Stated Complaint: BLOOD CLOT Time Seen by Provider: 12/24/18 14:47 Past History - Past Medical History Anemia: No Asthma: No Cancer: No Cardiac Disorders: No CVA: No COPD: No CHF: No Dementia: No Diabetes: No Dialysis: Yes (M/W/F) GI Disorders: Yes (BLEEDING ULCERS 1970) Disorders: No HTN: Yes Hypercholesterolemia: Yes Liver Disease: No Seizures: No Thyroid Disease: No - Surgical History Abdominal Surgery: Yes (80% STOMACH REMOVED FROM BLEEDING ULCERS 1970) Appendectomy: No Cardiac Surgery: No Cholecystectomy: No GI Surgery: No Lung Surgery: No Neurologic Surgery: No - Immunization History Immunization Up to Date: No - Suicide/Smoking/Psychosocial Hx Smoking Status: Yes Smoking History: Former smoker Have you smoked in the past 12 months: No Number of Cigarettes Smoked Daily: 0 If you are a former smoker, when did you quit?: 1991 Information on smoking cessation initiated: No Hx Alcohol Use: No Drug/Substance Use Hx: No Substance Use Type: None Hx Substance Use Treatment: No <Neftali Padilla - Last Filed: 12/24/18 21:17> <Mima Monahan - Last Filed: 12/26/18 17:14> - Past Medical History Allergies/Adverse Reactions: Allergies Allergy/AdvReac Type Severity Reaction Status Date / Time Penicillins Allergy Mild Rash Verified 12/24/18 14:48 Home Medications: Ambulatory Orders Amlodipine Besylate [Norvasc -] 10 mg PO DAILY #30 tablet 03/27/16 Pantoprazole Sodium [Protonix -] 40 mg PO DAILY 12/20/17 Atorvastatin Ca [Lipitor] 20 mg PO HS 03/20/18 Calcium Acetate 667 mg PO AC 03/20/18 Losartan Potassium 25 mg PO DAILY 03/20/18 Metoprolol Colon/Hydrochlorothiaz [Metoprolol ER-Hctz 100-12.5 mg] 100 each PO BID 03/20/18 Sodium Bicarbonate - 650 mg PO BID #60 tablet 10/02/18 Review of Systems - Review of Systems Able to Perform ROS?: Yes Comments:: CONSTITUTIONAL: No fever, no chills, no fatigue EYES: No visual changes ENT: No ear pain, no sore throat CARDIOVASCULAR: No chest pain, no palpitations RESPIRATORY: No cough, no SOB GI: No abdominal pain, no nausea, no vomiting, no constipation, no diarrhea GENITOURINARY: No dysuria, no frequency, no hematuria MUSKULOSKELETAL: No backpain, no joint pain, no myalgias SKIN: No rash NEURO: No headache <Neftali Padilla - Last Filed: 12/24/18 21:17> *Physical Exam - Vital Signs Last Vital Signs Temp Pulse Resp BP Pulse Ox 97.3 F L 59 L 18 148/61 99 12/24/18 14:48 12/24/18 14:48 12/24/18 14:48 12/24/18 14:48 12/24/18 14:48 - Physical Exam Comments: CONSTITUTIONAL: Well-appearing; well-nourished; in no apparent distress HEAD: Normocephalic; atraumatic EYES: PERRL; EOM intact ENMT: External appears normal; normal oropharynx NECK: Supple; non-tender; no cervical lymphadenopathy CARD: Normal S1, S2; no murmurs, rubs, or gallops RESP: CTAB. No wheezes, rhonchi, or rales ABD: Soft, non-distended; non-tender; no palpable organomegaly, no palpable hernias EXT: LUEF. There is no Bruit. Normal ROM in all four extremities; non-tender to palpation; distal pulses intact SKIN: Warm, dry, no rash NEURO: No focal neurological deficiencies. <Neftali Padilla - Last Filed: 12/24/18 21:17> - Vital Signs Last Vital Signs Temp Pulse Resp BP Pulse Ox 98.0 F 58 L 16 115/60 100 12/24/18 18:42 12/24/18 18:42 12/24/18 18:42 12/24/18 18:42 12/24/18 18:42 <Mima Monahan - Last Filed: 12/26/18 17:14> ED Treatment Course - LABORATORY CBC & Chemistry Diagram: 12/24/18 16:09 12/24/18 16:09 <Neftali Padilla - Last Filed: 12/24/18 21:17> - LABORATORY CBC & Chemistry Diagram: 12/24/18 16:09 12/24/18 16:09 - ADDITIONAL ORDERS Additional order review: 12/24/18 16:09 RBC 3.55 L MCV 99.6 H MCHC 31.6 L RDW 16.4 H MPV 8.4 Neutrophils % 64.4 Lymphocytes % 18.3 Monocytes % 13.8 H Eosinophils % 2.4 Basophils % 1.1 <Mima Monahan - Last Filed: 12/26/18 17:14> Medical Decision Making - Medical Decision Making 88 yo M with a hx of HTN, HLD, prostate ca, CAD, ESRD (MWF dialysis; pt believed last HD was Sunday; hx of clogged left AV fistula repaired thrombectomy 05/2018 and 09/2018 and first placed in 04/2018) presents to the emergency department with clogged left AV fistula after he AMA'ed yesterday. He presents today to be admitted to the hospital because he was told Dr. Licona can operate on him tonight at 6 pm. He denies any complaints. He denies having chest pain, SOB, difficulty breathing, headache, nausea, vomiting, muscle pain, weakness, lightheadedness, or syncope. VS: WNL EKG: Sinus pablo, LAE, septal infarct undetermined age. Plan: Labs, EKG, Admit Dr. Licona wants to operate on the patient at 4:30 - Will admit to hospital. <Neftali Padilla - Last Filed: 12/24/18 21:17> *DC/Admit/Observation/Transfer - Discharge Dispostion Decision to Admit order: Yes <Neftali Padilla - Last Filed: 12/24/18 21:17> <Mima Monahan - Last Filed: 12/26/18 17:14> Diagnosis at time of Disposition: AV graft thrombosis - Discharge Dispostion Disposition: HOME Condition at time of disposition: Stable
[2018-12-24] MEDS ORDERED: SODIUM CHLORIDE 0.9% P/F 10 ML VIAL IJ ONE (16:15)
[2018-12-24] MEDS ORDERED: ceFAZolin SODIUM 1 GM VIAL ONE (16:15)
--- NOTE | 2018-12-24 16:16 | PDOC ---
Documentation entered by Anju Turner SCRIBE, acting as scribe for Mima Monahan MD. Mima Monahan MD: This documentation has been prepared by the Yue resendez Nirvannie, SCRIBE, under my direction and personally reviewed by me in its entirety. I confirm that the documentation accurately reflects all work, treatment, procedures, and medical decision making performed by me. Attending Attestation - Resident Resident Name: Neftali Padilla - ED Attending Attestation I have performed the following: I have examined & evaluated the patient, The case was reviewed & discussed with the resident, I agree w/resident's findings & plan - HPI HPI: 12/24/18 16:36 [id number] with significant past medical history of HTN, HLD, prostate ca, CAD, ESRD (MWF dialysis; pt believed last HD was Sunday; hx of clogged left AV fistula repaired thrombectomy 05/2018 and 09/2018 and first placed in 04/2018) presenting with a clogged left AV fistula. Patient was seen in the ED yesterday for similar symptoms at which time he signed out AMA, he notes he was made aware Dr. Licona could take him to the OR today, prompting his arrival to the ED. Denies fever, chills, chest pain, SOB, palpitation, dizziness, weakness, N, V, D , abdominal pain, bladder and bowel problems, leg swelling, No sick contacts or travel. No new changes in medications. No suspicious food intake Allergies: Penicillins Past Medical History: as documented in EMR/HPI Social history: Lives with family. No tobacco, ETOH or drug use. Surgical history: Stomach removal, Left AV fistula, Prostate surgery. Meds: as documented in EMR PMD: Dr. Cazares, [facility] Renal: Dr. Osorio Vascular: Dr. Licona - Physicial Exam PE: 12/24/18 16:36 Agree with the resident's HPI and PE as documented in the electronic medical record. NAD, well appearing, EOMI, PERRL, MMM, nl conjunctiva, anicteric; neck supple. lungs clear, RRR, abdomen soft nontender. Back nontender. VILLALPANDO x4, no focal neuro deficits. +LUE: Soft AV fistula in place with palpable thrill, no bruit. No peripheral edema. normal color for ethnicity, WWP. - Medical Decision Making 12/24/18 16:38 History of physical examination as documented. Physical examination as above, vital signs reviewed and within normal limits. Patient to be taken to the operating room for venogram/AV fistula occlusion/thrombectomy with Dr. Licona. He was seen here yesterday in the emergency department but left prior to full evaluation and admission as he left AGAINST MEDICAL ADVICE for management of his AV fistula occlusion Laboratory results from yesterday reviewed with potassium 5.9 noted. Recheck CBC and chemistries today, preop labs, type and screen ordered. His willing to be admitted today. Admit to medical service, to call Dr. Baltazar for admission. 12/24/18 16:40 12/24/18 17:07
[2018-12-24] MEDS ORDERED: SEVOFLURANE 250 ML BTL ONE (16:23)
[2018-12-24 16:30] LABS: BASO % 1.1 % (0-2.0); EOS % 2.4 % (0-4.5); HEMATOCRIT 35.4 % (35.4-49); HEMOGLOBIN 11.2 GM/dL (11.7-16.9); LYMPH % 18.3 % (8-40); MCH 31.4 pg (25.7-33.7); MCHC 31.6 g/dl (32.0-35.9); MEAN CELL VOLUME 99.6 fl (80-96); MEAN PLT VOLUME 8.4 fl (7.5-11.1); MONO % 13.8 % (3.8-10.2); NEUT % 64.4 % (42.8-82.8); PLATELET COUNT 195 K/MM3 (134-434); RBC 3.55 M/mm3 (4.00-5.60); RDW 16.4 % (11.9-15.9); WHITE BLOOD COUNT 6.3 K/mm3 (4.0-10.0)
[2018-12-24 16:43] LABS: INR 1.03 (0.83-1.09); PROTHROMBIN TIME (PATIENT) 12.2 SEC (9.7-13.0)
[2018-12-24 16:45] LABS: ACTIVATED PTT 36.1 SECONDS (25.2-36.5)
[2018-12-24] MEDS ORDERED: SUCCINYLCHOLINE CHLORIDE 200 MG/10 ML SYRINGE ONE (16:54)
[2018-12-24 17:13] LABS: ALBUMIN 3.4 g/dl (3.4-5.0); BILIRUBIN,TOTAL 0.5 mg/dL (0.2-1); CALCIUM 7.2 mg/dL (8.5-10.1); POTASSIUM 4.7 mmol/L (3.5-5.1); TOT PROT 7.1 g/dl (6.4-8.2)
[2018-12-24 17:17] LABS: CREATININE 9.7 mg/dL (0.55-1.3)
[2018-12-24] MEDS ORDERED: ONDANSETRON 4 MG/2 ML VIAL IVPUSH PRN (17:24)
[2018-12-24] MEDS ORDERED: MIDAZOLAM HCL 2 MG/2 ML SINGLE DOSE VIAL ONE (17:33)
[2018-12-24] MEDS ORDERED: HEPARIN NA (PORCINE) 5,000 UNITS/ML 1ML VIAL ONE (17:52)
--- NOTE | 2018-12-24 18:17 | OP ---
Operative Note - Note: Operative Date: 12/24/18 Pre-Operative Diagnosis: clotted left avg Operation: Venogram, suction thrombectomy, venoplasty left avg Post-Operative Diagnosis: Same as Pre-op Surgeon: Terry Licona Anesthesia: Fractional Estimated Blood Loss (mls): 20 Operative Report Dictated: Yes
--- NOTE | 2018-12-24 18:18 | HP ---
Admitting History and Physical - Admission Chief Complaint: left avg clotted - Past Medical History Cardiovascular: Yes: HTN Renal/: Yes: Renal Inusuff Heme/Onc: Yes: Anemia - Smoking History Smoking history: Former smoker Have you smoked in the past 12 months: No Aproximately how many cigarettes per day: 0 If you are a former smoker, when did you quit?: 1991 - Alcohol/Substance Use Hx Alcohol Use: No Home Medications - Allergies Allergies/Adverse Reactions: Allergies Allergy/AdvReac Type Severity Reaction Status Date / Time Penicillins Allergy Mild Rash Verified 12/24/18 14:48 - Home Medications Home Medications: Ambulatory Orders Amlodipine Besylate [Norvasc -] 10 mg PO DAILY #30 tablet 03/27/16 Pantoprazole Sodium [Protonix -] 40 mg PO DAILY 12/20/17 Atorvastatin Ca [Lipitor] 20 mg PO HS 03/20/18 Calcium Acetate 667 mg PO AC 03/20/18 Losartan Potassium 25 mg PO DAILY 03/20/18 Metoprolol Colon/Hydrochlorothiaz [Metoprolol ER-Hctz 100-12.5 mg] 100 each PO BID 03/20/18 Sodium Bicarbonate - 650 mg PO BID #60 tablet 10/02/18 Review of Systems - Review of Systems Constitutional: reports: No Symptoms Eyes: reports: No Symptoms HENT: reports: No Symptoms Neck: reports: No Symptoms Cardiovascular: reports: No Symptoms Respiratory: reports: No Symptoms Gastrointestinal: reports: No Symptoms Genitourinary: reports: No Symptoms Breasts: reports: No Symptoms Reported Musculoskeletal: reports: No Symptoms Integumentary: reports: No Symptoms Neurological: reports: No Symptoms Endocrine: reports: No Symptoms Hematology/Lymphatic: reports: No Symptoms Psychiatric: reports: No Symptoms Physical Examination Vital Signs: Vital Signs Temperature 97.3 F L 12/24/18 14:48 Pulse Rate 59 L 12/24/18 14:48 Respiratory Rate 18 12/24/18 14:48 Blood Pressure 148/61 12/24/18 14:48 O2 Sat by Pulse Oximetry (%) 100 12/24/18 16:30 Constitutional: Yes: Well Nourished, No Distress, Calm Eyes: Yes: WNL, Conjunctiva Clear, EOM Intact HENT: Yes: WNL, Atraumatic, Normocephalic Neck: Yes: WNL, Supple, Trachea Midline Cardiovascular: Yes: WNL, Regular Rate and Rhythm Respiratory: Yes: WNL, Regular, CTA Bilaterally Gastrointestinal: Yes: WNL, Normal Bowel Sounds Musculoskeletal: Yes: WNL Extremities: Yes: WNL Edema: No Integumentary: Yes: WNL Neurological: Yes: WNL, Alert, Oriented ...Motor Strength: WNL Psychiatric: Yes: WNL Labs: CBC, BMP 12/24/18 16:09 12/24/18 16:09 Problem List - Problems (1) AV graft thrombosis Assessment/Plan: for suction thrombectomy today Code(s): T82.868A - THROMBOSIS DUE TO VASCULAR PROSTH DEV/GRFT, INIT
[2018-12-24 18:42] VITALS: TEMP 98
[2018-12-24 18:43] VITALS: BP 115/60; PULSE 58
[2018-12-24] MEDS ORDERED: PATIENT'S OWN MEDICATION (NON-FORMULARY) (Calcium Acetate [Calcium Acetate] 667 MG) PO SCH (18:45)
[2018-12-24] MEDS ORDERED: [UNRECOGNIZED DRUG - OTHER] PO SCH (22:00)
[2018-12-24] MEDS ORDERED: ATORVASTATIN CA 20 MG TABLET (FP) PO SCH (22:00)
[2018-12-24] MEDS ORDERED: HYDROCHLOROTHIAZ PO SCH (22:00)
[2018-12-24] MEDS ORDERED: SODIUM BICARBONATE 650 MG TABLET PO SCH (22:00)
[2018-12-24] MEDS ORDERED: METOPROLOL SU PO SCH (22:00)
[2018-12-25] MEDS ORDERED: LOSARTAN POTASSIUM 25 MG TABLET PO SCH (10:00)
[2018-12-25] MEDS ORDERED: PANTOPRAZOLE 40 MG TABLET (FP) PO SCH (10:00)
[2018-12-25] MEDS ORDERED: amLODIPine BESYLATE 10 MG TABLET (FP) PO SCH (10:00)
--- NOTE | 2018-12-25 10:07 | EKG ---
Test Reason : Blood Pressure : / mmHG Vent. Rate : 055 BPM Atrial Rate : 055 BPM P-R Int : 196 ms QRS Dur : 086 ms QT Int : 500 ms P-R-T Axes : 072 061 061 degrees QTc Int : 478 ms SINUS BRADYCARDIA POSSIBLE LEFT ATRIAL ENLARGEMENT SEPTAL INFARCT (CITED ON OR BEFORE 02-OCT-2018) ABNORMAL ECG WHEN COMPARED WITH ECG OF 23-DEC-2018 13:32, NO SIGNIFICANT CHANGE WAS FOUND Confirmed by AREN HAMMOND MD ([id number]) on 12/25/2018 10:07:10 AM Referred By: Confirmed By:AREN HAMMOND MD
--- NOTE | 2018-12-25 17:30 | DS ---
Physical Examination Vital Signs: Vital Signs Temperature 98.0 F 12/24/18 18:42 Pulse Rate 58 L 12/24/18 18:42 Respiratory Rate 16 12/24/18 18:42 Blood Pressure 115/60 12/24/18 18:42 O2 Sat by Pulse Oximetry (%) 100 12/24/18 18:42 Labs: CBC, BMP 12/24/18 16:09 12/24/18 16:09 Discharge Summary Reason For Visit: THROMBOSIS OF ARTERIOVENOUS GRAFT Condition: Stable - Instructions Diet, Activity, Other Instructions: S/P suction thrombectomy For HD at 6am selma. Please return to clinic in one week for suture removal Call for appt - [phone] Disposition: HOME - Home Medications Comprehensive Discharge Medication List: Ambulatory Orders Amlodipine Besylate [Norvasc -] 10 mg PO DAILY #30 tablet 03/27/16 Pantoprazole Sodium [Protonix -] 40 mg PO DAILY 12/20/17 Atorvastatin Ca [Lipitor] 20 mg PO HS 03/20/18 Calcium Acetate 667 mg PO AC 03/20/18 Losartan Potassium 25 mg PO DAILY 03/20/18 Metoprolol Colon/Hydrochlorothiaz [Metoprolol ER-Hctz 100-12.5 mg] 100 each PO BID 03/20/18 Sodium Bicarbonate - 650 mg PO BID #60 tablet 10/02/18
--- NOTE | 2019-01-02 16:12 | OP ---
DATE OF OPERATION: 12/24/2018 PREOPERATIVE DIAGNOSIS: Clotted left arteriovenous graft. POSTOPERATIVE DIAGNOSIS: Clotted left arteriovenous graft. PROCEDURE: Venogram, suction thrombectomy, venoplasty of left arteriovenous graft. SURGEON: Terry Neves DO ANESTHESIA: Fractional. BLOOD LOSS: 20 mL. The patient is an 88-year-old male who comes in with a clotted left AV graft. It was decided that he would need suction thrombectomy. Patient was consented for the procedure, understanding all risks, benefits, and alternatives, then taken to the operating room. Once in the operating room, he was laid on the operating table in supine manner, and the area of the left arm was prepped and draped in a sterile surgical manner. We then went ahead and injected 10 mL of lidocaine 1% at the proximal AV fistula above the anastomosis. We then took our micropuncture needle, punctured the fistula. Micropuncture wire was inserted, and a short 6-[place]izen [place] sheath was inserted. We then went ahead and shot our venogram, showing that the graft was clotted, and there was stenosis at the venous anastomosis. At this point, we placed a 0.035 floppy guidewire up into the central veins. We went ahead and used an EBX suction thrombectomy catheter and performed suction thrombectomy of the body of the graft and the distal central veins. We then went ahead and used a 9 x 8 [place] balloon. Prior to putting the balloon inside, 5000 units of IV heparin were administered to the patient. We then went ahead and used a 9 x 8 [place] balloon and performed venoplasty of the graft and of the venous anastomosis. Also using the 9 x 8 balloon, we performed venoplasty of the outflow veins. Completion venogram now showed that the graft was patent. There was good flow in the graft. There was a good thrill in the graft. We went ahead and shot our venogram, and we compressed the graft in the proximal anastomosis. The proximal anastomosis was open, and there was no stenosis there. We went ahead and shot all the way up. We shot a venogram all the way up into the central veins, and that was patent. At this point, there was no more intervention needed. We used a 4-0 Biosyn stitch and a [id number] stitch was placed around the sheath and the sheath was pulled. Area was wet and dried, and Dermabond was placed. Patient tolerated the procedure with no complications. Patient transferred to PACU in stable condition. Total blood loss 20 mL. TERRY NEVES DO [id number]
== END 2018-12-24 19:40 | disposition home or self-care (01) | DRG 252 ==
LOC: JER 14:36 → JERBED 16:19
PROVIDERS: ADMIT Internal Medicine; ATTEND Internal Medicine
PROC: 03783ZZ Dilation of Left Brachial Artery, Percutaneous Approach (ICD-10-PCS; 2018-12-24)
PROC: B50NYZZ Plain Radiography of Left Upper Extremity Veins using Other Contrast (ICD-10-PCS; 2018-12-24)
PROC: 05CA3ZZ Extirpation of Matter from Left Brachial Vein, Percutaneous Approach (ICD-10-PCS; principal; 2018-12-24 16:59)
DX: T82.868A Thrombosis due to vascular prosthetic devices, implants and grafts, initial encounter (principal); N18.6 End stage renal disease; I12.0 Hypertensive chronic kidney disease with stage 5 chronic kidney disease or end stage renal disease; D64.9 Anemia, unspecified; I25.10 Atherosclerotic heart disease of native coronary artery without angina pectoris; Z99.2 Dependence on renal dialysis; Y83.8 Other surgical procedures as the cause of abnormal reaction of the patient, or of later complication, without mention of misadventure at the time of the procedure; Z85.46 Personal history of malignant neoplasm of prostate
CPT/HCPCS: 36415; 71046-TC-FY; 76000-TC-FY; 80053; 85025; 85610; 85730; 86850; 86900; 86901; 93005; 93010; 93971; 94760; 99282-25; 99283-25; J1644

== ENCOUNTER 2019-07-03 08:31 | Day surgery (SDC) | payer OTHER ==
[2019-07-02 14:37] VITALS: BMI 17.7
[2019-07-03] MEDS ORDERED: HEPARIN NA (PORCINE) 5,000 UNITS/ML 1ML VIAL ONE ×2 (12:01→12:13)
--- NOTE | 2019-07-03 12:06 | HP ---
Admitting History and Physical - Admission Chief Complaint: clotted left AVG Limitations to Obtaining History: No Limitations - Past Medical History Cardiovascular: Yes: HTN Renal/: Yes: Renal Inusuff Heme/Onc: Yes: Anemia - Smoking History Smoking history: Former smoker Have you smoked in the past 12 months: No Aproximately how many cigarettes per day: 0 If you are a former smoker, when did you quit?: 1991 - Alcohol/Substance Use Hx Alcohol Use: No Home Medications - Allergies Allergies/Adverse Reactions: Allergies Allergy/AdvReac Type Severity Reaction Status Date / Time Penicillins Allergy Mild Rash Verified 07/02/19 14:38 - Home Medications Home Medications: Ambulatory Orders Amlodipine Besylate [Norvasc -] 10 mg PO DAILY #30 tablet 03/27/16 Pantoprazole Sodium [Protonix -] 40 mg PO DAILY 12/20/17 Atorvastatin Ca [Lipitor] 20 mg PO HS 03/20/18 Calcium Acetate 667 mg PO AC 03/20/18 Losartan Potassium 25 mg PO DAILY 03/20/18 Metoprolol Colon/Hydrochlorothiaz [Metoprolol ER-Hctz 100-12.5 mg] 100 each PO BID 03/20/18 Sodium Bicarbonate - 650 mg PO BID #60 tablet 10/02/18 Review of Systems - Review of Systems Constitutional: reports: No Symptoms Eyes: reports: No Symptoms HENT: reports: No Symptoms Neck: reports: No Symptoms Cardiovascular: reports: No Symptoms Respiratory: reports: No Symptoms Gastrointestinal: reports: No Symptoms Genitourinary: reports: No Symptoms Musculoskeletal: reports: No Symptoms Integumentary: reports: No Symptoms Neurological: reports: No Symptoms Endocrine: reports: No Symptoms Hematology/Lymphatic: reports: No Symptoms Psychiatric: reports: No Symptoms Physical Examination Vital Signs: Vital Signs Temperature 97.6 F 07/03/19 09:26 Pulse Rate 61 07/03/19 09:26 Respiratory Rate 18 07/03/19 09:26 Blood Pressure 169/75 07/03/19 09:26 O2 Sat by Pulse Oximetry (%) 100 07/03/19 09:26 Constitutional: Yes: Well Nourished, No Distress, Calm Eyes: Yes: WNL, Conjunctiva Clear, EOM Intact HENT: Yes: WNL, Atraumatic, Normocephalic Neck: Yes: WNL, Supple, Trachea Midline Cardiovascular: Yes: WNL, Regular Rate and Rhythm Respiratory: Yes: WNL, Regular, CTA Bilaterally Gastrointestinal: Yes: WNL, Normal Bowel Sounds Musculoskeletal: Yes: WNL Extremities: Yes: WNL Edema: No Peripheral Pulses WNL: Yes Integumentary: Yes: WNL Neurological: Yes: WNL, Alert, Oriented ...Motor Strength: WNL Psychiatric: Yes: WNL Problem List - Problems (1) AV graft thrombosis Assessment/Plan: For suction thrombectomy today Code(s): T82.868A - THROMBOSIS DUE TO VASCULAR PROSTH DEV/GRFT, INIT
[2019-07-03] MEDS ORDERED: ceFAZolin SODIUM 1 GM VIAL IVPB ONE (12:20)
[2019-07-03] MEDS ORDERED: LIDOCAINE HCL 2% (20ML MULTI-DOSE VIAL) ONE (12:23)
--- NOTE | 2019-07-03 12:38 | PN ---
Progress Note (short form) - Note Progress Note: Nephrology Note Mr. Quevedo was seen in the OR holding area. He offered no acute complaints. He presented with a clotted AVG that was not able to be used for dialysis yesterday. He was noted to have a potassium of 6. I had offered dialysis following the vascular surgery intervention but he had refused. It was explained to him that without dialysis we could not ensure that the potassium would be lowered and he was a risk of developing any arrhythmia or . He expressed understanding but continues to decline dialysis and says he will go for his regular treatment tomorrow at 6am. Pt can be given kayexalte 30g post OR today to moderate his potassium. This was discussed with Dr. Licona. Andrei Osorio DO
[2019-07-03] MEDS ORDERED: LIDOCAINE HCL 1%, 10 MG/ML (20ML VIAL) NR ONE (12:40)
[2019-07-03] MEDS ORDERED: SODIUM POLYSTYRENE SULFONATE 15 GM/60 ML BOTTLE PO ONE ×2 (12:41→16:00)
[2019-07-03] MEDS ORDERED: PROPOFOL 20 ML ONE (12:41)
--- NOTE | 2019-07-03 13:36 | OP ---
Operative Note - Note: Operative Date: 07/03/19 Pre-Operative Diagnosis: Clotted left avg Operation: Venogram, suction thrombectomy, venoplasty left avg Post-Operative Diagnosis: Same as Pre-op Surgeon: Terry Licona Anesthesia: Fractional Estimated Blood Loss (mls): 30 Operative Report Dictated: Yes
[2019-07-03 17:01] VITALS: BP 137/61; PULSE 79; TEMP 97.5
--- NOTE | 2019-07-24 13:01 | OP ---
DATE OF OPERATION: 07/03/2019 PREOPERATIVE DIAGNOSIS: Clotted left arteriovenous graft. POSTOPERATIVE DIAGNOSIS: Clotted left arteriovenous graft. PROCEDURE: Venogram, suction thrombectomy, venoplasty, left arteriovenous graft. SURGEON: Terry Neves DO ANESTHESIA: Fractional. BLOOD LOSS: 30 mL. INDICATION FOR PROCEDURE: Patient is an 89-year-old male that comes in with a clotted AV graft. He went to hemodialysis and got sent towards the ER. He now comes in through ambulatory surgery. Patient was consented for the procedure, understanding all risks, benefits and alternatives. DESCRIPTION OF PROCEDURE: Was then brought to the operating room. Once in the operating room placed on the operating table in the supine manner and the area of the left arm was prepped and draped in the sterile surgical manner. We then went ahead and under ultrasound guidance visualized that the proximal AV graft at the arterial anastomosis is patent and we went ahead and injected 10 mL of lidocaine 1% there. We then went ahead and used our micropuncture needle and punctured the proximal AV graft under ultrasound guidance. Micropuncture wire was inserted. Micropuncture sheath was inserted. A traditional short 6-[place] sheath was inserted. We then shot a venogram showing that the graft was clotted. We then went ahead and placed a 0.035 floppy guidewire and placed it into the central veins. We then used an suction thrombectomy catheter and performed suction thrombectomy of the entire graft and into the central veins, running the catheter twice. We then went ahead and shot a venogram showing that the graft was patent, but across the venous anastomosis there was a severe stenosis. We then went ahead and administered the patient 5000 units of IV heparin. We then went ahead and used an 8 x 8 [place] balloon and performed venoplasty of the outflow veins across the venous anastomosis. We then went ahead and used a 9 x 8 balloon and performed venoplasty of the outflow veins. Completion venogram now showed that the outflow veins were patent, the stent was patent and there was a good thrill in our AV graft. At this point we then shot a venogram of the graft and going across the arterial anastomosis and that was patent as well. So at this point we went ahead and took a 4-0 Biosyn stitch. A figure-of-8 stitch was placed around the sheath and the sheath was removed. There was a good thrill and bruit in our graft. Patient was transferred to PACU in stable condition. Total blood loss 30 mL. TERRY NEVES DO [id number]
== END 2019-07-03 17:55 | disposition home or self-care (01) ==
LOC: JASU-SURG 08:31
PROVIDERS: ATTEND Surgery Vascular Surgery
PROC: 057Y3ZZ Dilation of Upper Vein, Percutaneous Approach (ICD-10-PCS; principal; 2019-07-03 10:30)
DX: T82.858A Stenosis of other vascular prosthetic devices, implants and grafts, initial encounter (principal); I12.0 Hypertensive chronic kidney disease with stage 5 chronic kidney disease or end stage renal disease; N18.6 End stage renal disease; Z99.2 Dependence on renal dialysis
CPT/HCPCS: 36012; 37187; 37248; C1757; 36415; 76000-TC-FY; 82962; 84132; 94760; J1644

== ENCOUNTER 2019-09-23 12:08 | Inpatient (IN) | payer OTHER ==
--- NOTE | 2019-09-23 12:34 | PDOC ---
Rapid Medical Evaluation Time Seen by Provider: 09/23/19 12:17 Medical Evaluation: Allergies Allergy/AdvReac Type Severity Reaction Status Date / Time Penicillins Allergy Mild Rash Verified 07/02/19 14:38 09/23/19 12:32 CC: left facial pain/itching s/p hot pack use 1 week ago PE: left facial redness Orders: APAP Patient will proceed to ED for further evaluation. 09/23/19 12:34 Discharge Disposition - Diagnosis Facial pain - Referrals - Patient Instructions - Post Discharge Activity
[2019-09-23] MEDS ORDERED: ACETAMINOPHEN 325 MG TABLET (FP) PO ONE (12:35)
--- NOTE | 2019-09-23 12:46 | PDOC ---
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 Licona 2 months ago, last dialysis on Sunday, hard of hearing, presenting with SOB. Initial complaint was left facial pain and swelling 2/2 to heat pack applied one week ago, but on further investigation, patient states that he has been SOB for 3 days and had generalized fatigue for much longer. Missed Sunday dialysis session due to not feeling well. 40 pack-year history, last smoked in 1991. Endorses SOB, DE JESUS, generalized fatigue. Denies CP, abd pain, fevers/chills, N/V, urinary symptoms, sick contacts, recent travel. <Vicki Cuevas - Last Filed: 09/24/19 20:40> <Mima Monahan - Last Filed: 09/26/19 15:53> - General Chief Complaint: Shortness of Breath Stated Complaint: INJURY Time Seen by Provider: 09/23/19 12:17 Past History - Past Medical History Anemia: No Asthma: No Cancer: Yes (prostate 12yrs ago) Cardiac Disorders: No CVA: No COPD: No CHF: No Dementia: No Diabetes: No Dialysis: Yes (M,W,F) GI Disorders: Yes (BLEEDING ULCERS 1970) Disorders: No HTN: Yes Hypercholesterolemia: No Liver Disease: No Seizures: No Thyroid Disease: No - Surgical History Abdominal Surgery: Yes (80% STOMACH REMOVED FROM BLEEDING ULCERS 1970) Appendectomy: No Cardiac Surgery: No Cholecystectomy: No GI Surgery: No Lung Surgery: No Neurologic Surgery: No - Immunization History Immunization Up to Date: No - Psycho Social/Smoking Cessation Hx Smoking Status: Yes Smoking History: Former smoker Have you smoked in the past 12 months: No Number of Cigarettes Smoked Daily: 0 If you are a former smoker, when did you quit?: 1991 Information on smoking cessation initiated: No Hx Alcohol Use: No Drug/Substance Use Hx: No Substance Use Type: None Hx Substance Use Treatment: No <Vicki Cuevas - Last Filed: 09/24/19 20:40> <Mima Monahan - Last Filed: 09/26/19 15:53> - Past Medical History Allergies/Adverse Reactions: Allergies Allergy/AdvReac Type Severity Reaction Status Date / Time Penicillins Allergy Mild Rash Verified 09/23/19 12:37 latex Allergy Verified 09/23/19 12:38 Home Medications: Ambulatory Orders Amlodipine Besylate [Norvasc -] 10 mg PO DAILY #30 tablet 03/27/16 Pantoprazole Sodium [Protonix -] 40 mg PO DAILY 12/20/17 Atorvastatin Ca [Lipitor] 20 mg PO HS 03/20/18 Calcium Acetate 667 mg PO AC 03/20/18 Losartan Potassium 25 mg PO DAILY 03/20/18 Metoprolol Colon/Hydrochlorothiaz [Metoprolol ER-Hctz 100-12.5 mg] 100 each PO BID 03/20/18 Sodium Bicarbonate - 650 mg PO BID #60 tablet 10/02/18 Review of Systems - Review of Systems Comments:: 09/23/19 13:12 GENERAL/CONSTITUTIONAL: endorses generalized fatigue. Denies fever, chills, diaphoresis, malaise, loss of appetite, weight change HEAD, EYES, EARS, NOSE AND THROAT: denies rhinorrhea, nasal congestion, throat pain, throat swelling, difficulty swallowing, mouth swelling, ear pain, eye pain, visual changes NEUROLOGIC: denies headache, focal weakness or paresthesias, dizziness, unsteady gait, seizure, mental status changes, bladder or bowel incontinence CARDIOVASCULAR: denies chest pain, syncope, palpitations, irregular heart rate, lightheadedness, peripheral edema RESPIRATORY: endorses shortness of breath and dyspnea with exertion. Denies cough, wheezing, stridor, hemoptysis GASTROINTESTINAL: denies abdominal pain, abdominal distension, nausea, vomiting, diarrhea, constipation, melena, hematochezia GENITOURINARY: denies dysuria, frequency, urgency, hesitancy, hematuria, flank pain, genital pain MUSCULOSKELETAL: denies myalgia, arthralgia, joint swelling, back pain, neck pain SKIN: denies rash, itching, pallor HEMATOLOGIC/IMMUNOLOGIC: denies easy bleeding, easy bruising, lymphadenopathy, frequent infections ENDOCRINE: denies unexplained weight gain, unexplained weight loss, heat intolerance, cold intolerance PSYCHIATRIC: denies anxiety, depression, suicidal or homicidal ideation, hallucinations <Vicki Cuevas - Last Filed: 09/24/19 20:40> *Physical Exam - Vital Signs Last Vital Signs Temp Pulse Resp BP Pulse Ox 97.6 F 61 154/58 L 92 L 09/23/19 12:30 09/23/19 12:30 09/23/19 12:30 09/23/19 12:30 - Physical Exam 09/23/19 13:16 Gen: well-developed, well-nourished, NAD Neuro: AAOX4, CN II-XII intact, FTN intact, EOMI, PERRLA, 5/5 strength, SILT HEENT: atraumatic, normocephalic Neck: trachea midline, supple CV: regular rate, regular rhythm, systolic heart murmur Pulm: muffled heart sounds diffusely, end expiratory crackles Abd: soft, non-distended, non-tender MSK: full ROM, intact pulses Extr: no edema, no deformities, L AV fistula in place with palpable thrill Skin: warm, dry <Vicki Cuevas - Last Filed: 09/24/19 20:40> - Vital Signs Last Vital Signs Temp Pulse Resp BP Pulse Ox 97.5 F L 68 18 157/73 91 L 09/24/19 12:09 09/24/19 12:09 09/24/19 12:09 09/24/19 12:09 09/24/19 12:09 <Mima Monahan - Last Filed: 09/26/19 15:53> ED Treatment Course - LABORATORY CBC & Chemistry Diagram: 09/24/19 08:00 09/24/19 08:00 <Vicki Cuevas - Last Filed: 09/24/19 20:40> - LABORATORY CBC & Chemistry Diagram: 09/24/19 08:00 09/24/19 08:00 - ADDITIONAL ORDERS Additional order review: 09/23/19 13:35 RBC 4.38 MCV 96.7 H MCHC 31.1 L RDW 16.8 H MPV 8.3 Neutrophils % 66.4 Lymphocytes % 16.6 Monocytes % 13.0 H Eosinophils % 1.3 Basophils % 2.7 H - Medications Given in the ED: ED Medications Discontinued Medications Generic Name Dose Route Start Last Admin Trade Name Freq PRN Reason Stop Dose Admin Acetaminophen 650 mg 09/23/19 12:35 09/23/19 15:34 Tylenol - PO 09/23/19 12:36 Not Given ONCE ONE Amlodipine Besylate 10 mg 09/23/19 19:45 09/24/19 10:25 Norvasc - PO 10 mg DAILY KELSIE Administration Atorvastatin Calcium 20 mg 09/23/19 22:00 09/23/19 21:45 Lipitor - PO 20 mg HS KELSIE Administration Losartan Potassium 25 mg 09/23/19 19:45 09/24/19 10:25 Cozaar - PO 25 mg DAILY KELSIE Administration <Mima Monahan - Last Filed: 09/26/19 15:53> Medical Decision Making - Medical Decision Making 09/23/19 13:17 Concern for ACS v PNA v fluid overload 2/2 missed dialysis v new onset CHF. Less likely PE due to no recent immobilization or cancer, no tachycardia, no hemoptysis, no signs of DVT, no prior clots, and not the most likely diagnosis. Wells score is 0. - CBC, CMP - EKG, trop - CXR - N-terminal BNP - likely dialysis today 09/23/19 14:06 EKG sinus bradycardia at 59 bpm, poor baseline quality, left axis deviation, T wave inversion in V6, IL 186, QRS 94, QTc 483. 09/23/19 14:29 BNP >35,000, Cr 8.7, K 5. Trop negative. Discussed with Dr. Forbes, who states to f/u CXR, but likely will recommend dialysis today. 09/23/19 14:37 CXR with massive fluid overload. Will admit for dialysis. Patient amenable. <Vicki Cuevas - Last Filed: 09/24/19 20:40> Discharge - Discharge Information Problems reviewed: Yes <Vicki Cuevas - Last Filed: 09/24/19 20:40> - Admission Yes <Mima Monahan - Last Filed: 09/26/19 15:53> - Discharge Information Clinical Impression/Diagnosis: Fluid overload, ESRD (end stage renal disease) Condition: Fair
--- NOTE | 2019-09-23 13:02 | PDOC ---
Attending Attestation - Resident Resident Name: Vicki Cuevas - ED Attending Attestation I have performed the following: I have examined & evaluated the patient, The case was reviewed & discussed with the resident, I agree w/resident's findings & plan - HPI HPI: 09/23/19 13:01 89 yo M with a hx of HTN, HLD, prostate ca, CAD, ESRD (MWF dialysis; pt believed last HD was Sunday; hx of clogged left AV fistula repaired thrombectomy 05/2018 and 09/2018 and first placed in 04/2018, another occlusion 12/2018 that required suction thrombectomy) presenting with left facial pain / swelling, progressive SOB and generalized weakness x 3 days. He missed HD yesterday's session no f/c, cough, congestion no travel or sick contacts 09/23/19 13:48 - Physicial Exam PE: 09/23/19 13:47 Agree with the resident's HPI and PE as documented in the electronic medical record. NAD, well appearing, EOMI, PERRL, nl conjunctiva, anicteric; neck supple. lungs with bilateral basilar crackles, normal HR, +holosystolic murmur, abdomen soft nontender. no rebound, guarding. Back nontender. [place] x4, no focal neuro deficits. No peripheral edema. normal color for ethnicity, WWP. - Medical Decision Making 09/23/19 13:44 Vital Signs Temp Pulse Resp BP Pulse Ox 97.6 F 61 154/58 L 92 L 09/23/19 12:30 09/23/19 12:30 09/23/19 12:30 09/23/19 12:30 DDx SOB: ACS, arrhythmia. PE, PTX, CHF, COPD exac, pulmonary edema, pleurisy, pneumonia, viral syndrome. effusion. anemia, electrolyte/metabolic derangements. Considered but clinically doubt based on HPI and PE: Low suspicion for pulmonary embolism or dissection. more likely missed HD, and now fluid overloaded, will need HD basic labs and lytes with very elevated bnp >[id number], also with CXR showing b/l pulmonary vascular congestion, c/w fluid overloaded state, needs HD today EKG sinus bradycardia at 59 bpm,left axis deviation and LVH. no interval abnormalities, narrow QRS, ST and T wave segments and morphology normal. Nonspecific T wave abnormalities, unchanged from prior nephrology cs, Dr Devon Forbes likely Shortness of breath r/o CHF/Fluid overload/infectious process, ESRD on HD with missed dialysis 09/23/19 14:35 plan to admit for fluid overload, needs HD.
--- NOTE | 2019-09-23 13:24 | CONSULT ---
Consult - text type - Consultation Consultation Note: Renal consult for ESRD/Missed dialysis This is a 89 year old gentleman with history of ESRD on HD (MWF), hypertension who presented from home with shortness of breath, generlized weakness. He missed his last dialysis which was yesterday because he was not feeling well. Denies any chest pain, abdominal pain, fever or chills. No sick contacts. No N/V /D. Pt intially reported facial swelling to ED on presentation. PMHx: as above Allergies: NKDA Family Hx: NC Social Hx: No T/A/D ROS: As per HPI, all other pertinent ros negative Home Medications Medication Instructions Recorded Amlodipine Besylate [Norvasc -] 10 mg PO DAILY #30 tablet 03/27/16 Pantoprazole Sodium [Protonix -] 40 mg PO DAILY 12/20/17 Atorvastatin Ca [Lipitor] 20 mg PO HS 03/20/18 Calcium Acetate 667 mg PO AC 03/20/18 Losartan Potassium 25 mg PO DAILY 03/20/18 Metoprolol Colon/Hydrochlorothiaz 100 each PO BID 03/20/18 [Metoprolol ER-Hctz 100-12.5 mg] Sodium Bicarbonate - 650 mg PO BID #60 tablet 10/02/18 Vital Signs Temperature 97.6 F 09/23/19 12:30 Pulse Rate 61 09/23/19 12:30 Respiratory Rate Blood Pressure 154/58 L 09/23/19 12:30 O2 Sat by Pulse Oximetry (%) 92 L 09/23/19 12:30 Intake & Output 09/20/19 09/21/19 09/22/19 09/23/19 23:59 23:59 23:59 23:59 Weight 48.988 kg NAD awake and alert neck supple RRR, + murmur Dec BS, + rales left lung base soft NT/ND, no rebound or guarding trace LE edema, clubbing or cyanosis left upper arm AVF Labs pending CXR pending 89 year old gentleman with history of ESRD on HD (MWF), hypertension who presented from home with shortness of breath, generlized weakness. 1. Shortness of breath r/o CHF/Fluid overload/infectious process 2. ESRD on HD with missed dialysis 3. Hypertension 4. Facial swelling Will await laboratory studies and imaging studies may need dialysis today will follow up once studies are resulted. Andrei Osorio DO
[2019-09-23 13:55] LABS: BASO % 2.7 % (0-2.0); EOS % 1.3 % (0-4.5); HEMATOCRIT 42.3 % (35.4-49); HEMOGLOBIN 13.2 GM/dL (11.7-16.9); LYMPH % 16.6 % (8-40); MCH 30.1 pg (25.7-33.7); MCHC 31.1 g/dl (32.0-35.9); MEAN CELL VOLUME 96.7 fl (80-96); MEAN PLT VOLUME 8.3 fl (7.5-11.1); NEUT % 66.4 % (42.8-82.8); PLATELET COUNT 213 K/MM3 (134-434); RBC 4.38 M/mm3 (4.00-5.60); RDW 16.8 % (11.9-15.9); WHITE BLOOD COUNT 4.7 K/mm3 (4.0-10.0)
[2019-09-23 14:14] LABS: INR 1.09 (0.83-1.09); PROTHROMBIN TIME (PATIENT) 12.9 SEC (9.7-13.0)
[2019-09-23 14:24] LABS: ALBUMIN 3.2 g/dl (3.4-5.0); ALK PHOS 90 U/L (45-117); ANION GAP 15 MMOL/L (8-16); BILIRUBIN,TOTAL 0.3 mg/dL (0.2-1); BLOOD UREA NITROGEN 69.3 mg/dL (7-18); CALCIUM 7.7 mg/dL (8.5-10.1); CHLORIDE 108 mmol/L (98-107); CO2 19 mmol/L (21-32); GLUCOSE,RANDOM 89 mg/dL (74-106); N-TERMINAL BNP > 35000.0 pg/ml (5-450); SGOT/AST 19 U/L (15-37); SGPT/ALT 14 U/L (13-61); SODIUM 141 mmol/L (136-145); TOT PROT 7.1 g/dl (6.4-8.2)
[2019-09-23 14:29] LABS: CREATININE 8.7 mg/dL (0.55-1.3)
[2019-09-23] MEDS ORDERED: SODIUM CHLORIDE 250 ML IV PRN (14:33)
--- NOTE | 2019-09-23 15:09 | EKG ---
Test Reason : Blood Pressure : / mmHG Vent. Rate : 059 BPM Atrial Rate : 059 BPM P-R Int : 186 ms QRS Dur : 094 ms QT Int : 488 ms P-R-T Axes : 035 -33 084 degrees QTc Int : 483 ms SINUS BRADYCARDIA POSSIBLE LEFT ATRIAL ENLARGEMENT LEFT AXIS DEVIATION INFERIOR INFARCT , AGE UNDETERMINED ANTEROSEPTAL INFARCT (CITED ON OR BEFORE 02-OCT-2018) ABNORMAL ECG WHEN COMPARED WITH ECG OF 24-DEC-2018 15:35, QRS AXIS SHIFTED LEFT INFERIOR INFARCT IS NOW PRESENT T WAVE INVERSION NOW EVIDENT IN LATERAL LEADS Confirmed by MD VELASQUEZ, GRAHAM ([id number]) on 09/23/2019 3:09:27 PM Referred By: Confirmed By:GRAHAM ENG MD
[2019-09-23 16:48] VITALS: BMI 19.1
--- NOTE | 2019-09-23 19:54 | HP ---
Admitting History and Physical - Primary Care Physician PCP: Jenae Cazares - Admission Chief Complaint: SOB, Missed Dialysis History of Present Illness: 89 yo M with a hx of HTN, HLD, prostate ca, CAD, ESRD (MWF dialysis; pt believed last HD was Sunday; hx of clogged left AV fistula repaired thrombectomy 05/2018 and 09/2018 and first placed in 04/2018, another occlusion 12/2018 that required suction thrombectomy) presenting with left facial pain / swelling, progressive SOB and generalized weakness x 3 days. He missed HD yesterday's session History Source: Patient, Family Member Limitations to Obtaining History: No Limitations - Past Medical History KAYAK MAKER: Yes: Dementia, Other (Torrets syndrome) Cardiovascular: Yes: CHF, HTN Pulmonary: Yes: Other (Pulmonary congestion) Renal/: Yes: Renal Inusuff Heme/Onc: Yes: Anemia Musculoskeletal: Yes: Chronic low back pain, Osteoarthritis - Smoking History Smoking history: Former smoker Have you smoked in the past 12 months: No Aproximately how many cigarettes per day: 0 If you are a former smoker, when did you quit?: 1991 - Alcohol/Substance Use Hx Alcohol Use: No Home Medications - Allergies Allergies/Adverse Reactions: Allergies Allergy/AdvReac Type Severity Reaction Status Date / Time Penicillins Allergy Mild Rash Verified 09/23/19 12:37 latex Allergy Verified 09/23/19 12:38 - Home Medications Home Medications: Ambulatory Orders Amlodipine Besylate [Norvasc -] 10 mg PO DAILY #30 tablet 03/27/16 Pantoprazole Sodium [Protonix -] 40 mg PO DAILY 12/20/17 Atorvastatin Ca [Lipitor] 20 mg PO HS 03/20/18 Calcium Acetate 667 mg PO AC 03/20/18 Losartan Potassium 25 mg PO DAILY 03/20/18 Metoprolol Colon/Hydrochlorothiaz [Metoprolol ER-Hctz 100-12.5 mg] 100 each PO BID 03/20/18 Sodium Bicarbonate - 650 mg PO BID #60 tablet 10/02/18 Review of Systems - Review of Systems Constitutional: reports: Loss of Appetite, Weakness Physical Examination Vital Signs: Vital Signs Temperature 98 F 09/23/19 16:40 Pulse Rate 84 09/23/19 16:40 Respiratory Rate 18 09/23/19 16:40 Blood Pressure 172/70 H 09/23/19 16:40 O2 Sat by Pulse Oximetry (%) 93 L 09/23/19 16:12 Constitutional: Yes: Anxious, Cachectic, Mild Distress Eyes: Yes: Conjunctiva Clear, EOM Intact HENT: Yes: Atraumatic, Normocephalic Neck: Yes: Supple, Trachea Midline Cardiovascular: Yes: Regular Rate and Rhythm, S1, S2, S3 Respiratory: Yes: Regular, CTA Bilaterally Gastrointestinal: Yes: Normal Bowel Sounds, Soft Musculoskeletal: Yes: Joint Stiffness Edema: No Peripheral Pulses WNL: Yes Labs: CBC, BMP 09/23/19 13:35 09/23/19 13:35 Problem List - Problems (1) Afib Code(s): I48.91 - UNSPECIFIED ATRIAL FIBRILLATION (2) Anemia Code(s): D64.9 - ANEMIA, UNSPECIFIED (3) CAD (coronary artery disease) Code(s): I25.10 - ATHSCL HEART DISEASE OF [place] CORONARY ARTERY W/O ANG PCTRS (4) Cervical radiculopathy Code(s): M54.12 - RADICULOPATHY, CERVICAL REGION (5) Cervical stenosis of spine Code(s): M48.02 - SPINAL STENOSIS, CERVICAL REGION (6) ESRD (end stage renal disease) Code(s): N18.6 - END STAGE RENAL DISEASE (7) HTN (hypertension) Code(s): I10 - ESSENTIAL (PRIMARY) HYPERTENSION (8) Hemodialysis access, AV graft Code(s): Z99.2 - DEPENDENCE ON RENAL DIALYSIS (9) Metabolic acidosis Code(s): E87.2 - ACIDOSIS Assessment/Plan (1) H/O [place]/Bradycardia : Nowstable (2) Anemia Code(s): D64.9 - ANEMIA, UNSPECIFIED (3) CAD (coronary artery disease) Code(s): I25.10 - ATHSCL HEART DISEASE OF [place] CORONARY ARTERY W/O ANG PCTRS (4) Cervical radiculopathy Code(s): M54.12 - RADICULOPATHY, CERVICAL REGION (5) Cervical stenosis of spine Code(s): M48.02 - SPINAL STENOSIS, CERVICAL REGION (6) ESRD (end stage renal disease) Code(s): N18.6 - END STAGE RENAL DISEASE (7) HTN (hypertension) Code(s): I10 - ESSENTIAL (PRIMARY) HYPERTENSION (8) Hemodialysis access, AV graft Code(s): Z99.2 - DEPENDENCE ON RENAL DIALYSIS (9) Metabolic acidosis Code(s): E87.2 - ACIDOSIS Pt Missed dialysis Pt seen By Renal and Pt for HD
[2019-09-23] MEDS: amLODIPine BESYLATE 10 MG TABLET (FP) PO SCH (21:45)
[2019-09-23] MEDS: LOSARTAN POTASSIUM 25 MG TABLET PO SCH (21:45)
[2019-09-23] MEDS ORDERED: ATORVASTATIN CA 20 MG TABLET (FP) PO SCH (22:00)
--- NOTE | 2019-09-24 07:10 | PN ---
Progress Note, Physician History of Present Illness: Pt wanted to go Home discussed with Nephrology today spoke with daughter also Pt will FU with Me in offive09/25/19 at 2 pm Pt has all his meds spoke with Nurse on floor - Current Medication List Current Medications: Active Medications Amlodipine Besylate (Norvasc -) 10 mg PO DAILY [facility] Last Admin: 09/23/19 21:45 Dose: 10 mg Atorvastatin Calcium (Lipitor -) 20 mg PO HS [facility] Last Admin: 09/23/19 21:45 Dose: 20 mg Sodium Chloride (Normal Saline -) 250 mls @ 3,000 mls/hr IV PRN PRN PRN Reason: Hypotension during Dialysis Stop: 09/24/19 14:33 Losartan Potassium (Cozaar -) 25 mg PO DAILY [facility] Last Admin: 09/23/19 21:45 Dose: 25 mg - Objective Vital Signs: Vital Signs Temperature 98 F 09/23/19 16:40 Pulse Rate 72 09/24/19 00:37 Respiratory Rate 20 09/24/19 00:37 Blood Pressure 140/67 09/24/19 00:37 O2 Sat by Pulse Oximetry (%) 93 L 09/23/19 21:00 Constitutional: Yes: Anxious Eyes: Yes: Conjunctiva Clear, EOM Intact HENT: Yes: Atraumatic, Normocephalic, Pharyngeal Erythema Neck: Yes: Supple, Trachea Midline Cardiovascular: Yes: Regular Rate and Rhythm, S1, S2 Respiratory: Yes: Regular, CTA Bilaterally Labs: CBC, BMP 09/23/19 13:35 09/23/19 13:35 INR, PTT INR 1.09 (0.83-1.09) 09/23/19 13:35 Problem List - Problems (1) Afib Code(s): I48.91 - UNSPECIFIED ATRIAL FIBRILLATION (2) Anemia Code(s): D64.9 - ANEMIA, UNSPECIFIED (3) CAD (coronary artery disease) Code(s): I25.10 - ATHSCL HEART DISEASE OF [place] CORONARY ARTERY W/O ANG PCTRS (4) Cervical radiculopathy Code(s): M54.12 - RADICULOPATHY, CERVICAL REGION (5) Cervical stenosis of spine Code(s): M48.02 - SPINAL STENOSIS, CERVICAL REGION (6) ESRD (end stage renal disease) Code(s): N18.6 - END STAGE RENAL DISEASE (7) HTN (hypertension) Code(s): I10 - ESSENTIAL (PRIMARY) HYPERTENSION (8) Hemodialysis access, AV graft Code(s): Z99.2 - DEPENDENCE ON RENAL DIALYSIS (9) Metabolic acidosis Code(s): E87.2 - ACIDOSIS Assessment/Plan (1) H/O [place]/Bradycardia : Nowstable (2) Anemia Code(s): D64.9 - ANEMIA, UNSPECIFIED (3) CAD (coronary artery disease) Code(s): I25.10 - ATHSCL HEART DISEASE OF [place] CORONARY ARTERY W/O ANG PCTRS (4) Cervical radiculopathy Code(s): M54.12 - RADICULOPATHY, CERVICAL REGION (5) Cervical stenosis of spine Code(s): M48.02 - SPINAL STENOSIS, CERVICAL REGION (6) ESRD (end stage renal disease) Code(s): N18.6 - END STAGE RENAL DISEASE (7) HTN (hypertension) Code(s): I10 - ESSENTIAL (PRIMARY) HYPERTENSION (8) Hemodialysis access, AV graft Code(s): Z99.2 - DEPENDENCE ON RENAL DIALYSIS (9) Metabolic acidosis Code(s): E87.2 - ACIDOSIS Pt Missed dialysis Pt seen By Renal and Pt for HD Pt wanted to go home FU with me in office on at 2 pm
[2019-09-24 09:24] LABS: BASO % 1.4 % (0-2.0); HEMOGLOBIN 13.8 GM/dL (11.7-16.9); MCHC 31.4 g/dl (32.0-35.9); MEAN CELL VOLUME 95.5 fl (80-96); MEAN PLT VOLUME 8.3 fl (7.5-11.1); MONO % 12.8 % (3.8-10.2); NEUT % 65.8 % (42.8-82.8); PLATELET COUNT 139 K/MM3 (134-434); RBC 4.61 M/mm3 (4.00-5.60); RDW 16.2 % (11.9-15.9); WHITE BLOOD COUNT 5.5 K/mm3 (4.0-10.0)
[2019-09-24 10:11] LABS: BLOOD UREA NITROGEN 36.2 mg/dL (7-18); CREATININE 6.1 mg/dL (0.55-1.3); POTASSIUM 4.5 mmol/L (3.5-5.1)
[2019-09-24] MEDS: LOSARTAN POTASSIUM 25 MG TABLET PO SCH (10:25)
[2019-09-24] MEDS: amLODIPine BESYLATE 10 MG TABLET (FP) PO SCH (10:25)
--- NOTE | 2019-09-24 11:49 | PN ---
Progress Note (short form) - Note Progress Note: Renal follow up for ESRD on HD Seen and examined at the bedside awake and alert s/p dialysis yesterday with 2.5L UF no sob or cough today no chest pain, fever or chills has reddness on left side of face Vital Signs Temperature 97.7 F 09/24/19 04:00 Pulse Rate 73 09/24/19 04:00 Respiratory Rate 18 09/24/19 04:00 Blood Pressure 146/69 09/24/19 04:00 O2 Sat by Pulse Oximetry (%) 93 L 09/23/19 21:00 Intake & Output 09/21/19 09/22/19 09/23/19 09/24/19 23:59 23:59 23:59 23:59 Intake Total 800 Output Total 3000 Balance -2200 Weight 53.547 kg NAD awake and alert neck supple RRR, + murmur Dec BS lung base, no rales soft NT/ND, no rebound or guarding trace LE edema, clubbing or cyanosis left upper arm AVF CBC, BMP 09/24/19 08:00 09/24/19 08:00 Current Medications Amlodipine Besylate (Norvasc -) 10 mg PO DAILY [facility] Last Admin: 09/24/19 10:25 Dose: 10 mg Atorvastatin Calcium (Lipitor -) 20 mg PO HS [facility] Last Admin: 09/23/19 21:45 Dose: 20 mg Sodium Chloride (Normal Saline -) 250 mls @ 3,000 mls/hr IV PRN PRN PRN Reason: Hypotension during Dialysis Stop: 09/24/19 14:33 Losartan Potassium (Cozaar -) 25 mg PO DAILY [facility] Last Admin: 09/24/19 10:25 Dose: 25 mg 89 year old gentleman with history of ESRD on HD (MWF), hypertension who presented from home with shortness of breath, generlized weakness. 1. Shortness of breath r/o CHF/Fluid overload/infectious process 2. ESRD on HD with missed dialysis 3. Hypertension 4. Facial swelling s/p urgent dialysis yesterday for management of fluid overload. Clinically improved today. Pt should maintain a 1.2L daily fluid restriction. Can resume dialysis on Sunday. No contraindication to discharge today. Left sided facial rash noted, unclear etiology. If it does not resolve can consider shingles rash. Case discussed with PMD. Awaiting discharge today. Andrei Osorio DO
[2019-09-24 14:15] VITALS: BP 157/73; PULSE 68; TEMP 97.5
== END 2019-09-24 13:37 | disposition home or self-care (01) | DRG 640 ==
LOC: JER 12:08 → JERBED 14:37 → J5S 16:13
PROVIDERS: ADMIT Internal Medicine; ATTEND Internal Medicine
PROC: 5A1D70Z Performance of Urinary Filtration, Intermittent, Less than 6 Hours Per Day (ICD-10-PCS; principal; 2019-09-23)
DX: E87.70 Fluid overload, unspecified (principal); N18.6 End stage renal disease; I13.2 Hypertensive heart and chronic kidney disease with heart failure and with stage 5 chronic kidney disease, or end stage renal disease; E87.2 Acidosis; R00.1 Bradycardia, unspecified; I25.10 Atherosclerotic heart disease of native coronary artery without angina pectoris; E78.5 Hyperlipidemia, unspecified; F03.90 Unspecified dementia, unspecified severity, without behavioral disturbance, psychotic disturbance, mood disturbance, and anxiety; M54.5 Low back pain; D64.9 Anemia, unspecified; M54.12 Radiculopathy, cervical region; M48.02 Spinal stenosis, cervical region; I48.91 Unspecified atrial fibrillation; I50.9 Heart failure, unspecified; R21 Rash and other nonspecific skin eruption; Z99.2 Dependence on renal dialysis; Z85.46 Personal history of malignant neoplasm of prostate
CPT/HCPCS: 36415; 71045-TC-FY; 80048; 80053; 82550; 83880; 84484; 85025; 85610; 85730; 86803; 87340; 93005; 93010; 99285-25